=== PATIENT | female | born 1945 | race Caucasian/White ===

== ENCOUNTER 2020-05-12 11:01 | Outpatient (CLI) | payer MEDICARE, SELFPAY ==
--- NOTE | ~2020-05-12 | MM_ITS ---
EXAMINATION: MM screening bill BI w marco antonio HISTORY: Screening mammogram TECHNIQUE: Craniocaudal and mediolateral oblique 3-D tomosynthesis images were obtained and synthetic 2-D images were generated. CAD analysis was submitted and interpreted. COMPARISON: 03/01/2019, 03/31/2017, 04/13/2015 bilateral digital screening mammogram examinations BREAST PARENCHYMAL COMPOSITION: The breasts are almost entirely fatty. FINDINGS: There is no evidence of suspicious mass, calcification, or architectural distortion to sugg est malignancy in either breast. There has been no suspicious interval change. IMPRESSION: 1. No mammographic evidence of malignancy. 2. Recommend routine screening mammography in one year. BI-RADS Category 1: Negative Reviewed, dictated and finalized at location A. IC HEALTH ANALYST
== END 2020-05-12 11:02 | disposition home or self-care (01) ==
LOC: ANHIMG 11:03
PROVIDERS: PCP Family Medicine; Visit Provider Family Medicine
DX: Z12.31 Encounter for screening mammogram for malignant neoplasm of breast (principal)
CPT/HCPCS: 77063; 77067

== ENCOUNTER 2020-09-10 08:24 | Outpatient (CLI) | payer MEDICARE, SELFPAY ==
[2020-09-10 08:50] LABS: Hematocrit 39.5 % (37.0-47.0); Hemoglobin 12.3 g/dL (12.0-15.0); Mean Corpuscular HGB Conc 31.1 g/dl (32-36); Mean Corpuscular Hemoglobin 27.9 pg (26-34); Mean Corpuscular Volume 89.6 fl (80-100); Mean Platelet Volume 9.7 fl (7.4-10.4); Platelet Count Result 244 k/mm3 (150-375); Red Blood Count 4.41 M/mm3 (4.2-5.4); Red Cell Distribution Width 14.5 % (11.5-14.5); White Blood Count 8.6 K/mm3 (4.5-10.0)
[2020-09-10 08:59] LABS: Add Urine Microscopic? YES; Appearance Urine Clear (Clear); Bacteria Urine Trace /hpf; Bilirubin Urine Negative (Negative); Blood Urine Negative (Negative); Color Urine Yellow (Yellow); Glucose Urine UA Negative (Negative); Ketones Urine Negative (Negative); Leukocyte Esterase Ur 1+ LEU/UL (NEGATIVE); Mucus Urine Rare /lpf; Nitrate Urine Negative (Negative); Protein Urine Negative (Negative); RBC Urine 0-2 /hpf (0-2); Specific Grav Ur 1.014 (1.001-1.035); Squamous Epithelial Cell Urine Rare /hpf (Few); Urobilinogen Urine Negative mg/dL (<2.0); WBC Urine 0-3 /hpf (0-3)
[2020-09-10 09:13] LABS: Alanine Aminotransferase 19 U/L (4-35); Albumin Level 4.3 g/dL (3.5-5.1); Alkaline Phosphatase 55 U/L (38-126); Anion Gap 3 mmol/L (8-16); Aspartate Amino Transferase 24 U/L (14-36); Bilirubin,Total 0.3 mg/dL (0.2-1.3); Blood Urea Nitrogen 27 mg/dL (7-17); Calcium 9.7 mg/dL (8.4-10.2); Carbon Dioxide 34 mmol/L (22-30); Chloride 103 mmol/L (98-107); Cholesterol 171 mg/dL (0-200); Estimated Glomerular Filt Rate 49; Glucose 109 mg/dL (65-105); HDL Direct 50 mg/dL; Potassium 4.4 mmol/L (3.4-5.0); Sodium 140 mmol/L (137-145); Triglycerides 213 mg/dL (<150)
[2020-09-10 09:24] LABS: LDL Cholesterol Direct 72 mg/dL
[2020-09-10 09:42] LABS: Hemoglobin A1C 6.1 % (<5.7)
[2020-09-10 10:43] LABS: MALB Creatinine Ratio 12.1 mg/g (0-30); Microalbumin Urine Random 8.8 mg/L (0-16.7)
== END 2020-09-10 08:25 | disposition home or self-care (01) ==
LOC: ANHLAB 08:25
PROVIDERS: PCP Family Medicine; Visit Provider Family Medicine
DX: K76.0 Fatty (change of) liver, not elsewhere classified (principal); E78.2 Mixed hyperlipidemia; E11.59 Type 2 diabetes mellitus with other circulatory complications; Z00.00 Encounter for general adult medical examination without abnormal findings
CPT/HCPCS: 36415; 80053; 80061; 81001; 82043; 83036; 84443; 85027

== ENCOUNTER → 2020-09-13 09:37 | Outpatient (CLI) | payer MEDICARE, SELFPAY ==
--- NOTE | ~2020-09-13 | CT_ITS ---
EXAMINATION: CT lung screening DATE: 09/13/2020 10:25 INDICATION: Hx of tobacco dependence TECHNIQUE: Computed tomography (CT) of the chest was performed without intravenous contrast. Addition al 3D reconstructions utilizing coronal maximum intensity projection (MIP) were performed. Automated exposure control and iterative reconstruction technique were employed. The dose-length product was 34 3.67 mGy-cm. COMPARISON: 12/14/2018 FINDINGS: Consisting is a large calcified nodule in the left lower lobe along with large calcified left hilar l ymph nodes at a few small splenic calcifications, all consistent with old granulomatous disease. Unch anged mild linear atelectasis/scarring at the lingula. No pneumonia, new or enlarging pulmonary nodul es, pulmonary edema or pleural effusion. Heart size is normal. Atherosclerotic coronary artery calcif ications. Aortic valve calcification. Thoracic aorta is normal in caliber. No pathologically enlarged thoracic lymphadenopathy. Moderate thoracic and lower cervical spondylosis. IMPRESSION: 1. . Lung-RADS category 1: Negative. Continue annual screening with noncontrast low-dose chest CT in 12 months. Reviewed, dictated and finalized at location A.
== END ==
PROVIDERS: PCP Family Medicine; Visit Provider Family Medicine
DX: Z12.2 Encounter for screening for malignant neoplasm of respiratory organs (principal); Z87.891 Personal history of nicotine dependence
CPT/HCPCS: 71271

== ENCOUNTER 2021-02-19 11:53 | Outpatient (CLI) | payer MEDICARE, SELFPAY ==
[2021-02-19 12:25] LABS: Hemoglobin A1C 6.3 % (<5.7)
[2021-02-19 12:30] LABS: Potassium 4.3 mmol/L (3.4-5.0)
[2021-02-19 12:45] LABS: Alanine Aminotransferase 22 U/L (4-35); Albumin Level 4.7 g/dL (3.5-5.1); Alkaline Phosphatase 57 U/L (38-126); Anion Gap 8 mmol/L (8-16); Aspartate Amino Transferase 26 U/L (14-36); Bilirubin,Total 0.2 mg/dL (0.2-1.3); Blood Urea Nitrogen 28 mg/dL (7-17); Calcium 10.1 mg/dL (8.4-10.2); Carbon Dioxide 30 mmol/L (22-30); Chloride 105 mmol/L (98-107); Estimated Glomerular Filt Rate 48; Glucose 88 mg/dL (65-110); Sodium 143 mmol/L (137-145)
== END 2021-02-19 11:54 | disposition home or self-care (01) ==
PROVIDERS: PCP Family Medicine; Visit Provider Family Medicine
DX: E11.59 Type 2 diabetes mellitus with other circulatory complications (principal)
CPT/HCPCS: 36415; 80053; 83036

== ENCOUNTER 2021-08-27 11:35 | Outpatient (CLI) | payer MEDICARE, SELFPAY ==
[2021-08-27 11:53] LABS: Hematocrit 35.2 % (37.0-47.0); Mean Corpuscular HGB Conc 31.3 g/dl (32-36); Mean Corpuscular Hemoglobin 27.6 pg (26-34); Mean Corpuscular Volume 88.4 fl (80-100); Mean Platelet Volume 9.8 fl (7.4-10.4); Platelet Count Result 255 k/mm3 (150-375); Red Blood Count 3.98 M/mm3 (4.2-5.4); Red Cell Distribution Width 15.1 % (11.5-14.5); White Blood Count 10.8 K/mm3 (4.5-10.0)
[2021-08-27 12:03] LABS: Alanine Aminotransferase 19 U/L (4-35); Albumin Level 4.4 g/dL (3.5-5.1); Alkaline Phosphatase 70 U/L (38-126); Anion Gap 7 mmol/L (8-16); Aspartate Amino Transferase 32 U/L (14-36); Bilirubin,Total 0.3 mg/dL (0.2-1.3); Blood Urea Nitrogen 32 mg/dL (7-17); Calcium 9.8 mg/dL (8.4-10.2); Carbon Dioxide 30 mmol/L (22-30); Chloride 103 mmol/L (98-107); Estimated Glomerular Filt Rate 40; Glucose 107 mg/dL (65-110); Hemoglobin A1C 6.1 % (<5.7); Potassium 4.2 mmol/L (3.4-5.0); Sodium 140 mmol/L (137-145)
== END 2021-08-27 11:36 | disposition home or self-care (01) ==
PROVIDERS: PCP Family Medicine; Visit Provider Family Medicine
DX: E11.59 Type 2 diabetes mellitus with other circulatory complications (principal); I10 Essential (primary) hypertension; R00.0 Tachycardia, unspecified
CPT/HCPCS: 36415; 80053; 83036; 84443; 85027

== ENCOUNTER 2021-09-04 08:37 | Outpatient (CLI) | payer MEDICARE, SELFPAY ==
--- NOTE | ~2021-09-04 | MM_ITS ---
EXAMINATION: MM screening bill BI w marco antonio HISTORY: Screening mammogram TECHNIQUE: Craniocaudal and mediolateral oblique 3-D tomosynthesis images were obtained and synthetic 2-D images were generated. CAD analysis was submitted and interpreted. COMPARISON: 05/12/2020, 03/01/2019, 03/31/2017 bilateral screening mammogram examinations BREAST PARENCHYMAL COMPOSITION: The breasts are almost entirely fatty. FINDINGS: There is no evidence of suspicious mass, calcification, or architectural distortion to sugg est malignancy in either breast. There has been no suspicious interval change. IMPRESSION: 1. No mammographic evidence of malignancy. 2. Recommend routine screening mammography in one year. BI-RADS Category 1: Negative Reviewed, dictated and finalized at location A.
== END 2021-09-04 08:38 | disposition home or self-care (01) ==
LOC: ANHIMG 08:40
PROVIDERS: PCP Family Medicine; Visit Provider Family Medicine
DX: Z12.31 Encounter for screening mammogram for malignant neoplasm of breast (principal)
CPT/HCPCS: 77063; 77067

== ENCOUNTER → 2021-09-27 02:13 | Outpatient (CLI) | payer MEDICARE, SELFPAY ==
[2021-09-27 10:56] LABS: Influenza A QL RT-PCR Negative (Negative); Influenza B QL RT-PCR Negative (Negative); SARS-CoV-2 RNA PCR Positive
== END ==
PROVIDERS: PCP Family Medicine; Visit Provider Family Medicine
DX: U07.1 COVID-19 (principal); R50.9 Fever, unspecified
CPT/HCPCS: 87502; C9803; U0003; U0005

== ENCOUNTER 2021-09-27 07:25 | Outpatient (CLI) | payer MEDICARE, SELFPAY ==
--- NOTE | 2021-09-27 13:43 | WPDPFTINT ---
PFT Procedure Performed PFT Procedure Performed Spirometry with Pre/Post Bronchodilator Plethysmography (Lung Vol) Diffusing Cap (DLCO) Flow Vol Loop PFT Interpretation This is a pulmonary function test with pre and post-bronchodilator spirometry, plethysmography and diffusing capacity. The test was performed and results interpreted in accordance with the 2019 and 2005 ATS/ERS Task Force guidelines respectively using the Global Lung Function Initiative-2012 reference equations. Patient demonstrated good effort and cooperation. Reproducibility criteria were met. The quality of the pre bronchodilator spirometry maneuver was Grade A and post bronchodilator spirometry maneuver was Grade A. Findings: Spirometry: There is decreased maximal expiratory airflow at all lung volumes with concave expiratory flow tracing. The pre bronchodilator FVC is 1.93 L, 67% predicted. The pre bronchodilator FEV1 is 1.25 L, 57% predicted. The pre bronchodilator FEV1: FVC ratio 65%. The post bronchodilator FVC is 2.08 L, representing an 8% increase. The post bronchodilator FEV1 is 1.42 L, representing a 180 mL increase which corresponds to a 13% increase. The post bronchodilator FEV1: FVC ratio is 68%. Plethysmography: The total lung capacity is 5.63 L, 105% predicted. The functional residual capacity is 3.85 L, 124% predicted. The residual volume is 3.48 L, 145% predicted. Diffusing capacity: The diffusing capacity unadjusted for hemoglobin and carboxyhemoglobin is 17.8, 86% predicted. The diffusing capacity adjusted for alveolar volume is 4.66, 113% predicted. Impression: There is a moderately severe obstructive abnormality without significant improvement after inhaling a single dose of albuterol as the absolute increase in post bronchodilator FEV1 was less than 200 mL. The increase in residual volume is consistent with air trapping from an obstructive abnormality. The diffusing capacity is normal. There are no prior studies for comparison
== END 2021-09-27 07:26 | disposition home or self-care (01) ==
PROVIDERS: PCP Family Medicine; Visit Provider Family Medicine
DX: R06.00 Dyspnea, unspecified (principal); R94.2 Abnormal results of pulmonary function studies
CPT/HCPCS: 87502; 94060; 94726; 94729; C9803; U0003; U0005

== ENCOUNTER 2022-01-21 16:55 | Outpatient (CLI) | payer MEDICARE, SELFPAY ==
[2022-01-21 17:19] LABS: Hematocrit 35.2 % (37.0-47.0); Mean Corpuscular HGB Conc 31.3 g/dl (32-36); Mean Corpuscular Hemoglobin 27.4 pg (26-34); Mean Corpuscular Volume 87.8 fl (80-100); Mean Platelet Volume 9.6 fl (7.4-10.4); Platelet Count Result 276 k/mm3 (150-375); Red Blood Count 4.01 M/mm3 (4.2-5.4); Red Cell Distribution Width 15.2 % (11.5-14.5); White Blood Count 9.3 K/mm3 (4.5-10.0)
[2022-01-21 17:29] LABS: Add Urine Microscopic? YES; Appearance Urine Clear (Clear); Bilirubin Urine Negative (Negative); Blood Urine 2+ (Negative); Color Urine Yellow (Yellow); Glucose Urine UA Negative (Negative); Ketones Urine Negative (Negative); Leukocyte Esterase Ur 3+ LEU/UL (NEGATIVE); Nitrate Urine Negative (Negative); Protein Urine Negative (Negative); Specific Grav Ur 1.015 (1.001-1.035); Urobilinogen Urine 0.2 mg/dL (<2.0); pH Urine 5.5 (5.0-9.0)
[2022-01-21 17:44] LABS: LDL Cholesterol Direct 69 mg/dL
[2022-01-21 17:50] LABS: Alanine Aminotransferase 25 U/L (6-35); Albumin Level 4.2 g/dL (3.5-5.1); Alkaline Phosphatase 67 U/L (38-126); Anion Gap 12 mmol/L (8-16); Aspartate Amino Transferase 25 U/L (14-36); Bilirubin,Total 0.3 mg/dL (0.2-1.3); Blood Urea Nitrogen 41 mg/dL (7-17); Calcium 10.4 mg/dL (8.4-10.2); Carbon Dioxide 28 mmol/L (22-30); Chloride 102 mmol/L (98-107); Cholesterol 170 mg/dL (0-200); Estimated Glomerular Filt Rate 31; Glucose 108 mg/dL (65-110); HDL Direct 44 mg/dL; Potassium 4.2 mmol/L (3.4-5.0); Sodium 142 mmol/L (137-145); Triglycerides 267 mg/dL (<150)
[2022-01-21 18:01] LABS: Bacteria Urine Trace /hpf; Mucus Urine Rare /lpf; RBC Urine >75 /hpf (0-2); Squamous Epithelial Cell Urine Occasional /hpf (Few); WBC Urine >75 /hpf (0-3)
== END 2022-01-21 16:56 | disposition home or self-care (01) ==
PROVIDERS: PCP Family Medicine; Visit Provider Family Medicine
DX: E11.59 Type 2 diabetes mellitus with other circulatory complications (principal); E78.2 Mixed hyperlipidemia; I10 Essential (primary) hypertension
CPT/HCPCS: 36415; 80053; 80061; 81001; 83036; 84443; 85027

== ENCOUNTER 2022-01-30 15:50 | Outpatient (CLI) | payer MEDICARE, SELFPAY ==
--- NOTE | ~2022-01-30 | CT_ITS ---
EXAMINATION:CT lung screening DATE: 01/30/2022 16:09 INDICATION: Personal history of nicotine dependence. Smoker who quit 12 years ago with 40 pack year h istory. TECHNIQUE: Computed tomography (CT) of the chest was performed without intravenous contrast. Automate d exposure control and iterative reconstruction technique were employed. The dose-length product (DLP ) was 249.00 mGy-cm. COMPARISON: Chest CT 09/13/2020 FINDINGS: The lungs demonstrate mild atelectasis. A calcified left lung nodule and calcified left hil ar lymph nodes are consistent with old granulomatous disease. There is a stable 3 mm nodule in left l ower lobe. There is a stable 2 mm nodule in left lower lobe. No pleural effusion. The heart size is n ormal. There are coronary artery calcifications. No pericardial effusion. Calcifications in the splee n are consistent with old granulomatous disease. There is moderate thoracic spondylosis. There is mil d chronic height loss of T6 vertebral body. IMPRESSION: 1. Lung-RADS category 2: Benign appearance or behavior. Continue annual screening with noncontrast lo w-dose chest CT in 12 months. Reviewed, dictated and finalized at location A. IMPRESSION: 1. Lung-RADS category 2: Benign appearance or behavior. Continue annual screeni ng with noncontrast low-dose chest CT in 12 months.
== END 2022-01-30 15:51 | disposition home or self-care (01) ==
LOC: ANHIMG 15:58
PROVIDERS: PCP Family Medicine; Visit Provider Family Medicine
DX: Z12.2 Encounter for screening for malignant neoplasm of respiratory organs (principal); Z87.891 Personal history of nicotine dependence
CPT/HCPCS: 71271

== ENCOUNTER 2022-07-02 17:07 | Outpatient (CLI) | payer MEDICARE, SELFPAY ==
[2022-07-02 17:29] LABS: Basophils Absolute Auto 0.1 K/mm3 (0.0-0.1); Basophils Percent Auto 0.4 % (0.2-1.2); Eosinophils Absolute Auto 0.3 K/mm3 (0-0.3); Eosinophils Percent Auto 1.9 % (0-4.4); Hematocrit 32.5 % (37.0-47.0); Hemoglobin 10.2 g/dL (12.0-15.0); Immature Granulocyte Absolute 0.15 K/mm3 (0.00-0.031); Immature Granulocyte Percent A 0.9 % (0-0.5); Lymphocytes Absolute Auto 2.64 K/mm3 (0.9-3.2); Lymphocytes Percent Auto 16.6 % (18.3-44.2); Mean Corpuscular HGB Conc 31.4 g/dl (32-36); Mean Corpuscular Hemoglobin 27.9 pg (26-34); Mean Corpuscular Volume 88.8 fl (80-100); Mean Platelet Volume 8.9 fl (7.4-10.4); Monocytes Absolute Auto 1.2 K/mm3 (0.1-0.6); Monocytes Percent Auto 7.6 % (2.6-8.5); Neutrophils Absolute Auto 11.5 K/mm3 (1.3-6.7); Neutrophils Percent Auto 72.6 % (45.5-73.1); Platelet Count Result 328 k/mm3 (150-375); Red Blood Count 3.66 M/mm3 (4.2-5.4); Red Cell Distribution Width 15.1 % (11.5-14.5); White Blood Count 15.9 K/mm3 (4.5-10.0)
[2022-07-02 17:47] LABS: Alanine Aminotransferase 49 U/L (6-35); Albumin Level 3.8 g/dL (3.5-5.1); Alkaline Phosphatase 124 U/L (38-126); Anion Gap 6 mmol/L (8-16); Aspartate Amino Transferase 34 U/L (14-36); Bilirubin,Total 0.4 mg/dL (0.2-1.3); Blood Urea Nitrogen 32 mg/dL (7-17); Calcium 9.2 mg/dL (8.4-10.2); Carbon Dioxide 28 mmol/L (22-30); Chloride 104 mmol/L (98-107); Estimated Glomerular Filt Rate 31; Glucose 114 mg/dL (65-110); Sodium 138 mmol/L (137-145)
[2022-07-02 17:58] LABS: Hemoglobin A1C 5.9 % (<5.7)
== END 2022-07-02 17:08 | disposition home or self-care (01) ==
LOC: ANHLAB 17:09
PROVIDERS: PCP Family Medicine; Visit Provider Physician Assistant
DX: E11.59 Type 2 diabetes mellitus with other circulatory complications (principal); E78.2 Mixed hyperlipidemia; K76.0 Fatty (change of) liver, not elsewhere classified; I10 Essential (primary) hypertension; R00.0 Tachycardia, unspecified
CPT/HCPCS: 36415; 80053; 83036; 84443; 85025

== ENCOUNTER 2022-07-08 11:56 | Outpatient (NON) | payer MEDICARE, SELFPAY ==
[2022-07-08 14:51] LABS: Estimated Glomerular Filt Rate 29
[2022-07-08 15:03] LABS: Basophils Absolute Auto 0.1 K/mm3 (0.0-0.1); Basophils Percent Auto 0.4 % (0.2-1.2); Eosinophils Absolute Auto 0.2 K/mm3 (0-0.3); Eosinophils Percent Auto 1.7 % (0-4.4); Hematocrit 33.3 % (37.0-47.0); Hemoglobin 10.2 g/dL (12.0-15.0); Immature Granulocyte Absolute 0.07 K/mm3 (0.00-0.031); Immature Granulocyte Percent A 0.6 % (0-0.5); Lymphocytes Absolute Auto 3.27 K/mm3 (0.9-3.2); Lymphocytes Percent Auto 28.7 % (18.3-44.2); Mean Corpuscular HGB Conc 30.6 g/dl (32-36); Mean Corpuscular Volume 88.1 fl (80-100); Mean Platelet Volume 9.5 fl (7.4-10.4); Monocytes Absolute Auto 1.4 K/mm3 (0.1-0.6); Monocytes Percent Auto 12.2 % (2.6-8.5); Neutrophils Absolute Auto 6.4 K/mm3 (1.3-6.7); Neutrophils Percent Auto 56.4 % (45.5-73.1); Platelet Count Result 437 k/mm3 (150-375); Red Blood Count 3.78 M/mm3 (4.2-5.4); White Blood Count 11.4 K/mm3 (4.5-10.0)
== END 2022-07-08 11:57 | disposition home or self-care (01) ==
LOC: ANHLAB 08-04 11:57
PROVIDERS: Physician Assistant; PCP Family Medicine; Visit Provider Family Medicine
DX: D72.829 Elevated white blood cell count, unspecified (principal)
CPT/HCPCS: 85025

== ENCOUNTER 2022-07-09 16:39 | Outpatient (CLI) | payer MEDICARE, SELFPAY ==
[2022-07-09 17:34] LABS: Appearance Urine Clear (Clear); Bilirubin Urine Negative (Negative); Blood Urine 2+ (Negative); Color Urine Yellow (Yellow); Glucose Urine UA Negative (Negative); Ketones Urine Negative (Negative); Leukocyte Esterase Ur 1+ LEU/UL (NEGATIVE); Nitrate Urine Negative (Negative); Protein Urine Trace mg/dL (Negative); Specific Grav Ur 1.015 (1.001-1.035); Urobilinogen Urine 0.2 mg/dL (<2.0)
[2022-07-09 17:47] LABS: Bacteria Urine 4+ /hpf; Mucus Urine Rare /lpf; RBC Urine 21-50 /hpf (0-2); Squamous Epithelial Cell Urine Rare /hpf (Few)
[2022-07-09 18:07] LABS: Add Urine Microscopic? YES
== END 2022-07-09 16:40 | disposition home or self-care (01) ==
LOC: ANHLAB 16:41
PROVIDERS: PCP Family Medicine; Visit Provider Physician Assistant
DX: D72.829 Elevated white blood cell count, unspecified (principal); R31.9 Hematuria, unspecified; R06.02 Shortness of breath; I12.9 Hypertensive chronic kidney disease with stage 1 through stage 4 chronic kidney disease, or unspecified chronic kidney disease; E11.22 Type 2 diabetes mellitus with diabetic chronic kidney disease; N18.4 Chronic kidney disease, stage 4 (severe); E78.2 Mixed hyperlipidemia
CPT/HCPCS: 81001; 87077; 87086; 87186

== ENCOUNTER 2022-07-17 14:22 | Outpatient (CLI) | payer MEDICARE, SELFPAY ==
[2022-07-17 15:01] LABS: Estimated Glomerular Filt Rate 26
== END 2022-07-17 14:23 | disposition home or self-care (01) ==
PROVIDERS: PCP Family Medicine; Visit Provider Physician Assistant
DX: R06.09 Other forms of dyspnea (principal); D72.829 Elevated white blood cell count, unspecified
CPT/HCPCS: 85025

== ENCOUNTER 2022-12-23 15:02 | Outpatient (CLI) | payer MEDICARE, SELFPAY ==
--- NOTE | ~2022-12-23 | MM_ITS ---
EXAMINATION: MM screening bill BI w marco antonio HISTORY: Screening mammogram TECHNIQUE: Craniocaudal and mediolateral oblique 3-D tomosynthesis images were obtained and synthetic 2-D images were generated. CAD analysis was submitted and interpreted. COMPARISON: 09/04/2021, 05/12/2020 BREAST PARENCHYMAL COMPOSITION:There are scattered areas of fibroglandular density. FINDINGS: No suspicious mass, calcification, or architectural distortion are identified in either christian ast to suggest malignancy. There has been no suspicious interval change. IMPRESSION: No mammographic evidence of malignancy. Recommend routine screening mammography in one year. BI-RADS Category 1: Negative Reviewed, dictated and finalized at location .
== END 2022-12-23 15:03 | disposition home or self-care (01) ==
PROVIDERS: PCP Family Medicine; Visit Provider Family Medicine
DX: Z12.31 Encounter for screening mammogram for malignant neoplasm of breast (principal)
CPT/HCPCS: 77063; 77067

== ENCOUNTER 2023-01-13 12:01 | Outpatient (CLI) | payer MEDICARE, SELFPAY ==
--- NOTE | ~2023-01-13 | XR_ITS ---
EXAMINATION: XR foot RT min 3V DATE: 01/13/2023 12:31 INDICATION: Right foot pain and swelling TECHNIQUE: Dorsoplantar, two oblique and lateral views of the right foot were obtained. COMPARISON: None. FINDINGS: Bone alignment is normal. No fracture. Polyarticular osteoarthritis, moderate severity at the first i nterphalangeal and third proximal interphalangeal joints and mild at the majority the remaining joint s in the mid and forefoot. Juxta articular erosion with sclerotic margins and overhanging edges at th e medial head of the first proximal phalanx with appearance most suggestive of gout. Additional small er erosions at the lateral side of the head of the first proximal phalanx and adjacent lateral base o f the first distal phalanx. Moderate-sized Achilles and plantar calcaneal spurs. Soft tissues are unr emarkable. IMPRESSION: 1. Erosions at the great toe with appearance and location is most suggestive of gout. 2. Mild to moderate polyarticular osteoarthritis in the right mid and forefoot. Reviewed, dictated and finalized at location A.
== END 2023-01-13 12:02 | disposition home or self-care (01) ==
LOC: ANHIMG 12:07
PROVIDERS: PCP Family Medicine; Visit Provider Physician Assistant
DX: M79.89 Other specified soft tissue disorders (principal); M79.674 Pain in right toe(s); M79.671 Pain in right foot; M19.071 Primary osteoarthritis, right ankle and foot
CPT/HCPCS: 73630

== ENCOUNTER 2023-01-31 09:54 | Outpatient (CLI) | payer MEDICARE, SELFPAY ==
--- NOTE | ~2023-01-31 | CT_ITS ---
CT Scan of the Chest without Contrast: Clinical Indication: Lung cancer screening, smoking history Technique: Contiguous sections were acquired throughout the chest without intravenous contrast. Dose reduction technique was used on this scan by utilizing automated exposure control and iterative recon struction technique. The dose-length product (DLP) was 305.49 mGy-cm. COMPARISON: 01/30/2022 and 09/13/2020 Findings: There is no evidence of any significant mediastinal, hilar or axillary lymphadenopathy. Calcified lef t hilar lymph nodes are present. Atherosclerotic calcifications of the aorta are present. There is no evidence of pleural or pericardial effusion. Large calcified left basilar granuloma is present. There is focal scarring at the right lung base. Th ere is additional focal scarring at the lingula. Images through the upper abdomen reveal no abnormalities. Impression: Lung RADS 2: Benign appearance. 12 month follow-up screening CT advised. Reviewed, dictated and finalized at [facility]. Impression: Lung RADS 2: Benign appearance. 12 month follow-up screening CT advised.
== END 2023-01-31 09:55 | disposition home or self-care (01) ==
LOC: ANHIMG 09:58
PROVIDERS: PCP Family Medicine; Visit Provider Physician Assistant
DX: Z12.2 Encounter for screening for malignant neoplasm of respiratory organs (principal); Z87.891 Personal history of nicotine dependence
CPT/HCPCS: 71271

== ENCOUNTER 2024-04-04 11:41 | Outpatient (CLI) | payer MEDICARE, SELFPAY ==
[2024-04-04 12:19] LABS: Hematocrit 29.7 % (37.0-47.0); Hemoglobin 9.1 g/dL (12.0-15.0); Mean Corpuscular HGB Conc 30.6 g/dl (32-36); Mean Corpuscular Hemoglobin 27.4 pg (26-34); Mean Corpuscular Volume 89.5 fl (80-100); Mean Platelet Volume 9.7 fl (7.4-10.4); Platelet Count Result 336 k/mm3 (150-375); Red Blood Count 3.32 M/mm3 (4.2-5.4); Red Cell Distribution Width 15.1 % (11.5-14.5); White Blood Count 9.9 K/mm3 (4.5-10.0)
[2024-04-04 12:32] LABS: Alanine Aminotransferase 15 U/L (6-35); Albumin Level 4.1 g/dL (3.5-5.1); Alkaline Phosphatase 106 U/L (38-126); Anion Gap 8 mmol/L (4-12); Aspartate Amino Transferase 23 U/L (14-36); Bilirubin,Total 0.4 mg/dL (0.2-1.3); Blood Urea Nitrogen 47 mg/dL (7-17); Calcium 9.8 mg/dL (8.4-10.2); Carbon Dioxide 26 mmol/L (22-30); Chloride 105 mmol/L (98-107); Cholesterol 156 mg/dL (0-200); Estimated Glomerular Filt Rate 24; Glucose 96 mg/dL (65-110); HDL Direct 42 mg/dL; Potassium 4.2 mmol/L (3.4-5.0); Sodium 139 mmol/L (137-145); Triglycerides 226 mg/dL (<150)
[2024-04-04 12:42] LABS: LDL Cholesterol Direct 60 mg/dL
[2024-04-04 13:13] LABS: Hemoglobin A1C 5.9 % (<5.7)
[2024-04-04 13:31] LABS: Creatinine Urine 87.9 mg/dL
[2024-04-04 13:38] LABS: MALB Creatinine Ratio 53.1 mg/g (0-30); Microalbumin Urine Random 46.7 mg/L (0-16.7)
== END 2024-04-04 11:42 | disposition home or self-care (01) ==
PROVIDERS: PCP Family Medicine; Visit Provider Family Medicine
DX: E11.59 Type 2 diabetes mellitus with other circulatory complications (principal); E78.2 Mixed hyperlipidemia; I12.9 Hypertensive chronic kidney disease with stage 1 through stage 4 chronic kidney disease, or unspecified chronic kidney disease; E11.22 Type 2 diabetes mellitus with diabetic chronic kidney disease; N18.4 Chronic kidney disease, stage 4 (severe); Z68.28 Body mass index [BMI] 28.0-28.9, adult
CPT/HCPCS: 36415; 80053; 80061; 82043; 83036; 84443; 85027

== ENCOUNTER 2024-08-19 12:03 | Outpatient (NON) | payer MEDICARE, SELFPAY ==
--- OUTSIDE RECORDS SUMMARY | 2024-08-19 12:40 | XMS_ITS | Clinical Summary ---
Author Organization [facility] Facility Address [address] [place] [address] Care Team Providers Care Prison Warden Name Role Phone Misael Montaño MD Primary Care Provider [phone] Allergies Active Allergy Reactions Criticality Noted Date Comments Adhesive Tape 07/29/2022 Antihistamines, Diphenhydramine-Type Rash Low 07/29/2022 Aspirin 07/29/2022 Clindamycin GI intolerance 07/29/2022 Doxycycline 07/29/2022 Indomethacin Vomiting High 07/29/2022 Salicylates Rash Low 07/29/2022 Sulfamethizole 07/29/2022 Trimethoprim 07/29/2022 Medications Cabool 3 1000 MG capsule Take 1 capsule by mouth 1 (one) time each day Active lisinopril 20 MG tablet Take 20 mg by mouth 1 (one) time each day Active atorvastatin (LIPITOR) 40 MG tablet Take 40 mg by mouth 1 (one) time each day Active metFORMIN XR (GLUCOPHAGE-XR) 500 MG 24 hr tablet Take 500 mg by mouth 1 (one) time each day with dinner Do not crush, chew, or split. Active Multiple Vitamin (multivitamin) capsule Take 1 capsule by mouth in the morning. Active Active Problems No known active problems Family History Medical History Relation Comments Heart disease Father No Known Problems Mother Kidney disease Sister 1 No Known Problems Sister 2 Relation Status Comments Father Mother Sister 1 Sister 2 Alive Social History Tobacco Use Types Packs/Day Years Used Date Smoking Tobacco: Former Cigarettes 0.8 50 Smokeless Tobacco: Never Tobacco Cessation:Counseling Given: Not Answered Alcohol Use Standard Drinks/Week Comments Not Currently 0 (1 standard drink = 0.6 oz pur e alcohol) Comments Unknown Sex and Gender Information Value Date Recorded Sex Assigned at Not on file Legal Sex Female 1:57 PM EST Gender Identity Not on file Sexual Orientation Not on file Last Filed Vital Signs Vital Sign Reading Time Taken Comments Blood Pressure 109/76 09/29/2022 4:25 PM CDT Pulse 107 09/29/2022 4:25 PM CDT Temperature 36.8 C (98.2 F) 09/29/2022 4:25 PM CDT Respiratory Rate - - Oxygen Saturation 93% 09/29/2022 4:25 PM CDT Inhaled Oxygen Concentration - - Weight 84.6 kg (186 lb 8 oz) 09/29/2022 4:25 PM CDT Height 167.6 cm (5' 6 ) 09/29/2022 4:25 PM CDT Body Mass Index 30.1 09/29/2022 4:25 PM CDT Plan of Treatment Health Maintenance Due Date Last Done Comments Pneumococcal Vaccine: 65+ Ye ars (1 of 2 - PCV) 12/05/1951 Influenza Vaccine (#1) 2024 Hepatitis B Vaccine Aged Out No longe r eligible based on patient's age to complete this topic Insurance [id number] MEDICARE Care Teams Prison Warden Relationship Specialty Start Date End Date Misael Montaño MD [address] [place] [address] PCP - General Family Medicine 07/29/22
--- OUTSIDE RECORDS SUMMARY | 2024-08-19 12:40 | XMS_ITS | Continuity of Care Document ---
Author Organization [facility] Address [id number] [place] [address] [address] [place] [address] Phone Care Team Providers Care Excellence Consultant Name Role Phone Hardy RICHEY, Alfred Unavailable Unavaila ble Procedures Procedure Date CATARACT SURG W/IOL, 1 STAGE CATARACT SURG W/IOL, 1 STAGE EYE EXAM, NEW PATIENT OPHTHALMIC BIOMETRY OPHTHALMIC BIOMETRY Advance Directives Directive Yes / No Effective Date File Name No Information Encounters Encounter Description Practice Location Reason(s) For Visit Diagnoses Date Provider Providers Copied on Encounter Ophthalmology [facility], [address] [facility], [place], [place], [address], tel:[phone] [place] [address] No Information 9 Hardy Simon. [address], [address], [place], [place], [address], [place]. tel:[phone] Referring Provider: Alfred benítez, [address], [place], [address] . tel:[phone] Ophthalmology [facility], [address] [place], [place] [address], [place], [place], [address], tel:[phone] [address] [place] [address] No Information 9 Hardy Smion. [address], [address], [place], [place], [address], [place]. tel:[phone] Referring Provider: Alfred benítez, [address], [place], [address] . tel:[phone] [facility], [address], [place], [place], [address], [place] tel:[phone] LIZZETTE Chambers No Information 9 Hardy Simon. [address], [address], [place], [place], [address], . tel:[phone] Referring Provider: Alfred benítez, [address], [place], [address] . tel:[phone] Family History Family Member Type Diagnosis Age At Onset No Information Payers Payer name Insurance type Covered republican ID Authoriza tion(s) Medicare Complete Advantage [facility] [id number] Social History Type Description Quantity Date Captured [...]
--- OUTSIDE RECORDS SUMMARY | 2024-08-19 12:40 | XMS_ITS | Clinical Summary ---
Author Organization [facility] Address [address] [place] [address] Care Team Providers Care Color Maker Name Role Phone Misael Montaño MD Primary Care Provider Allergies Active Allergy Reactions Criticality Noted Date Comments Aspirin Stomach upset Reaction: GI UPSET, Medications omega-3 fatty acids-fish oil 300-1,000 mg capsule Take 2 g by mouth daily. Active multivitamin capsule Take 1 capsule by mouth daily. Active lisinopril (PRINIVIL,ZESTR IL) 10 mg tablet Take 10 mg by mouth daily. Active atorvastatin (LIPITOR) 10 mg tablet Take 10 mg by mouth daily. Active oxybutynin (DITROPAN) 5 mg tablet Take 5 mg by mouth 2 (two) times a day. Active metFORMIN (GLUCOPHAGE) 500 mg tablet Take 500 mg by mouth 2 (two) times a day with meals. 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 Gender Identity Not on file Sexual Orientation Not on file Obstetrics History Last Filed Vital Signs Vital Sign Reading Time Taken Comments Blood Pressure 118/61 02/09/2018 11:55 AM CDT Pulse 84 02/09/2018 11:55 AM CDT Temperature 36.7 C (98 F) 02/09/2018 10:05 AM CDT Respiratory Rate 20 02/09/2018 11:55 AM CDT Oxygen Saturation 97% 02/09/2018 11:55 AM CDT Inhaled Oxygen Concentration - - Weight 97.1 kg (214 lb) 02/09/2018 10:05 AM CDT Height 167.6 cm (5' 6 ) 02/09/2018 10:05 AM CDT Body Mass Index 34.54 02/09/2018 10:05 AM CDT Plan of Treatment Health Maintenance Due Date Last Done Comments Depression Screening 1945 Fall Risk Assessment 1945 Hepatitis C Screening 1945 Osteoporosis Screening-Bone Density Scan 1945 DTaP/Tdap/Td Vaccine (1 - Tdap) 1956 Hepatitis B Screening 12/05/1963 Pneumococcal vaccine 65+ (1 of 1 - PCV) 12/05/1995 Zoster Vaccine (1 of 2) 12/05/1995 Well Visit 65+ 2010 Influenza Vaccine (#1) 2024 0, 03/30/2017, 04/12/2015, Additional history exists Colon Cancer Screening-CT Colonography Discontinued 02/09/2018, 09/16/2013 Colon Cancer Screening-Colonoscopy Discontinued 02/09/2018, 09/16/2013 Colon Cancer Screening-DNA Stool Discontinued 02/10/20 18, 09/16/2013 Colon Cancer Screening-FIT Discontinued 02/09/2018, Colon Cancer Screening-FOBT Discontinued 02/09/2018, 0 09/16/2013 Colon Cancer Screening-Sigmoidoscopy Discontinued 02/09/2018, 09/16/2013 Colorectal Cancer Screening Discontinued Procedures Procedure Name Priority Date/Time Associated Diagnosis Comments COLONOSCOPY 02/09/2018 10:41 AM CDT from Last 3 Months or Most Recently Relevant to Health Maintenance Results * COLONOSCOPY (02/09/2018 10:41 AM CDT) Anatomical Region Laterality Modality Other Narrative Procedure Note Warren Perkins MD - 02/09/2018 10:41 AM CDT [facility] Patient Name: Connie Ambrose Procedure Date: 02/09/2018 10:41 AM Date of : 1945 Admit Type: Outpatient Age: 72 Gender: Female Attending MD: Warren Perkins M.D. [facility] Note Status: Finalized Procedure: Colonoscopy Indications: Last colonoscopy: August 2013, Positive Cologuardtest Referring MD: Misael Montaño MD Providers: Warren Perkins M.D. Impression: - Hemorrhoids found on perianal exam. - Diverticulosis in the sigmoid colon. - No specimens collected. Recommendation: - Discharge patient to home. - Resume previous diet. - Continue present medications. - Repeat colonoscopy in 5 years for surveillance. - Return to primary care physician as previously scheduled. Medicines: Propofol per Anesthesia Complications: No immediate complications. Estimated Blood Loss: Estimated blood loss: none. Procedure: The benefits, risks and alternatives of theprocedure and sedation were discussed and informed consent was obtained. All questions were answered. Please referto the signed informed consent document in the medical record. The scope was passed under direct vision.The Colonoscope [id number] was introducedthrough the anus and advanced to the the cecum, identifiedby appendiceal orifice and ileocecal valve. The colonoscopy was performed without difficulty. The patient tolerated the procedure well. The quality of the bowel preparation was excellent. Findings: Hemorrhoids were found on perianal exam. Multiple small-mouthed diverticula were found in the sigmoid colon. The exam was otherwise normal throughout the examined colon. Electronically signed by Warren Perkins M.D. Warren Perkins M.D. 02/09/2018 11:18:34 AM Number of Addenda: 0 Note Initiated On: 02/09/2018 10:41 AM Procedure Code(s): --- Professional --- 54643, Colonoscopy, flexible; diagnostic, including collection of specimen(s) by brushing or washing, when performed (separateprocedure) Diagnosis Code(s): --- Professional --- K57.30, Diverticulosis of large intestine without perforation orabscess without bleeding R19.5, Other fecal abnormalities K64.9, Unspecified hemorrhoids CPT copyright 2017 [employer]. All rights reserved. The codes documented in this report are preliminary and upon remote coders reviewmay be revised to meet current compliance requirements. Recognized by the [employer] Gastro[employer] for promoting quality in endoscopy Warren Perkins MD ENDOSCOPY PROCEDURES Final Re sult from Last 3 Months or Most Recently Relevant to Health Maintenance [facility] UHC MEDICARE ADVANTAGE Advance Directives For more information, please contact: [phone] * Full Code (Latest Code Status on File) Date Activated Date Inactivated Comments 02/09/2018 9:55 AM 02/09/2018 2:01 PM Care Teams Color Maker Relationship Specialty Start Date End Date Misael Montaño MD [address] [facility] [address] [place] [address] PCP - General Family Medicine 01/12/18
--- OUTSIDE RECORDS SUMMARY | 2024-08-19 12:40 | XMS_ITS | Referral Summary ---
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 Gender Identity Not on file Sexual Orientation [...] 02/09/2018 10:05 AM CDT Plan of Treatment Not on file Procedures Procedure Name Priority Date/Time Associated Diagnosis Comments COLONOSCOPY 02/09/2018 10:41 AM CDT from Last 3 Months or Most Recently Relevant to Health Maintenance Results * COLONOSCOPY (02/09/2018 10:41 AM CDT) Anatomical Region Laterality Modality Other Narrative Procedure Note Warren Perkins MD - 02/09/2018 10:41 AM CDT [facility] Patient Name: Connie Ambrose Procedure Date: 02/09/2018 10:41 AM Date of : 1945 Admit Type: Outpatient Age: 72 Gender: Female Attending MD: Warren Perkins M.D. Room: [facility] ENDOSCOPY ROOM 1 Note Status: Finalized Procedure: [...] scope was passed under direct vision.The Colonoscope [id number] was introducedthrough the anus and advanced to [...] 10:41 AM Procedure Code(s): --- Professional --- 14252, Colonoscopy, flexible; diagnostic, including collection of specimen(s) by brushing or washing, when performed (separateprocedure) Diagnosis Code(s): --- Professional --- K57.30, Diverticulosis of large intestine without perforation orabscess without bleeding R19.5, Other fecal abnormalities K64.9, Unspecified hemorrhoids CPT copyright 2017 [employer]. All rights reserved. The codes documented in this report are preliminary and upon utility maintenance worker reviewmay be revised to meet current compliance requirements. Recognized by the [employer] Gastrointestinal [employer]oscopy for promoting quality in endoscopy Warren Perkins MD ENDOSCOPY PROCEDURES Final Re sult from Last 3 Months or Most Recently Relevant to Health Maintenance Insurance [facility] MDCR HMO REF UHC MEDICARE ADVANTAGE Advance Directives For more information, please contact: [phone] * Full Code (Latest Code Status on File) Date Activated Date Inactivated Comments 02/09/2018 9:55 AM 02/09/2018 2:01 PM Care Teams Cook Tortilla Relationship Specialty Start Date End Date Misael Montaño MD [address] [facility] [address] [place] [address] PCP - General Family Medicine 01/12/18
--- OUTSIDE RECORDS SUMMARY | 2024-08-19 12:40 | XMS_ITS | Continuity of Care Document ---
Author Organization [facility] Address [address] [place] [address] Phone Care Team Providers Care Fretted String Instrument Repairer Name Role Phone Saab OD, Arthur Unavailable Unavailable Advance Directives Directive Yes / No Effective Date File Name No Information Encounters Encounter Description Practice Location Reason(s) For Visit Diagnoses Date Provider Providers Copied on Encounter [facility], [address], [place], [place], [address], [place] tel:[phone] [facility] No Information [address] Saab OD Arthur. [address], [place], [address], [place]. tel:[phone] Family History Family Member Type Diagnosis Age [...]
[2024-08-19 13:12] LABS: Add Urine Microscopic? YES; Appearance Urine Clear (Clear); Bacteria Urine None Seen /hpf; Bilirubin Urine Negative (Negative); Blood Urine 2+ (Negative); Color Urine Yellow (Yellow); Glucose Urine UA Negative (Negative); Ketones Urine Negative (Negative); Leukocyte Esterase Ur 1+ LEU/UL (Negative); Need Manual Microscopic Reviewed; Nitrate Urine Negative (Negative); Non Pathogenic Casts 0-2; Protein Urine Negative (Negative); RBC Urine 21-50 /hpf (0-2); Specific Grav Ur 1.012 (1.001-1.035); Squamous Epithelial Cell Urine Occasional /hpf (Few); Urobilinogen Urine 0.2 mg/dL (<2.0); WBC Urine 0-5 /hpf (0-3)
== END 2024-08-19 12:04 | disposition home or self-care (01) ==
PROVIDERS: PCP Family Medicine; Visit Provider Physician Assistant
DX: R30.0 Dysuria (principal); N39.0 Urinary tract infection, site not specified
CPT/HCPCS: 81001; 87086

== ENCOUNTER 2024-10-05 13:42 | Outpatient (CLI) | payer MEDICARE, SELFPAY ==
--- OUTSIDE RECORDS SUMMARY | 2024-10-05 13:51 | XMS_ITS | Continuity of Care Document ---
Author Organization [facility] Address [address] [place] [address] Phone Care Team Providers Care Arc Welder Name Role Phone Saab OD, Arthur Unavailable Unavailable Advance Directives Directive Yes / No Effective Date File Name No Information Encounters Encounter Description Practice Location Reason(s) For Visit Diagnoses Date Provider Providers Copied on Encounter [facility], [address], [place], [place], [address], [place] tel:[phone] [facility] No Information 2-200 5 Saab OD Arthur. [address], [place], [address], [place]. tel:[phone] Family History Family Member Type Diagnosis Age At Onset No Information Payers Payer name Insurance type Covered constitution party ID Authoriza tion(s) No Information Social History [...]
--- OUTSIDE RECORDS SUMMARY | 2024-10-05 13:51 | XMS_ITS | Referral Summary ---
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 Patient Name: Connie Ambrose Procedure Date: 02/09/2018 10:41 AM Date of : 1945 Admit Type: Outpatient Age: 72 Gender: Female Attending MD: Warren Perkins M.D. Room: [facility] ENDOSCOPY ROOM 1 Note Status: Finalized Procedure: [...] scope was passed under direct vision.The Colonoscope [id number] was introducedthrough the anus and advanced to [...] 10:41 AM Procedure Code(s): --- Professional --- 02522, Colonoscopy, flexible; diagnostic, including collection of specimen(s) by brushing or washing, when performed (separateprocedure) Diagnosis Code(s): --- Professional --- K57.30, Diverticulosis of large intestine without perforation orabscess without bleeding R19.5, Other fecal abnormalities K64.9, Unspecified hemorrhoids CPT copyright 2017 [employer]. All rights reserved. The codes documented in this report are preliminary and upon bread room hand reviewmay be revised to meet current compliance requirements. Recognized by the [place] Gastrointestinal Endoscopy for promoting quality in endoscopy Warren Perkins MD ENDOSCOPY PROCEDURES Final Re sult from Last 3 Months or Most Recently Relevant to Health Maintenance Insurance [facility] MDCR HMO REF UHC MEDICARE ADVANTAGE Advance Directives For more information, please contact: [phone] * Full Code (Latest Code Status on File) Date Activated Date Inactivated Comments 02/09/2018 9:55 AM 02/09/2018 2:01 PM Care Teams Pharmacist Technician Relationship Specialty Start Date End Date Misael Montaño MD [address] [facility] [address] [place] [address] PCP - General Family Medicine 01/12/18
--- OUTSIDE RECORDS SUMMARY | 2024-10-05 13:51 | XMS_ITS | Clinical Summary ---
Author Organization [facility] Address [address] [place] [address] Care Team Providers Care Correctional Casework Specialist Name Role Phone Misael Montaño MD Primary Care Provider [phone] Allergies Active Allergy Reactions Criticality Noted Date Comments Adhesive Tape 07/29/2022 Antihistamines, Diphenhydramine-Type Rash Low 07/29/2022 Aspirin 07/29/2022 Clindamycin GI intolerance 07/29/2022 Doxycycline 07/29/2022 Indomethacin Vomiting High 07/29/2022 Salicylates Rash Low 07/29/2022 Sulfamethizole 07/29/2022 Trimethoprim 07/29/2022 Medications [place] 3 1000 MG capsule Take 1 capsule [...] Due Date Last Done Comments Pneumococcal Vaccine: 50+ Ye ars (1 of 2 - PCV) 1964 Influenza Vaccine (Season Ended) 2025 Hepatitis B Vaccine Aged Out No longe r eligible based on patient's age to complete this topic Insurance [id number] Medicare Care Teams Correctional Casework Specialist Relationship Specialty Start Date End Date Misael Montaño MD [address] [place] [address] PCP - General Family Medicine 07/29/22
--- OUTSIDE RECORDS SUMMARY | 2024-10-05 13:51 | XMS_ITS | Clinical Summary ---
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 Room: [facility] ENDOSCOPY ROOM 1 Note Status: Finalized Procedure: [...] scope was passed under direct vision.The Colonoscope [id number] was introducedthrough the anus and advanced to [...] 10:41 AM Procedure Code(s): --- Professional --- 94000, Colonoscopy, flexible; diagnostic, including collection of specimen(s) by brushing or washing, when performed (separateprocedure) Diagnosis Code(s): --- Professional --- K57.30, Diverticulosis of large intestine without perforation orabscess without bleeding R19.5, Other fecal abnormalities K64.9, Unspecified hemorrhoids CPT copyright 2017 [employer]. All rights reserved. The codes documented in this report are preliminary and upon braille coder reviewmay be revised to meet current compliance requirements. Recognized by the [employer] [employer] Gastrointestinal Endoscopy for promoting quality in endoscopy Warren Perkins MD ENDOSCOPY PROCEDURES Final Re sult from Last 3 Months or Most Recently Relevant to Health Maintenance [facility] UHC MEDICARE ADVANTAGE Advance Directives For more information, please contact: [phone] * Full Code (Latest Code Status on File) Date Activated Date Inactivated Comments 02/09/2018 9:55 AM 02/09/2018 2:01 PM Care Teams Door To Door Fundraising Collector Relationship Specialty Start Date End Date Misael Montaño MD [address] [facility] [address] [place] [address] PCP - General Family Medicine 01/12/18
--- OUTSIDE RECORDS SUMMARY | 2024-10-05 13:51 | XMS_ITS | Continuity of Care Document ---
Author Organization [facility] Address [address] [place] [address] [address] [place] [address] Phone Care Team Providers Care Level Vial Setter Name Role Phone Hardy RICHEY, Alfred Unavailable Unavaila ble Procedures Procedure Date CATARACT SURG W/IOL, 1 STAGE CATARACT SURG W/IOL, 1 STAGE EYE EXAM, NEW PATIENT OPHTHALMIC BIOMETRY OPHTHALMIC BIOMETRY Advance Directives Directive Yes / No Effective Date File Name No Information Encounters Encounter Description Practice Location Reason(s) For Visit Diagnoses Date Provider Providers Copied on Encounter Ophthal[facility], [address], [place], [place], [address], tel:[phone] [place] [address] No Information 9 Hardy Simon. [address], [place], [place], [address], [place]. tel:[phone] Referring Provider: Alfred benítez, [address], [place], [address] . tel:[phone] Ophthalmology [facility], [address] [place], [place] [address], [place], [place], [address], tel:[phone] [address] [place] [address] No Information 9 Hardy Simon. [address], [place], [place], [address], [place]. tel:[phone] Referring Provider: Alfred benítez, [address], [place], [address] . tel:[phone] [facility], [address], [place], [place], [address], [place] tel:[phone] LIZZETTE Chambers No Information 9 Hardy Simon. [address], [place], [place], [address], . tel:[phone] Referring Provider: Alfred benítez, [address], [place], [address] . tel:[phone] Family History Family Member Type Diagnosis Age At Onset No Information Payers Payer name Insurance type Covered libertarian ID Authoriza tion(s) Medicare Complete Advantage [facility] [id number] Social History Type Description Quantity Date Captured [...]
[2024-10-05 14:23] LABS: Hematocrit 30.2 % (37.0-47.0); Mean Corpuscular HGB Conc 29.8 g/dl (32-36); Mean Corpuscular Hemoglobin 26.5 pg (26-34); Mean Corpuscular Volume 88.8 fl (80-100); Mean Platelet Volume 9.3 fl (7.4-10.4); Platelet Count Result 344 k/mm3 (150-375); Red Cell Distribution Width 15.5 % (11.5-14.5); White Blood Count 10.8 K/mm3 (4.5-10.0)
[2024-10-05 14:30] LABS: Add Urine Microscopic? YES; Appearance Urine Cloudy (Clear); Bacteria Urine None Seen /hpf; Bilirubin Urine Negative (Negative); Blood Urine 1+ (Negative); Color Urine Yellow (Yellow); Glucose Urine UA Negative (Negative); Ketones Urine Negative (Negative); Leukocyte Esterase Ur 3+ LEU/UL (Negative); Nitrate Urine Negative (Negative); Non Pathogenic Casts 0-2; Protein Urine Negative (Negative); Specific Grav Ur 1.014 (1.001-1.035); Squamous Epithelial Cell Urine Occasional /hpf (Few); Urobilinogen Urine 0.2 mg/dL (<2.0); WBC Urine 21-50 /hpf (0-3)
[2024-10-05 16:38] LABS: Alanine Aminotransferase 21 U/L (6-35); Albumin Level 4.2 g/dL (3.5-5.1); Alkaline Phosphatase 88 U/L (38-126); Anion Gap 11 mmol/L (4-12); Aspartate Amino Transferase 29 U/L (14-36); Bilirubin,Total 0.3 mg/dL (0.2-1.3); Blood Urea Nitrogen 53 mg/dL (7-17); Calcium 9.8 mg/dL (8.4-10.2); Carbon Dioxide 25 mmol/L (22-30); Chloride 106 mmol/L (98-107); Estimated Glomerular Filt Rate 25; Glucose 98 mg/dL (65-110); Potassium 4.7 mmol/L (3.4-5.0); Sodium 142 mmol/L (137-145)
[2024-10-05 16:59] LABS: Creatinine Urine 88.3 mg/dL
[2024-10-05 17:03] LABS: MALB Creatinine Ratio 39.2 mg/g (0-30); Microalbumin Urine Random 34.6 mg/L (0-16.7)
[2024-10-05 18:37] LABS: Hemoglobin A1C 5.6 % (<5.7)
== END 2024-10-05 13:43 | disposition home or self-care (01) ==
LOC: ANHLAB 13:43
PROVIDERS: PCP Family Medicine; Visit Provider Family Medicine
DX: I12.9 Hypertensive chronic kidney disease with stage 1 through stage 4 chronic kidney disease, or unspecified chronic kidney disease (principal); N18.4 Chronic kidney disease, stage 4 (severe); E78.2 Mixed hyperlipidemia; E11.59 Type 2 diabetes mellitus with other circulatory complications
CPT/HCPCS: 36415; 80053; 81001; 82043; 83036; 84443; 85027

== ENCOUNTER 2025-02-10 14:57 | Outpatient (CLI) | payer MEDICARE, SELFPAY ==
--- OUTSIDE RECORDS SUMMARY | 2004-07-06 03:15 | XMS_ITS | Continuity of Care Document ---
Author Organization [facility] Address [address] [place] [address] Phone Care Team Providers Care 21 Dealer Name Role Phone Saab OD, Arthur Unavailable Unavailable Advance Directives Directive Yes / No Effective Date File Name No Information Encounters Encounter Description Practice Location Reason(s) For Visit Diagnoses Date Provider Providers Copied on Encounter [facility], [address], [place], [place], [address], [place] tel:[phone] [facility] No Information 2-200 5 Saab OD Arthur. [address] , [address], [place], [address], [place]. tel:[phone] Family History Family Member Type Diagnosis Age [...]
--- OUTSIDE RECORDS SUMMARY | 2019-04-15 01:10 | XMS_ITS | Continuity of Care Document ---
Author Organization [facility] Address [address] [place] [address] [address] [place] [address] Phone Care Team Providers Care Remote Sensing Advisor Name Role Phone Hardy RICHEY, Alfred Unavailable Unavaila ble Procedures Procedure Date CATARACT SURG W/IOL, 1 STAGE CATARACT SURG W/IOL, 1 STAGE EYE EXAM, NEW PATIENT OPHTHALMIC BIOMETRY OPHTHALMIC BIOMETRY Advance Directives Directive Yes / No Effective Date File Name No Information Encounters Encounter Description Practice Location Reason(s) For Visit Diagnoses Date Provider Providers Copied on Encounter Ophthalmology [facility], [address], [place], [place], [address], tel:[phone] [address] [place] [address] No Information 9 Hardy Simon. [address], [place], [place], [address], [place]. tel:[phone] Referring Provider: Alfred benítez, [address], [place], [address] . tel:[phone] Ophthalmology [facility], [address] [place], [place] [address] [address], [place], [place], [address], tel:[phone] [address] [place] [address] No Information 9 Hardy Simon. [address], [place], [place], [address], [place]. tel:[phone] Referring Provider: Alfred benítez, [address], [place], [address] . tel:[phone] [facility], [address], [place], [place], [address], [place] tel:[phone] [facility] No Information 9 Hardy Simon. [address], [place], [place], [address], . tel:[phone] Referring Provider: Alfred benítez, [address], [place], [address] . tel:[phone] Family History Family Member Type Diagnosis Age At Onset No Information Payers Payer name Insurance type Covered democrat ID Authoriza tion(s) Medicare Complete Advantage [facility] [id number] 200 [id number] Social History Type Description Quantity Date Captured [...]
--- OUTSIDE RECORDS SUMMARY | 2025-02-10 15:01 | XMS_ITS | Clinical Summary ---
Author Organization [facility] Medical Office Building B Address [address] [place] [address] Care Team Providers Care Lieutenant Fire Fighter Name Role Phone Misael Montaño MD Primary Care Provider Johnathan Booker MD Unavailable + [phone] Abby De Leon MD Unavailable [phone] Allergies Active Allergy Reactions Criticality Noted Date Comments Aspirin Stomach upset Reaction: GI UPSET, Medications omega-3 fatty acids-fish oil 300-1,000 mg capsule Take 2 capsules (2 g total) by mouth daily Active multivitamin capsule Take 1 capsule by mouth daily Active lisinopril (PRINIVIL,ZESTRIL) 10 mg tablet Take 1 tablet (10 mg total) by mouth daily Active atorvastatin (LIPITOR) 10 mg tablet Take 1 tablet (10 mg total) by mouth daily Active oxybutynin (DITROPAN) 5 mg tablet Take 1 tablet (5 mg total) by mouth 2 (two) times a day Active ondansetron ODT (ZOFRAN-ODT) 4 mg disintegrating tablet Take 1 tablet (4 mg total) by mouth every 8 (eight) hours as needed for nausea or vomiting 20 tablet 12/14/19 25 Active benzonatate (TESSALON) 100 mg capsuleIndications :Cough Take 1 capsule (100 mg total) by mouth 3 (three) times a day as needed for cough 20 capsule 12/29/19 25 Active dicyclomine (BENTYL) 10 mg capsule Take 1 capsule (10 mg total) by mouth 4 (four) times a day as needed (dyspepsia) 15 capsule 12/29/19 25 026 Active Additional Information Patient taking differently: 20 mgoral 4 times daily PRN, dyspepsia, Reported on 01/19/2025 miconazole 2 % powder Apply topically 2 (two) times a day 70 g 12/29/19 Active vancomycin (FIRVANQ) 50 mg/mL recon solnIndications:Cl ostridioides difficile infection Administer 2.5 mL (125 mg total) per feeding tube daily for 27 days, THEN 2.5 mL (125 mg total) every other day for 14 days, THEN 2.5 mL (125 mg total) every 3 (three) days. 01/11/20 25 025 Active levETIRAcetam (KEPPRA) 500 mg tablet Take 1 tablet (500 mg total) by mouth 2 (two) times a day 01/10/20 25 Active ferrous sulfate 325 mg (65 mg of elemental iron) tabletIndications: Iron Deficiency Anemia Take 1 tablet (325 mg total) by mouth daily with breakfast 01/10/20 25 026 Active HYDROcodone-acetam inophen (NORCO) 5-325 mg per tabletIndications: Pain Take 1 tablet by mouth every 6 (six) hours as needed for pain for up to 20 doses 20 tablet 01/16/20 Active ertapenem 1,000 mg in sterile water 10 mL IV syringeIndications :Abdominal/Pelvic Infection Infuse 10 mL (1,000 mg total) IV daily for 5 minutes for 18 doses at 120 mL/hr First dose 01/03/25. Stop date 01/21/2025 01/10/20 25 025 Active Problems Problem Noted Date Diagnosed Date Acute diverticulitis 01/19/2025 Assessment & Plan (01/19/2025 2:07 PM CDT): - see HPI - continue ertapenem 1 g IV daily x 2 weeks - continue weekly CBC w diff, BMP- Please fax results to [phone] - repeat CT scan abd/pelvis wo contrast (CrCl 21.8)- our office will schedule as soon as possible- final abx stop date TBD pending results - If evidence of persistent diverticulitis, will refer to [facility] Seizure 01/06/2025 Syncope and collapse 01/06/2025 Cervical spinal stenosis 01/06/2025 Weakness 12/30/2024 C. difficile colitis 12/26/2024 Diverticulitis 12/24/2024 Positive colorectal cancer screening using Colog uard test 01/12/2018 Overview (01/12/2018): Added automatically from request for surgery [id number] Encounters Date Type Department Care Team Description 01/31/2025 1:38 PM CDT - 01/31/2025 11:59 PM CDT Hospital Encounter [address] [address] Samuel Marie MD Discharge Disposition: Discharge to home or self care 01/27/2025 1:57 PM CDT - 01/27/2025 11:59 PM CDT Hospital Encounter [facility] Imaging and Radiology [address] [place] [address] Acute diverticulitis Discharge Disposition: Discharge to home or self care 01/19/2025 11:00 AM CDT Office Visit [facility] [address] [facility] [address] [place] [address] Lisa Wolfe NP Acute diverticulitis (Primary Dx) 01/15/2025 11:00 PM CDT - 01/15/2025 11:59 PM CDT Hospital Encounter [facility] Emergency, Room R Discharge Disposition: Discharge to home or self care 01/15/2025 6:59 PM CDT - 01/15/2025 11:07 PM CDT Emergency [facility] Emergency Department [address] [place] [id number] Antwon Ashley MD Fall, initial encounter (Primary Dx) Discharge Disposition: Discharge to penitentiary facility 01/06/2025 2:11 AM CDT - 01/09/2025 3:52 PM CDT Hospital Encounter [facility] [address] [place] [address] Lyle Morrison MD Huynh, Kiet T., MD Bezuneh, Abraham Deneke, MD Seizure (HCC) (Primary Dx); Syncope and collapse [R55]; Cervical spinal stenosis [M48.02] Discharge Disposition: Discharge to SNF 01/05/2025 2:56 AM CDT - 01/05/2025 4:25 AM CDT Emergency [facility] Emergency Department [address] [place] [address] Marino Molina MD Fall, initial encounter (Primary Dx) Discharge Disposition: Discharge to home or self care 01/05/2025 2:48 AM CDT - 01/05/2025 11:59 PM CDT Hospital Encounter [facility] Emergency, Room R Discharge Disposition: Discharge to home or self care 01/04/2025 Telephone [facility] [place] [address] [facility] [address] [place] [address] Salome Epperson LPN 12/30/2024 5:12 AM CDT - 01/02/2025 4:22 PM CDT Hospital Encounter [facility] [address] [place] [address] Lyle Morrison MD Kanumuri, Raghu, MD Singh, Arjun, MD Weakness (Primary Dx); Abdominal pain Discharge Disposition: Discharge to SNF 12/30/2024 5:00 AM CDT - 12/30/2024 11:59 PM CDT Hospital Encounter [facility] Emergency, Room R Discharge Disposition: Discharge to home or self care 12/30/2024 Home Infusion [facility] Home Infusion Therapy [address] [place] [address] [facility], located [facility] 12/28/2024 Plan of Care Documentation [facility] [address] [place] [address] 12/28/2024 Home Infusion [facility] Home [facility]fusion Therapy [address] [place] [address] Angelica Reinoso, [facility], located within [facility] Diverticulitis (Primary Dx) 12/27/2024 [facility] [address] [facility] [address] [place] [address] Mare Stephens LPN IV Antibx ([place] ) 12/24/2024 7:05 AM CDT - 12/28/2024 4:06 PM CDT Hospital Encounter [facility] [address] [place] [address] Lyle Morrison MD Davis, Cedric Emden II, MD Singh, Arjun, MD Diverticulitis (Primary Dx); Acute cystitis with hematuria; Weakness; C. difficile colitis; Illness, unspecified Discharge Disposition: Discharge to home or self care 12/13/2024 8:33 PM CDT - 12/13/2024 11:17 PM CDT Emergency [facility] Emergency Department [address] [place] [address] Lyle Morrison MD Diverticulitis (Primary Dx); Urinary tract infection with hematuria, site unspecified Discharge Disposition: Discharge to home or self care from Last 3 Months Surgical History Surgery Date Site/Laterality Comments COLONOSCOPY 09/16/2013 Social History Tobacco Use Types Packs/Day Years Used Date Smoking Tobacco: Never Passive Smoke Exposure: Never Smokeless Tobacco: Never Tobacco Cessation:Counseling Given: No Comments:N/a Social Connection and Isolation Panel Answer Date Recorded In a typical week, how many times do you talk on the phone with family, friends, or neighbors? More than three times a week 12/26/2024 How often do you get togethe r with friends or relatives? More than three times a week 12/26/2024 How often do you attend chur ch or uatsdin services? Never 12/26/2024 Do you belong to any clubs o r organizations such as mandaen groups, unions, fraternal or athletic groups, or school groups? No 12/26/2024 How often do you attend meet ings of the clubs or organizations you belong to? Never 12/26/2024 Are you , , di vorced, , never , or living with a partner? 12/26/2024 AUDIT-C Answer Date Recorded Q1: How often do you have a drink containing alcohol? Never 12/24/2024 Q2: How many drinks containi ng alcohol do you have on a typical day when you are drinking? Patient does not drink Q3: How often do you have si x or more drinks on one occasion? Never 12/24/2024 Overall Financial Resource Strain (CARDIA) Answe r Date Recorded How hard is it for you to pa y for the very basics like food, housing, medical care, and heating? Not very hard 12/26/2024 PRAPARE - Transportation Answer Date Re corded In the past 12 months, has l ack of transportation kept you from medical appointments or from getting medications? No 08/2024 In the past 12 months, has l ack of transportation kept you from meetings, work, or from getting things needed for daily living? No 12/26/2024 Housing Stability Vital Sign Answer Dom e Recorded In the last 12 months, was t here a time when you were not able to pay the mortgage or rent on time? No 12/26/2024 In the past 12 months, how m any times have you moved where you were living? 0 12/26/2024 At any time in the past 12 m [facility], were you homeless or living in a group home (including now)? No 12/26/2024 Social Connection and Isolation Panel Answer Date Recorded In a typical week, how many times do you talk on the phone with family, friends, or neighbors? More than three times a week 01/06/2025 How often do you get togethe r with friends or relatives? More than three times a week 01/06/2025 How often do you attend chur ch or uatsdin services? Never 01/06/2025 Do you belong to any clubs o r organizations such as mandaen groups, unions, fraternal or athletic groups, or school groups? No 01/06/2025 How often do you attend meet ings of the clubs or organizations you belong to? Never 01/06/2025 Are you , , di vorced, , never , or living with a partner? 01/06/2025 Overall Financial Resource Strain (CARDIA) Answe r Date Recorded How hard is it for you to pa y for the very basics like food, housing, medical care, and heating? Not very hard 01/06/2025 Hunger Vital Sign Answer Date Recorded Within the past 12 months, y ou worried that your food would run out before you got the money to buy more. Never true 01/07/20 25 Within the past 12 months, t he food you bought just didn't last and you didn't have money to get more. Never true 01/06/2025 PRAPARE - Transportation Answer Date Re corded In the past 12 months, has l ack of transportation kept you from medical appointments or from getting medications? No 12/23 In the past 12 months, has l ack of transportation kept you from meetings, work, or from getting things needed for daily living? No 01/06/2025 Housing Stability Vital Sign Answer Dom e Recorded In the last 12 months, was t here a time when you were not able to pay the mortgage or rent on time? No 01/06/2025 In the past 12 months, how m any times have you moved where you were living? 0 01/06/2025 At any time in the past 12 m [facility], were you homeless or living in a group home (including now)? No 01/06/2025 [facility] Utilities Answer Date Recorded In the past 12 months has th e electric, gas, oil, or water company threatened to shut off services in your home? No 01/06/2025 Personal Safety Answer Date Recorded Have you ever been in or are you currently in a harmful physical or emotional relationship or is someone making you feel afraid or unsafe? Denies 01/15/2025 Comments Unknown Sex and Gender Information Value Date Recorded Sex Assigned at Not on file Legal Sex Female 7:34 PM WIRE ANNE[employer]ER Gender Identity Not on file Sexual Orientation Not on file Obstetrics History Last Filed Vital Signs Vital Sign Reading Time Taken Comments Blood Pressure 127/77 01/15/2025 10:15 PM CDT Pulse 108 01/15/2025 10:15 PM CDT Temperature 37 C (98.6 F) 01/19/2025 11:01 AM CDT Respiratory Rate 20 01/15/2025 10:15 PM CDT Oxygen Saturation 93% 01/15/2025 10:15 PM CDT Inhaled Oxygen Concentration - - Weight 78 kg (172 lb) 01/19/2025 11:01 AM CDT pa tient in WC Height 167.6 cm (5' 6) 01/19/2025 11:01 AM CDT Body Mass Index 27.76 01/19/2025 11:01 AM CDT Plan of Treatment Upcoming Encounters Date Type Department Care Team (Late st Contact Info) Description 04/14/2025 12:00 PM WIRE ANNEALER Hospital Encounter [facility] [address] [place] [address] Gloria Amador MD [address] [place] [address] 04/14/2025 12:00 PM WIRE ANNEALER - 04/14/2025 12:30 PM WIRE ANNEALER Surgery [facility] [address] [place] [address] Gloria Amador MD [address] [place] [address] COLONOSCOPY Scheduled Procedures Name Priority Associated Diagnoses Date/Ti me COLONOSCOPY Diverticulitis 04/14/2025 12:00 PM WIRE ANNEALER Health Maintenance Due Date Last Done Comments Depression Screening 1945 Hepatitis C Screening 1945 Osteoporosis Screening-Bone Density Scan 1945 DTaP/Tdap/Td Vaccine (1 - Tdap) 1956 Hepatitis B Screening 12/05/1963 Zoster Vaccine (1 of 2) 12/05/1995 Well Visit 65+ 2010 Pneumococcal vaccine 65+ (2 of 2 - PCV) 05/27/2012 05/27/2011 Influenza Vaccine (#1) 2025 0, 03/30/2017, 04/16/2015, Additional history exists Fall Risk Assessment 01/09/2026 01/09/2025 Colon Cancer Screening-CT Colonography Discontinued 02/09/2018, 09/16/2013 Colon Cancer Screening-Colonoscopy Discontinued 02/09/2018, 09/16/2013 Colon Cancer Screening-DNA Stool Discontinued 02/10/20 18, 09/16/2013 Colon Cancer Screening-FIT Discontinued 02/09/2018, Colon Cancer Screening-FOBT Discontinued 02/09/2018, 0 09/16/2013 Colon Cancer Screening-Sigmoidoscopy Discontinued 02/09/2018, 09/16/2013 Colorectal Cancer Screening Discontinued Procedures Procedure Name Priority Date/Time Associated Diagnosis Comments EGFR STAT 01/31/2025 2:35 PM CDT DIFFERENTIAL AUTO STAT 01/31/2025 2:3 5 PM CDT CBC WITH AUTO DIFFERENTIAL STAT 01/31/2025 2:35 PM CDT BASIC METABOLIC PANEL STAT 01/31/2025 2:[address] ABDOMEN PELVIS WO CONTRAST Schedule Routine, Read Routine (OP Routine) 01/27/2025 2:22 PM CDT Acute diverticulitis XR SHOULDER LEFT 2 OR MORE VIEWS ED 01/15/2025 9:[address] CERVICAL SPINE WO CONTRAST ED 01/15/2025 7:[address] HEAD WO CONTRAST ED 01/15/2025 7 :30 PM CDT ECG 12-LEAD Routine 01/15/2025 7:03 PM CDT EGFR Routine 01/09/2025 5:51 AM CDT DIFFERENTIAL AUTO Routine 01/09/2025 5:5 1 AM CDT COMPREHENSIVE METABOLIC PANEL Routine 01/09/2025 5:51 AM CDT CBC WITH AUTO DIFFERENTIAL Routine 01/09/2025 5:51 AM CDT DIFFERENTIAL AUTO Routine 01/07/2025 9:5 6 AM CDT CBC WITH AUTO DIFFERENTIAL Routine 01/07/2025 9:56 AM CDT MRI CERVICAL SPINE WO CONTRAST IP Routine 01/06/2025 5:03 PM CDT MRI BRAIN WO CONTRAST IP Routine 01/06/2025 5:03 PM CDT EEG Routine 01/06/2025 11:21 AM CDT TROPONIN T HIGH-SENSITIVITY 6-HOUR Timed 01/06/2025 8:46 AM CDT TROPONIN T HIGH-SENSITIVITY 2-HOUR Timed 01/06/2025 4:[address] CERVICAL SPINE WO CONTRAST ED 01/06/2025 3:[address] HEAD WO CONTRAST ED 01/06/2025 3 :21 AM CDT ECG 12-LEAD Routine 01/06/2025 2:36 AM CDT EGFR STAT 01/06/2025 2:29 AM CDT DIFFERENTIAL AUTO STAT 01/06/2025 2:2 9 AM CDT TROPONIN T HIGH-SENSITIVITY SERIES (BASELINE, 2HR, 4HR, 6HR) Routine 01/06/2025 2:29 AM CDT PRO B-TYPE NATRIURETIC PEPTIDE STAT 01/06/2025 2:29 AM CDT MAGNESIUM Routine 01/06/2025 2:29 AM CDT SEPSIS LACTATE WITH REFLEX STAT 01/06/2025 2:29 AM CDT COMPREHENSIVE METABOLIC PANEL STAT 01/06/2025 2:29 AM CDT CBC WITH AUTO DIFFERENTIAL STAT 01/06/2025 2:[address] HEAD WO CONTRAST ED 01/05/2025 3 :[address] CERVICAL SPINE WO CONTRAST ED 01/05/2025 3:44 AM CDT EGFR STAT 01/05/2025 3:05 AM CDT DIFFERENTIAL AUTO STAT 01/05/2025 3:0 5 AM CDT COMPREHENSIVE METABOLIC PANEL STAT 01/05/2025 3:05 AM CDT CBC WITH AUTO DIFFERENTIAL STAT 01/05/2025 3:05 AM CDT ECG 12-LEAD STAT 01/05/2025 3:02 AM CDT LINE OK TO USE Routine 01/02/2025 4:05 PM CDT INSERT PICC LINE Routine 01/02/2025 4:05 PM CDT POCT GLUCOSE DEVICE Routine 01/02/2025 11:38 AM CDT POCT GLUCOSE DEVICE Routine 01/02/2025 7 :46 AM CDT EGFR Routine 01/02/2025 4:31 AM CDT DIFFERENTIAL AUTO Routine 01/02/2025 4:3 1 AM CDT CBC WITH AUTO DIFFERENTIAL Routine 01/02/2025 4:31 AM CDT COMPREHENSIVE METABOLIC PANEL Routine 01/02/2025 4:31 AM CDT POCT GLUCOSE DEVICE Routine 01/02/2025 2 :55 AM CDT POCT GLUCOSE DEVICE Routine 01/01/2025 8 :12 PM CDT POCT GLUCOSE DEVICE Routine 01/01/2025 4 :35 PM CDT POCT GLUCOSE DEVICE Routine 01/01/2025 11:26 AM CDT POCT GLUCOSE DEVICE Routine 01/01/2025 7 :31 AM CDT EGFR Routine 01/01/2025 3:37 AM CDT DIFFERENTIAL AUTO Routine 01/01/2025 3:3 7 AM CDT CBC WITH AUTO DIFFERENTIAL Routine 01/01/2025 3:37 AM CDT COMPREHENSIVE METABOLIC PANEL Routine 01/01/2025 3:37 AM CDT POCT GLUCOSE DEVICE Routine 01/01/2025 2 :42 AM CDT POCT GLUCOSE DEVICE Routine 12/31/2024 8 :23 PM CDT POCT GLUCOSE DEVICE Routine 12/31/2024 4 :23 PM CDT URINALYSIS, MICROSCOPIC ONLY STAT 12/31/2024 1:42 PM CDT URINALYSIS AND REFLEX TO MICROSCOPIC AND CULTURE STAT 12/31/2024 1:42 PM CDT POCT GLUCOSE DEVICE Routine 12/31/2024 11:32 AM CDT POCT GLUCOSE DEVICE Routine 12/31/2024 7 :26 AM CDT EGFR Routine 12/31/2024 4:33 AM CDT DIFFERENTIAL AUTO Routine 12/31/2024 4:3 3 AM CDT COMPREHENSIVE METABOLIC PANEL Routine 12/31/2024 4:33 AM CDT CBC WITH AUTO DIFFERENTIAL Routine 12/31/2024 4:33 AM CDT POCT GLUCOSE DEVICE Routine 12/31/2024 2 :28 AM CDT POCT GLUCOSE DEVICE Routine 12/30/2024 4 :35 PM CDT TROPONIN T HIGH-SENSITIVITY 6-HOUR STAT 12/30/2024 12:11 PM CDT POCT GLUCOSE DEVICE Routine 12/30/2024 11:43 AM CDT TROPONIN T HIGH-SENSITIVITY 6-HOUR Timed 12/30/2024 11:37 AM CDT TROPONIN T HIGH-SENSITIVITY 4-HR Timed 12/30/2024 8:46 AM CDT POCT GLUCOSE DEVICE Routine 12/30/2024 8 :37 AM CDT TROPONIN T HIGH-SENSITIVITY 2-HOUR Timed 12/30/2024 7:18 AM CDT XR CHEST 1 VIEW ED 12/30/2024 6:[address] ABDOMEN PELVIS WO CONTRAST ED 12/30/2024 6:02 AM CDT ECG 12-LEAD STAT 12/30/2024 5:23 AM CDT EGFR STAT 12/30/2024 5:21 AM CDT LIPASE STAT 12/30/2024 5:21 AM CDT DIFFERENTIAL AUTO STAT 12/30/2024 5:2 1 AM CDT TROPONIN T HIGH-SENSITIVITY SERIES (BASELINE, 2HR, 4HR, 6HR) Routine 12/30/2024 5:21 AM CDT PRO B-TYPE NATRIURETIC PEPTIDE STAT 12/30/2024 5:21 AM CDT MAGNESIUM Routine 12/30/2024 5:21 AM CDT COMPREHENSIVE METABOLIC PANEL STAT 12/30/2024 5:21 AM CDT CBC WITH AUTO DIFFERENTIAL STAT 12/30/2024 5:21 AM CDT LINE OK TO USE Routine 12/28/2024 2:15 PM CDT INSERT MIDLINE Routine 12/28/2024 2:15 PM CDT POCT GLUCOSE DEVICE Routine 12/28/2024 12:15 PM CDT POCT GLUCOSE DEVICE Routine 12/28/2024 7 :49 AM CDT POCT GLUCOSE DEVICE Routine 12/28/2024 2 :27 AM CDT POCT GLUCOSE DEVICE Routine 12/27/2024 8 :16 PM CDT POCT GLUCOSE DEVICE Routine 12/27/2024 5 :10 PM CDT POCT GLUCOSE DEVICE Routine 12/27/2024 12:01 PM CDT POCT GLUCOSE DEVICE Routine 12/27/2024 8:18 AM CDT EGFR Routine 12/27/2024 2:34 AM CDT DIFFERENTIAL AUTO Routine 12/27/2024 2:3 4 AM CDT COMPREHENSIVE METABOLIC PANEL Routine 12/27/2024 2:34 AM CDT CBC WITH AUTO DIFFERENTIAL Routine 12/27/2024 2:34 AM CDT POCT GLUCOSE DEVICE Routine 12/27/2024 2 :31 AM CDT POCT GLUCOSE DEVICE Routine 12/26/2024 8 :57 PM CDT POCT GLUCOSE DEVICE Routine 12/26/2024 4 :51 PM CDT POCT GLUCOSE DEVICE Routine 12/26/2024 12:10 PM CDT POCT GLUCOSE DEVICE Routine 12/26/2024 8 :14 AM CDT C. DIFFICILE TESTING STAT 12/26/2024 6:21 AM CDT HEMOGLOBIN AND HEMATOCRIT STAT 12/26/2024 5:36 AM CDT EGFR Routine 12/26/2024 2:13 AM CDT DIFFERENTIAL AUTO Routine 12/26/2024 2:1 3 AM CDT COMPREHENSIVE METABOLIC PANEL Routine 12/26/2024 2:13 AM CDT CBC WITH AUTO DIFFERENTIAL Routine 12/26/2024 2:13 AM CDT POCT GLUCOSE DEVICE Routine 12/26/2024 2 :12 AM CDT POCT GLUCOSE DEVICE Routine 12/25/2024 9 :07 PM CDT EGFR Routine 12/25/2024 2:12 AM CDT DIFFERENTIAL AUTO Routine 12/25/2024 2:1 2 AM CDT FERRITIN Routine 12/25/2024 2:12 AM CDT IRON PROFILE W/ IBC Routine 12/25/2024 2 :12 AM CDT HEMOGLOBIN A1C Routine 12/25/2024 2:12 AM CDT MAGNESIUM Routine 12/25/2024 2:12 AM CDT LIPID PANEL Routine 12/25/2024 2:12 AM CDT BASIC METABOLIC PANEL Routine 12/25/2024 2:12 AM CDT CBC WITH AUTO DIFFERENTIAL Routine 12/25/2024 2:12 AM CDT POCT GLUCOSE DEVICE Routine 12/25/2024 2 :04 AM CDT POCT GLUCOSE DEVICE Routine 12/24/2024 8 :41 PM CDT POCT GLUCOSE DEVICE Routine 12/24/2024 7 :42 PM CDT ECG 12-LEAD Routine 12/24/2024 7:32 PM CDT POCT GLUCOSE DEVICE Routine 12/24/2024 4 :58 PM CDT POCT GLUCOSE DEVICE Routine 12/24/2024 11:36 AM CDT TROPONIN T HIGH-SENSITIVITY 4-HR Timed 12/24/2024 11:36 AM CDT BLOOD CULTURE STAT 12/24/2024 11:36 AM CDT POCT GLUCOSE DEVICE Routine 12/24/2024 11:23 AM CDT TROPONIN T HIGH-SENSITIVITY 2-HOUR Timed 12/24/2024 9:58 AM CDT BLOOD CULTURE STAT 12/24/2024 9:[address] ABDOMEN PELVIS WO CONTRAST ED 12/24/2024 8:[address] HEAD WO CONTRAST ED 12/24/2024 8 :28 AM CDT URINALYSIS, MICROSCOPIC ONLY STAT 12/24/2024 8:21 AM CDT URINE CULTURE STAT 12/24/2024 8:21 AM CDT URINALYSIS AND REFLEX TO MICROSCOPIC AND CULTURE STAT 12/24/2024 8:21 AM CDT XR CHEST 1 VIEW ED 12/24/2024 7:54 AM CDT BLOOD GAS, VENOUS STAT 12/24/2024 7:2 4 AM CDT ECG 12-LEAD Routine 12/24/2024 7:23 AM CDT EGFR STAT 12/24/2024 7:21 AM CDT DIFFERENTIAL AUTO STAT 12/24/2024 7:2 1 AM CDT SEPSIS LACTATE WITH REFLEX STAT 12/24/2024 7:21 AM CDT TROPONIN T HIGH-SENSITIVITY SERIES (BASELINE, 2HR, 4HR, 6HR) Routine 12/24/2024 7:21 AM CDT PRO B-TYPE NATRIURETIC PEPTIDE STAT 12/24/2024 7:21 AM CDT MAGNESIUM Routine 12/24/2024 7:21 AM CDT COMPREHENSIVE METABOLIC PANEL STAT 12/24/2024 7:21 AM CDT CBC WITH AUTO DIFFERENTIAL STAT 12/24/2024 7:21 AM CDT APTT STAT 12/24/2024 7:[address] ABDOMEN PELVIS WO CONTRAST ED 12/13/2024 9:22 PM CDT URINALYSIS, MICROSCOPIC ONLY STAT 12/13/2024 8:44 PM CDT URINE CULTURE STAT 12/13/2024 8:44 PM CDT URINALYSIS AND REFLEX TO MICROSCOPIC AND CULTURE STAT 12/13/2024 8:44 PM CDT EGFR STAT 12/13/2024 4:45 PM CDT DIFFERENTIAL AUTO STAT 12/13/2024 4:4 5 PM CDT COMPREHENSIVE METABOLIC PANEL STAT 12/13/2024 4:45 PM CDT CBC WITH AUTO DIFFERENTIAL STAT 12/13/2024 4:45 PM CDT COLONOSCOPY 02/09/2018 10:41 AM CDT from Last 3 Months or Most Recently Relevant to Health Maintenance Results * (ABNORMAL) eGFR (01/31/2025 2:35 PM CDT) eGFR 21(L) >=60 mL/min/1. 73 m2 Comment: Interpretive Data Reference Interval Normal >/= 90 mL/min/1.73m2 Mildly decreased* 60 - 89 mL/min/1.73m2 Mildly to moderately decreased 45 - 59 mL/min/1.73m2 Moderately to severely decreased 30 - 44 mL/min/1.73m2 Severely decreased 15 - 29 mL/min/1.73m2 Kidney Failure < 15 mL/min/1.73m2 *Relative to young adult level Estimated glomerular filtration rate is determined by the 2020 CKD-EPI equation recommended by the National Kid[employer] (A Unifying Approach to GFR Estimation: Recommendations of the NKF-ASK Task Force on Reassessing the Inclusion of Race in Diagnosing Kidney Disease, JASN 2020). The CKD-EPI equation should not be used for patients with unstable renal function and has not been validated in children and those over 70. Current interpretive data was last reviewed 2021. Blood 01/31/2025 2:35 PM CDT 01/31/2025 2:36 PM CDT us Samuel Marie MD LAB BLOOD ORDERABLES Final Res ult [facility] [address] [facility] Department of Laboratories [place], [place] [id number] * Differential, auto (01/31/2025 2:35 PM CDT) Neutrophil abs 3.98 1.50 - 6.50 K/cumm Imm gran abs 0.01 0.00 - 0.10 K/cumm [facility]) Lymphocyte abs 2.13 0.80 - 3.30 K/cumm [facility] ([place]) Monocyte abs 0.80 0.20 - 0.80 K/cumm [facility] ([place]) Eosinophil abs 0.22 0.00 - 0.50 K/cumm [facility] ([place]) Basophil abs 0.04 0.00 - 0.10 K/cumm [facility] ([place]) Neutrophil pct 55.4 % [facility]) Comment: Interpretive Data Percent cell count reference ranges are not reported, since discordance with absolute values may lead to misinterpretation of CBC data. Current Interpretive Data was last revised on 2017. Imm gran pct 0.1 % [facility] ([place]) Comment: Interpretive Data Percent cell count reference ranges are not reported, since discordance with absolute values may lead to misinterpretation of CBC data. Current Interpretive Data was last revised on 2017. Lymphocyte pct 29.7 % [facility] ([place]) Comment: Interpretive Data Percent cell count reference ranges are not reported, since discordance with absolute values may lead to misinterpretation of CBC data. Current Interpretive Data was last revised on 2017. Monocyte pct 11.1 % [facility] ([place]) Comment: Interpretive Data Percent cell count reference ranges are not reported, since discordance with absolute values may lead to misinterpretation of CBC data. Current Interpretive Data was last revised on 2017. Eosinophil pct 3.1 % [facility] ([place]) Comment: Interpretive Data Percent cell count reference ranges are not reported, since discordance with absolute values may lead to misinterpretation of CBC data. Current Interpretive Data was last revised on 2017. Basophil pct 0.6 % [facility] ([place]) Comment: Interpretive Data Percent cell count reference ranges are not reported, since discordance with absolute values may lead to misinterpretation of CBC data. Current Interpretive Data was last revised on 2017. Blood 01/31/2025 2:35 PM CDT 01/31/2025 2:35 PM CDT us Behashley Marie MD LAB BLOOD ORDERABLES Final Res ult [facility] ([place]) 1 [facility] Department [place] [address] * (ABNORMAL) CBC with auto differential (01/31/2025 2:35 PM CDT) WBC 7.18 3.80 - 9.90 K/cumm Hgb 9.8(L) 11.9 - 15.5 g/dL [facility] ([place]) Hct 31.8(L) 35.6 - 45.5 % [facility] ([place]) Plt 277 150 - 400 K/cumm [facility] ([place]) MPV 10.1 9.1 - 12.3 fL [facility] ([place]) RBC 3.59(L) 3.90 - 5.20 M/cumm [facility] ([place]) MCV 88.6 81.3 - 96.4 fL [facility] ([place]) MCH 27.3 27.1 - 33.3 pg [facility] ([place]) MCHC 30.8(L) 32.3 - 35.7 g/dL [facility] ([place]) RDW CV 16.5(H) 11.1 - 14.9 % [facility] ([place]) RDW SD 53.9(H) 35.7 - 48.1 fL [facility] ([place]) NRBC abs 0.00 0.00 - 0.01 K/cumm [facility] ([place]) Blood 01/31/2025 2:35 PM CDT 01/31/2025 2:35 PM CDT us Samuel Marie MD LAB BLOOD ORDERABLES Final Res ult [facility] ([place]) 1 [facility] Department [place] [address] * (ABNORMAL) Basic metabolic panel (01/31/2025 2:35 PM CDT) Sodium 140 135 - 145 mmol/L [facility] ([place] Potassium, pl 4.8 3.3 - 4.9 mmol/L [facility] ([place]) Chloride 105 97 - 110 mmol/L [facility] ([place]) CO2 23 22 - 32 mmol/L [facility] ([place]) Anion gap 12 2 - 15 mmol/L [facility] ([place]) BUN 57(H) 6 - 25 mg/dL [facility] ([place]) Creatinine 2.28(H) 0.60 - 1.10 mg/dL [facility] ([place]) Glucose 100 70 - 199 mg/dL [facility] ([place]) Comment: Interpretive Data Fasting glucose >/= 126 mg/dl is diagnostic for diabetes. Fasting is defined as no caloric intake for at least 8 hours. Fasting glucose between 100 mg/dl to 125 mg/dl is diagnostic of prediabetes. In a patient with classic symptoms of hyperglycemia or hyperglycemic crisis, a random glucose >/= 200 mg/dl is diagnostic for diabetes. In the absence of unequivocal hyperglycemia, results should be confirmed by repeat testing. The classification and Diagnosis of Diabetes Diabetes Care 2021; 46: S19-S40. Current interpretive data was last revised 2022. Calcium 10.1 8.5 - 10.3 mg/dL [facility] ([place]) Blood 01/31/2025 2:35 PM CDT 01/31/2025 2:36 PM CDT Samuel Marie MD LAB BLOOD ORDERABLES Final Res ult [facility] ([place]) 1 [facility] Department [place] [address] * CT abdomen pelvis without contrast (01/27/2025 2:22 PM CDT) Anatomical Region Laterality Modality Body N/A Computed Tomogra phy 01/27/2025 4:29 PM CDT Impressions 01/27/2025 4:29 PM CDT . Moderate colonic stool burden, colonic interposition, and diverticulosis with interval resolution of left colonic mural thickening and fat stranding. Cholelithiasis. Mild hepatomegaly. Moderate bladder distention. Electronically signed by: Raissa Crawford M.D. Narrative 01/27/2025 4:29 PM CDT EXAM: CT ABDOMEN AND PELVIS WITHOUT CONTRAST: Date:01/27/2025 2:30 PM HISTORY:Diverticulitis, complication suspected TECHNIQUE: CT of the abdomen/pelvis was performed without intravenous contrast medium utilizing standard protocol and reconstructed into 3 mm axial, coronal, and sagittal images utilizing soft tissue and bone filters. The lack of intravenous contrast medium limits the evaluation for focal visceral lesions and intravascular pathology. COMPARISON: CT abdomen pelvis 12/30/2024. FINDINGS: The sensitivity for detection of visceral lesions is decreased in the absence of intravenous contrast. Extensive mitral annular calcification again noted. Calcified left basilar granuloma is seen. The liver is enlarged measuring 21 cm in length. Unenhanced appearance of the pancreas, and lesions is unremarkable. Calcified granulomas are seen.. Contracted gallbladder with calcified gallstone is present. No biliary distention noted. . No hydronephrosis or nephrolithiasis noted. Exophytic small left renal cyst is present. Marked calcified nonaneurysmal aorta is seen. Nondistended stomach noted.. Moderate colonic stool burden with colonic interposition extending to the right subphrenic space is noted. Diverticulosis especially in the sigmoid and descending colon is present with interval resolution of the descending and sigmoid colonic mural thickening and fat stranding.The appendix is unremarkable..No small bowel obstruction noted. There is no pneumoperitoneum or ascites. Moderate distended urinary bladder is noted though pelvic viscera are mostly obscured by metal artifact from hip prostheses.. The uterus is predominately obscured. No suspicious mesenteric or retroperitoneal nodes are seen.. Marked narrowed vacuum disc at L2-3, L3-4, L4-5 and L5-S1 is present. The osseous structures are intact. Procedure Note Raissa Crawford MD - 01/27/2025 EXAM: CT ABDOMEN AND PELVIS WITHOUT CONTRAST: Date:01/27/2025 2:30 PM HISTORY:Diverticulitis, complication suspected TECHNIQUE: CT of the abdomen/pelvis was performed without intravenous contrast medium utilizing standard protocol and reconstructed into 3 mm axial, coronal, and sagittal images utilizing soft tissue and bone filters. The lack of intravenous contrast medium limits the evaluation for focal visceral lesions and intravascular pathology. COMPARISON: CT abdomen pelvis 12/30/2024. FINDINGS: The sensitivity for detection of visceral lesions is decreased in the absence of intravenous contrast. Extensive mitral annular calcification again noted. Calcified left basilar granuloma is seen. The liver is enlarged measuring 21 cm in length. Unenhanced appearance of the pancreas, and lesions is unremarkable. Calcified granulomas are seen.. Contracted gallbladder with calcified gallstone is present. No biliary distention noted. . No hydronephrosis or nephrolithiasis noted. Exophytic small left renal cyst is present. Marked calcified nonaneurysmal aorta is seen. Nondistended stomach noted.. Moderate colonic stool burden with colonic interposition extending to the right subphrenic space is noted. Diverticulosis especially in the sigmoid and descending colon is present with interval resolution of the descending and sigmoid colonic mural thickening and fat stranding.The appendix is unremarkable..No small bowel obstruction noted. There is no pneumoperitoneum or ascites. Moderate distended urinary bladder is noted though pelvic viscera are mostly obscured by metal artifact from hip prostheses.. The uterus is predominately obscured. No suspicious mesenteric or retroperitoneal nodes are seen.. Marked narrowed vacuum disc at L2-3, L3-4, L4-5 and L5-S1 is present. The osseous structures are intact. IMPRESSION: . Moderate colonic stool burden, colonic interposition, and diverticulosis with interval resolution of left colonic mural thickening and fat stranding. Cholelithiasis. Mild hepatomegaly. Moderate bladder distention. Electronically signed by: Raissa Crawford M.D. Lisa Wolfe NP IMG CT PROCEDURES Final R esult * XR Shoulder Left 2 or More Views (01/15/2025 9:08 PM CDT) Anatomical Region Laterality Modality Upper Extremities, Shoulder Left Comp uted Radiography 01/15/2025 9:34 PM CDT Narrative 01/15/2025 9:35 PM CDT EXAM DESCRIPTION: XR SHOULDER LEFT 2 OR MORE VIEWS REASON FOR STUDY: pain Fall, shoulder pain. TECHNIQUE: 4 radiographic view(s) of the left shoulder . COMPARISON: None FINDINGS: Severe degenerative changes are seen of the left glenohumeral joint with flattening of the humeral head and acetabulum. The bones are osteopenic. No fracture or dislocation is identified. Calcified nodule seen adjacent to the left hilum. IMPRESSION: Severe degenerative changes are noted. No traumatic injury is seen. THIS IS AN ELECTRONICALLY VERIFIED FINAL REPORT 01/15/2025 9:35 PM - Electronically signed by Ryan Howell M.D. KH: FLORINDA Report ID: [id number] Reading Location: [id number] Procedure Note Ryan Howell MD - 01/15/2025 EXAM DESCRIPTION: XR SHOULDER LEFT 2 OR MORE VIEWS REASON FOR STUDY: pain Fall, shoulder pain. TECHNIQUE: 4 radiographic view(s) of the left shoulder . COMPARISON: None FINDINGS: Severe degenerative changes are seen of the left glenohumeral joint with flattening of the humeral head and acetabulum. The bones are osteopenic.No fracture or dislocation is identified. Calcified nodule seen adjacent tothe left hilum. IMPRESSION: Severe degenerative changes are noted. No traumatic injury is seen. THIS IS AN ELECTRONICALLY VERIFIED FINAL REPORT 01/15/2025 9:35 PM - Electronically signed by Ryan Howell M.D. KH: FLORINDA Report ID: [id number] Reading Location: [id number] Katalina WAGNER IM XR PROCEDURES Final Result * CT Cervical Spine WO Contrast (01/15/2025 7:30 PM CDT) Anatomical Region Laterality Modality Spine N/A Computed Tomogra phy 01/15/2025 7:53 PM CDT Narrative 01/15/2025 7:56 PM CDT EXAM DESCRIPTION: CT CERVICAL SPINE WO CONTRAST REASON FOR STUDY: Neck trauma (Age >= 65y) TECHNIQUE: Axial images through the cervical spine with sagittal and coronal reformatted images. Automated exposure control was used as a dose optimization technique for this examination. COMPARISON: 01/06/2025 FINDINGS: ALIGNMENT: Normal. VERTEBRAE: No fracture. Vertebral body heights well-maintained. DISCS: Intervertebral disc narrowing is seen particularly C5-C6 and C6-C7. Diffuse facet arthropathy is seen particularly on the right HARDWARE: None in the spine. INDIVIDUAL LEVELS: Canal contents are not well seen by CT. There is some partial canal narrowing at C5-C6 and C6-C7 by posterior disc/osteophyte material. No clear evidence of the tight canal stenosis is seen. UPPER THORACIC: Incompletely imaged. No significant osseous spinal stenosis or osseous neural foraminal stenosis. SKULL BASE: No significant finding. LUNG APICES: No significant abnormality. NECK SOFT TISSUES: No significant abnormality. OTHER: No other significant findings. IMPRESSION: Degenerative changes are noted. No traumatic injury is seen. THIS IS AN ELECTRONICALLY VERIFIED FINAL REPORT 01/15/2025 7:56 PM - Electronically signed by Ryan NEELY: FLORINDA Report ID: [id number] Reading Location: [place] [address] Procedure Note Ryan Howell MD - 01/15/2025 EXAM DESCRIPTION: CT CERVICAL SPINE WO CONTRAST REASON FOR STUDY: Neck trauma (Age >= 65y) TECHNIQUE: Axial images through the cervical spine with sagittal andcoronal reformatted images. Automated exposure control was used as a doseoptimization technique for this examination. COMPARISON: 01/06/2025 FINDINGS: ALIGNMENT: Normal. VERTEBRAE: No fracture. Vertebral body heights well-maintained. DISCS: Intervertebral disc narrowing is seen particularly C5-C6 andC6-C7. Diffuse facet arthropathy is seen particularly on the right HARDWARE: None in the spine. INDIVIDUAL LEVELS: Canal contents are not well seen by CT. There is some partial canalnarrowing at C5-C6 and C6-C7 by posterior disc/osteophyte material. No clearevidence of the tight canal stenosis is seen. UPPER THORACIC: Incompletely imaged. No significant osseous spinalstenosis or osseous neural foraminal stenosis. SKULL BASE: No significant finding. LUNG APICES: No significant abnormality. NECK SOFT TISSUES: No significant abnormality. OTHER: No other significant findings. IMPRESSION: Degenerative changes are noted. No traumatic injury is seen. THIS IS AN ELECTRONICALLY VERIFIED FINAL REPORT 01/15/2025 7:56 PM - Electronically signed by Ryan NEELY: FLORINDA Report ID: [id number] Reading Location: [place] [address] Katalina WAGNER [facility] CT PROCEDURES Final Result * CT Head WO Contrast (01/15/2025 7:30 PM CDT) Anatomical Region Laterality Modality Head and Neck N/A Computed Tomogra phy 01/15/2025 7:52 PM CDT Narrative 01/15/2025 7:53 PM CDT EXAM DESCRIPTION: CT HEAD WO CONTRAST REASON FOR STUDY: Head trauma, minor (Age >= 65y) TECHNIQUE: Axial images acquired through the brain without intravenous contrast. Images stored on PACS. Automated exposure control was used as a dose optimization technique for this examination. COMPARISON: 01/06/2025 FINDINGS: BRAIN: No hemorrhage, edema or mass effect. No recent infarct. Patchy hypodensity of the cerebral white matter suggests chronic small-vessel ischemic changes. Diffuse atrophy of the brain is noted. EXTRA-AXIAL SPACES: No fluid collections. No masses. CALVARIUM: No fracture. Left frontal scalp hematoma is noted. SINUSES/MASTOIDS: No fluid or mucosal thickening. ORBITS: No significant abnormality. OTHER: No other significant abnormality. IMPRESSION: No acute intracranial findings. Left frontal scalp hematoma. THIS IS AN ELECTRONICALLY VERIFIED FINAL REPORT 01/15/2025 7:53 PM - Electronically signed by Ryan Howell M.D. KH: FLORINDA Report ID: [id number] Reading Location: [place] [address] Procedure Note Ryan Howell MD - 01/15/2025 EXAM DESCRIPTION: CT HEAD WO CONTRAST REASON FOR STUDY: Head trauma, minor (Age >= 65y) TECHNIQUE: Axial images acquired through the brain without intravenous contrast. Images stored on PACS. Automated exposure control was used asa dose optimization technique for this examination. COMPARISON: 01/06/2025 FINDINGS: BRAIN: No hemorrhage, edema or mass effect. No recent infarct.Patchy hypodensity of the cerebral white matter suggests chronic small-vessel ischemic changes. Diffuse atrophy of the brain is noted. EXTRA-AXIAL SPACES: No fluid collections. No masses. CALVARIUM: No fracture. Left frontal scalp hematoma is noted. SINUSES/MASTOIDS: No fluid or mucosal thickening. ORBITS: No significant abnormality. OTHER: No other significant abnormality. IMPRESSION: No acute intracranial findings. Left frontal scalp hematoma. THIS IS AN ELECTRONICALLY VERIFIED FINAL REPORT 01/15/2025 7:53 PM - Electronically signed by Ryan Howell M.D. KH: FLORINDA Report ID: [id number] Reading Location: [place] [address] PROCEDURES Final Result * ECG 12 lead (01/15/2025 7:03 PM CDT) 01/15/2025 7:03 PM CDT Narrative [facility] - 01/16/2025 8:31 AM CDT Vent Rate: 112 bpm RR Interval: 532 msec NE Interval: 181 msec QRS Duration: 88 msec QT Interval: 310 msec QTC Interval: 376 msec P-R-T [place]: 53 - 26 - 42 degrees IMPRESSION: SINUS TACHYCARDIA ABNORMAL RHYTHM ECG Compared to prior EKG heart rate increased Electronically Signed By: Marco Antonio Mustafa MD [facility] Katalina WAGNER ECG ORDERABLES Final Result [facility] [employer] [facility] * (ABNORMAL) eGFR (01/09/2025 5:51 AM CDT) eGFR 26(L) >=60 mL/min/1. 73 m2 Comment: Interpretive Data Reference Interval Normal >/= 90 mL/min/1.73m2 Mildly decreased* 60 - 89 mL/min/1.73m2 Mildly to moderately decreased 45 - 59 mL/min/1.73m2 Moderately to severely decreased 30 - 44 mL/min/1.73m2 Severely decreased 15 - 29 mL/min/1.73m2 Kidney Failure < 15 mL/min/1.73m2 *Relative to young adult level Estimated glomerular filtration rate is determined by the 2020 CKD-EPI equation recommended by the National [employer] (A Unifying Approach to GFR Estimation: Recommendations of the NKF-ASK Task Force on Reassessing the Inclusion of Race in Diagnosing Kidney Disease, JASN 2020). The CKD-EPI equation should not be used for patients with unstable renal function and has not been validated in children and those over 70. Current interpretive data was last reviewed 2021. Blood 01/09/2025 5:51 AM CDT 01/09/2025 5:58 AM CDT us Pascual Navarro MD LAB BLOOD ORDERABLES F inal Result [facility] ([place]) 1 [facility] Department [place] [address] * (ABNORMAL) Differential, auto (01/09/2025 5:51 AM CDT) Neutrophil abs 4.56 1.50 - 6.50 K/cumm Imm gran abs 0.09 0.00 - 0.10 K/cumm [facility] ([place]) Lymphocyte abs 2.20 0.80 - 3.30 K/cumm [facility] ([place]) Monocyte abs 1.27(H) 0.20 - 0.80 K/cumm [facility] ([place]) Eosinophil abs 0.32 0.00 - 0.50 K/cumm [facility] ([place]) Basophil abs 0.05 0.00 - 0.10 K/cumm [facility] ([place]) Neutrophil pct 53.6 % [facility] ([place]) Comment: Interpretive Data Percent cell count reference ranges are not reported, since discordance with absolute values may lead to misinterpretation of CBC data. Current Interpretive Data was last revised on 2017. Imm gran pct 1.1 % [facility] ([place]) Comment: Interpretive Data Percent cell count reference ranges are not reported, since discordance with absolute values may lead to misinterpretation of CBC data. Current Interpretive Data was last revised on 2017. Lymphocyte pct 25.9 % [facility] ([place]) Comment: Interpretive Data Percent cell count reference ranges are not reported, since discordance with absolute values may lead to misinterpretation of CBC data. Current Interpretive Data was last revised on 2017. Monocyte pct 15.0 % [facility] ([place]) Comment: Interpretive Data Percent cell count reference ranges are not reported, since discordance with absolute values may lead to misinterpretation of CBC data. Current Interpretive Data was last revised on 2017. Eosinophil pct 3.8 % [facility] ([place]) Comment: Interpretive Data Percent cell count reference ranges are not reported, since discordance with absolute values may lead to misinterpretation of CBC data. Current Interpretive Data was last revised on 2017. Basophil pct 0.6 % [facility] ([place]) Comment: Interpretive Data Percent cell count reference ranges are not reported, since discordance with absolute values may lead to misinterpretation of CBC data. Current Interpretive Data was last revised on 2017. Blood 01/09/2025 5:51 AM CDT 01/09/2025 5:58 AM CDT us Pascual Navarro MD LAB BLOOD ORDERABLES F inal Result [facility] ([place]) 1 [facility] Department [place] [address] * (ABNORMAL) CBC with auto differential (01/09/2025 5:51 AM CDT) WBC 8.49 3.80 - 9.90 K/cumm Hgb 8.2(L) 11.9 - 15.5 g/dL [facility] ([place]) Hct 26.8(L) 35.6 - 45.5 % [facility] ([place]) Plt 406(H) 150 - 400 K/cumm [facility] ([place]) MPV 9.1 9.1 - 12.3 fL [facility] ([place]) RBC 3.08(L) 3.90 - 5.20 M/cumm [facility] ([place]) MCV 87.0 81.3 - 96.4 fL [facility] ([place]) MCH 26.6(L) 27.1 - 33.3 pg [facility] ([place]) MCHC 30.6(L) 32.3 - 35.7 g/dL [facility] ([place]) RDW CV 17.2(H) 11.1 - 14.9 % [facility] ([place]) RDW SD 53.5(H) 35.7 - 48.1 fL [facility] ([place]) NRBC abs 0.00 0.00 - 0.01 K/cumm [facility] ([place]) Blood 01/09/2025 5:51 AM CDT 01/09/2025 5:58 AM CDT us Pascual Navarro MD LAB BLOOD ORDERABLES F inal Result [facility] ([place]) 1 [facility] Department [place] [address] * (ABNORMAL) Comprehensive metabolic panel (01/09/2025 5:51 AM CDT) Sodium 142 135 - 145 mmol/L [facility] ([place]) Potassium, pl 4.3 3.3 - 4.9 mmol/L [facility] ([place]) Chloride 104 97 - 110 mmol/L [facility] ([place]) CO2 29 22 - 32 mmol/L [facility] ([place]) Anion gap 9 2 - 15 mmol/L [facility] ([place]) BUN 32(H) 6 - 25 mg/dL [facility] ([place]) Creatinine 1.96(H) 0.60 - 1.10 mg/dL [facility] ([place]) Glucose 89 70 - 199 mg/dL [facility] ([place]) Comment: Interpretive Data Fasting glucose >/= 126 mg/dl is diagnostic for diabetes. Fasting is defined as no caloric intake for at least 8 hours. Fasting glucose between 100 mg/dl to 125 mg/dl is diagnostic of prediabetes. In a patient with classic symptoms of hyperglycemia or hyperglycemic crisis, a random glucose >/= 200 mg/dl is diagnostic for diabetes. In the absence of unequivocal hyperglycemia, results should be confirmed by repeat testing. The classification and Diagnosis of Diabetes Diabetes Care 202; 46: S19-S40. Current interpretive data was last revised 2022. Calcium 9.6 8.5 - 10.3 mg/dL [facility] ([place]) Bilirubin, total 0.2 0.1 - 1.2 mg/dL [facility] ([place]) Protein, pl 6.7 6.5 - 8.5 g/dL [facility] ([place]) Albumin 3.1(L) 3.5 - 5.0 g/dL [facility] ([place]) Alk phos 74 40 - 130 Units/L [facility] ([place]) ALT 22 7 - 45 Units/L [facility] ([place]) AST 33 10 - 45 Units/L [facility] ([place]) Blood 01/09/2025 5:51 AM CDT 01/09/2025 5:58 AM CDT us Pascual Navarro MD LAB BLOOD ORDERABLES F inal Result [facility] ([place]) 1 [facility] Department [place] [address] * (ABNORMAL) Differential, auto (01/07/2025 9:56 AM CDT) Neutrophil abs 4.58 1.50 - 6.50 K/cumm Imm gran abs 0.08 0.00 - 0.10 K/cumm [facility] ([place]) Lymphocyte abs 1.88 0.80 - 3.30 K/cumm [facility] ([place]) Monocyte abs 0.97(H) 0.20 - 0.80 K/cumm [facility] ([place]) Eosinophil abs 0.27 0.00 - 0.50 K/cumm [facility] ([place]) Basophil abs 0.05 0.00 - 0.10 K/cumm [facility] ([place]) Neutrophil pct 58.6 % [facility] ([place]) Comment: Interpretive Data Percent cell count reference ranges are not reported, since discordance with absolute values may lead to misinterpretation of CBC data. Current Interpretive Data was last revised on 2017. Imm gran pct 1.0 % [facility] ([place]) Comment: Interpretive Data Percent cell count reference ranges are not reported, since discordance with absolute values may lead to misinterpretation of CBC data. Current Interpretive Data was last revised on 2017. Lymphocyte pct 24.0 % [facility] ([place] Comment: Interpretive Data Percent cell count reference ranges are not reported, since discordance with absolute values may lead to misinterpretation of CBC data. Current Interpretive Data was last revised on 2017. Monocyte pct 12.4 % [facility] ([place]) Comment: Interpretive Data Percent cell count reference ranges are not reported, since discordance with absolute values may lead to misinterpretation of CBC data. Current Interpretive Data was last revised on 2017. Eosinophil pct 3.4 % [facility] ([place] Comment: Interpretive Data Percent cell count reference ranges are not reported, since discordance with absolute values may lead to misinterpretation of CBC data. Current Interpretive Data was last revised on 2017. Basophil pct 0.6 % [facility] ([place] Comment: Interpretive Data Percent cell count reference ranges are not reported, since discordance with absolute values may lead to misinterpretation of CBC data. Current Interpretive Data was last revised on 2017. Blood 01/07/2025 9:56 AM CDT 01/07/2025 10:49 AM CDT us Pascual Navarro MD LAB BLOOD ORDERABLES F inal Result [facility] ([place]) 1 [facility] Department [place] [address] * (ABNORMAL) CBC with auto differential (01/07/2025 9:56 AM CDT) WBC 7.83 3.80 - 9.90 K/cumm Hgb 9.3(L) 11.9 - 15.5 g/dL [facility] ([place]) Hct 30.9(L) 35.6 - 45.5 % [facility] ([place]) Plt 393 150 - 400 K/cumm [facility] ([place]) MPV 11.0 9.1 - 12.3 fL [facility] ([place]) RBC 3.50(L) 3.90 - 5.20 M/cumm [facility] ([place]) MCV 88.3 81.3 - 96.4 fL [facility] ([place]) MCH 26.6(L) 27.1 - 33.3 pg [facility] ([place]) MCHC 30.1(L) 32.3 - 35.7 g/dL [facility] ([place]) RDW CV 17.2(H) 11.1 - 14.9 % [facility] ([place]) RDW SD 54.0(H) 35.7 - 48.1 fL [facility] ([place]) NRBC abs 0.00 0.00 - 0.01 K/cumm [facility] ([place]) Blood 01/07/2025 9:56 AM CDT 01/07/2025 10:49 AM CDT us Pascual Navarro MD LAB BLOOD ORDERABLES F inal Result [facility] ([place]) 1 [facility] Department [place] [address] * MRI Cervical Spine WO Contrast (01/06/2025 5:03 PM CDT) Anatomical Region Laterality Modality Spine N/A Magnetic Resonan ce 01/06/2025 11:0 3 PM CDT Narrative 01/06/2025 11:09 PM CDT EXAM DESCRIPTION: MRI CERVICAL SPINE WO CONTRAST REASON FOR STUDY: To rule out cervical stenosis Patient was found face down at the fpc. She was having a seizure for 3 minutes. Afterwards she was confused. She denies headache, chest pain, shortness breath, nausea, vomiting, dizziness. Patient is medicated. Best images possible. TECHNIQUE: Sagittal and Axial imaging includes T1, T2, STIR and gradient echo sequences. COMPARISON: No comparison MRI cervical spine. CT cervical spine from 01/06/2025. FINDINGS: ALIGNMENT: Normal. VERTEBRAE: Vertebral body height well-maintained. No acute or focal marrow abnormality. Marrow. DISCS: Disc degeneration C4-5, C5-6, C6-7. See below. HARDWARE: None in the spine. CORD: The exam is limited by excessive patient motion artifact. Evaluation of the cervical spinal cord therefore is limited. No large lesion is seen however repeat imaging is suggested if there is concern for a cord lesion. INDIVIDUAL LEVELS: C1-C2: No significant spinal stenosis. C2-C3: No significant spinal stenosis or neural foraminal stenosis. C3-C4: No significant spinal stenosis or neural foraminal stenosis. C4-C5: Right facet arthritis with right paracentral disc osteophytic complex. There is moderate flattening along the ventral cervical cord with mild cord impingement. Moderate to severe right and moderate left foraminal narrowing. C5-C6: Disc space narrowing. Chronic posterior disc osteophyte complex with bilateral facet arthritis and thickening of ligaments. There is moderate spinal stenosis with mild cord impingement. Moderate to severe bilateral foraminal narrowing. C6-C7: Mild broad-based posterior disc osteophyte complex with bilateral facet arthritis and uncovertebral hypertrophy. There is severe left and right foraminal narrowing. Mild spinal stenosis without high-grade cord impingement. C7-T1: Focal left paramidline disc osteophyte complex. No high-grade spinal stenosis. Mild bilateral foraminal narrowing. BASE OF BRAIN: No significant finding. UPPER THORACIC: Incompletely imaged. No significant spinal stenosis or foraminal stenosis. OTHER: No other significant finding. IMPRESSION: 1. Exam limited by excessive patient motion artifact. Within limitation, multilevel cervical spondylosis with spinal stenosis and mild cord impingement at C4-5 and C5-6. Multilevel foraminal narrowing, most evident on the right at C4-5, bilaterally at C5-6 and C6-7. Please correlate with radiculopathy symptoms. 2. No definite cord signal abnormality however repeat imaging is suggested if there is concern for cord lesion. THIS IS AN ELECTRONICALLY VERIFIED FINAL REPORT 01/06/2025 11:09 PM - Electronically signed by Tigre Steele M.D. LC: MARIO Report ID: [id number] Reading Location: [id number] Procedure Note Linda Steele MD - 01/06/2025 EXAM DESCRIPTION: MRI CERVICAL SPINE WO CONTRAST REASON FOR STUDY: To rule out cervical stenosis Patient was found face down at the fpc. She was having a seizurefor 3 minutes. Afterwards she was confused. She denies headache, chest pain, shortness breath, nausea, vomiting, dizziness. Patient ismedicated. Best images possible. TECHNIQUE: Sagittal and Axial imaging includes T1, T2, STIR and gradientecho sequences. COMPARISON: No comparison MRI cervical spine. CT cervical spine from 01/06/2025. FINDINGS: ALIGNMENT: Normal. VERTEBRAE: Vertebral body height well-maintained. No acute or focalmarrow abnormality. Marrow. DISCS: Disc degeneration C4-5, C5-6, C6-7. See below. HARDWARE: None in the spine. CORD: The exam is limited by excessive patient motion artifact.Evaluation of the cervical spinal cord therefore is limited. No large lesion is seen however repeat imaging is suggested if there is concern for a cord lesion. INDIVIDUAL LEVELS: C1-C2: No significant spinal stenosis. C2-C3: No significant spinal stenosis or neural foraminal stenosis. C3-C4: No significant spinal stenosis or neural foraminal stenosis. C4-C5: Right facet arthritis with right paracentral disc osteophytic complex. There is moderate flattening along the ventral cervical cordwith mild cord impingement. Moderate to severe right and moderate leftforaminal narrowing. C5-C6: Disc space narrowing. Chronic posterior disc osteophyte complexwith bilateral facet arthritis and thickening of ligaments. There is moderate spinal stenosis with mild cord impingement. Moderate to severe bilateral foraminal narrowing. C6-C7: Mild broad-based posterior disc osteophyte complex with bilateral facet arthritis and uncovertebral hypertrophy. There is severe left andright foraminal narrowing. Mild spinal stenosis without high-grade cord impingement. C7-T1: Focal left paramidline disc osteophyte complex. No high-gradespinal stenosis. Mild bilateral foraminal narrowing. BASE OF BRAIN: No significant finding. UPPER THORACIC: Incompletely imaged. No significant spinal stenosis or foraminal stenosis. OTHER: No other significant finding. IMPRESSION: 1. Exam limited by excessive patient motion artifact. Within limitation, multilevel cervical spondylosis with spinal stenosis and mild cordimpingement at C4-5 and C5-6. Multilevel foraminal narrowing, most evident on theright at C4-5, bilaterally at C5-6 and C6-7. Please correlate with radiculopathy symptoms. 2. No definite cord signal abnormality however repeat imaging issuggested if there is concern for cord lesion. THIS IS AN ELECTRONICALLY VERIFIED FINAL REPORT 01/06/2025 11:09 PM - Electronically signed by Tigre Steele M.D. LC: MARIO Report ID: [id number] Reading Location: [id number] us Gilberto RaymonGarima Mead NP IMG MRI PROCEDURES Final Re sult * MRI Brain WO Contrast (01/06/2025 5:03 PM CDT) Anatomical Region Laterality Modality Head and Neck N/A Magnetic Resonan ce 01/06/2025 5:50 PM CDT Narrative 01/06/2025 6:18 PM CDT EXAM DESCRIPTION: MRI BRAIN WO CONTRAST REASON FOR STUDY: Neuro deficit, acute, stroke suspected, Seizure, new-onset, no history of trauma Patient was found face down at the fpc. She was having a seizure for 3 minutes. Afterwards she was confused. She denies headache, chest pain, shortness breath, nausea, vomiting, dizziness. Patient is medicated. Best images possible. TECHNIQUE: Multiplanar imaging includes non-contrasted T1, T2, FLAIR, and diffusion with ADC map sequences. Additional sequence(s) sensitive to blood products. Images stored on PACS. COMPARISON: Head CT comparison from 01/06/2025. FINDINGS: CEREBRUM: Images are compromised by patient motion artifact. Within limitation, there is no acute infarction evident on diffusion-weighted images. Susceptibility weighted images are severely limited by motion artifact. There are potentially multifocal tiny punctate areas of microhemorrhage throughout the brain however this could also be artifact and are not confirmed on gradient images. Would suggest repeat imaging when possible. Otherwise, the brain is unremarkable. The ventricular system is normal in size and position. No midline shift. There is no focal cerebral parenchymal lesion or mass. Thin-section images obtained perpendicular to the medial temporal lobes are compromised by excessive patient motion artifact. Hippocampal formations are not well delineated however there is what appears to represent high signal intensity in a somewhat atrophic appearing right hippocampus on coronal FLAIR series 10 potentially representing either recent seizure activity or chronic changes of mesial temporal sclerosis. Again, repeat imaging is recommended when patient is able to assist. WHITE MATTER: FLAIR images demonstrate patchy and focal areas of T2 hyperintensity evident in the periventricular and subcortical regions. Changes are nonspecific but are probably microvascular related in a patient of this age group. POSTERIOR FOSSA: No posterior fossa abnormality is identified. DIFFUSION IMAGING: No recent infarction. EXTRAAXIAL SPACES: No hemorrhage. No mass. BRAIN VOLUME: Within normal limits for age. PITUITARY: Unremarkable. VASCULATURE: No flow disturbance identified. ORBITS: No masses. Globes normal. PARANASAL SINUSES AND MASTOIDS: Well-aerated with no fluid levels. No mucosa thickening. OTHER: No other significant finding. IMPRESSION: 1. Motion compromised study. Within limitation, no acute infarction. 2. Limited evaluation of the hippocampal formations. There is possibly high signal intensity in a somewhat atrophic appearing right hippocampus on coronal FLAIR images, as above. This could represent either recent seizure activity or chronic changes of mesial temporal sclerosis. Repeat imaging is recommended when patient is able to assist. 3. Scattered foci of T2 hyperintensity in periventricular and subcortical white matter. Changes are nonspecific but are probably microvascular related in a patient of this age group. Again, repeat imaging when possible is suggested. THIS IS AN ELECTRONICALLY VERIFIED FINAL REPORT 01/06/2025 6:18 PM - Electronically signed by Tigre Steele M.D. LC: MARIO Report ID: [id number] Reading Location: [id number] Procedure Note Linda Steele MD - 01/06/2025 EXAM DESCRIPTION: MRI BRAIN WO CONTRAST REASON FOR STUDY: Neuro deficit, acute, stroke suspected, Seizure, new-onset, no history of trauma Patient was found face down at the fpc. She was having a seizurefor 3 minutes. Afterwards she was confused. She denies headache, chest pain, shortness breath, nausea, vomiting, dizziness. Patient is medicated. Best images possible. TECHNIQUE: Multiplanar imaging includes non-contrasted T1, T2, FLAIR, and diffusion with ADC map sequences. Additional sequence(s) sensitive [employer]. Images stored on PACS. COMPARISON: Head CT comparison from 01/06/2025. FINDINGS: CEREBRUM: Images are compromised by patient motion artifact. Within limitation, there is no acute infarction evident on diffusion-weightedimages. Susceptibility weighted images are severely limited by motion artifact. There are potentially multifocal tiny punctate areas of microhemorrhage throughout the brain however this could also be artifact and are notconfirmed on gradient images. Would suggest repeat imaging when possible.Otherwise, the brain is unremarkable. The ventricular system is normal in size and position. No midline shift. There is no focal cerebral parenchymallesion or mass. Thin-section images obtained perpendicular to the medial temporallobes are compromised by excessive patient motion artifact. Hippocampalformations are not well delineated however there is what appears to represent highsignal intensity in a somewhat atrophic appearing right hippocampus on coronalFLAIR series 10 potentially representing either recent seizure activity orchronic changes of mesial temporal sclerosis. Again, repeat imaging isrecommended when patient is able to assist. WHITE MATTER: FLAIR images demonstrate patchy and focal areas of T2 hyperintensity evident in the periventricular and subcortical regions. Changes are nonspecific but are probably microvascular related in apatient of this age group. POSTERIOR FOSSA: No posterior fossa abnormality is identified. DIFFUSION IMAGING: No recent infarction. EXTRAAXIAL SPACES: No hemorrhage. No mass. BRAIN VOLUME: Within normal limits for age. PITUITARY: Unremarkable. VASCULATURE: No flow disturbance identified. ORBITS: No masses. Globes normal. PARANASAL SINUSES AND MASTOIDS: Well-aerated with no fluid levels. Nomucosa thickening. OTHER: No other significant finding. IMPRESSION: 1. Motion compromised study. Within limitation, no acute infarction. 2. Limited evaluation of the hippocampal formations. There is possiblyhigh signal intensity in a somewhat atrophic appearing right hippocampus oncoronal FLAIR images, as above. This could represent either recent seizureactivity or chronic changes of mesial temporal sclerosis. Repeat imaging isrecommended when patient is able to assist. 3. Scattered foci of T2 hyperintensity in periventricular andsubcortical white matter. Changes are nonspecific but are probably microvascularrelated in a patient of this age group. Again, repeat imaging when possible is suggested. THIS IS AN ELECTRONICALLY VERIFIED FINAL REPORT 01/06/2025 6:18 PM - Electronically signed by Tigre Steele M.D. LC: MARIO Report ID: [id number] Reading Location: [id number] us Gilberto J. Witges UNIFORM CAP OPERATOR IMG MRI PROCEDURES Final Re sult * EEG (01/06/2025 11:21 AM CDT) Anatomical Region Laterality Modality Other Impressions 01/06/2025 11:21 AM CDT History: This is a 79 years old patient being evaluated for seizure. The condition of the patient during tracing was reported to be awake and drowsy. The quality of study is good. The background activity consisted of posterior dominant alpha activity of moderate amplitude. When patient became drowsy, there was dropout of posterior dominant alpha activity and general slowing background activity. There was no epileptiform discharge seen in this tracing. EKG showed regular rate and rhythm. Impression: This is a normal EEG during awake and drowsy state. There was no epileptiform discharges seen in this tracing. Lyle Morrison MD NEUROLOGY ORDERABLES Final R esult * (ABNORMAL) Troponin T high-sensitivity 6-hour (01/06/2025 8:46 AM CDT) Trop T hs 26(H) <=14 ng/L [facility] ([place]) Comment: Interpretive Data For further hscTnT resources including the diagnostic algorithm and an aid in interpretation, copy and paste this link: https://nrl.testcatalog.org/show/hsTrop Current Interpretive Data last revised 2020. Trop T hs delta 3 ng/L [facility] ([place]) Trop T hs interp Insignificant [facility] ([place]) Blood 01/06/2025 8:46 AM CDT 01/06/2025 8:52 AM CDT Lyle Mrorison MD LAB BLOOD ORDERABLES Final R esult [facility] ([place]) 1 [facility] Department of Laboratories [place], [place] [id number] * (ABNORMAL) Troponin T high-sensitivity 2-hour (01/06/2025 4:41 AM CDT) Trop T hs 27(H) <=14 ng/L [facility] ([place]) Comment: Interpretive Data For further hscTnT resources including the diagnostic algorithm and an aid in interpretation, copy and paste this link: https://nrl.testcatalog.org/show/hsTrop Current Interpretive Data last revised 2020. Trop T hs delta 4 ng/L [facility] ([place]) Trop T hs interp Insignificant [facility] ([place]) Blood 01/06/2025 4:41 AM CDT 01/06/2025 4:44 AM CDT us Lyle Morrison MD LAB BLOOD ORDERABLES Final R esult [facility] ([place]) 1 [facility] Department [place] [address] * CT Cervical Spine WO Contrast (01/06/2025 3:21 AM CDT) Anatomical Region Laterality Modality Spine N/A Computed Tomogra phy 01/06/2025 3:35 AM CDT Narrative 01/06/2025 3:37 AM CDT EXAM DESCRIPTION: CT CERVICAL SPINE WO CONTRAST REASON FOR STUDY: Neck trauma (Age >= 65y) Patient was found face down at the fpc. She was having a seizure for 3 minutes. Afterwards she was confused. She denies headache, chest pain, shortness breath, nausea, vomiting, dizziness. TECHNIQUE: Axial images through the cervical spine with sagittal and coronal reformatted images. Automated exposure control was used as a dose optimization technique for this examination. COMPARISON: 01/05/2025 FINDINGS: VERTEBRAE: Vertebral bodies are normal in height and alignment. Moderate multilevel disc disease and facet arthropathy. Advanced atlantodental osteoarthritis. Facet joints and craniocervical junction are congruent. No spinal fracture identified. OTHER OSSEOUS STRUCTURES: Visualized ribs, clavicles, and scapula are intact. Visualized skull base and mandible appear normal. SOFT TISSUES: Unremarkable. INTRACRANIAL: Unremarkable. IMPRESSION: No fracture or malalignment identified. THIS IS AN ELECTRONICALLY VERIFIED FINAL REPORT 01/06/2025 3:37 AM - Electronically signed by Aleksandr Garner M.D. AR: ARMANDO Report ID: [id number] Reading Location: [id number] Procedure Note Aleksandr Garner MD - 01/06/2025 EXAM DESCRIPTION: CT CERVICAL SPINE WO CONTRAST REASON FOR STUDY: Neck trauma (Age >= 65y) Patient was found face down at the fpc. She was having a seizurefor 3 minutes. Afterwards she was confused. She denies headache, chest pain, shortness breath, nausea, vomiting, dizziness. TECHNIQUE: Axial images through the cervical spine with sagittal andcoronal reformatted images. Automated exposure control was used as a doseoptimization technique for this examination. COMPARISON: 01/05/2025 FINDINGS: VERTEBRAE: Vertebral bodies are normal in height and alignment.Moderate multilevel disc disease and facet arthropathy. Advanced atlantodental osteoarthritis. Facet joints and craniocervical junction are congruent. No spinal fracture identified. OTHER OSSEOUS STRUCTURES: Visualized ribs, clavicles, and scapula areintact. Visualized skull base and mandible appear normal. SOFT TISSUES: Unremarkable. INTRACRANIAL: Unremarkable. IMPRESSION: No fracture or malalignment identified. THIS IS AN ELECTRONICALLY VERIFIED FINAL REPORT 01/06/2025 3:37 AM - Electronically signed by Aleksandr Garner M.D. AR: ARMANDO Report ID: [id number] Reading Location: [id number] Lyle Morrison MD IMG CT PROCEDURES Final Resu lt * CT Head WO Contrast (01/06/2025 3:21 AM CDT) Anatomical Region Laterality Modality Head and Neck N/A Computed Tomogra phy 01/06/2025 3:37 AM CDT Narrative 01/06/2025 3:38 AM CDT EXAM DESCRIPTION: CT HEAD WO CONTRAST REASON FOR STUDY: Head trauma, minor (Age >= 65y) Patient was found face down at the fpc. She was having a seizure for 3 minutes. Afterwards she was confused. She denies headache, chest pain, shortness breath, nausea, vomiting, dizziness. TECHNIQUE: Axial images acquired through the brain without intravenous contrast. Images stored on PACS. Automated exposure control was used as a dose optimization technique for this examination. COMPARISON: 01/05/2025 FINDINGS: BRAIN: No mass, hemorrhage, or recent infarct. Normal white matter. Volume within normal limits for age. VASCULAR: No dense vessel or obvious aneurysm. EXTRA-AXIAL SPACES: No mass or fluid collection. ORBITS/GLOBES: Unremarkable. SOFT TISSUES: Unremarkable. BONES/SINUSES: No fracture or lesion. Paranasal sinuses and other skullbase airspaces are clear. IMPRESSION: No acute abnormality identified. THIS IS AN ELECTRONICALLY VERIFIED FINAL REPORT 01/06/2025 3:38 AM - Electronically signed by Aleksandr Garner M.D. AR: ARMANDO Report ID: [id number] Reading Location: [place] [id number] Procedure Note Aleksandr Garner MD - 01/06/2025 EXAM DESCRIPTION: CT HEAD WO CONTRAST REASON FOR STUDY: Head trauma, minor (Age >= 65y) Patient was found face down at the fpc. She was having a seizurefor 3 minutes. Afterwards she was confused. She denies headache, chest pain, shortness breath, nausea, vomiting, dizziness. TECHNIQUE: Axial images acquired through the brain without intravenous contrast. Images stored on PACS. Automated exposure control was used asa dose optimization technique for this examination. COMPARISON: 01/05/2025 FINDINGS: BRAIN: No mass, hemorrhage, or recent infarct. Normal white matter. Volume within normal limits for age. VASCULAR: No dense vessel or obvious aneurysm. EXTRA-AXIAL SPACES: No mass or fluid collection. ORBITS/GLOBES: Unremarkable. SOFT TISSUES: Unremarkable. BONES/SINUSES: No fracture or lesion. Paranasal sinuses and otherskullbase airspaces are clear. IMPRESSION: No acute abnormality identified. THIS IS AN ELECTRONICALLY VERIFIED FINAL REPORT 01/06/2025 3:38 AM - Electronically signed by Aleksandr Garner M.D. AR: ARMANDO Report ID: [id number] Reading Location: [id number] Lyle Morrison MD IMG CT PROCEDURES Final Resu lt * ECG 12 lead (01/06/2025 2:36 AM CDT) 01/06/2025 2:3 6 AM CDT Narrative [facility] - 01/06/2025 8:26 AM CDT Vent Rate: 96 bpm RR Interval: 620 msec NE Interval: 196 msec QRS Duration: 85 msec QT Interval: 328 msec QTC Interval: 382 msec P-R-T [place]: 56 - 26 - 41 degrees IMPRESSION: SINUS RHYTHM POSSIBLE LEFT ATRIAL ENLARGEMENT [-0.1mV P-WAVE IN V1/V2] BORDERLINE ECG NO CHANGE FROM PREVIOUS TRACING NOTED Electronically Signed By: Harry Jaimes MD Lyle Morrison MD ECG ORDERABLES Final Result Performing Organization Address City/[facility] Co de Phone Number [facility] * (ABNORMAL) Troponin T high-sensitivity series (baseline, 2hr, 4hr, 6hr) (01/06/2025 2:29 AM CDT) Trop T hs 23(H) <=14 ng/L [facility] ([place]) Comment: Interpretive Data For further hscTnT resources including the diagnostic algorithm and an aid in interpretation, copy and paste this link: https://nrl.testcatalog.org/show/hsTrop Current Interpretive Data last revised 2020. Blood 01/06/2025 2:29 AM CDT 01/06/2025 2:33 AM CDT Lyle Morrison MD LAB BLOOD ORDERABLES Final R esult [facility] ([place]) 1 [facility] Department [place] [address] * Sepsis Lactate w/ Reflex (01/06/2025 2:29 AM CDT) Sepsis Lactate 2.0 0.7 - 2.0 mmol/L Blood 01/06/2025 2:29 AM CDT 01/06/2025 2:33 AM CDT Lyle Morrison MD LAB BLOOD ORDERABLES Final R esult [facility] ([place]) 1 [facility] [place] [address] * (ABNORMAL) eGFR (01/06/2025 2:29 AM CDT) eGFR 22(L) >=60 mL/min/1. 73 m2 Comment: Interpretive Data Reference Interval Normal >/= 90 mL/min/1.73m2 Mildly decreased* 60 - 89 mL/min/1.73m2 Mildly to moderately decreased 45 - 59 mL/min/1.73m2 Moderately to severely decreased 30 - 44 mL/min/1.73m2 Severely decreased 15 - 29 mL/min/1.73m2 Kidney Failure < 15 mL/min/1.73m2 *Relative to young adult level Estimated glomerular filtration rate is determined by the 2020 CKD-EPI equation recommended by the National [employer] (A Unifying Approach to GFR Estimation: Recommendations of the NKF-ASK Task Force on Reassessing the Inclusion of Race in Diagnosing Kidney Disease, JASN 2020). The CKD-EPI equation should not be used for patients with unstable renal function and has not been validated in children and those over 70. Current interpretive data was last reviewed 2021. Blood 01/06/2025 2:29 AM CDT 01/06/2025 2:33 AM CDT Lyle Morrison MD LAB BLOOD ORDERABLES Final R esult [facility] ([place]) 1 [facility] [place] [address] * (ABNORMAL) Differential, auto (01/06/2025 2:29 AM CDT) Neutrophil abs 6.21 1.50 - 6.50 K/cumm Imm gran abs 0.11(H) 0.00 - 0.10 K/cumm [facility] ([place]) Lymphocyte abs 2.35 0.80 - 3.30 K/cumm [facility] ([place]) Monocyte abs 1.21(H) 0.20 - 0.80 K/cumm [facility] ([place]) Eosinophil abs 0.31 0.00 - 0.50 K/cumm [facility] ([place]) Basophil abs 0.03 0.00 - 0.10 K/cumm [facility] ([place]) Neutrophil pct 60.8 % [facility] ([place]) Comment: Interpretive Data Percent cell count reference ranges are not reported, since discordance with absolute values may lead to misinterpretation of CBC data. Current Interpretive Data was last revised on 2017. Imm gran pct 1.1 % [facility] ([place]) Comment: Interpretive Data Percent cell count reference ranges are not reported, since discordance with absolute values may lead to misinterpretation of CBC data. Current Interpretive Data was last revised on 2017. Lymphocyte pct 23.0 % [facility] ([place]) Comment: Interpretive Data Percent cell count reference ranges are not reported, since discordance with absolute values may lead to misinterpretation of CBC data. Current Interpretive Data was last revised on 2017. Monocyte pct 11.8 % [facility] ([place]) Comment: Interpretive Data Percent cell count reference ranges are not reported, since discordance with absolute values may lead to misinterpretation of CBC data. Current Interpretive Data was last revised on 2017. Eosinophil pct 3.0 % [facility] ([place]) Comment: Interpretive Data Percent cell count reference ranges are not reported, since discordance with absolute values may lead to misinterpretation of CBC data. Current Interpretive Data was last revised on 2017. Basophil pct 0.3 % [facility] ([place]) Comment: Interpretive Data Percent cell count reference ranges are not reported, since discordance with absolute values may lead to misinterpretation of CBC data. Current Interpretive Data was last revised on 2017. Blood 01/06/2025 2:29 AM CDT 01/06/2025 2:34 AM CDT Lyle Morrison MD LAB BLOOD ORDERABLES Final R yumi Performing Organization Address City/[facility]/ZIP Co de Phone Number REBECCA SPAIN ([place]) 1 [facility] Department of Laboratories [place] [id number] * Pro B-type natriuretic peptide (01/06/2025 2:29 AM CDT) NT-proBNP 323 <=450 pg/mL REBECCA SPAIN ([place]) Comment: Interpretive Comments: A. Dyspnea in Acute Care Setting All Ages: < 300 pg/ml, acute heart failure unlikely. < 50 yrs: 300 - 450 pg/ml, further investigation warranted. > 450 pg/ml, acute heart failure likely. 50 - 74 yrs: 300 - 900 pg/ml, further investigation warranted. > 900 pg/ml, acute heart failure likely . > or = 75 yrs: 450 - 1800 pg/ml, further investigation warranted. > 1800 pg/ml, acute heart failure likely. B. Non-acute Setting < 75 yrs < 125 pg/ml, rules out heart failure. > or = 125 pg/ml, further investigation warranted. > or = 75 yrs < 450 pg/ml, rules out heart failure. > or = 450 pg/ml, further investigation warranted. - Knowledge of each individual patient's NT-proBNP range may be more useful than using similar cut-points for every patient. Please note that marked elevations in NT-proBNP levels may be observed in state other than Left Ventricular Congestive Failure, including: acute coronary syndromes, right heart strain/failure (including pulmonary embolism and cor pulmonale), critical illness, renal failure, as well as advanced age. - References: 1. Cortney MIRANDA et.al. Eur Heart J. 2006:27:330-337. 2. Lore FERGUSON, Geovanna BIRD. J. AM Lance Cardiol: Cardiovasc Imag. 2009;2: 216- 225. Interpretive Data Last Revised Date: 2018. Blood 01/06/2025 2:29 AM CDT 01/06/2025 2:33 AM CDT Lyle Morrison MD LAB BLOOD ORDERABLES Final R yumi Performing Organization Address [facility]/ZIP Co de Phone Number [facility] ([place]) 1 [facility] Department [place] [address] * (ABNORMAL) CBC with auto differential (01/06/2025 2:29 AM CDT) WBC 10.22(H) 3.80 - 9.90 K/cumm Hgb 7.7(L) 11.9 - 15.5 g/dL [facility] ([place]) Hct 24.9(L) 35.6 - 45.5 % [facility] ([place]) Plt 393 150 - 400 K/cumm [facility] ([place]) MPV 8.7(L) 9.1 - 12.3 fL [facility] ([place]) RBC 2.87(L) 3.90 - 5.20 M/cumm [facility] ([place]) MCV 86.8 81.3 - 96.4 fL [facility] ([place]) MCH 26.8(L) 27.1 - 33.3 pg [facility] ([place]) MCHC 30.9(L) 32.3 - 35.7 g/dL [facility] ([place]) RDW CV 16.6(H) 11.1 - 14.9 % [facility] ([place]) RDW SD 52.4(H) 35.7 - 48.1 fL [facility] ([place]) NRBC abs 0.00 0.00 - 0.01 K/cumm [facility] ([place]) Blood 01/06/2025 2:29 AM CDT 01/06/2025 2:34 AM CDT Lyle Morrison MD LAB BLOOD ORDERABLES Final R esult REBECCA SPAIN ([place]) 1 [facility] Department [place] [address] * Magnesium (01/06/2025 2:29 AM CDT) Magnesium 1.8 1.4 - 2.5 mg/dL [facility] ([place]) Blood 01/06/2025 2:29 AM CDT 01/06/2025 2:33 AM CDT us Lyle Morrison MD LAB BLOOD ORDERABLES Final R esult [facility] ([place]) 1 [facility] Department [place] [address] * (ABNORMAL) Comprehensive metabolic panel (01/06/2025 2:29 AM CDT) Sodium 139 135 - 145 mmol/L [facility] ([place]) Potassium, pl 3.7 3.3 - 4.9 mmol/L [facility] ([place]) Chloride 101 97 - 110 mmol/L [facility] ([place]) CO2 27 22 - 32 mmol/L [facility] ([place]) Anion gap 11 2 - 15 mmol/L [facility] ([place]) BUN 28(H) 6 - 25 mg/dL [facility] ([place]) Creatinine 2.20(H) 0.60 - 1.10 mg/dL [facility] ([place]) Glucose 115 70 - 199 mg/dL [facility] ([place]) Comment: Interpretive Data Fasting glucose >/= 126 mg/dl is diagnostic for diabetes. Fasting is defined as no caloric intake for at least 8 hours. Fasting glucose between 100 mg/dl to 125 mg/dl is diagnostic of prediabetes. In a patient with classic symptoms of hyperglycemia or hyperglycemic crisis, a random glucose >/= 200 mg/dl is diagnostic for diabetes. In the absence of unequivocal hyperglycemia, results should be confirmed by repeat testing. The classification and Diagnosis of Diabetes Diabetes Care 202; 46: S19-S40. Current interpretive data was last revised 2022. Calcium 9.4 8.5 - 10.3 mg/dL [facility] ([place]) Bilirubin, total 0.2 0.1 - 1.2 mg/dL [facility] ([place]) Protein, pl 6.7 6.5 - 8.5 g/dL [facility] ([place]) Albumin 3.1(L) 3.5 - 5.0 g/dL [facility] ([place]) Alk phos 75 40 - 130 Units/L [facility] ([place]) ALT 23 7 - 45 Units/L [facility] ([place]) AST 40 10 - 45 Units/L [facility] ([place]) Blood 01/06/2025 2:29 AM CDT 01/06/2025 2:33 AM CDT Lyle Morrison MD LAB BLOOD ORDERABLES Final R esult REBECCA SPAIN ([place]) 1 [facility] Department [place] [address] * CT Cervical Spine WO Contrast (01/05/2025 3:44 AM CDT) Anatomical Region Laterality Modality Spine N/A Computed Tomogra phy 01/05/2025 4:06 AM CDT Narrative 01/05/2025 4:08 AM CDT EXAM DESCRIPTION: CT CERVICAL SPINE WO CONTRAST REASON FOR STUDY: minor head injury Pt had a syncopal episode this morning. No known head/neck injury. Best images obtained due to pt cooperation TECHNIQUE: Axial images through the cervical spine with sagittal and coronal reformatted images. Automated exposure control was used as a dose optimization technique for this examination. COMPARISON: 08/28/2004 FINDINGS: VERTEBRAE: Vertebral bodies are normal in height and alignment. Moderate disc disease and facet arthropathy. Atlantodental osteoarthritis. Facet joints and craniocervical junction are congruent. No spinal fracture identified. OTHER OSSEOUS STRUCTURES: Visualized ribs, clavicles, and scapula are intact. Visualized skull base and mandible appear normal. SOFT TISSUES: Unremarkable. INTRACRANIAL: Unremarkable. IMPRESSION: No fracture or malalignment identified. THIS IS AN ELECTRONICALLY VERIFIED FINAL REPORT 01/05/2025 4:08 AM - Electronically signed by Aleksandr Garner M.D. AR: [place] Report ID: [id number] Reading Location: [id number] Procedure Note Aleksandr Garner MD - 01/05/2025 EXAM DESCRIPTION: CT CERVICAL SPINE WO CONTRAST REASON FOR STUDY: minor head injury Pt had a syncopal episode this morning. No known head/neck injury. Best images obtained due to pt cooperation TECHNIQUE: Axial images through the cervical spine with sagittal andcoronal reformatted images. Automated exposure control was used as a doseoptimization technique for this examination. COMPARISON: 08/28/2004 FINDINGS: VERTEBRAE: Vertebral bodies are normal in height and alignment.Moderate disc disease and facet arthropathy. Atlantodental osteoarthritis.Facet joints and craniocervical junction are congruent. No spinal fracture identified. OTHER OSSEOUS STRUCTURES: Visualized ribs, clavicles, and scapula areintact. Visualized skull base and mandible appear normal. SOFT TISSUES: Unremarkable. INTRACRANIAL: Unremarkable. IMPRESSION: No fracture or malalignment identified. THIS IS AN ELECTRONICALLY VERIFIED FINAL REPORT 01/05/2025 4:08 AM - Electronically signed by Aleksandr Garner M.D. AR: ARMANDO Report ID: [id number] Reading Location: [place] [address] Marino Molina MD IMG CT PROCEDURES Final Result * CT Head WO Contrast (01/05/2025 3:44 AM CDT) Anatomical Region Laterality Modality Head and Neck N/A Computed Tomogra phy 01/05/2025 4:05 AM CDT Narrative 01/05/2025 4:06 AM CDT EXAM DESCRIPTION: CT HEAD WO CONTRAST REASON FOR STUDY: minor head injury Pt had a syncopal episode this morning. No known head/neck injury. Best images obtained due to pt cooperation TECHNIQUE: Axial images acquired through the brain without intravenous contrast. Images stored on PACS. Automated exposure control was used as a dose optimization technique for this examination. COMPARISON: 12/24/2024 FINDINGS: BRAIN: No mass, hemorrhage, or recent infarct. Mild chronic white matter ischemia volume within normal limits for age. VASCULAR: No dense vessel or obvious aneurysm. EXTRA-AXIAL SPACES: No mass or fluid collection. ORBITS/GLOBES: Unremarkable. SOFT TISSUES: Unremarkable. BONES/SINUSES: No fracture or lesion. Paranasal sinuses and other skullbase airspaces are clear. IMPRESSION: No acute abnormality identified. THIS IS AN ELECTRONICALLY VERIFIED FINAL REPORT 01/05/2025 4:06 AM - Electronically signed by Aleksandr Garner M.D. AR: [place]ANDO Report ID: [id number] Reading Location: [id number] Procedure Note Aleksandr Garner MD - 01/05/2025 EXAM DESCRIPTION: CT HEAD WO CONTRAST REASON FOR STUDY: minor head injury Pt had a syncopal episode this morning. No known head/neck injury. Best images obtained due to pt cooperation TECHNIQUE: Axial images acquired through the brain without intravenous contrast. Images stored on PACS. Automated exposure control was used asa dose optimization technique for this examination. COMPARISON: 12/24/2024 FINDINGS: BRAIN: No mass, hemorrhage, or recent infarct. Mild chronic whitematter ischemia volume within normal limits for age. VASCULAR: No dense vessel or obvious aneurysm. EXTRA-AXIAL SPACES: No mass or fluid collection. ORBITS/GLOBES: Unremarkable. SOFT TISSUES: Unremarkable. BONES/SINUSES: No fracture or lesion. Paranasal sinuses and otherskullbase airspaces are clear. IMPRESSION: No acute abnormality identified. THIS IS AN ELECTRONICALLY VERIFIED FINAL REPORT 01/05/2025 4:06 AM - Electronically signed by Aleksandr Garner M.D. AR: [place]O Report ID: [id number] Reading Location: [place] [address] Marino Molina MD IM CT PROCEDURES Final Result * (ABNORMAL) eGFR (01/05/2025 3:05 AM CDT) eGFR 23(L) >=60 mL/min/1. 73 m2 Comment: Interpretive Data Reference Interval Normal >/= 90 mL/min/1.73m2 Mildly decreased* 60 - 89 mL/min/1.73m2 Mildly to moderately decreased 45 - 59 mL/min/1.73m2 Moderately to severely decreased 30 - 44 mL/min/1.73m2 Severely decreased 15 - 29 mL/min/1.73m2 Kidney Failure < 15 mL/min/1.73m2 *Relative to young adult level Estimated glomerular filtration rate is determined by the 2020 CKD-EPI equation recommended by the National Kid[employer] (A Unifying Approach to GFR Estimation: Recommendations of the NKF-ASK Task Force on Reassessing the Inclusion of Race in Diagnosing Kidney Disease, JASN 2020). The CKD-EPI equation should not be used for patients with unstable renal function and has not been validated in children and those over 70. Current interpretive data was last reviewed 2021. Blood 01/05/2025 3:05 AM CDT 01/05/2025 3:10 AM CDT us Marino Molina MD LAB BLOOD ORDERABLES Final Res ult REBECCA SPAIN ([place]) 1 [facility] Department [place] [address] * (ABNORMAL) Differential, auto (01/05/2025 3:05 AM CDT) Neutrophil abs 5.57 1.50 - 6.50 K/cumm Imm gran abs 0.14(H) 0.00 - 0.10 K/cumm [facility] ([place]) Lymphocyte abs 3.02 0.80 - 3.30 K/cumm [facility] ([place]) Monocyte abs 1.12(H) 0.20 - 0.80 K/cumm [facility] ([place]) Eosinophil abs 0.18 0.00 - 0.50 K/cumm [facility] ([place]) Basophil abs 0.03 0.00 - 0.10 K/cumm [facility] ([place]) Neutrophil pct 55.4 % [facility] ([place]) Comment: Interpretive Data Percent cell count reference ranges are not reported, since discordance with absolute values may lead to misinterpretation of CBC data. Current Interpretive Data was last revised on 2017. Imm gran pct 1.4 % [facility] ([place]) Comment: Interpretive Data Percent cell count reference ranges are not reported, since discordance with absolute values may lead to misinterpretation of CBC data. Current Interpretive Data was last revised on 2017. Lymphocyte pct 30.0 % [facility] ([place]) Comment: Interpretive Data Percent cell count reference ranges are not reported, since discordance with absolute values may lead to misinterpretation of CBC data. Current Interpretive Data was last revised on 2017. Monocyte pct 11.1 % [facility] ([place]) Comment: Interpretive Data Percent cell count reference ranges are not reported, since discordance with absolute values may lead to misinterpretation of CBC data. Current Interpretive Data was last revised on 2017. Eosinophil pct 1.8 % [facility] ([place]) Comment: Interpretive Data Percent cell count reference ranges are not reported, since discordance with absolute values may lead to misinterpretation of CBC data. Current Interpretive Data was last revised on 2017. Basophil pct 0.3 % [facility] ([place]) Comment: Interpretive Data Percent cell count reference ranges are not reported, since discordance with absolute values may lead to misinterpretation of CBC data. Current Interpretive Data was last revised on 2017. Blood 01/05/2025 3:05 AM CDT 01/05/2025 3:10 AM CDT us Marino Molina MD LAB BLOOD ORDERABLES Final Res ult REBECCA SPAIN ([place]) 1 [facility] Department [place] [address] * (ABNORMAL) CBC with auto differential (01/05/2025 3:05 AM CDT) WBC 10.06(H) 3.80 - 9.90 K/cumm Hgb 7.7(L) 11.9 - 15.5 g/dL [facility] ([place]) Hct 25.7(L) 35.6 - 45.5 % [facility] ([place]) Plt 405(H) 150 - 400 K/cumm [facility] ([place]) MPV 9.0(L) 9.1 - 12.3 fL [facility] ([place]) RBC 2.93(L) 3.90 - 5.20 M/cumm [facility] ([place]) MCV 87.7 81.3 - 96.4 fL [facility] ([place]) MCH 26.3(L) 27.1 - 33.3 pg [facility] ([place]) MCHC 30.0(L) 32.3 - 35.7 g/dL [facility] ([place]) RDW CV 16.8(H) 11.1 - 14.9 % [facility] ([place]) RDW SD 53.5(H) 35.7 - 48.1 fL [facility] NRBC abs 0.00 0.00 - 0.01 K/cumm [facility] Blood 01/05/2025 3:05 AM CDT 01/05/2025 3:10 AM CDT us Marino Molina MD LAB BLOOD ORDERABLES Final Res ult [facility] ([place]) 1 [facility] Department [place] [address] * (ABNORMAL) Comprehensive metabolic panel (01/05/2025 3:05 AM CDT) Sodium 140 135 - 145 mmol/L [facility] ([place] Potassium, pl 3.8 3.3 - 4.9 mmol/L [facility] ([place]) Chloride 101 97 - 110 mmol/L [facility] ([place]) CO2 25 22 - 32 mmol/L [facility] ([place]) Anion gap 14 2 - 15 mmol/L [facility] BUN 27(H) 6 - 25 mg/dL [facility] ([place]) Creatinine 2.15(H) 0.60 - 1.10 mg/dL [facility] ([place]) Glucose 112 70 - 199 mg/dL [facility] ([place] Comment: Interpretive Data Fasting glucose >/= 126 mg/dl is diagnostic for diabetes. Fasting is defined as no caloric intake for at least 8 hours. Fasting glucose between 100 mg/dl to 125 mg/dl is diagnostic of prediabetes. In a patient with classic symptoms of hyperglycemia or hyperglycemic crisis, a random glucose >/= 200 mg/dl is diagnostic for diabetes. In the absence of unequivocal hyperglycemia, results should be confirmed by repeat testing. The classification and Diagnosis of Diabetes Diabetes Care 2021; 46: S19-S40. Current interpretive data was last revised 2022. Calcium 9.5 8.5 - 10.3 mg/dL [facility] ([place]) Bilirubin, total 0.2 0.1 - 1.2 mg/dL [facility] ([place]) Protein, pl 6.8 6.5 - 8.5 g/dL [facility] ([place]) Albumin 3.1(L) 3.5 - 5.0 g/dL [facility] ([place]) Alk phos 77 40 - 130 Units/L [facility] ([place]) ALT 21 7 - 45 Units/L [facility] ([place]) AST 29 10 - 45 Units/L [facility] ([place]) Blood 01/05/2025 3:05 AM CDT 01/05/2025 3:10 AM CDT Marino Molina MD LAB BLOOD ORDERABLES Final Res ult Performing Organization Address City/[facility] Co de Phone Number [facility] ([place] 1 [facility] Department [place] [address] * ECG 12 lead (01/05/2025 3:02 AM CDT) 01/05/2025 3:02 AM CDT Narrative [facility] [employer] - 01/05/2025 4:08 PM CDT Vent Rate: 99 bpm RR Interval: 604 msec NE Interval: 160 msec QRS Duration: 93 msec QT Interval: 348 msec QTC Interval: 404 msec P-R-T [place]: 39 - 22 - 44 degrees IMPRESSION: SINUS RHYTHM NORMAL ECG NO CHANGE FROM PREVIOUS TRACING NOTED Electronically Signed By: Harry Jaimes MD Marino Molina MD ECG ORDERABLES Final Result Performing Organization Address [facility] Co de Phone Number [facility] [employer] [facility] * Line ok to use (01/02/2025 4:05 PM CDT) Narrative Cheryl Villafana RN - 01/02/2025 4:05 PM CDT Cheryl Villafana, RN 01/02/2025 4:07 PM Vascular Access Nurse: Procedure Note Summary of treatment provided to patient today is as follows : . Bedside Procedure Time out/Checklist (Last 4 Hours) Pre-Op Checklist Row Name 01/02/25 1510 01/02/25 1449 Patient/Chart Verification Patient ID Verified Verbal -JN -- Allergies Verified Yes -JN -- Procedure Area/OR Notified of Latex Allergy Not applicable -JN -- Arm Bands On ID -JN -- Consents Confirmed Procedural -JN -- Pre-op Lab/Test Results Available Not applicable -JN -- COVID TESTING PERFORMED AND RESULTS REVIEWED N/A -JN -- Blood Products Needed N/A -JN -- Antibiotic Status Not applicable -JN -- Procedure Verification Correct Patient Yes -JN -- Correct Procedure Yes -JN -- Correct Laterality Not applicable -JN -- Correct Site Yes -JN -- Site Marked Yes -JN -- Patient Preparation Temp -- 36.8 C (98.2 F) - User Arroyo (r) = Recorded By, (t) = Taken By, (c) = Cosigned By Initials Name Cheryl Young, RN Sharri Swift Vascular Access Documentation (Last 4 Hours) [facility] Additional Procedures Row Name 01/02/25 1601 01/02/25 1544 01/02/25 1505 PICC Screening Questionnaire Order written on the chart for PICC insertion or placement? -- -- Y -JN Information form/Consent Obtained from POA/ Family -- -- Y -JN Is there an order from Renal giving ok to place PICC line? -- -- N/A -JN Are there any location restrictions? -- -- N -JN Does the patient have history of DVT or SVC syndrome? -- -- N -JN Does the patient currently have blood clots in chest / arms? -- -- N -JN Review of all IV meds/drips completed -- -- Yes -JN Patient allergies reviewed? -- -- Y -JN Labs Reviewed if applicable -- -- Platelet count;Other (Comment) WBC -JN Procedures Line Type PICC single -JN -- -- Time in 1522 -JN -- -- Time out 1550 -JN -- -- Time Calculation (min) 28 min -JN -- -- Vascular Access Procedures PICC line placement;Education PICC/Midline -JN -- -- Comfort Measures Distraction;Position of comfort -JN -- -- Patient Response Tolerated (no change in status) -JN -- -- [REMOVED] Peripheral IV 12/30/24 20 G Posterior;Right Forearm IV Properties Placement Date: 12/30/24 -SG Placement Time: 948 -SG Type: Angiocath -SG Size (Gauge): 20 G -SG Location Orientation: Posterior;Right -SG Location: Forearm -SG Removal Date: 01/02/25 -SG Removal Time: 1506 -SG Removal Reason : Discharge -SG PICC Single Lumen 01/02/25 Non-tunneled Power Right Brachial;Upper arm Line Properties Placement Date: 01/02/25 -JN Placement Time: 154 -JN Catheter Time Out Checklist Completed: Yes -JN Hand Hygiene Performed: Yes -JN Site Prep: Alcohol;Chlorhexidine -JN Site Prep Agent has Completely Dried Before Insertion: Yes -JN All 5 Sterile Barriers or Appropriate Barriers Used (Gloves, Gown, Cap, Mask, Large Sterile Drape): Yes -JN Local Anesthetic: Injectable -JN Comfort Measures: Position of comfort;Distraction -JN CVC Type: Non-tunneled -JN Power injectable: Power -JN Lumen # 1: #1 Purple, -JN Size (Fr): 4 -JN Orientation: Right -JN Location: Brachial;Upper arm -JN Vein depth (cm): 1.5 -JN Vein diameter (mm): 3.6 -JN Technique: Modified seldinger;Internal stiffener stylet removed easily;Ultrasound used to locate and cannulate vein;Standard insertion technique with peel away sheath - Lot #: [id number] - Expiration Date: 10/22/25 -JN Trimmed Length (cm) : 41 cm -JN Line Tip Location : Central -JN Initial Extremity Circumference (cm): 29 cm -JN Circumference Reference Point: PICC insertion site -JN Initial External Length Catheter (cm): 0 cm -JN Placement Verification: Blood return;Ultrasound;3CG -JN Line Secured by : Securement device -JN Inserted by: Cheryl MOTA Assisted By: Ansley MOTA Insertion attempts: 1 -JN Patient Tolerance: Tolerated well -JN Site Assessment -- Clean and dry -JN -- External Length genesis (cm) -- 0 cm -JN -- Extremity Circumference (cm) -- 29 cm -JN -- Dressing Type -- CHG Dressing;Transparent;Tissue Adhesive - -- Dressing Status -- New;Clean, dry, intact;Dated;Occlusive - -- Dressing Intervention -- Dressing dated;Securement device placed -JN -- Lumen #1 Status -- Blood return brisk;Disinfectant cap in place;Flushes easily;Saline locked;Needleless access device in place - -- Lumen #1 Interventions -- Flushed -JN -- Line Necessity Reason Reviewed With Care Team -- Needed upon discharge for chcf use (e.g. long-term antibiotics) -JN -- [REMOVED] Midline Catheter 12/28/24 1346 Left Basilic Upper arm Properties Placement Date: 12/28/24 -JN Placement Time: 1346 -JN IV in Place on Admission: Yes -SG Catheter Time Out Checklist Completed: Yes -JN Hand Hygiene Performed: Yes -JN Site Prep: Alcohol;Chlorhexidine -JN Site Prep Agent has Completely Dried Before Insertion: Yes -JN All 5 Sterile Barriers or Appropriate Barriers Used (Gloves, Gown, Cap, Mask, Large Sterile Drape): Yes -JN Local Anesthetic: Injectable -JN CVC Type: Non-tunneled -JN Size (Fr): 4 -JN Size (G): 18 -JN Trimmed Length (cm) : 17 cm -JN Orientation: Left -JN Vein Site: Basilic -JN Location: Upper arm -JN Technique: Modified seldinger;Standard insertion technique with peel away sheath;Internal stiffener stylet removed easily;Ultrasound used to locate and cannulate vein - Lot #: [id number] -JN Expiration Date: 01/22/26 -JN Verification: Able to advance catheter;Irrigates easily with normal saline;Able to cannulate vein -JN Verification by X-ray: No -JN Initial External Length Catheter (cm): 0 cm -JN Inserted by: Cheryl MOTA Assisted By: Mayra MOTA Patient Tolerance: Anxious -JN Kits utilized: Midline catheter kit;Microintroducer kit -RANDAL Initial Extremity Circumference (cm): 29 cm -JN Removal Date: 01/02/25 -SG Removal Time: 1506 -SG Removal Reason : Other (Comment) -SG, leaking Catheter intact: Yes -SG Catheter Tip Cultured: No -SG User Arroyo (r) = Recorded By, (t) = Taken By, (c) = Cosigned By Initials Name Cheryl Young RN SG Goheen, Stephanie M., RN Single lumen PICC inserted in left upper arm without difficulty using sterile technique. PICC tip confirmed in CAJ by EKG. Flushes easily with good blood return. No bleeding or hematoma noted at this time. Pt tolerated procedure well. Line ready for use. Cheryl Villafana RN us Johnathan Booker MD IV THERAPY ORDERABLE S Final Result * Insert PICC line (01/02/2025 4:05 PM CDT) Narrative Cheryl Villafana RN - 01/02/2025 4:05 PM CDT Cheryl Villafana RN 01/02/2025 4:07 PM Vascular Access Nurse: Procedure Note Summary of treatment provided to patient today is as follows : . Bedside Procedure Time out/Checklist (Last 4 Hours) Pre-Op Checklist Row Name 01/02/25 1510 01/02/25 1449 Patient/Chart Verification Patient ID Verified Verbal -JN -- Allergies Verified Yes -JN -- Procedure Area/OR Notified of Latex Allergy Not applicable -JN -- Arm Bands On ID -JN -- Consents Confirmed Procedural -JN -- Pre-op Lab/Test Results Available Not applicable -JN -- COVID TESTING PERFORMED AND RESULTS REVIEWED N/A -JN -- Blood Products Needed N/A -JN -- Antibiotic Status Not applicable -JN -- Procedure Verification Correct Patient Yes -JN -- Correct Procedure Yes -JN -- Correct Laterality Not applicable -JN -- Correct Site Yes -JN -- Site Marked Yes -JN -- Patient Preparation Temp -- 36.8 C (98.2 F) - User Arroyo (r) = Recorded By, (t) = Taken By, (c) = Cosigned By Initials Name Cheryl Young, Sharri Rain Vascular Access Documentation (Last 4 Hours) [facility] Additional Procedures Row Name 01/02/25 1601 01/02/25 1544 01/02/25 1505 PICC Screening Questionnaire Order written on the chart for PICC insertion or placement? -- -- Y -JN Information form/Consent Obtained from POA/ Family -- -- Y -JN Is there an order from Renal giving ok to place PICC line? -- -- N/A -JN Are there any location restrictions? -- -- N -JN Does the patient have history of DVT or SVC syndrome? -- -- N -JN Does the patient currently have blood clots in chest / arms? -- -- N -JN Review of all IV meds/drips completed -- -- Yes -JN Patient allergies reviewed? -- -- Y -JN Labs Reviewed if applicable -- -- Platelet count;Other (Comment) WBC -JN Procedures Line Type PICC single -JN -- -- Time in 1521 -JN -- -- Time out 1549 - -- -- Time Calculation (min) 28 min -JN -- -- Vascular Access Procedures PICC line placement;Education PICC/Midline -JN -- -- Comfort Measures Distraction;Position of comfort -JN -- -- Patient Response Tolerated (no change in status) -JN -- -- [REMOVED] Peripheral IV 12/30/24 20 G Posterior;Right Forearm IV Properties Placement Date: 12/30/24 -SG Placement Time: 09 -SG Type: Angiocath -SG Size (Gauge): 20 G -SG Location Orientation: Posterior;Right -SG Location: Forearm -SG Removal Date: 01/02/25 -SG Removal Time: 1507 -SG Removal Reason : Discharge -SG PICC Single Lumen 01/02/25 Non-tunneled Power Right Brachial;Upper arm Line Properties Placement Date: 01/02/25 -JN Placement Time: 1543 -JN Catheter Time Out Checklist Completed: Yes -JN Hand Hygiene Performed: Yes -JN Site Prep: Alcohol;Chlorhexidine -JN Site Prep Agent has Completely Dried Before Insertion: Yes -JN All 5 Sterile Barriers or Appropriate Barriers Used (Gloves, Gown, Cap, Mask, Large Sterile Drape): Yes -JN Local Anesthetic: Injectable -JN Comfort Measures: Position of comfort;Distraction -JN CVC Type: Non-tunneled -JN Power injectable: Power -JN Lumen # 1: #1 Purple, -JN Size (Fr): 4 -JN Orientation: Right -JN Location: Brachial;Upper arm -JN Vein depth (cm): 1.5 -JN Vein diameter (mm): 3.6 -JN Technique: Modified seldinger;Internal stiffener stylet removed easily;Ultrasound used to locate and cannulate vein;Standard insertion technique with peel away sheath - Lot #: [id number] - Expiration Date: 10/22/25 -JN Trimmed Length (cm) : 41 cm -JN Line Tip Location : Central -JN Initial Extremity Circumference (cm): 29 cm -JN Circumference Reference Point: PICC insertion site - Initial External Length Catheter (cm): 0 cm -JN Placement Verification: Blood return;Ultrasound;3CG -JN Line Secured by : Securement device - Inserted by: Cheryl Villafana RN -JN Assisted By: Ansley JIMENEZ -RANDAL Insertion attempts: 1 -JN Patient Tolerance: Tolerated well - Site Assessment -- Clean and dry - -- External Length genesis (cm) -- 0 cm -JN -- Extremity Circumference (cm) -- 29 cm -JN -- Dressing Type -- CHG Dressing;Transparent;Tissue Adhesive - -- Dressing Status -- New;Clean, dry, intact;Dated;Occlusive - -- Dressing Intervention -- Dressing dated;Securement device placed - -- Lumen #1 Status -- Blood return brisk;Disinfectant cap in place;Flushes easily;Saline locked;Needleless access device in place - -- Lumen #1 Interventions -- Flushed - -- Line Necessity Reason Reviewed With Care Team -- 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 long-term antibiotics) - -- [REMOVED] Midline Catheter 12/28/24 1346 Left Basilic Upper arm Properties Placement Date: 12/28/24 -JN Placement Time: 1346 -JN IV in Place on Admission: Yes -SG Catheter Time Out Checklist Completed: Yes -JN Hand Hygiene Performed: Yes -JN Site Prep: Alcohol;Chlorhexidine -JN Site Prep Agent has Completely Dried Before Insertion: Yes -JN All 5 Sterile Barriers or Appropriate Barriers Used (Gloves, Gown, Cap, Mask, Large Sterile Drape): Yes -JN Local Anesthetic: Injectable -JN CVC Type: Non-tunneled -JN Size (Fr): 4 -JN Size (G): 18 -JN Trimmed Length (cm) : 17 cm -JN Orientation: Left -JN Vein Site: Basilic -JN Location: Upper arm -JN Technique: Modified seldinger;Standard insertion technique with peel away sheath;Internal stiffener stylet removed easily;Ultrasound used to locate and cannulate vein -JN Lot #: [id number] -JN Expiration Date: 01/22/26 -JN Verification: Able to advance catheter;Irrigates easily with normal saline;Able to cannulate vein -JN Verification by X-ray: No -JN Initial External Length Catheter (cm): 0 cm -JN Inserted by: Cheryl Villafana RN -JN Assisted By: Mayra JIMENEZ -RANDAL Patient Tolerance: Anxious -JN Kits utilized: Midline catheter kit;Microintroducer kit - Initial Extremity Circumference (cm): 29 cm -JN Removal Date: 01/02/25 -SG Removal Time: 1506 -SG Removal Reason : Other (Comment) -SG, leaking Catheter intact: Yes -SG Catheter Tip Cultured: No -SG User Arroyo (r) = Recorded By, (t) = Taken By, (c) = Cosigned By Initials Name Cheryl Young RN SG Goheen, Stephanie M., RN Single lumen PICC inserted in left upper arm without difficulty using sterile technique. PICC tip confirmed in CAJ by EKG. Flushes easily with good blood return. No bleeding or hematoma noted at this time. Pt tolerated procedure well. Line ready for use. Cheryl Villafana RN us Johnathan Booker MD IV THERAPY ORDERABLE S Final Result * POCT glucose (01/02/2025 11:38 AM CDT) [facility] Glucose, POC 102 70 - 199 mg/dL Blood 01/02/2025 11:3 8 AM CDT 01/02/2025 11:38 AM CDT us Foster Aguilar MD LAB POCT ORDERABLES - DEVICE Fin al Result [facility] ([place]) 1 [facility] Department of Laboratories [place], [place] [id number] * POCT glucose (01/02/2025 7:46 AM CDT) [facility] Glucose, POC 95 70 - 199 mg/dL Blood 01/02/2025 7:46 AM CDT 01/02/2025 7:46 AM CDT us Foster Aguilar MD LAB POCT ORDERABLES - DEVICE Fin al Result Performing Organization Address City/[facility]/ZIP Co de Phone Number [facility] ([place]) [address] [place] [address] [place] [address] * (ABNORMAL) eGFR (01/02/2025 4:31 AM CDT) [facility] eGFR 31(L) >=60 mL/min/1. 73 m2 Comment: Interpretive Data Reference Interval Normal >/= 90 mL/min/1.73m2 Mildly decreased* 60 - 89 mL/min/1.73m2 Mildly to moderately decreased 45 - 59 mL/min/1.73m2 Moderately to severely decreased 30 - 44 mL/min/1.73m2 Severely decreased 15 - 29 mL/min/1.73m2 Kidney Failure < 15 mL/min/1.73m2 *Relative to young adult level Estimated glomerular filtration rate is determined by the 2020 CKD-EPI equation recommended by the National Kidney Foundation (A Unifying Approach to GFR Estimation: Recommendations of the NKF-ASK Task Force on Reassessing the Inclusion of Race in Diagnosing Kidney Disease, JASN 2020). The CKD-EPI equation should not be used for patients with unstable renal function and has not been validated in children and those over 70. Current interpretive data was last reviewed 2021. Blood 01/02/2025 4:31 AM CDT 01/02/2025 4:53 AM CDT us Foster Aguilar MD LAB BLOOD ORDERABLES Final Resul t [facility] ([place]) 1 [facility] Department [place] [address] * (ABNORMAL) Differential, auto (01/02/2025 4:31 AM CDT) Neutrophil abs 5.16 1.50 - 6.50 K/cumm Imm gran abs 0.16(H) 0.00 - 0.10 K/cumm [facility] ([place]) Lymphocyte abs 1.73 0.80 - 3.30 K/cumm [facility] ([place]) Monocyte abs 1.41(H) 0.20 - 0.80 K/cumm [facility] ([place]) Eosinophil abs 0.31 0.00 - 0.50 K/cumm [facility] ([place]) Basophil abs 0.04 0.00 - 0.10 K/cumm [facility] ([place]) Neutrophil pct 58.6 % [facility] ([place]) Comment: Interpretive Data Percent cell count reference ranges are not reported, since discordance with absolute values may lead to misinterpretation of CBC data. Current Interpretive Data was last revised on 2017. Imm gran pct 1.8 % [facility] ([place]) Comment: Interpretive Data Percent cell count reference ranges are not reported, since discordance with absolute values may lead to misinterpretation of CBC data. Current Interpretive Data was last revised on 2017. Lymphocyte pct 19.6 % [facility] ([place]) Comment: Interpretive Data Percent cell count reference ranges are not reported, since discordance with absolute values may lead to misinterpretation of CBC data. Current Interpretive Data was last revised on 2017. Monocyte pct 16.0 % [facility] ([place]) Comment: Interpretive Data Percent cell count reference ranges are not reported, since discordance with absolute values may lead to misinterpretation of CBC data. Current Interpretive Data was last revised on 2017. Eosinophil pct 3.5 % [facility] ([place]) Comment: Interpretive Data Percent cell count reference ranges are not reported, since discordance with absolute values may lead to misinterpretation of CBC data. Current Interpretive Data was last revised on 2017. Basophil pct 0.5 % [facility] ([place]) Comment: Interpretive Data Percent cell count reference ranges are not reported, since discordance with absolute values may lead to misinterpretation of CBC data. Current Interpretive Data was last revised on 2017. Blood 01/02/2025 4:31 AM CDT 01/02/2025 4:53 AM CDT us Foster Aguilar MD LAB BLOOD ORDERABLES Final Resul t [facility] ([place]) 1 [facility] [place] [address] * (ABNORMAL) CBC with auto differential (01/02/2025 4:31 AM CDT) [facility] WBC 8.81 3.80 - 9.90 K/cumm Hgb 8.0(L) 11.9 - 15.5 g/dL [facility] ([place]) Hct 25.6(L) 35.6 - 45.5 % [facility] ([place]) Plt 352 150 - 400 K/cumm [facility] ([place]) MPV 9.3 9.1 - 12.3 fL [facility] ([place]) RBC 2.99(L) 3.90 - 5.20 M/cumm [facility] ([place]) MCV 85.6 81.3 - 96.4 fL [facility] ([place]) MCH 26.8(L) 27.1 - 33.3 pg [facility] ([place]) MCHC 31.3(L) 32.3 - 35.7 g/dL [facility] ([place]) RDW CV 16.5(H) 11.1 - 14.9 % [facility] ([place]) RDW SD 51.0(H) 35.7 - 48.1 fL [facility] ([place]) NRBC abs 0.00 0.00 - 0.01 K/cumm [facility] ([place]) Blood 01/02/2025 4:31 AM CDT 01/02/2025 4:53 AM CDT us Foster Aguilar MD LAB BLOOD ORDERABLES Final Resul t [facility] ([place]) 1 [facility] Department [place] [address] * (ABNORMAL) Comprehensive metabolic panel (01/02/2025 4:31 AM CDT) Sodium 141 135 - 145 mmol/L [facility] ([place]) Potassium, pl 4.2 3.3 - 4.9 mmol/L [facility] ([place]) Chloride 106 97 - 110 mmol/L [facility] ([place]) CO2 24 22 - 32 mmol/L [facility] ([place]) Anion gap 11 2 - 15 mmol/L [facility] ([place]) BUN 22 6 - 25 mg/dL [facility] ([place]) Creatinine 1.69(H) 0.60 - 1.10 mg/dL [facility] ([place]) Glucose 102 70 - 199 mg/dL [facility] ([place]) Comment: Interpretive Data Fasting glucose >/= 126 mg/dl is diagnostic for diabetes. Fasting is defined as no caloric intake for at least 8 hours. Fasting glucose between 100 mg/dl to 125 mg/dl is diagnostic of prediabetes. In a patient with classic symptoms of hyperglycemia or hyperglycemic crisis, a random glucose >/= 200 mg/dl is diagnostic for diabetes. In the absence of unequivocal hyperglycemia, results should be confirmed by repeat testing. The classification and Diagnosis of Diabetes Diabetes Care 202; 46: S19-S40. Current interpretive data was last revised 2022. Calcium 9.3 8.5 - 10.3 mg/dL [facility] ([place]) Bilirubin, total 0.2 0.1 - 1.2 mg/dL [facility] ([place]) Protein, pl 6.2(L) 6.5 - 8.5 g/dL [facility] ([place]) Albumin 2.7(L) 3.5 - 5.0 g/dL [facility] ([place]) Alk phos 80 40 - 130 Units/L [facility] ([place]) ALT 24 7 - 45 Units/L [facility] ([place]) AST 21 10 - 45 Units/L [facility] ([place]) Blood 01/02/2025 4:31 AM CDT 01/02/2025 4:53 AM CDT us Foster Aguilar MD LAB BLOOD ORDERABLES Final Resul t [facility] ([place] 1 [facility] Department [place] [address] * POCT glucose (01/02/2025 2:55 AM CDT) Glucose, POC 114 70 - 199 mg/dL Blood 01/02/2025 2:55 AM CDT 01/02/2025 2:55 AM CDT Foster Aguilar MD LAB POCT ORDERABLES - DEVICE Fin al Result [facility] ([place]) 1 [place] [address] * POCT glucose (01/01/2025 8:12 PM CDT) Glucose, POC 137 70 - 199 mg/dL Blood 01/01/2025 8:12 PM CDT 01/01/2025 8:12 PM CDT Foster Aguilar MD LAB POCT ORDERABLES - DEVICE Fin al Result Performing Organization Address City/[facility] Co de Phone Number [facility] ([place]) [address] [place] [address] * POCT glucose (01/01/2025 4:35 PM CDT) Glucose, POC 124 70 - 199 mg/dL Blood 01/01/2025 4:35 PM CDT 01/01/2025 4:35 PM CDT Foster Aguilar MD LAB POCT ORDERABLES - DEVICE Fin al Result Performing Organization Address City/[facility] Co de Phone Number [facility] ([place]) 1 [facility] [place] [address] * POCT glucose (01/01/2025 11:26 AM CDT) Glucose, POC 105 70 - 199 mg/dL Blood 01/01/2025 11:2 6 AM CDT 01/01/2025 11:26 AM CDT us Foster Aguilar MD LAB POCT ORDERABLES - DEVICE Fin al Result [facility] ([place]) 1 [facility] [place] [address] * POCT glucose (01/01/2025 7:31 AM CDT) Glucose, POC 108 70 - 199 mg/dL Blood 01/01/2025 7:31 AM CDT 01/01/2025 7:31 AM CDT Foster Aguilar MD LAB POCT ORDERABLES - DEVICE Fin al Result Performing Organization Address [facility] Co de Phone Number [facility] ([place]) 1 [facility] [place] [address] * (ABNORMAL) eGFR (01/01/2025 3:37 AM CDT) eGFR 33(L) >=60 mL/min/1. 73 m2 Comment: Interpretive Data Reference Interval Normal >/= 90 mL/min/1.73m2 Mildly decreased* 60 - 89 mL/min/1.73m2 Mildly to moderately decreased 45 - 59 mL/min/1.73m2 Moderately to severely decreased 30 - 44 mL/min/1.73m2 Severely decreased 15 - 29 mL/min/1.73m2 Kidney Failure < 15 mL/min/1.73m2 *Relative to young adult level Estimated glomerular filtration rate is determined by the 2020 CKD-EPI equation recommended by the National Kidney Foundation (A Unifying Approach to GFR Estimation: Recommendations of the NKF-ASK Task Force on Reassessing the Inclusion of Race in Diagnosing Kidney Disease, JASN 2020). The CKD-EPI equation should not be used for patients with unstable renal function and has not been validated in children and those over 70. Current interpretive data was last reviewed 2021. Blood 01/01/2025 3:37 AM CDT 01/01/2025 3:58 AM CDT us Foster Aguilar MD LAB BLOOD ORDERABLES Final Resul t [facility] ([place]) 1 [facility] Department [place] [address] * (ABNORMAL) Differential, auto (01/01/2025 3:37 AM CDT) Neutrophil abs 5.02 1.50 - 6.50 K/cumm Imm gran abs 0.18(H) 0.00 - 0.10 K/cumm [facility] ([place]) Lymphocyte abs 2.22 0.80 - 3.30 K/cumm [facility] ([place]) Monocyte abs 1.59(H) 0.20 - 0.80 K/cumm [facility] ([place]) Eosinophil abs 0.32 0.00 - 0.50 K/cumm [facility] ([place]) Basophil abs 0.03 0.00 - 0.10 K/cumm [facility] ([place]) Neutrophil pct 53.7 % [facility] ([place]) Comment: Interpretive Data Percent cell count reference ranges are not reported, since discordance with absolute values may lead to misinterpretation of CBC data. Current Interpretive Data was last revised on 2017. Imm gran pct 1.9 % [facility] ([place]) Comment: Interpretive Data Percent cell count reference ranges are not reported, since discordance with absolute values may lead to misinterpretation of CBC data. Current Interpretive Data was last revised on 2017. Lymphocyte pct 23.7 % [facility] ([place]) Comment: Interpretive Data Percent cell count reference ranges are not reported, since discordance with absolute values may lead to misinterpretation of CBC data. Current Interpretive Data was last revised on 2017. Monocyte pct 17.0 % [facility] ([place]) Comment: Interpretive Data Percent cell count reference ranges are not reported, since discordance with absolute values may lead to misinterpretation of CBC data. Current Interpretive Data was last revised on 2017. Eosinophil pct 3.4 % [facility] ([place]) Comment: Interpretive Data Percent cell count reference ranges are not reported, since discordance with absolute values may lead to misinterpretation of CBC data. Current Interpretive Data was last revised on 2017. Basophil pct 0.3 % [facility] ([place]) Comment: Interpretive Data Percent cell count reference ranges are not reported, since discordance with absolute values may lead to misinterpretation of CBC data. Current Interpretive Data was last revised on 2017. Blood 01/01/2025 3:37 AM CDT 01/01/2025 3:58 AM CDT us Foster Aguilar MD LAB BLOOD ORDERABLES Final Resul t [facility] ([place]) 1 [facility] Department [place] [address] * (ABNORMAL) CBC with auto differential (01/01/2025 3:37 AM CDT) WBC 9.36 3.80 - 9.90 K/cumm Hgb 7.4(L) 11.9 - 15.5 g/dL [facility] ([place]) Hct 23.6(L) 35.6 - 45.5 % [facility] ([place]) Plt 309 150 - 400 K/cumm [facility] ([place]) MPV 9.2 9.1 - 12.3 fL [facility] ([place]) RBC 2.78(L) 3.90 - 5.20 M/cumm [facility] ([place]) MCV 84.9 81.3 - 96.4 fL [facility] ([place]) MCH 26.6(L) 27.1 - 33.3 pg [facility] ([place]) MCHC 31.4(L) 32.3 - 35.7 g/dL [facility] ([place]) RDW CV 16.5(H) 11.1 - 14.9 % [facility] ([place]) RDW SD 51.4(H) 35.7 - 48.1 fL [facility] ([place]) NRBC abs 0.00 0.00 - 0.01 K/cumm [facility] ([place]) Blood 01/01/2025 3:37 AM CDT 01/01/2025 3:58 AM CDT us Foster Aguilar MD LAB BLOOD ORDERABLES Final Resul t [facility] ([place]) 1 [facility] Department [place] [address] * (ABNORMAL) Comprehensive metabolic panel (01/01/2025 3:37 AM CDT) Sodium 139 135 - 145 mmol/L [facility] ([place]) Potassium, pl 4.2 3.3 - 4.9 mmol/L [facility] ([place]) Chloride 107 97 - 110 mmol/L [facility] ([place]) CO2 23 22 - 32 mmol/L [facility] ([place]) Anion gap 9 2 - 15 mmol/L [facility] ([place]) BUN 23 6 - 25 mg/dL [facility] ([place]) Creatinine 1.60(H) 0.60 - 1.10 mg/dL [facility] ([place]) Glucose 97 70 - 199 mg/dL [facility] ([place]) Comment: Interpretive Data Fasting glucose >/= 126 mg/dl is diagnostic for diabetes. Fasting is defined as no caloric intake for at least 8 hours. Fasting glucose between 100 mg/dl to 125 mg/dl is diagnostic of prediabetes. In a patient with classic symptoms of hyperglycemia or hyperglycemic crisis, a random glucose >/= 200 mg/dl is diagnostic for diabetes. In the absence of unequivocal hyperglycemia, results should be confirmed by repeat testing. The classification and Diagnosis of Diabetes Diabetes Care 2021; 46: S19-S40. Current interpretive data was last revised 2022. Calcium 9.0 8.5 - 10.3 mg/dL [facility] ([place]) Bilirubin, total 0.2 0.1 - 1.2 mg/dL [facility] ([place]) Protein, pl 6.0(L) 6.5 - 8.5 g/dL [facility] ([place]) Albumin 2.7(L) 3.5 - 5.0 g/dL [facility] ([place]) Alk phos 83 40 - 130 Units/L [facility] ([place]) ALT 32 7 - 45 Units/L [facility] ([place]) AST 32 10 - 45 Units/L [facility] ([place]) Blood 01/01/2025 3:37 AM CDT 01/01/2025 3:58 AM CDT us Foster Aguilar MD LAB BLOOD ORDERABLES Final Resul t Performing Organization Address [facility] de Phone Number [facility] ([place]) 1 [facility] [place] [address] * POCT glucose (01/01/2025 2:42 AM CDT) Glucose, POC 104 70 - 199 mg/dL Blood 01/01/2025 2:42 AM CDT 01/01/2025 2:42 AM CDT us Foster Aguilar MD LAB POCT ORDERABLES - DEVICE Fin al Result Performing Organization Address [facility] de Phone Number [facility] ([place]) 1 [facility] [place] [address] * POCT glucose (12/31/2024 8:23 PM CDT) Glucose, POC 134 70 - 199 mg/dL Blood 12/31/2024 8:23 PM CDT 12/31/2024 8:23 PM CDT us Foster Aguilar MD LAB POCT ORDERABLES - DEVICE Fin al Result Performing Organization Address [facility] de Phone Number [facility] ([place]) 1 [facility] [place] [address] * POCT glucose (12/31/2024 4:23 PM CDT) Glucose, POC 115 70 - 199 mg/dL Blood 12/31/2024 4:23 PM CDT 12/31/2024 4:23 PM CDT us Foster Aguilar MD LAB POCT ORDERABLES - DEVICE Fin al Result Performing Organization Address City/[facility]/ZIP Co de Phone Number [facility] ([place]) 1 [facility] Department [place] [address] * (ABNORMAL) Urinalysis reflex to microscopic and culture Urine (12/31/2024 1:42 PM CDT) Color, ur Yellow Yellow Clarity, ur Clear Clear [facility] ([place]) Specific gravity, ur 1.006 1.003 - 1.030 [facility] ([place]) pH, urine 5.0 [facility] ([place]) Comment: Interpretive Data U rine pH is affected by diet, medications, systemic acid-base disturbances, and renal tubular function. pH may affect urinary stone formation. For example, urine pH below 6.0 may help reduce the tendency for calcium phosphate stones and pH greater than 6.0 may reduce the tendency for uric acid stone formation. Source: [facility] [employer] Current Interpretive Data was last revised on 2017 Protein, ur ql Negative Negative [facility] ([place]) Glucose, ur ql Negative Negative [facility] ([place]) Ketones, ur Negative Negative [facility] ([place]) Bilirubin, ur Negative Negative [facility] ([place]) Blood, ur 3+(A) Negative [facility] ([place]) Urobilinogen, ur <2.0 <2.0 mg/dL [facility] ([place]) Nitrite, ur Negative Negative [facility] ([place]) Leukocyte esterase, ur 3+(A) Negative [facility] ([place]) UA reflex comment Reflex to microscopic UA will be performed. [facility] ([place]) Urine 12/31/2024 1:42 PM CDT 12/31/2024 1:55 PM CDT us Lyle Morrison MD LAB MICROBIOLOGY - GENERAL O RDERABLES Final Result [facility] ([place]) 1 [facility] Department [place] [address] * (ABNORMAL) Urinalysis, microscopic only (12/31/2024 1:42 PM CDT) WBC, ur 0-5 0 - 5 /HPF RBC, ur 11-20(A) 0 - 2 /HPF [facility] ([place]) Epithelial cells, squamous, ur 1-5 0 - 5 /HPF [facility] ([place]) Bacteria, ur 1+(A) [facility] ([place]) Mucous, ur Present(A) [facility] ([place]) Culture Reflex Comment Reflex conditions for urine culture (WBC >10) not met. [facility] ([place]) Urine 12/31/2024 1:42 PM CDT 12/31/2024 1:55 PM CDT Lyle Morrison MD LAB URINE ORDERABLES Final R esult Performing Organization Address [facility] Co de Phone Number [facility] ([place]) 1 [facility] [place] [address] * POCT glucose (12/31/2024 11:32 AM CDT) Glucose, POC 159 70 - 199 mg/dL Blood 12/31/2024 11:3 2 AM CDT 12/31/2024 11:32 AM CDT Foster Aguilar MD LAB POCT ORDERABLES - DEVICE Fin al Result Performing Organization Address [facility] Co de Phone Number [facility] ([place]) 1 [facility] [place] [address] * POCT glucose (12/31/2024 7:26 AM CDT) Glucose, POC 103 70 - 199 mg/dL Blood 12/31/2024 7:26 AM CDT 12/31/2024 7:26 AM CDT Foster Aguilar MD LAB POCT ORDERABLES - DEVICE Fin al Result Performing Organization Address City/[facility] Co de Phone Number [facility] ([place]) 1 [facility] [place] [address] * (ABNORMAL) eGFR (12/31/2024 4:33 AM CDT) eGFR 31(L) >=60 mL/min/1. 73 m2 Comment: Interpretive Data Reference Interval Normal >/= 90 mL/min/1.73m2 Mildly decreased* 60 - 89 mL/min/1.73m2 Mildly to moderately decreased 45 - 59 mL/min/1.73m2 Moderately to severely decreased 30 - 44 mL/min/1.73m2 Severely decreased 15 - 29 mL/min/1.73m2 Kidney Failure < 15 mL/min/1.73m2 *Relative to young adult level Estimated glomerular filtration rate is determined by the 2020 CKD-EPI equation recommended by the National Kidney Foundation (A Unifying Approach to GFR Estimation: Recommendations of the NKF-ASK Task Force on Reassessing the Inclusion of Race in Diagnosing Kidney Disease, JASN 2020). The CKD-EPI equation should not be used for patients with unstable renal function and has not been validated in children and those over 70. Current interpretive data was last reviewed 2021. Blood 12/31/2024 4:33 AM CDT 12/31/2024 5:59 AM CDT us Foster Aguilar MD LAB BLOOD ORDERABLES Final Resul t [facility] ([place]) 1 [facility] Department [place] [address] * (ABNORMAL) Differential, auto (12/31/2024 4:33 AM CDT) Pathologist [facility] Neutrophil abs 5.32 1.50 - 6.50 K/cumm Imm gran abs 0.15(H) 0.00 - 0.10 K/cumm [facility] ([place]) Lymphocyte abs 1.88 0.80 - 3.30 K/cumm [facility] ([place]) Monocyte abs 1.45(H) 0.20 - 0.80 K/cumm [facility] ([place]) Eosinophil abs 0.37 0.00 - 0.50 K/cumm [facility] ([place]) Basophil abs 0.04 0.00 - 0.10 K/cumm [facility] ([place]) Neutrophil pct 57.9 % [facility] ([place]) Comment: Interpretive Data Percent cell count reference ranges are not reported, since discordance with absolute values may lead to misinterpretation of CBC data. Current Interpretive Data was last revised on 2017. Imm gran pct 1.6 % [facility] ([place]) Comment: Interpretive Data Percent cell count reference ranges are not reported, since discordance with absolute values may lead to misinterpretation of CBC data. Current Interpretive Data was last revised on 2017. Lymphocyte pct 20.4 % [facility] ([place]) Comment: Interpretive Data Percent cell count reference ranges are not reported, since discordance with absolute values may lead to misinterpretation of CBC data. Current Interpretive Data was last revised on 2017. Monocyte pct 15.7 % [facility] ([place]) Comment: Interpretive Data Percent cell count reference ranges are not reported, since discordance with absolute values may lead to misinterpretation of CBC data. Current Interpretive Data was last revised on 2017. Eosinophil pct 4.0 % [facility] ([place]) Comment: Interpretive Data Percent cell count reference ranges are not reported, since discordance with absolute values may lead to misinterpretation of CBC data. Current Interpretive Data was last revised on 2017. Basophil pct 0.4 % [facility] ([place]) Comment: Interpretive Data Percent cell count reference ranges are not reported, since discordance with absolute values may lead to misinterpretation of CBC data. Current Interpretive Data was last revised on 2017. Blood 12/31/2024 4:33 AM CDT 12/31/2024 5:58 AM CDT us Marino Molina MD LAB BLOOD ORDERABLES Final Res ult RE[facility] GR[facility] ([place]) 1 [facility] Department [place] [address] * (ABNORMAL) CBC with auto differential (12/31/2024 4:33 AM CDT) WBC 9.21 3.80 - 9.90 K/cumm Hgb 8.0(L) 11.9 - 15.5 g/dL [facility] ([place]) Hct 26.2(L) 35.6 - 45.5 % [facility] ([place]) Plt 302 150 - 400 K/cumm [facility] ([place]) MPV 9.5 9.1 - 12.3 fL [facility] ([place]) RBC 3.09(L) 3.90 - 5.20 M/cumm [facility] ([place]) MCV 84.8 81.3 - 96.4 fL [facility] ([place]) MCH 25.9(L) 27.1 - 33.3 pg [facility] ([place]) MCHC 30.5(L) 32.3 - 35.7 g/dL [facility] ([place]) RDW CV 16.4(H) 11.1 - 14.9 % [facility] ([place]) RDW SD 51.0(H) 35.7 - 48.1 fL [facility] ([place]) NRBC abs 0.00 0.00 - 0.01 K/cumm [facility] ([place]) Blood 12/31/2024 4:33 AM CDT 12/31/2024 5:58 AM CDT us Marino Molina MD LAB BLOOD ORDERABLES Final Res ult [facility] ([place]) 1 [facility] Department [place] [address] * (ABNORMAL) Comprehensive metabolic panel (12/31/2024 4:33 AM CDT) Sodium 139 135 - 145 mmol/L [facility] ([place]) Potassium, pl 3.9 3.3 - 4.9 mmol/L [facility] ([place]) Chloride 107 97 - 110 mmol/L [facility] ([place]) CO2 21(L) 22 - 32 mmol/L [facility] ([place]) Anion gap 11 2 - 15 mmol/L [facility] ([place]) BUN 29(H) 6 - 25 mg/dL [facility] ([place]) Creatinine 1.68(H) 0.60 - 1.10 mg/dL [facility] ([place]) Glucose 118 70 - 199 mg/dL [facility] ([place]) Comment: Interpretive Data Fasting glucose >/= 126 mg/dl is diagnostic for diabetes. Fasting is defined as no caloric intake for at least 8 hours. Fasting glucose between 100 mg/dl to 125 mg/dl is diagnostic of prediabetes. In a patient with classic symptoms of hyperglycemia or hyperglycemic crisis, a random glucose >/= 200 mg/dl is diagnostic for diabetes. In the absence of unequivocal hyperglycemia, results should be confirmed by repeat testing. The classification and Diagnosis of Diabetes Diabetes Care 202; 46: S19-S40. Current interpretive data was last revised 2022. Calcium 9.2 8.5 - 10.3 mg/dL [facility] ([place]) Bilirubin, total 0.2 0.1 - 1.2 mg/dL [facility] ([place]) Protein, pl 6.4(L) 6.5 - 8.5 g/dL [facility] ([place]) Albumin 2.8(L) 3.5 - 5.0 g/dL [facility] ([place]) Alk phos 92 40 - 130 Units/L [facility] ([place]) ALT 41 7 - 45 Units/L [facility] ([place]) AST 62(H) 10 - 45 Units/L [facility] ([place]) Blood 12/31/2024 4:33 AM CDT 12/31/2024 5:59 AM CDT us Foster Aguilar MD LAB BLOOD ORDERABLES Final Resul t [facility] ([place]) 1 [facility] Department [place] [address] * POCT glucose (12/31/2024 2:28 AM CDT) Glucose, POC 95 70 - 199 mg/dL Blood 12/31/2024 2:28 AM CDT 12/31/2024 2:28 AM CDT us Foster Aguilar MD LAB POCT ORDERABLES - DEVICE Fin al Result Performing Organization Address City/[facility]/ZIP Co de Phone Number [facility] ([place]) [address] [place] [address] * POCT glucose (12/30/2024 4:35 PM CDT) Glucose, POC 103 70 - 199 mg/dL Blood 12/30/2024 4:35 PM CDT 12/30/2024 4:35 PM CDT Foster Aguilar MD LAB POCT ORDERABLES - DEVICE Fin al Result Performing Organization Address [facility] Co de Phone Number [facility] ([place]) [address] [place] [address] * (ABNORMAL) Troponin T high-sensitivity 6-hour (12/30/2024 12:11 PM CDT) [facility] Trop T hs 23(H) <=14 ng/L [facility] ([place]) Comment: Interpretive Data For further hscTnT resources including the diagnostic algorithm and an aid in interpretation, copy and paste this link: https://nrl.testcatalog.org/show/hsTrop Current Interpretive Data last revised 2020. Trop T hs delta 0 ng/L [facility] ([place]) Trop T hs interp Insignificant [facility] ([place]) Blood 12/30/2024 12:1 1 PM CDT 12/30/2024 12:16 PM CDT us Foster Aguilar MD LAB BLOOD ORDERABLES Final Resul t Performing Organization Address [facility]/ZIP Co de Phone Number [facility] ([place]) 1 [facility] [address] * POCT glucose (12/30/2024 11:43 AM CDT) Glucose, POC 94 70 - 199 mg/dL Blood 12/30/2024 11:4 3 AM CDT 12/30/2024 11:43 AM CDT us Foster Aguilar MD LAB POCT ORDERABLES - DEVICE Fin al Result [facility] ([place]) [address] [place] [address] * Troponin T high-sensitivity 6-hour (12/30/2024 11:37 AM CDT) Trop T hs See Comment <=14 Comment: sample QNS. Please see redraw for results Interpretive Data For further hscTnT resources including the diagnostic algorithm and an aid in interpretation, copy and paste this link: [email or web address].[email or web address]/show/hsTrop Current Interpretive Data last revised 2020. Trop T hs delta See Comment CE BARBARAER GRABIEL ([place]) Comment:sample QNS. Please s ee redraw for results Trop T hs interp See Comment C [facility] GR[facility] ([place]) Comment:sample QNS. Please s ee redraw for results Blood 12/30/2024 11:3 7 AM CDT 12/30/2024 11:38 AM CDT us Lyle Morrison MD LAB BLOOD ORDERABLES Final R esult Performing Organization Address City/[facility] Co de Phone Number [facility] ([place]) [address] [place] [address] * (ABNORMAL) Troponin T high-sensitivity 4-hour (12/30/2024 8:46 AM CDT) Trop T hs 25(H) <=14 ng/L [facility] ([place]) Comment: Interpretive Data For further hscTnT resources including the diagnostic algorithm and an aid in interpretation, copy and paste this link: [email or web address]/show/hsTrop Current Interpretive Data last revised 2020. Trop T hs delta 2 ng/L [facility] ([place]) Trop T hs interp Insignificant [facility] ([place]) Blood 12/30/2024 8:46 AM CDT 12/30/2024 8:49 AM CDT Lyle Morrison MD LAB BLOOD ORDERABLES Final R esult Performing Organization Address [facility] Co de Phone Number [facility] SPA[facility] ([place]) 1 [facility] [place] [address] * POCT glucose (12/30/2024 8:37 AM CDT) Glucose, POC 88 70 - 199 mg/dL Blood 12/30/2024 8:37 AM CDT 12/30/2024 8:37 AM CDT Foster Aguilar MD LAB POCT ORDERABLES - DEVICE Fin al Result Performing Organization Address [facility] de Phone Number [facility] SPAIN ([place]) [address] [place] [address] * (ABNORMAL) Troponin T high-sensitivity 2-hour (12/30/2024 7:18 AM CDT) Trop T hs 25(H) <=14 ng/L [facility] ([place]) Comment: Interpretive Data For further hscTnT resources including the diagnostic algorithm and an aid in interpretation, copy and paste this link: https://nrl.testcatalog.org/show/hsTrop Current Interpretive Data last revised 2020. Trop T hs delta 2 ng/L [facility] ([place]) Trop T hs interp Insignificant [facility] ([place]) Blood 12/30/2024 7:18 AM CDT 12/30/2024 7:20 AM CDT Lyle Morrison MD LAB BLOOD ORDERABLES Final R esult Performing Organization Address [facility] Co de Phone Number [facility] SPA[facility] ([place]) 1 [facility] [place] [address] * XR Chest 1 View (12/30/2024 6:11 AM CDT) Anatomical Region Laterality Modality Body, Chest N/A Computed Radiogr aphy 12/30/2024 6:17 AM CDT Narrative 12/30/2024 6:18 AM CDT EXAM DESCRIPTION: XR CHEST 1 VIEW REASON FOR STUDY: chest pain Weakness and fatigue for 1 day Prior hx of cdiff No heart or lung hx No smoker TECHNIQUE: Single radiographic view of the chest. COMPARISON: Chest x-ray of December 24, 2024. FINDINGS: LUNGS/PLEURA: No focal consolidation or pneumothorax. No pleural effusion. HEART/MEDIASTINUM: Cardiac silhouette is within normal limits. There is atherosclerosis of the aorta. Densely calcified lymph node is seen of the left hilum, unchanged. Remaining mediastinal silhouettes are unremarkable. HARDWARE/LINES/TUBES: EKG leads overlie the film. BONES: No acute findings. IMPRESSION: No acute cardiopulmonary abnormality. THIS IS AN ELECTRONICALLY VERIFIED FINAL REPORT 12/30/2024 6:18 AM - Electronically signed by Amanda Moe M.D. SN: Report ID: [id number] Reading Location: [id number] Procedure Note Amanda Moe MD - 12/30/2024 EXAM DESCRIPTION: XR CHEST 1 VIEW REASON FOR STUDY: chest pain Weakness and fatigue for 1 day Prior hx of cdiff No heart or lung hx No smoker TECHNIQUE: Single radiographic view of the chest. COMPARISON: Chest x-ray of December 24, 2024. FINDINGS: LUNGS/PLEURA: No focal consolidation or pneumothorax. No pleuraleffusion. HEART/MEDIASTINUM: Cardiac silhouette is within normal limits. There is atherosclerosis of the aorta. Densely calcified lymph node is seen of the left hilum, unchanged. Remaining mediastinal silhouettes areunremarkable. HARDWARE/LINES/TUBES: EKG leads overlie the film. BONES: No acute findings. IMPRESSION: No acute cardiopulmonary abnormality. THIS IS AN ELECTRONICALLY VERIFIED FINAL REPORT 12/30/2024 6:18 AM - Electronically signed by Amanda Moe M.D. SN: Report ID: [id number] Reading Location: [id number] us Lyle Morrison MD IMG XR PROCEDURES Final Resu lt * CT Abdomen Pelvis WO Contrast (12/30/2024 6:02 AM CDT) Anatomical Region Laterality Modality Body N/A Computed Tomogra phy 12/30/2024 6:04 AM CDT Narrative 12/30/2024 6:13 AM CDT EXAM DESCRIPTION: CT ABDOMEN PELVIS WO CONTRAST REASON FOR STUDY: Abdominal pain, acute, nonlocalized complaint of weakness, was discharged from [facility] 2 days ago after being admitted for diverticulitis. Pt states she has been having trouble walking and getting around due to her weakness. Was supposed to be getting home infusions. TECHNIQUE: CT scan of the abdomen and pelvis performed without intravenous and without oral contrast using helical scanning technique. Reconstructed coronal and sagittal MPR images reviewed. All images stored on PACS. Automated exposure control was used as a dose optimization technique for this examination. COMPARISON: 12/24/2024 FINDINGS: The sensitivity for detection of visceral lesions is diminished without the use of intravenous contrast. LOWER CHEST: Linear densities both bases suggesting scarring or atelectasis similar to previous. No focal consolidations. Calcified granuloma left lower lobe unchanged. Mitral valvular calcification redemonstrated. LIVER: Normal size. No identified cystic or solid masses. GALLBLADDER: Normally distended with layering densities suggesting sludge or subtle debris. No surrounding induration. BILE DUCTS: No intrahepatic or extrahepatic ductal dilatation. SPLEEN: Normal size. No focal lesions. PANCREAS: No identified cystic or solid masses. No significant calcifications. No adjacent inflammation or peripancreatic fluid collections. Pancreatic duct not dilated. ADRENALS: Slight lobular nodularity unchanged. KIDNEYS/URINARY TRACT: No identified significant cystic or solid masses. No stones. No hydronephrosis or hydroureter. Urinary bladder is somewhat obscured by metallic beam hardening artifact related to bilateral hip prosthesis. Suggestion of possible bladder wall thickening along the left lateral margin adjacent to induration along the colon may be related to secondary extent of colonic diverticulosis. Please correlate clinically. This appears more pronounced than previous. No air within the urinary bladder. GI: No dilated bowel loops. No obvious wall thickening. Normal appendix. The inferior aspect of the descending colon again demonstrates wall thickening and induration that extends through the sigmoid region in a more pronounced fashion than previous suggesting progression of diverticulitis occluding regions of wall thickening diffusely. No adjacent fluid or air collection to suggest abscess or clement perforation. Adjacent mildly prominent lymph nodes along the sigmoid colonic mesentery. Similar to slightly increased from previous. PERITONEUM: Induration along the left pericolic gutter slightly increased without large fluid collection or free air. RETROPERITONEUM: No mass or adenopathy. REPRODUCTIVE: No significant abnormality. VASCULATURE: No abdominal aortic aneurysm. MUSCULOSKELETAL: No significant abnormality. OTHER: No other abnormality. IMPRESSION: 1. Progression of changes of diverticulitis involving the descending and sigmoid colon without evidence of abscess or perforation. 2. Suggestion of bladder wall thickening along the left lateral margin adjacent to induration along the colon may be related to secondary extent of colonic diverticulosis. 3. Mildly prominent lymph nodes along the sigmoid colonic mesentery are similar to slightly increased from previous. 4. Layering densities in the gallbladder may represent sludge or subtle debris. No surrounding induration. THIS IS AN ELECTRONICALLY VERIFIED FINAL REPORT 12/30/2024 6:13 AM - Electronically signed by Donald Key M.D. RB: BRUNA Report ID: [id number] Reading Location: [place] [id number] Procedure Note Donald Key MD - 12/30/2024 EXAM DESCRIPTION: CT ABDOMEN PELVIS WO CONTRAST REASON FOR STUDY: Abdominal pain, acute, nonlocalized complaint of weakness, was discharged from [facility] 2 days ago after being admitted for diverticulitis. Pt states she has been having trouble walkingand getting around due to her weakness. Was supposed to be getting homeinfusions. TECHNIQUE: CT scan of the abdomen and pelvis performed without intravenousand without oral contrast using helical scanning technique. Reconstructed coronal and sagittal MPR images reviewed. All images stored on PACS.Automated exposure control was used as a dose optimization technique for this examination. COMPARISON: 12/24/2024 FINDINGS: The sensitivity for detection of visceral lesions is diminished withoutthe use of intravenous contrast. LOWER CHEST: Linear densities both bases suggesting scarring oratelectasis similar to previous. No focal consolidations. Calcified granuloma leftlower lobe unchanged. Mitral valvular calcification redemonstrated. LIVER: Normal size. No identified cystic or solid masses. GALLBLADDER: Normally distended with layering densities suggestingsludge or subtle debris. No surrounding induration. BILE DUCTS: No intrahepatic or extrahepatic ductal dilatation. SPLEEN: Normal size. No focal lesions. PANCREAS: No identified cystic or solid masses. No significant calcifications. No adjacent inflammation or peripancreatic fluidcollections. Pancreatic duct not dilated. ADRENALS: Slight lobular nodularity unchanged. KIDNEYS/URINARY TRACT: No identified significant cystic or solid masses.No stones. No hydronephrosis or hydroureter. Urinary bladder is somewhat obscured by metallic beam hardening artifact related to bilateral hip prosthesis. Suggestion of possible bladder wall thickening along the left lateral margin adjacent to induration along the colon may be related to secondary extent of colonic diverticulosis.Please correlate clinically. This appears more pronounced than previous. No air within the urinary bladder. GI: No dilated bowel loops. No obvious wall thickening. Normalappendix. The inferior aspect of the descending colon again demonstrates wallthickening and induration that extends through the sigmoid region in a morepronounced fashion than previous suggesting progression of diverticulitis occluding regions of wall thickening diffusely. No adjacent fluid or air collectionto suggest abscess or clement perforation. Adjacent mildly prominent lymphnodes along the sigmoid colonic mesentery. Similar to slightly increased from previous. PERITONEUM: Induration along the left pericolic gutter slightlyincreased without large fluid collection or free air. RETROPERITONEUM: No mass or adenopathy. REPRODUCTIVE: No significant abnormality. VASCULATURE: No abdominal aortic aneurysm. MUSCULOSKELETAL: No significant abnormality. OTHER: No other abnormality. IMPRESSION: 1. Progression of changes of diverticulitis involving the descending and sigmoid colon without evidence of abscess or perforation. 2. Suggestion of bladder wall thickening along the left lateral margin adjacent to induration along the colon may be related to secondary extentof colonic diverticulosis. 3. Mildly prominent lymph nodes along the sigmoid colonic mesentery are similar to slightly increased from previous. 4. Layering densities in the gallbladder may represent sludge or subtle debris. No surrounding induration. THIS IS AN ELECTRONICALLY VERIFIED FINAL REPORT 12/30/2024 6:13 AM - Electronically signed by Donald Carver.D. RB: RB Report ID: [id number] Reading Location: [id number] Lyle Morrison MD IMG CT PROCEDURES Final Resu lt * ECG 12 lead (12/30/2024 5:23 AM CDT) 12/30/2024 5:23 AM CDT Narrative [facility] - 12/30/2024 8:34 AM CDT Vent Rate: 98 bpm RR Interval: 610 msec NE Interval: 180 msec QRS Duration: 78 msec QT Interval: 317 msec QTC Interval: 372 msec P-R-T [place]: 64 - 34 - 30 degrees IMPRESSION: SINUS RHYTHM Baseline artifact Compared to prior EKG, heart rate is now slightly slower Electronically Signed By: Dr Donald Hopkins Lyle Morrison MD ECG ORDERABLES Final Result Performing Organization Address City/[facility] Co de Phone Number [facility] [employer] [facility] * (ABNORMAL) Troponin T high-sensitivity series (baseline, 2hr, 4hr, 6hr) (12/30/2024 5:21 AM CDT) Trop T hs 23(H) <=14 ng/L [facility]PA[facility] ([place]) Comment: Interpretive Data For further hscTnT resources including the diagnostic algorithm and an aid in interpretation, copy and paste this link: https://nrl.testcatalog.org/show/hsTrop Current Interpretive Data last revised 2020. Blood 12/30/2024 5:21 AM CDT 12/30/2024 5:35 AM CDT Lyle Morrison MD LAB BLOOD ORDERABLES Final R esult [facility] ([place]) 1 [facility] Department [place] [address] * (ABNORMAL) eGFR (12/30/2024 5:21 AM CDT) eGFR 24(L) >=60 mL/min/1. 73 m2 Comment: Interpretive Data Reference Interval Normal >/= 90 mL/min/1.73m2 Mildly decreased* 60 - 89 mL/min/1.73m2 Mildly to moderately decreased 45 - 59 mL/min/1.73m2 Moderately to severely decreased 30 - 44 mL/min/1.73m2 Severely decreased 15 - 29 mL/min/1.73m2 Kidney Failure < 15 mL/min/1.73m2 *Relative to young adult level Estimated glomerular filtration rate is determined by the 2020 CKD-EPI equation recommended by the National Kid[employer] (A Unifying Approach to GFR Estimation: Recommendations of the NKF-ASK Task Force on Reassessing the Inclusion of Race in Diagnosing Kidney Disease, JASN 2020). The CKD-EPI equation should not be used for patients with unstable renal function and has not been validated in children and those over 70. Current interpretive data was last reviewed 2021. Blood 12/30/2024 5:21 AM CDT 12/30/2024 5:28 AM CDT us Lyle Morrison MD LAB BLOOD ORDERABLES Final R esult [facility] ([place]) 1 [facility] Department [place] [address] * (ABNORMAL) Differential, auto (12/30/2024 5:21 AM CDT) Neutrophil abs 6.85(H) 1.50 - 6.50 K/cumm Imm gran abs 0.17(H) 0.00 - 0.10 K/cumm [facility] ([place]) Lymphocyte abs 2.42 0.80 - 3.30 K/cumm [facility] ([place]) Monocyte abs 1.89(H) 0.20 - 0.80 K/cumm [facility] ([place]) Eosinophil abs 0.50 0.00 - 0.50 K/cumm [facility] ([place]) Basophil abs 0.06 0.00 - 0.10 K/cumm [facility] ([place]) Neutrophil pct 57.6 % [facility] ([place]) Comment: Interpretive Data Percent cell count reference ranges are not reported, since discordance with absolute values may lead to misinterpretation of CBC data. Current Interpretive Data was last revised on 2017. Imm gran pct 1.4 % [facility] ([place]) Comment: Interpretive Data Percent cell count reference ranges are not reported, since discordance with absolute values may lead to misinterpretation of CBC data. Current Interpretive Data was last revised on 2017. Lymphocyte pct 20.4 % [facility] ([place]) Comment: Interpretive Data Percent cell count reference ranges are not reported, since discordance with absolute values may lead to misinterpretation of CBC data. Current Interpretive Data was last revised on 2017. Monocyte pct 15.9 % [facility] ([place]) Comment: Interpretive Data Percent cell count reference ranges are not reported, since discordance with absolute values may lead to misinterpretation of CBC data. Current Interpretive Data was last revised on 2017. Eosinophil pct 4.2 % [facility] ([place]) Comment: Interpretive Data Percent cell count reference ranges are not reported, since discordance with absolute values may lead to misinterpretation of CBC data. Current Interpretive Data was last revised on 2017. Basophil pct 0.5 % [facility] ([place]) Comment: Interpretive Data Percent cell count reference ranges are not reported, since discordance with absolute values may lead to misinterpretation of CBC data. Current Interpretive Data was last revised on 2017. Blood 12/30/2024 5:21 AM CDT 12/30/2024 5:28 AM CDT us Lyle Morrison MD LAB BLOOD ORDERABLES Final R esult [facility] ([place]) 1 [facility] Department [place] [address] * Pro B-type natriuretic peptide (12/30/2024 5:21 AM CDT) NT-proBNP 387 <=450 pg/mL [facility] ([place]) Comment: Interpretive Comments: A. Dyspnea in Acute Care Setting All Ages: < 300 pg/ml, acute heart failure unlikely. < 50 yrs: 300 - 450 pg/ml, further investigation warranted. > 450 pg/ml, acute heart failure likely. 50 - 74 yrs: 300 - 900 pg/ml, further investigation warranted. > 900 pg/ml, acute heart failure likely . > or = 75 yrs: 450 - 1800 pg/ml, further investigation warranted. > 1800 pg/ml, acute heart failure likely. B. Non-acute Setting < 75 yrs < 125 pg/ml, rules out heart failure. > or = 125 pg/ml, further investigation warranted. > or = 75 yrs < 450 pg/ml, rules out heart failure. > or = 450 pg/ml, further investigation warranted. - Knowledge of each individual patient's NT-proBNP range may be more useful than using similar cut-points for every patient. Please note that marked elevations in NT-proBNP levels may be observed in state other than Left Ventricular Congestive Failure, including: acute coronary syndromes, right heart strain/failure (including pulmonary embolism and cor pulmonale), critical illness, renal failure, as well as advanced age. - References: 1. Cortney MIRANDA et.al. Eur Heart J. 2006:27:330-337. 2. Lore RW, [place] AM. J. AM Lance Cardiol: Cardiovasc Imag. 2009;2: 216- 225. Interpretive Data Last Revised Date: 2018. Blood 12/30/2024 5:21 AM CDT 12/30/2024 5:35 AM CDT Lyle Morrison MD LAB BLOOD ORDERABLES Final R esult [facility]CCA SPA[facility] ([place]) 1 [facility] Department [place] [address] * (ABNORMAL) CBC with auto differential (12/30/2024 5:21 AM CDT) WBC 11.89(H) 3.80 - 9.90 K/cumm Hgb 8.1(L) 11.9 - 15.5 g/dL [facility] ([place]) Hct 26.5(L) 35.6 - 45.5 % [facility] ([place]) Plt 293 150 - 400 K/cumm [facility] ([place]) MPV 9.8 9.1 - 12.3 fL [facility] ([place]) RBC 3.06(L) 3.90 - 5.20 M/cumm [facility] ([place]) MCV 86.6 81.3 - 96.4 fL [facility] ([place]) MCH 26.5(L) 27.1 - 33.3 pg [facility] ([place]) MCHC 30.6(L) 32.3 - 35.7 g/dL [facility] ([place]) RDW CV 16.5(H) 11.1 - 14.9 % [facility] ([place]) RDW SD 52.0(H) 35.7 - 48.1 fL [facility] ([place]) NRBC abs 0.00 0.00 - 0.01 K/cumm [facility] ([place]) Blood 12/30/2024 5:21 AM CDT 12/30/2024 5:28 AM CDT Lyle Morrison MD LAB BLOOD ORDERABLES Final R esult [facility] ([place]) 1 [facility] [place] [address] * Magnesium (12/30/2024 5:21 AM CDT) Magnesium 1.7 1.4 - 2.5 mg/dL [facility] ([place] Blood 12/30/2024 5:21 AM CDT 12/30/2024 5:35 AM CDT Lyle Morrison MD LAB BLOOD ORDERABLES Final R esult [facility]PA[facility] ([place]) 1 [facility] [place] [address] * (ABNORMAL) Lipase (12/30/2024 5:21 AM CDT) Lipase 155(H) 10 - 99 Units/L [facility] ([place]) Blood 12/30/2024 5:21 AM CDT 12/30/2024 5:35 AM CDT us Lyle Morrison MD LAB BLOOD ORDERABLES Final R esult [facility]CCA SPA[facility] ([place]) 1 [facility] Department [place] [address] * (ABNORMAL) Comprehensive metabolic panel (12/30/2024 5:21 AM CDT) Sodium 139 135 - 145 mmol/L [facility] ([place]) Potassium, pl 4.1 3.3 - 4.9 mmol/L [facility] ([place]) Chloride 107 97 - 110 mmol/L [facility] ([place]) CO2 20(L) 22 - 32 mmol/L [facility] ([place]) Anion gap 12 2 - 15 mmol/L [facility] ([place]) BUN 34(H) 6 - 25 mg/dL [facility] ([place]) Creatinine 2.03(H) 0.60 - 1.10 mg/dL [facility] ([place]) Glucose 97 70 - 199 mg/dL [facility] ([place]) Comment: Interpretive Data Fasting glucose >/= 126 mg/dl is diagnostic for diabetes. Fasting is defined as no caloric intake for at least 8 hours. Fasting glucose between 100 mg/dl to 125 mg/dl is diagnostic of prediabetes. In a patient with classic symptoms of hyperglycemia or hyperglycemic crisis, a random glucose >/= 200 mg/dl is diagnostic for diabetes. In the absence of unequivocal hyperglycemia, results should be confirmed by repeat testing. The classification and Diagnosis of Diabetes Diabetes Care 2021; 46: S19-S40. Current interpretive data was last revised 2022. Calcium 9.6 8.5 - 10.3 mg/dL [facility] ([place]) Bilirubin, total 0.2 0.1 - 1.2 mg/dL [facility] ([place]) Protein, pl 6.9 6.5 - 8.5 g/dL [facility] ([place]) Albumin 3.1(L) 3.5 - 5.0 g/dL [facility] ([place]) Alk phos 95 40 - 130 Units/L [facility] ([place]) ALT 28 7 - 45 Units/L [facility] ([place]) AST 52(H) 10 - 45 Units/L [facility] ([place]) Blood 12/30/2024 5:21 AM CDT 12/30/2024 5:28 AM CDT us Lyle Morrison MD LAB BLOOD ORDERABLES Final R esult [facility]BECCA SPAIN ([place]) 1 [facility] Department [place] [address] * Line ok to use (12/28/2024 2:15 PM CDT) Narrative Cheryl Villafana RN - 12/28/2024 2:15 PM CDT Cheryl Villafana RN 12/28/2024 2:17 PM Vascular Access Nurse: Procedure Note Summary of treatment provided to patient today is as follows : . Bedside Procedure Time out/Checklist (Last 4 Hours) Pre-Op Checklist Row Name 12/28/24 1059 Patient Preparation Temp 36 C (96.8 F) -SD User Arroyo (r) = Recorded By, (t) = Taken By, (c) = Cosigned By Initials Name Claudia Serrano Vascular Access Documentation (Last 4 Hours) [facility] Additional Procedures Row Name 12/28/24 1400 12/28/24 1346 12/28/24 1325 PICC Screening Questionnaire Order written on the chart for PICC insertion or placement? -- -- Y -JN Information form/Consent Obtained from POA/ Family -- -- Y -JN Is there an order from Renal giving ok to place PICC line? -- -- N/A -JN Are there any location restrictions? -- -- N -JN Does the patient have history of DVT or SVC syndrome? -- -- N -JN Does the patient currently have blood clots in chest / arms? -- -- N -JN Review of all IV meds/drips completed -- -- Yes -JN Patient allergies reviewed? -- -- Y -JN Labs Reviewed if applicable -- -- Blood Cultures;Platelet count;Other (Comment) WBC -JN Procedures Line Type Midline -JN -- -- Time in 1325 -JN -- -- Time out 1351 -JN -- -- Time Calculation (min) 26 min -JN -- -- Vascular Access Procedures Midline placement;Discontinue IV;Education PICC/Midline -JN -- -- Comfort Measures Distraction;Position of comfort -JN -- -- Patient Response Tolerated (no change in status) -JN -- -- Peripheral IV 12/26/24 20 G Left;Posterior Forearm IV Properties Placement Date: 12/26/24 -MG Placement Time: 0 -MG Size (Gauge): 20 G -MG Location Orientation: Left;Posterior -MG Location: Forearm -MG Site Prep: Chlorhexidine -MG Comfort Measures: Distraction -MG Local Anesthetic: None -MG Technique: Anatomical landmarks -MG Verification: Able to advance catheter;Irrigates easily with normal saline;Able to cannulate vein;Blood Return -MG Inserted by: Erica JIMENEZ -MG Insertion attempts: 1 -MG Patient Tolerance: Tolerated well -MG Midline Catheter 12/28/24 1346 Left Basilic Upper arm Properties Placement Date: 12/28/24 -JN Placement Time: 1346 -JN Catheter Time Out Checklist Completed: Yes -JN Hand Hygiene Performed: Yes -JN Site Prep: Alcohol;Chlorhexidine -JN Site Prep Agent has Completely Dried Before Insertion: Yes -JN All 5 Sterile Barriers or Appropriate Barriers Used (Gloves, Gown, Cap, Mask, Large Sterile Drape): Yes -JN Local Anesthetic: Injectable -JN CVC Type: Non-tunneled -JN Size (Fr): 4 -JN Size (G): 18 -JN Trimmed Length (cm) : 17 cm -JN Orientation: Left -JN Vein Site: Basilic -JN Location: Upper arm -JN Technique: Modified seldinger;Standard insertion technique with peel away sheath;Internal stiffener stylet removed easily;Ultrasound used to locate and cannulate vein -JN Lot #: [id number] -JN Expiration Date: 01/22/26 -JN Verification: Able to advance catheter;Irrigates easily with normal saline;Able to cannulate vein -JN Verification by X-ray: No -JN Initial External Length Catheter (cm): 0 cm -JN Inserted by: Cheryl MOTA Assisted By: Mayra MOTA Patient Tolerance: Tolerated well - Kits utilized: Midline catheter kit;Microintroducer kit - Initial Extremity Circumference (cm): 29 cm - Site Assessment -- Clean and dry - -- External Length genesis (cm) -- 0 cm -JN -- Extremity Circumference (cm) -- 29 cm - -- Dressing Type -- CHG Dressing;Transparent;Tissue Adhesive - -- Dressing Status -- New;Clean, dry, intact;Dated;Occlusive - -- Dressing Intervention -- Dressing dated;Securement device placed - -- Lumen #1 Status -- Blood return brisk;Disinfectant cap in place;Flushes easily;Saline locked;Needleless access device in place - -- Lumen #1 Interventions -- Flushed - -- Line Necessity Reason Reviewed With Care Team -- Needed upon discharge for chcf use (e.g. long-term antibiotics) - -- User Arroyo (r) = Recorded By, (t) = Taken By, (c) = Cosigned By Initials Name Cheryl Young RN MG Gibson, Melanie Christine, RN Single lumen midline inserted in left upper arm without difficulty using sterile technique. Flushes easily with good blood return. No bleeding or hematoma noted at this time. Pt somewhat anxious during procedure. Did have some difficulty positioning arm d/t pain in shoulder. Line ok to use. Cheryl Villafana RN us Johnathan Booker MD IV THERAPY ORDERABLE S Final Result * Insert midline (12/28/2024 2:15 PM CDT) Narrative Cheryl Villafana RN - 12/28/2024 2:15 PM CDT Cheryl Villafana RN 12/28/2024 2:17 PM Vascular Access Nurse: Procedure Note Summary of treatment provided to patient today is as follows : . Bedside Procedure Time out/Checklist (Last 4 Hours) Pre-Op Checklist Row Name 12/28/24 1059 Patient Preparation Temp 36 C (96.8 F) -MANFRED User Arroyo (r) = Recorded By, (t) = Taken By, (c) = Cosigned By Initials Name Claudia Serrano Vascular Access Documentation (Last 4 Hours) [facility] Additional Procedures Row Name 12/28/24 1400 12/28/24 1346 12/28/24 1325 PICC Screening Questionnaire Order written on the chart for PICC insertion or placement? -- -- Y -JN Information form/Consent Obtained from POA/ Family -- -- Y -JN Is there an order from Renal giving ok to place PICC line? -- -- N/A -JN Are there any location restrictions? -- -- N -JN Does the patient have history of DVT or SVC syndrome? -- -- N -JN Does the patient currently have blood clots in chest / arms? -- -- N -JN Review of all IV meds/drips completed -- -- Yes -JN Patient allergies reviewed? -- -- Y -JN Labs Reviewed if applicable -- -- Blood Cultures;Platelet count;Other (Comment) WBC -JN Procedures Line Type Midline -JN -- -- Time in 1325 -JN -- -- Time out 1351 -JN -- -- Time Calculation (min) 26 min -JN -- -- Vascular Access Procedures Midline placement;Discontinue IV;Education PICC/Midline -JN -- -- Comfort Measures Distraction;Position of comfort -JN -- -- Patient Response Tolerated (no change in status) -JN -- -- Peripheral IV 12/26/24 20 G Left;Posterior Forearm IV Properties Placement Date: 12/26/24 -MG Placement Time: 2199 -MG Size (Gauge): 20 G -MG Location Orientation: Left;Posterior -MG Location: Forearm -MG Site Prep: Chlorhexidine -MG Comfort Measures: Distraction -MG Local Anesthetic: None -MG Technique: Anatomical landmarks -MG Verification: Able to advance catheter;Irrigates easily with normal saline;Able to cannulate vein;Blood Return -MG Inserted by: Erica RN -MG Insertion attempts: 1 -MG Patient Tolerance: Tolerated well -MG Midline Catheter 12/28/24 134 Left Basilic Upper arm Properties Placement Date: 12/28/24 -JN Placement Time: 1345 -JN Catheter Time Out Checklist Completed: Yes -JN Hand Hygiene Performed: Yes -JN Site Prep: Alcohol;Chlorhexidine -JN Site Prep Agent has Completely Dried Before Insertion: Yes -JN All 5 Sterile Barriers or Appropriate Barriers Used (Gloves, Gown, Cap, Mask, Large Sterile Drape): Yes -JN Local Anesthetic: Injectable -JN CVC Type: Non-tunneled -JN Size (Fr): 4 -JN Size (G): 18 -JN Trimmed Length (cm) : 17 cm -JN Orientation: Left -JN Vein Site: Basilic -JN Location: Upper arm -JN Technique: Modified seldinger;Standard insertion technique with peel away sheath;Internal stiffener stylet removed easily;Ultrasound used to locate and cannulate vein - Lot #: [id number] - Expiration Date: 01/22/26 -JN Verification: Able to advance catheter;Irrigates easily with normal saline;Able to cannulate vein -JN Verification by X-ray: No -JN Initial External Length Catheter (cm): 0 cm -JN Inserted by: Cheryl Villafana RN -RANDAL Assisted By: Mayra MOTA Patient Tolerance: Tolerated well - Kits utilized: Midline catheter kit;Microintroducer kit - Initial Extremity Circumference (cm): 29 cm - Site Assessment -- Clean and dry - -- External Length genesis (cm) -- 0 cm - -- Extremity Circumference (cm) -- 29 cm - -- Dressing Type -- CHG Dressing;Transparent;Tissue Adhesive - -- Dressing Status -- New;Clean, dry, intact;Dated;Occlusive - -- Dressing Intervention -- Dressing dated;Securement device placed - -- Lumen #1 Status -- Blood return brisk;Disinfectant cap in place;Flushes easily;Saline locked;Needleless access device in place - -- Lumen #1 Interventions -- Flushed - -- Line Necessity Reason Reviewed With Care Team -- 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 long-term antibiotics) - -- User Arroyo (r) = Recorded By, (t) = Taken By, (c) = Cosigned By Initials Name Cheryl Young RN MG Gibson, Melanie Christine, RN Single lumen midline inserted in left upper arm without difficulty using sterile technique. Flushes easily with good blood return. No bleeding or hematoma noted at this time. Pt somewhat anxious during procedure. Did have some difficulty positioning arm d/t pain in shoulder. Line ok to use. Cheryl Villafana RN us Johnathan Booker MD IV THERAPY ORDERABLE S Final Result * POCT glucose (12/28/2024 12:15 PM CDT) Glucose, POC 101 70 - 199 mg/dL Blood 12/28/2024 12:1 5 PM CDT 12/28/2024 12:15 PM CDT us Foster Aguilar MD LAB POCT ORDERABLES - DEVICE Fin al Result [facility] ([place]) 1 [facility] [place] [address] * POCT glucose (12/28/2024 7:49 AM CDT) Glucose, POC 87 70 - 199 mg/dL Blood 12/28/2024 7:49 AM CDT 12/28/2024 7:49 AM CDT us Foster Aguilar MD LAB POCT ORDERABLES - DEVICE Fin al Result Performing Organization Address City/[facility]/ZIP Co de Phone Number [facility] ([place]) 1 [facility] [place] [address] * POCT glucose (12/28/2024 2:27 AM CDT) Glucose, POC 98 70 - 199 mg/dL Blood 12/28/2024 2:27 AM CDT 12/28/2024 2:27 AM CDT us Foster Aguilar MD LAB POCT ORDERABLES - DEVICE Fin al Result Performing Organization Address City/[facility]/ZIP Co de Phone Number [facility] ([place]) 1 [facility] [place] [address] * POCT glucose (12/27/2024 8:16 PM CDT) Glucose, POC 110 70 - 199 mg/dL Blood 12/27/2024 8:16 PM CDT 12/27/2024 8:16 PM CDT us Foster Aguilar MD LAB POCT ORDERABLES - DEVICE Fin al Result RE[facility]CCA [facility]PA[facility] ([place]) 1 [facility] [place] [address] * POCT glucose (12/27/2024 5:10 PM CDT) Glucose, POC 166 70 - 199 mg/dL Blood 12/27/2024 5:10 PM CDT 12/27/2024 5:10 PM CDT Foster Aguilar MD LAB POCT ORDERABLES - DEVICE Fin al Result Performing Organization Address [facility] Co de Phone Number REBECCA SPAIN ([place]) 1 [facility] [place] [address] * POCT glucose (12/27/2024 12:01 PM CDT) Glucose, POC 93 70 - 199 mg/dL Blood 12/27/2024 12:0 1 PM CDT 12/27/2024 12:01 PM CDT us Foster Aguilar MD LAB POCT ORDERABLES - DEVICE Fin al Result Performing Organization Address City/[facility]/ZIP Co de Phone Number REBECCA SPAIN ([place]) 1 [facility] [place] [address] * POCT glucose (12/27/2024 8:18 AM CDT) Glucose, POC 91 70 - 199 mg/dL Blood 12/27/2024 8:18 AM CDT 12/27/2024 8:18 AM CDT us Foster Aguilar MD LAB POCT ORDERABLES - DEVICE Fin al Result Performing Organization Address City/[facility]/ZIP Co de Phone Number [facility] ([place]) 1 [facility] [place] [address] * (ABNORMAL) eGFR (12/27/2024 2:34 AM CDT) [facility] eGFR 27(L) >=60 mL/min/1. 73 m2 Comment: Interpretive Data Reference Interval Normal >/= 90 mL/min/1.73m2 Mildly decreased* 60 - 89 mL/min/1.73m2 Mildly to moderately decreased 45 - 59 mL/min/1.73m2 Moderately to severely decreased 30 - 44 mL/min/1.73m2 Severely decreased 15 - 29 mL/min/1.73m2 Kidney Failure < 15 mL/min/1.73m2 *Relative to young adult level Estimated glomerular filtration rate is determined by the 2020 CKD-EPI equation recommended by the National Kidney Foundation (A Unifying Approach to GFR Estimation: Recommendations of the NKF-ASK Task Force on Reassessing the Inclusion of Race in Diagnosing Kidney Disease, JASN 2020). The CKD-EPI equation should not be used for patients with unstable renal function and has not been validated in children and those over 70. Current interpretive data was last reviewed 2021. Blood 12/27/2024 2:34 AM CDT 12/27/2024 2:53 AM CDT us Wayne Fraser II, MD LAB BLOOD ORDERABLES F inal Result [facility] ([place]) 1 [facility] Department [place] [address] * (ABNORMAL) Differential, auto (12/27/2024 2:34 AM CDT) Pathologist [facility] Neutrophil abs 10.17(H) 1.50 - 6.50 K/cumm Imm gran abs 0.10 0.00 - 0.10 K/cumm [facility] ([place]) Lymphocyte abs 1.64 0.80 - 3.30 K/cumm [facility] ([place]) Monocyte abs 1.53(H) 0.20 - 0.80 K/cumm [facility] ([place]) Eosinophil abs 0.32 0.00 - 0.50 K/cumm [facility] ([place]) Basophil abs 0.04 0.00 - 0.10 K/cumm [facility] ([place]) Neutrophil pct 73.7 % [facility] ([place]) Comment: Interpretive Data Percent cell count reference ranges are not reported, since discordance with absolute values may lead to misinterpretation of CBC data. Current Interpretive Data was last revised on 2017. Imm gran pct 0.7 % [facility] ([place]) Comment: Interpretive Data Percent cell count reference ranges are not reported, since discordance with absolute values may lead to misinterpretation of CBC data. Current Interpretive Data was last revised on 2017. Lymphocyte pct 11.9 % [facility] ([place]) Comment: Interpretive Data Percent cell count reference ranges are not reported, since discordance with absolute values may lead to misinterpretation of CBC data. Current Interpretive Data was last revised on 2017. Monocyte pct 11.1 % [facility] ([place]) Comment: Interpretive Data Percent cell count reference ranges are not reported, since discordance with absolute values may lead to misinterpretation of CBC data. Current Interpretive Data was last revised on 2017. Eosinophil pct 2.3 % [facility] ([place]) Comment: Interpretive Data Percent cell count reference ranges are not reported, since discordance with absolute values may lead to misinterpretation of CBC data. Current Interpretive Data was last revised on 2017. Basophil pct 0.3 % [facility] ([place]) Comment: Interpretive Data Percent cell count reference ranges are not reported, since discordance with absolute values may lead to misinterpretation of CBC data. Current Interpretive Data was last revised on 2017. Blood 12/27/2024 2:34 AM CDT 12/27/2024 2:53 AM CDT us Wayne Fraser II, MD LAB BLOOD ORDERABLES F inal Result [facility] ([place]) 1 [facility] Department [place] [address] * (ABNORMAL) CBC with auto differential (12/27/2024 2:34 AM CDT) WBC 13.80(H) 3.80 - 9.90 K/cumm Hgb 7.9(L) 11.9 - 15.5 g/dL [facility] ([place]) Hct 25.8(L) 35.6 - 45.5 % [facility] ([place]) Plt 257 150 - 400 K/cumm [facility] ([place]) MPV 9.5 9.1 - 12.3 fL [facility] ([place]) RBC 3.00(L) 3.90 - 5.20 M/cumm [facility] ([place]) MCV 86.0 81.3 - 96.4 fL [facility] ([place]) MCH 26.3(L) 27.1 - 33.3 pg [facility] ([place]) MCHC 30.6(L) 32.3 - 35.7 g/dL [facility] ([place]) RDW CV 15.7(H) 11.1 - 14.9 % [facility] ([place]) RDW SD 49.3(H) 35.7 - 48.1 fL [facility] ([place]) NRBC abs 0.00 0.00 - 0.01 K/cumm [facility] ([place]) Blood 12/27/2024 2:34 AM CDT 12/27/2024 2:53 AM CDT us Wayne Fraser II, MD LAB BLOOD ORDERABLES F inal Result [facility] 1 [facility] Department [place] [address] * (ABNORMAL) Comprehensive metabolic panel (12/27/2024 2:34 AM CDT) Sodium 137 135 - 145 mmol/L [facility] ([place]) Potassium, pl 4.0 3.3 - 4.9 mmol/L [facility] ([place]) Chloride 106 97 - 110 mmol/L [facility] ([place]) CO2 21(L) 22 - 32 mmol/L [facility] ([place]) Anion gap 10 2 - 15 mmol/L [facility] ([place]) BUN 28(H) 6 - 25 mg/dL [facility] ([place]) Creatinine 1.85(H) 0.60 - 1.10 mg/dL [facility] ([place]) Glucose 95 70 - 199 mg/dL [facility] ([place]) Comment: Interpretive Data Fasting glucose >/= 126 mg/dl is diagnostic for diabetes. Fasting is defined as no caloric intake for at least 8 hours. Fasting glucose between 100 mg/dl to 125 mg/dl is diagnostic of prediabetes. In a patient with classic symptoms of hyperglycemia or hyperglycemic crisis, a random glucose >/= 200 mg/dl is diagnostic for diabetes. In the absence of unequivocal hyperglycemia, results should be confirmed by repeat testing. The classification and Diagnosis of Diabetes Diabetes Care 2021; 46: S19-S40. Current interpretive data was last revised 2022. Calcium 9.1 8.5 - 10.3 mg/dL [facility] ([place]) Bilirubin, total 0.2 0.1 - 1.2 mg/dL [facility] ([place]) Protein, pl 6.1(L) 6.5 - 8.5 g/dL [facility] ([place]) Albumin 2.6(L) 3.5 - 5.0 g/dL [facility] ([place]) Alk phos 70 40 - 130 Units/L [facility] ([place]) ALT 11 7 - 45 Units/L [facility] ([place]) AST 16 10 - 45 Units/L [facility] ([place]) Blood 12/27/2024 2:34 AM CDT 12/27/2024 2:53 AM CDT us Wayne Fraser II, MD LAB BLOOD ORDERABLES F inal Result [facility] ([place]) 1 [facility] Department [place] [address] * POCT glucose (12/27/2024 2:31 AM CDT) Glucose, POC 94 70 - 199 mg/dL Blood 12/27/2024 2:31 AM CDT 12/27/2024 2:31 AM CDT us Wayne Fraser II, MD LAB POCT ORDERABLES - DEVICE Final Result Performing Organization Address City/[facility]/ZIP Co de Phone Number RE[facility]CCA [facility] ([place]) 1 [facility] [place] [address] * POCT glucose (12/26/2024 8:57 PM CDT) Glucose, POC 113 70 - 199 mg/dL Blood 12/26/2024 8:57 PM CDT 12/26/2024 8:57 PM CDT us Wayne Fraser II, MD LAB POCT ORDERABLES - DEVICE Final Result Performing Organization Address [facility] Co de Phone Number REBECCA SPAIN ([place]) 1 [facility] [place] [address] * POCT glucose (12/26/2024 4:51 PM CDT) Glucose, POC 112 70 - 199 mg/dL Blood 12/26/2024 4:51 PM CDT 12/26/2024 4:51 PM CDT us Wayne Fraser II, MD LAB POCT ORDERABLES - DEVICE Final Result Performing Organization Address City/[facility]/ZIP Co de Phone Number RE[facility]CCA SPAIN ([place]) 1 [facility] [place] [address] * POCT glucose (12/26/2024 12:10 PM CDT) Glucose, POC 120 70 - 199 mg/dL Blood 12/26/2024 12:1 0 PM CDT 12/26/2024 12:10 PM CDT us Wayne Fraser II, MD LAB POCT ORDERABLES - DEVICE Final Result Performing Organization Address City/[facility]/ZIP Co de Phone Number [facility]CCA [facility] ([place]) [address] [place] [address] * POCT glucose (12/26/2024 8:14 AM CDT) Pathologist [facility] Glucose, POC 95 70 - 199 mg/dL Blood 12/26/2024 8:14 AM CDT 12/26/2024 8:14 AM CDT Wayne Fraser II, MD LAB POCT ORDERABLES - DEVICE Final Result Performing Organization Address [facility] Co de Phone Number [facility] ([place]) [address] [place] [address] * (ABNORMAL) C. difficile testing Stool (12/26/2024 6:21 AM CDT) Pathologist [facility] GDH Result Positive Negative Toxin Result Positive Negative [facility] ([place]) C. diff result Positive, free toxin(A) Negative, free toxin [facility] ([place]) C. diff interp Toxigenic Clostridioides (Clostridium) difficile detected. Analysis was performed using a two-step methodology using glutamate dehydrogenase antigen detection followed by detection of C. difficile toxin(s). [facility] ([place]) Stool 12/26/2024 6:21 AM CDT 12/26/2024 6:39 AM CDT Sukumar Rivera MD LAB MICROBIOLOGY - GENE RAL ORDERABLES Final Result Performing Organization Address City/[facility]/ZIP Co de Phone Number [facility] ([place]) [address] [place] [address] * (ABNORMAL) Hemoglobin and hematocrit (12/26/2024 5:36 AM CDT) [facility] Hgb 7.9(L) 11.9 - 15.5 g/dL Hct 25.8(L) 35.6 - 45.5 % [facility] ([place]) Blood 12/26/2024 5:36 AM CDT 12/26/2024 6:05 AM CDT us Sukumar Rivera MD LAB BLOOD ORDERABLES Fi nal Result Performing Organization Address City/[facility]/ZIP Co de Phone Number [facility] ([place]) 1 [facility] [place] [address] * (ABNORMAL) eGFR (12/26/2024 2:13 AM CDT) eGFR 26(L) >=60 mL/min/1. 73 m2 Comment: Interpretive Data Reference Interval Normal >/= 90 mL/min/1.73m2 Mildly decreased* 60 - 89 mL/min/1.73m2 Mildly to moderately decreased 45 - 59 mL/min/1.73m2 Moderately to severely decreased 30 - 44 mL/min/1.73m2 Severely decreased 15 - 29 mL/min/1.73m2 Kidney Failure < 15 mL/min/1.73m2 *Relative to young adult level Estimated glomerular filtration rate is determined by the 2020 CKD-EPI equation recommended by the National Kidney Foundation (A Unifying Approach to GFR Estimation: Recommendations of the NKF-ASK Task Force on Reassessing the Inclusion of Race in Diagnosing Kidney Disease, JASN 2020). The CKD-EPI equation should not be used for patients with unstable renal function and has not been validated in children and those over 70. Current interpretive data was last reviewed 2021. Blood 12/26/2024 2:13 AM CDT 12/26/2024 4:01 AM CDT us Wayne Fraser II, MD LAB BLOOD ORDERABLES F inal Result [facility] ([place]) 1 [facility] [place] [address] * (ABNORMAL) Differential, auto (12/26/2024 2:13 AM CDT) Neutrophil abs 14.00(H) 1.50 - 6.50 K/cumm Imm gran abs 0.09 0.00 - 0.10 K/cumm [facility]MER GR[facility] ([place]) Lymphocyte abs 1.67 0.80 - 3.30 K/cumm [facility] ([place]) Monocyte abs 1.49(H) 0.20 - 0.80 K/cumm [facility] ([place]) Eosinophil abs 0.16 0.00 - 0.50 K/cumm [facility] ([place]) Basophil abs 0.05 0.00 - 0.10 K/cumm [facility] ([place]) Neutrophil pct 80.2 % [facility] ([place]) Comment: Interpretive Data Percent cell count reference ranges are not reported, since discordance with absolute values may lead to misinterpretation of CBC data. Current Interpretive Data was last revised on 2017. Imm gran pct 0.5 % [facility] ([place]) Comment: Interpretive Data Percent cell count reference ranges are not reported, since discordance with absolute values may lead to misinterpretation of CBC data. Current Interpretive Data was last revised on 2017. Lymphocyte pct 9.6 % [facility] ([place]) Comment: Interpretive Data Percent cell count reference ranges are not reported, since discordance with absolute values may lead to misinterpretation of CBC data. Current Interpretive Data was last revised on 2017. Monocyte pct 8.5 % [facility] ([place]) Comment: Interpretive Data Percent cell count reference ranges are not reported, since discordance with absolute values may lead to misinterpretation of CBC data. Current Interpretive Data was last revised on 2017. Eosinophil pct 0.9 % [facility] ([place]) Comment: Interpretive Data Percent cell count reference ranges are not reported, since discordance with absolute values may lead to misinterpretation of CBC data. Current Interpretive Data was last revised on 2017. Basophil pct 0.3 % [facility] ([place]) Comment: Interpretive Data Percent cell count reference ranges are not reported, since discordance with absolute values may lead to misinterpretation of CBC data. Current Interpretive Data was last revised on 2017. Blood 12/26/2024 2:13 AM CDT 12/26/2024 3:48 AM CDT us Wayne Fraser II, MD LAB BLOOD ORDERABLES F inal Result [facility] ([place]) 1 [facility] Department [place] [address] * (ABNORMAL) CBC with auto differential (12/26/2024 2:13 AM CDT) [facility] WBC 17.46(H) 3.80 - 9.90 K/cumm Hgb 8.1(L) 11.9 - 15.5 g/dL [facility] ([place]) Hct 26.7(L) 35.6 - 45.5 % [facility] ([place]) Plt 291 150 - 400 K/cumm [facility] ([place]) MPV 10.1 9.1 - 12.3 fL [facility] ([place]) RBC 3.08(L) 3.90 - 5.20 M/cumm [facility] ([place]) MCV 86.7 81.3 - 96.4 fL [facility] ([place]) MCH 26.3(L) 27.1 - 33.3 pg [facility] ([place]) MCHC 30.3(L) 32.3 - 35.7 g/dL [facility] ([place]) RDW CV 15.8(H) 11.1 - 14.9 % [facility] ([place]) RDW SD 49.6(H) 35.7 - 48.1 fL [facility] ([place]) NRBC abs 0.00 0.00 - 0.01 K/cumm [facility] ([place]) Blood 12/26/2024 2:13 AM CDT 12/26/2024 3:48 AM CDT us Wayne Fraser II, MD LAB BLOOD ORDERABLES F inal Result REBECCA SPAIN ([place]) 1 [facility] Department [place] [address] * (ABNORMAL) Comprehensive metabolic panel (12/26/2024 2:13 AM CDT) [facility] Sodium 135 135 - 145 mmol/L [facility] ([place]) Potassium, pl 4.4 3.3 - 4.9 mmol/L [facility] ([place]) Chloride 104 97 - 110 mmol/L [facility] ([place]) CO2 18(L) 22 - 32 mmol/L [facility] ([place]) Anion gap 13 2 - 15 mmol/L [facility] ([place]) BUN 32(H) 6 - 25 mg/dL [facility] ([place]) Creatinine 1.92(H) 0.60 - 1.10 mg/dL [facility] ([place]) Glucose 103 70 - 199 mg/dL [facility] ([place]) Comment: Interpretive Data Fasting glucose >/= 126 mg/dl is diagnostic for diabetes. Fasting is defined as no caloric intake for at least 8 hours. Fasting glucose between 100 mg/dl to 125 mg/dl is diagnostic of prediabetes. In a patient with classic symptoms of hyperglycemia or hyperglycemic crisis, a random glucose >/= 200 mg/dl is diagnostic for diabetes. In the absence of unequivocal hyperglycemia, results should be confirmed by repeat testing. The classification and Diagnosis of Diabetes Diabetes Care 2021; 46: S19-S40. Current interpretive data was last revised 2022. Calcium 9.2 8.5 - 10.3 mg/dL [facility] ([place]) Bilirubin, total 0.3 0.1 - 1.2 mg/dL [facility] ([place]) Protein, pl 6.3(L) 6.5 - 8.5 g/dL [facility] ([place]) Albumin 2.8(L) 3.5 - 5.0 g/dL [facility] ([place]) Alk phos 85 40 - 130 Units/L [facility] ([place]) ALT 12 7 - 45 Units/L [facility] ([place]) AST 21 10 - 45 Units/L [facility] ([place]) Blood 12/26/2024 2:13 AM CDT 12/26/2024 4:01 AM CDT us Wayne Fraser II, MD LAB BLOOD ORDERABLES F inal Result [facility] ([place]) 1 [facility] Department [place] [address] * POCT glucose (12/26/2024 2:12 AM CDT) Glucose, POC 133 70 - 199 mg/dL Blood 12/26/2024 2:12 AM CDT 12/26/2024 2:12 AM CDT Wayne Fraser II, MD LAB POCT ORDERABLES - DEVICE Final Result Performing Organization Address City/[facility]/ZIP Co de Phone Number REBECCA SPAIN ([place]) 1 [facility] [place] [address] * POCT glucose (12/25/2024 9:07 PM CDT) Glucose, POC 151 70 - 199 mg/dL Blood 12/25/2024 9:07 PM CDT 12/25/2024 9:07 PM CDT Wayne Fraser II, MD LAB POCT ORDERABLES - DEVICE Final Result Performing Organization Address [facility] Co de Phone Number REBECCA SPAIN ([place]) 1 [facility] [place] [address] * (ABNORMAL) eGFR (12/25/2024 2:12 AM CDT) Pathologist [facility] eGFR 26(L) >=60 mL/min/1. 73 m2 Comment: Interpretive Data Reference Interval Normal >/= 90 mL/min/1.73m2 Mildly decreased* 60 - 89 mL/min/1.73m2 Mildly to moderately decreased 45 - 59 mL/min/1.73m2 Moderately to severely decreased 30 - 44 mL/min/1.73m2 Severely decreased 15 - 29 mL/min/1.73m2 Kidney Failure < 15 mL/min/1.73m2 *Relative to young adult level Estimated glomerular filtration rate is determined by the 2020 CKD-EPI equation recommended by the National Kidney Foundation (A Unifying Approach to GFR Estimation: Recommendations of the NKF-ASK Task Force on Reassessing the Inclusion of Race in Diagnosing Kidney Disease, JASN 2020). The CKD-EPI equation should not be used for patients with unstable renal function and has not been validated in children and those over 70. Current interpretive data was last reviewed 2021. Blood 12/25/2024 2:12 AM CDT 12/25/2024 2:26 AM CDT Wayne Fraser II, MD LAB BLOOD ORDERABLES F inal Result [facility] ([place]) 1 [facility] Department [place] [address] * (ABNORMAL) Differential, auto (12/25/2024 2:12 AM CDT) Neutrophil abs 15.90(H) 1.50 - 6.50 K/cumm Imm gran abs 0.15(H) 0.00 - 0.10 K/cumm [facility] ([place]) Lymphocyte abs 1.16 0.80 - 3.30 K/cumm [facility] ([place]) Monocyte abs 1.58(H) 0.20 - 0.80 K/cumm [facility] ([place]) Eosinophil abs 0.05 0.00 - 0.50 K/cumm [facility] ([place]) Basophil abs 0.05 0.00 - 0.10 K/cumm [facility] ([place]) Neutrophil pct 84.1 % [facility] ([place]) Comment: Interpretive Data Percent cell count reference ranges are not reported, since discordance with absolute values may lead to misinterpretation of CBC data. Current Interpretive Data was last revised on 2017. Imm gran pct 0.8 % [facility] ([place]) Comment: Interpretive Data Percent cell count reference ranges are not reported, since discordance with absolute values may lead to misinterpretation of CBC data. Current Interpretive Data was last revised on 2017. Lymphocyte pct 6.1 % [facility] ([place]) Comment: Interpretive Data Percent cell count reference ranges are not reported, since discordance with absolute values may lead to misinterpretation of CBC data. Current Interpretive Data was last revised on 2017. Monocyte pct 8.4 % [facility] ([place]) Comment: Interpretive Data Percent cell count reference ranges are not reported, since discordance with absolute values may lead to misinterpretation of CBC data. Current Interpretive Data was last revised on 2017. Eosinophil pct 0.3 % [facility] ([place]) Comment: Interpretive Data Percent cell count reference ranges are not reported, since discordance with absolute values may lead to misinterpretation of CBC data. Current Interpretive Data was last revised on 2017. Basophil pct 0.3 % [facility] ([place]) Comment: Interpretive Data Percent cell count reference ranges are not reported, since discordance with absolute values may lead to misinterpretation of CBC data. Current Interpretive Data was last revised on 2017. Blood 12/25/2024 2:12 AM CDT 12/25/2024 2:26 AM CDT Wayne Fraser II, MD LAB BLOOD ORDERABLES F inal Result Performing Organization Address City/[facility]/ZIP Co de Phone Number REBECCA SPAIN ([place]) 1 [facility] [place] [address] * (ABNORMAL) Iron profile w/ IBC (12/25/2024 2:12 AM CDT) Iron 11(L) 35 - 145 mcg/dL [facility] ([place]) TIBC 137(L) 250 - 400 mcg/dL [facility] ([place]) Transferrin saturation 8(L) 20 - 50 % [facility] ([place]) Blood 12/25/2024 2:12 AM CDT 12/25/2024 2:26 AM CDT us Wayne Fraser II, MD LAB BLOOD ORDERABLES F inal Result REBECCA SPAIN ([place]) 1 [facility] [place] [address] * (ABNORMAL) CBC with auto differential (12/25/2024 2:12 AM CDT) WBC 18.89(H) 3.80 - 9.90 K/cumm Hgb 8.3(L) 11.9 - 15.5 g/dL [facility] ([place]) Hct 27.4(L) 35.6 - 45.5 % [facility] ([place]) Plt 294 150 - 400 K/cumm [facility] ([place]) MPV 9.5 9.1 - 12.3 fL [facility] ([place]) RBC 3.09(L) 3.90 - 5.20 M/cumm [facility] ([place]) MCV 88.7 81.3 - 96.4 fL [facility] ([place]) MCH 26.9(L) 27.1 - 33.3 pg [facility] ([place]) MCHC 30.3(L) 32.3 - 35.7 g/dL [facility] ([place]) RDW CV 15.9(H) 11.1 - 14.9 % [facility] ([place]) RDW SD 51.1(H) 35.7 - 48.1 fL [facility] ([place]) NRBC abs 0.00 0.00 - 0.01 K/cumm [facility] ([place]) Blood 12/25/2024 2:12 AM CDT 12/25/2024 2:26 AM CDT Wayne Fraser II, MD LAB BLOOD ORDERABLES F inal Result Performing Organization Address [facility] Co de Phone Number REBECCA SPAIN ([place]) 1 [facility] [place] [address] * Magnesium (12/25/2024 2:12 AM CDT) Magnesium 1.6 1.4 - 2.5 mg/dL [facility] ([place]) Blood 12/25/2024 2:12 AM CDT 12/25/2024 2:26 AM CDT Wayne Fraser II, MD LAB BLOOD ORDERABLES F inal Result Performing Organization Address [facility]/ZIP Co de Phone Number [facility] ([place]) 1 [facility] [place] [address] * (ABNORMAL) Hemoglobin A1c (12/25/2024 2:12 AM CDT) Hgb A1C 6.1(H) 4.0 - 5.6 % [facility] ([place]) Estimated Average Glucose 128 mg/dL [facility] ([place]) Comment: The ADA recommends reporting an estimated Average Glucose (eAG) with all Hemoglobin A1c results using the equation derived from a study of 507 normal and diabetic adults. Minority populations were underrepresented and children were not included. (Diabetes Care 31:7423-1621, 2008). The eAG is not equivalent to a fasting glucose. Testing performed by: [facility], [facility], [place], [address] Blood 12/25/2024 2:12 AM CDT 12/25/2024 2:26 AM CDT Wayne Fraser II, MD LAB BLOOD ORDERABLES F inal Result Performing Organization Address [facility] Co de Phone Number REBECCA SPAIN ([place]) 1 [facility] [place] [address] * (ABNORMAL) Ferritin (12/25/2024 2:12 AM CDT) Pathologist [facility] Ferritin 159(H) 13 - 150 ng/mL [facility] ([place]) Blood 12/25/2024 2:12 AM CDT 12/25/2024 2:26 AM CDT Wayne Fraser II, MD LAB BLOOD ORDERABLES F inal Result [facility] 1 [facility] [place] [address] * (ABNORMAL) Lipid panel (12/25/2024 2:12 AM CDT) Cholesterol 92 30 - 199 mg/dL [facility] ([place]) Comment: Interpretive Data Ages < or = 19 years Acceptable: <170 mg/dL Borderline high: 170-199 mg/dL High: >or= 200 mg/dL Ages > or = 20 years Desirable: <200 mg/dL Borderline high: 200-239 mg/dL High: >or= 240 mg/dL Literature References: 1. Expert Panel on Integrated Guidelines for Cardiovascular Health and Risk Reduction in Children and Adolescents. Pediatrics 2011;128:S213 2. NCEP Expert Panel. Circulation 2004;110:227 Current Interpretive Data was last revised on 2018. Triglycerides 86 <=149 mg/dL [facility] ([place]) Comment: Interpretive Data Ages < or = 9 years Acceptable: <75 mg/dL Borderline high: 75-99 mg/dL High: >or= 100 mg/dL Ages 10 to 20 years Acceptable: <90 mg/dL Borderline high: 90-129 mg/dL High: >or= 130 mg/dL Ages > or = 20 years Desirable: <150 mg/dL Borderline high: 150-199 mg/dL High: 200-499 mg/dL Very high: >or= 499 mg/dL Literature References: 1. Expert Panel on Integrated Guidelines for Cardiovascular Health and Risk Reduction in Children and Adolescents. Pediatrics 2011;128:S213 2. NCEP Expert Panel. Circulation 2004;110:227 Current Interpretive Data was last revised on 2018. HDL 36(L) >=40 mg/dL REBECCA [facility] ([place]) Comment: Interpretive Data Ages < or = 19 years Acceptable: >45 mg/dL Borderline low: 40-45 mg/dL Low: <40 mg/dL Ages > or = 20 years Desirable: >or= 60 mg/dL Low: <40 mg/dL Literature References: 1. Expert Panel on Integrated Guidelines for Cardiovascular Health and Risk Reduction in Children and Adolescents. Pediatrics 2011;128:S213 2. NCEP Expert Panel. Circulation 2004;110:227 Current Interpretive Data was last revised on 2018. LDL, calculated 39 <=129 mg/dL [facility] ([place]) Comment: Interpretive Data Ages < or = 19 years Acceptable: <110 mg/dL Borderline high: 110-129 mg/dL High: >or= 130 mg/dL Ages > or = 20 years Optimal: <100 mg/dL Near optimal: 100-129 mg/dL Borderline high: 130-159 mg/dL High: >160 mg/dL Calculated using the Pickering LDL-C estimating equation. This equation was implemented on 2024. Prior to this date LDL-C was estimated using the Friedewald equation. Literature References: 1. Expert Panel on Integrated Guidelines for Cardiovascular Health and Risk Reduction in Children and Adolescents. Pediatrics 2011;128:S213 2. NCEP Expert Panel. Circulation 2004;110:227 3. Raheel Carver et al. KAITLYN Cardiol. 2020 September 22;5(5):540-548. doi: [email or web address] Current Interpretive Data was last revised on 2024. Testing performed by: [place], [address] Non-HDL Cholesterol 56 mg/dL RE[facility]CCA SPA[facility] ([place]) Comment: Interpretive Data Ages < or = 19 years Acceptable: <120 mg/dL Borderline high: 120-144 mg/dL High: >145 mg/dL Ages > or = 20 years When triglycerides are >200 mg/dL, Non-HDL cholesterol is a secondary target of therapy with treatment goals that are 30 mg/dL greater than the LDL cholesterol target. Literature References: 1. Expert Panel on Integrated Guidelines for Cardiovascular Health and Risk Reduction in Children and Adolescents. Pediatrics 2011;128:S213 2. NCEP Expert Panel. Circulation 2004;110:227 Current Interpretive Data was last revised on 2018. Testing performed by: [place], [address] Chol/HDL ratio 3 TIA SPAIN ([place]) Comment:Testing performed by : [place], [address] Blood 12/25/2024 2:12 AM CDT 12/25/2024 2:26 AM CDT us Wayne Fraser II, MD LAB BLOOD ORDERABLES F inal Result REBECCA SPAIN ([place]) 1 [facility] Department [place] [address] * (ABNORMAL) Basic metabolic panel (12/25/2024 2:12 AM CDT) Sodium 134(L) 135 - 145 mmol/L REBECCA SPA[facility] ([place]) Potassium, pl 5.0(H) 3.3 - 4.9 mmol/L [facility] ([place]) Chloride 105 97 - 110 mmol/L [facility] ([place]) CO2 20(L) 22 - 32 mmol/L [facility] ([place]) Anion gap 9 2 - 15 mmol/L [facility] ([place]) BUN 36(H) 6 - 25 mg/dL [facility] ([place]) Creatinine 1.93(H) 0.60 - 1.10 mg/dL [facility] ([place]) Glucose 126 70 - 199 mg/dL [facility] ([place]) Comment: Interpretive Data Fasting glucose >/= 126 mg/dl is diagnostic for diabetes. Fasting is defined as no caloric intake for at least 8 hours. Fasting glucose between 100 mg/dl to 125 mg/dl is diagnostic of prediabetes. In a patient with classic symptoms of hyperglycemia or hyperglycemic crisis, a random glucose >/= 200 mg/dl is diagnostic for diabetes. In the absence of unequivocal hyperglycemia, results should be confirmed by repeat testing. The classification and Diagnosis of Diabetes Diabetes Care 202; 46: S19-S40. Current interpretive data was last revised 2022. Calcium 9.1 8.5 - 10.3 mg/dL [facility] ([place]) Blood 12/25/2024 2:12 AM CDT 12/25/2024 2:26 AM CDT us Wayne Fraser II, MD LAB BLOOD ORDERABLES F inal Result Performing Organization Address City/[facility]/ZIP Co de Phone Number REBECCA SPAIN ([place]) 1 [facility] Department [place] [address] * POCT glucose (12/25/2024 2:04 AM CDT) [facility] Signature Glucose, POC 127 70 - 199 mg/dL Blood 12/25/2024 2:04 AM CDT 12/25/2024 2:04 AM CDT Wayne Fraser II, MD LAB POCT ORDERABLES - DEVICE Final Result REBECCA SPAIN ([place]) 1 [place] [address] * POCT glucose (12/24/2024 8:41 PM CDT) Glucose, POC 124 70 - 199 mg/dL Blood 12/24/2024 8:41 PM CDT 12/24/2024 8:41 PM CDT Wayne Fraser II, MD LAB POCT ORDERABLES - DEVICE Final Result Performing Organization Address [facility] Co de Phone Number REBECCA SPAIN ([place]) 1 [place] [address] * POCT glucose (12/24/2024 7:42 PM CDT) Glucose, POC 119 70 - 199 mg/dL Blood 12/24/2024 7:42 PM CDT 12/24/2024 7:42 PM CDT Wayne Fraser II, MD LAB POCT ORDERABLES - DEVICE Final Result Performing Organization Address [facility] de Phone Number REBECCA SPAIN ([place]) 1 [place] [address] * ECG 12 lead (12/24/2024 7:32 PM CDT) 12/24/2024 7:32 PM CDT Narrative [facility] - 12/26/2024 6:42 AM CDT Vent Rate: 131 bpm RR Interval: 457 msec NE Interval: 181 msec QRS Duration: 86 msec QT Interval: 268 msec QTC Interval: 345 msec P-R-T [place]: 76 - 48 - 55 degrees IMPRESSION: SINUS TACHYCARDIA ABNORMAL RHYTHM ECG Compared to prior EKG, heart rate has increased Electronically Signed By: Harry Jaimes MD us Sukumar Rivera MD ECG ORDERABLES Final R esult Performing Organization Address [facility] Co de Phone Number [facility] [employer] * POCT glucose (12/24/2024 4:58 PM CDT) Glucose, POC 122 70 - 199 mg/dL Blood 12/24/2024 4:58 PM CDT 12/24/2024 4:58 PM CDT Wayne Fraser II, MD LAB POCT ORDERABLES - DEVICE Final Result Performing Organization Address City/[facility]/ZIP Co de Phone Number REBECCA SPAIN ([place]) 1 [facility] [place] [address] * (ABNORMAL) Troponin T high-sensitivity 4-hour (12/24/2024 11:36 AM CDT) Trop T hs 26(H) <=14 ng/L [facility] ([place]) Comment: Interpretive Data For further hscTnT resources including the diagnostic algorithm and an aid in interpretation, copy and paste this link: https://nrl.testcatalog.org/show/hsTrop Current Interpretive Data last revised 2020. Trop T hs delta 0 ng/L [facility] ([place]) Trop T hs interp Insignificant [facility] ([place]) Blood 12/24/2024 11:3 6 AM CDT 12/24/2024 11:59 AM CDT Lyle Morrison MD LAB BLOOD ORDERABLES Final R esult Performing Organization Address City/[facility] Co de Phone Number REBECCA SPAIN ([place]) 1 [facility] [place] [address] * POCT glucose (12/24/2024 11:36 AM CDT) Glucose, POC 101 70 - 199 mg/dL Blood 12/24/2024 11:3 6 AM CDT 12/24/2024 11:36 AM CDT Wayne Fraser II, MD LAB POCT ORDERABLES - DEVICE Final Result Performing Organization Address City/[facility] Co de Phone Number REBECCA SPAIN ([place]) 1 [facility] Department [place] [address] * Blood culture Blood (12/24/2024 11:36 AM CDT) Report Final Report: No growth Comment:Testing performed by : [facility], 1 [place] [address] Blood 12/24/2024 11:3 6 AM CDT 12/24/2024 3:07 PM CDT Narrative REBECCA SPAIN ([place]) - 12/28/2024 4:00 PM CDT 1. Blood cultures are incubated for 4 days on a continuously monitored blood culture system. The first report of a negative culture is issued within 24 hours of receipt of the specimen in the laboratory. 2. Positive culture results are reported as soon as they are detected. 3. The most important factor for detection of microbes in the setting of bloodstream infection is the volume of blood submitted for culture. Failure to collect an optimal blood volume can result in false negative blood cultures. 4. For pediatric patients, the recommended blood volume to collect follows a weight based strategy. See the electronic test catalog for collection instructions. 5. For positive blood cultures, a rapid molecular test may be performed for organism identification using the marcella ePlex blood culture identification panel for gram positive (BCID-GP) and gram negative (BCID-GN) organisms. This nucleic acid amplification test detects microbial DNA in positive blood culture broth. This assay has been cleared by the [place] Food and Drug Administration and its performance characteristics have been verified by the [facility] Microbiology Laboratory. For questions about this culture, contact the Microbiology Laboratory at [phone]. Interpretive data was last revised on 24. us Lyle Morrison MD LAB MICROBIOLOGY - GENERAL O RDERABLES Final Result REBECCA SPAIN [place]) 1 [facility] Department [place] [address] * POCT glucose (12/24/2024 11:23 AM CDT) Glucose, POC 89 70 - 199 mg/dL Blood 12/24/2024 11:2 3 AM CDT 12/24/2024 11:23 AM CDT Wayne Fraser II, MD LAB POCT ORDERABLES - DEVICE Final Result Performing Organization Address City/[facility]/ZIP Co de Phone Number [facility] ([place]) 1 [facility] [place] [address] * (ABNORMAL) Troponin T high-sensitivity 2-hour (12/24/2024 9:58 AM CDT) Pathologist [facility] Trop T hs 27(H) <=14 ng/L [facility] ([place]) Comment: Interpretive Data For further hscTnT resources including the diagnostic algorithm and an aid in interpretation, copy and paste this link: https://nrl.testcatalog.org/show/hsTrop Current Interpretive Data last revised 2020. Trop T hs delta 1 ng/L [facility] ([place]) Trop T hs interp Insignificant [facility] ([place]) Blood 12/24/2024 9:58 AM CDT 12/24/2024 10:03 AM CDT us Lyle Morrison MD LAB BLOOD ORDERABLES Final R esult Performing Organization Address City/[facility]/ZIP Co de Phone Number [facility] ([place]) 1 [facility] [place] [address] * Blood culture Blood (12/24/2024 9:58 AM CDT) Report Final Report: No growth Comment:Testing performed by : [facility], 1 [facility] [place]., [address] Blood 12/24/2024 9:58 AM CDT 12/24/2024 12:12 PM CDT Narrative [facility] ([place]) - 12/28/2024 4:00 PM CDT 1. Blood cultures are incubated for 4 days on a continuously monitored blood culture system. The first report of a negative culture is issued within 24 hours of receipt of the specimen in the laboratory. 2. Positive culture results are reported as soon as they are detected. 3. The most important factor for detection of microbes in the setting of bloodstream infection is the volume of blood submitted for culture. Failure to collect an optimal blood volume can result in false negative blood cultures. 4. For pediatric patients, the recommended blood volume to collect follows a weight based strategy. See the electronic test catalog for collection instructions. 5. For positive blood cultures, a rapid molecular test may be performed for organism identification using the marcella ePlex blood culture identification panel for gram positive (BCID-GP) and gram negative (BCID-GN) organisms. This nucleic acid amplification test detects microbial DNA in positive blood culture broth. This assay has been cleared by the [place] Food and Drug Administration and its performance characteristics have been verified by the [facility] Microbiology Laboratory. For questions about this culture, contact the Microbiology Laboratory at [phone]. Interpretive data was last revised on 24. Lyle Morrison MD LAB MICROBIOLOGY - GENERAL O RDERABLES Final Result [facility]CCA S[facility]IN [place] 1 [facility] Department [place] [address] * CT Head WO Contrast (12/24/2024 8:28 AM CDT) Anatomical Region Laterality Modality Head and Neck N/A Computed Tomogra phy 12/24/2024 8:39 AM CDT Narrative 12/24/2024 8:42 AM CDT EXAM DESCRIPTION: CT HEAD WO CONTRAST REASON FOR STUDY: Mental status change, unknown cause Increasing weakness over the last 2-3 days and feels shaky. TECHNIQUE: Axial images acquired through the brain without intravenous contrast. Images stored on PACS. Automated exposure control was used as a dose optimization technique for this examination. COMPARISON: None FINDINGS: BRAIN: No hemorrhage, edema or mass effect. No recent infarct. Normal white matter. EXTRA-AXIAL SPACES: No fluid collections. No masses. CALVARIUM: No fracture. SINUSES/MASTOIDS: No fluid or mucosal thickening. ORBITS: No significant abnormality. OTHER: No other significant abnormality. IMPRESSION: No acute intracranial findings. THIS IS AN ELECTRONICALLY VERIFIED FINAL REPORT 12/24/2024 8:42 AM - Electronically signed by Cristy Balbuena M.D. LL: RODRIGO Report ID: [id number] Reading Location: [id number] Procedure Note Cristy Balbuena MD - 12/24/2024 EXAM DESCRIPTION: CT HEAD WO CONTRAST REASON FOR STUDY: Mental status change, unknown cause Increasing weakness over the last 2-3 days and feels shaky. TECHNIQUE: Axial images acquired through the brain without intravenous contrast. Images stored on PACS. Automated exposure control was used asa dose optimization technique for this examination. COMPARISON: None FINDINGS: BRAIN: No hemorrhage, edema or mass effect. No recent infarct. Normal white matter. EXTRA-AXIAL SPACES: No fluid collections. No masses. CALVARIUM: No fracture. SINUSES/MASTOIDS: No fluid or mucosal thickening. ORBITS: No significant abnormality. OTHER: No other significant abnormality. IMPRESSION: No acute intracranial findings. THIS IS AN ELECTRONICALLY VERIFIED FINAL REPORT 12/24/2024 8:42 AM - Electronically signed by Cristy Balbuena M.D. LL: RODRIGO Report ID: [id number] Reading Location: [id number] Lyle Morrison MD IMG CT PROCEDURES Final Resu lt * CT Abdomen Pelvis WO Contrast (12/24/2024 8:28 AM CDT) Anatomical Region Laterality Modality Body N/A Computed Tomogra phy 12/24/2024 8:42 AM CDT Narrative 12/24/2024 9:02 AM CDT EXAM DESCRIPTION: CT ABDOMEN PELVIS WO CONTRAST REASON FOR STUDY: Abdominal pain, acute, nonlocalized Pt is complaining of some lower abdominal pain started today. TECHNIQUE: CT scan of the abdomen and pelvis performed without intravenous and without oral contrast using helical scanning technique. Reconstructed coronal and sagittal MPR images reviewed. All images stored on PACS. Automated exposure control was used as a dose optimization technique for this examination. COMPARISON: 12/13/2024 FINDINGS: The sensitivity for detection of visceral lesions is diminished without the use of intravenous contrast. LOWER CHEST: There is atelectasis/scarring both lung bases. A calcified granuloma is present in the posterior left lung base. No effusions LIVER: Normal size. No identified cystic or solid masses. GALLBLADDER: Poorly distended. BILE DUCTS: No intrahepatic or extrahepatic ductal dilatation. SPLEEN: Normal size. No focal lesions. Calcified granulomas are present. PANCREAS: No identified cystic or solid masses. No significant calcifications. No adjacent inflammation or peripancreatic fluid collections. Pancreatic duct not dilated. ADRENALS: Bilateral adrenal nodules are stable, most likely adenomas. These measure 1.6 cm on the right and 1.4 cm on the left. KIDNEYS/URINARY TRACT: Left renal hypodensities are most likely cysts. No stones. No hydronephrosis or hydroureter. Urinary bladder is unremarkable. GI: No dilated bowel loops. There are diverticula within the colon. There is thickening of the reno of the distal descending/sigmoid colon and there are surrounding inflammatory changes. This is most consistent with diverticulitis. There is no evidence of perforation or abscess formation. PERITONEUM: No ascites or free air. RETROPERITONEUM: No mass or adenopathy. REPRODUCTIVE: No significant abnormality. 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 There are degenerative changes in the spine. OTHER: No other abnormality. IMPRESSION: 1. Diverticulitis involving the distal descending/sigmoid colon. No evidence of perforation or abscess formation. 2. Stable bilateral adrenal nodules, most likely adenomas. 3. Additional findings as above. THIS IS AN ELECTRONICALLY VERIFIED FINAL REPORT 12/24/2024 9:02 AM - Electronically signed by Cristy Balbuena M.D. LL: RODRIGO Report ID: [id number] Reading Location: [id number] Procedure Note Cristy Balbuena MD - 12/24/2024 EXAM DESCRIPTION: CT ABDOMEN PELVIS WO CONTRAST REASON FOR STUDY: Abdominal pain, acute, nonlocalized Pt is complaining of some lower abdominal pain started today. TECHNIQUE: CT scan of the abdomen and pelvis performed without intravenousand without oral contrast using helical scanning technique. Reconstructed coronal and sagittal MPR images reviewed. All images stored on PACS.Automated exposure control was used as a dose optimization technique for this examination. COMPARISON: 12/13/2024 FINDINGS: The sensitivity for detection of visceral lesions is diminished withoutthe use of intravenous contrast. LOWER CHEST: There is atelectasis/scarring both lung bases. A calcified granuloma is present in the posterior left lung base. No effusions LIVER: Normal size. No identified cystic or solid masses. GALLBLADDER: Poorly distended. BILE DUCTS: No intrahepatic or extrahepatic ductal dilatation. SPLEEN: Normal size. No focal lesions. Calcified granulomas arepresent. PANCREAS: No identified cystic or solid masses. No significant calcifications. No adjacent inflammation or peripancreatic fluidcollections. Pancreatic duct not dilated. ADRENALS: Bilateral adrenal nodules are stable, most likely adenomas.These measure 1.6 cm on the right and 1.4 cm on the left. KIDNEYS/URINARY TRACT: Left renal hypodensities are most likely cysts.No stones. No hydronephrosis or hydroureter. Urinary bladder isunremarkable. GI: No dilated bowel loops. There are diverticula within the colon.There is thickening of the reno of the distal descending/sigmoid colon andthere are surrounding inflammatory changes. This is most consistent with diverticulitis. There is no evidence of perforation or abscess formation. PERITONEUM: No ascites or free air. RETROPERITONEUM: No mass or adenopathy. REPRODUCTIVE: No significant abnormality. 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 There are degenerative changes in the spine. OTHER: No other abnormality. IMPRESSION: 1. Diverticulitis involving the distal descending/sigmoid colon. Noevidence of perforation or abscess formation. 2. Stable bilateral adrenal nodules, most likely adenomas. 3. Additional findings as above. THIS IS AN ELECTRONICALLY VERIFIED FINAL REPORT 12/24/2024 9:02 AM - Electronically signed by Cristy Balbuena M.D. LL: RODRIGO Report ID: [id number] Reading Location: [id number] Lyle Morrison MD IMG CT PROCEDURES Final Resu lt * (ABNORMAL) Urinalysis reflex to microscopic and culture Urine (12/24/2024 8:21 AM CDT) Color, ur Yellow Yellow Clarity, ur Clear Clear [facility] ([place]) Specific gravity, ur 1.013 1.003 - 1.030 [facility] ([place]) pH, urine 5.5 [facility] ([place]) Comment: Interpretive Data U rine pH is affected by diet, medications, systemic acid-base disturbances, and renal tubular function. pH may affect urinary stone formation. For example, urine pH below 6.0 may help reduce the tendency for calcium phosphate stones and pH greater than 6.0 may reduce the tendency for uric acid stone formation. Source: [facility] [employer] Current Interpretive Data was last revised on 2017 Protein, ur ql Negative Negative [facility] ([place]) Glucose, ur ql Negative Negative [facility] ([place]) Ketones, ur Negative Negative [facility] ([place]) Bilirubin, ur Negative Negative [facility] ([place]) Blood, ur 3+(A) Negative [facility] ([place]) Urobilinogen, ur <2.0 <2.0 mg/dL [facility] ([place]) Nitrite, ur Negative Negative [facility] ([place]) Leukocyte esterase, ur 4+(A) Negative [facility] ([place]) UA reflex comment Reflex to microscopic UA will be performed. [facility] ([place]) Urine 12/24/2024 8:21 AM CDT 12/24/2024 8:26 AM CDT Lyel Morrison MD LAB MICROBIOLOGY - GENERAL O RDERABLES Final Result [facility] ([place]) 1 [facility] Department [place] [address] * (ABNORMAL) Urinalysis, microscopic only (12/24/2024 8:21 AM CDT) WBC, ur 11-20(A) 0 - 5 /HPF RBC, ur 21-50(A) 0 - 2 /HPF [facility] Epithelial cells, squamous, ur 1-5 0 - 5 /HPF [facility] ([place]) Mucous, ur Present(A) [facility] ([place]) Culture Reflex Comment Reflex to urine culture will be performed. [facility] ([place]) Urine 12/24/2024 8:21 AM CDT 12/24/2024 8:26 AM CDT Lyle Morrison MD LAB URINE ORDERABLES Final R esult Performing Organization Address City/[facility]/ZIP Co de Phone Number [facility] ([place]) [address] [place] [address] [place] [address] * Urine culture Urine (12/24/2024 8:21 AM CDT) Report Final Report: Less than 100,000 colonies/mL (clinically insignificant growth based on current clinical standards) Comment:Testing performed by : [facility], [address] [facility], [place]., [address] Organism (CLINICALLY INSIGNIFICANT GROWTH [facility] ([place]) Urine 12/24/2024 8:21 AM CDT 12/24/2024 10:26 AM CDT Narrative [facility] ([place]) - 12/25/2024 11:39 AM CDT Urine culture reflexed based upon urinalysis results. Testing performed by [facility] ([phone]) Lyle Morrison MD LAB MICROBIOLOGY - GENERAL O RDERABLES Final Result Performing Organization Address City/[facility]/ZIP Co de Phone Number [facility] ([place]) [address] [facility] [place] [address] * XR Chest 1 View (12/24/2024 7:54 AM CDT) Anatomical Region Laterality Modality Body, Chest N/A Computed Radiogr aphy 12/24/2024 8:17 AM CDT Narrative 12/24/2024 8:18 AM CDT EXAM DESCRIPTION: XR CHEST 1 VIEW REASON FOR STUDY: chest pain Pt states her legs are weak and wanting to give out. Pt states she has been shaky. TECHNIQUE: Single radiographic view(s) of the chest. COMPARISON: None FINDINGS: LUNGS: A left basilar opacities most likely atelectasis or scarring. A calcified granuloma overlies the left hemidiaphragm. HEART/MEDIASTINUM: Cardiac silhouette normal in size. There are calcified left hilar lymph nodes. LINES/TUBES: None. BONES: No acute osseous abnormality. IMPRESSION: No acute cardiopulmonary abnormality. THIS IS AN ELECTRONICALLY VERIFIED FINAL REPORT 12/24/2024 8:18 AM - Electronically signed by Cristy Balbuena M.D. LL: LL Report ID: [id number] Reading Location: [id number] Procedure Note Cristy Balbuena MD - 12/24/2024 EXAM DESCRIPTION: XR CHEST 1 VIEW REASON FOR STUDY: chest pain Pt states her legs are weak and wanting to give out. Pt states she hasbeen shaky. TECHNIQUE: Single radiographic view(s) of the chest. COMPARISON: None FINDINGS: LUNGS: A left basilar opacities most likely atelectasis or scarring. A calcified granuloma overlies the left hemidiaphragm. HEART/MEDIASTINUM: Cardiac silhouette normal in size. There arecalcified left hilar lymph nodes. LINES/TUBES: None. BONES: No acute osseous abnormality. IMPRESSION: No acute cardiopulmonary abnormality. THIS IS AN ELECTRONICALLY VERIFIED FINAL REPORT 12/24/2024 8:18 AM - Electronically signed by Cristy Balbuena M.D. LL: LL Report ID: [id number] Reading Location: [id number] Lyle Morrison MD IMG XR PROCEDURES Final Resu lt * (ABNORMAL) Blood gas, venous (12/24/2024 7:24 AM CDT) pH, Venous 7.33 7.32 - 7.43 PCO2, Venous 51(H) 40 - 50 mmHg [facility] ([place]) PO2, Venous 53 mmHg [facility] ([place]) Comment: Interpretive Data No reference range established. Current interpretive data was last revised 2017. HCO3 Venous, Calculated 26 20 - 30 mmol/L [facility] ([place]) BE, venous 0 mmol/L [facility] ([place]) Comment: Interpretive Data No Reference Range Established Current Interpretive Data was last revised on 2017. Blood 12/24/2024 7:24 AM CDT 12/24/2024 7:29 AM CDT Lyle Morrison MD LAB BLOOD ORDERABLES Final R esult Performing Organization Address City/[facility]/ZIP Co de Phone Number [facility] ([place]) [address] [facility] Department [place] [address] * ECG 12 lead (12/24/2024 7:23 AM CDT) 12/24/2024 7:23 AM CDT Narrative [facility] - 12/24/2024 1:07 PM CDT Vent Rate: 96 bpm RR Interval: 622 msec NE Interval: 178 msec QRS Duration: 81 msec QT Interval: 312 msec QTC Interval: 366 msec P-R-T [place]: 52 - 39 - 51 degrees IMPRESSION: SINUS RHYTHM LOW QRS VOLTAGE IN PRECORDIAL LEADS [QRS DEFLECTION < 1.0 mV IN CHEST LEADS] BORDERLINE ECG Electronically Signed By: Akira Garza MD, [facility] Lyle Morrison MD ECG ORDERABLES Final Result Performing Organization Address [facility]/ZIP Co de Phone Number [facility] [employer] [facility] * (ABNORMAL) Troponin T high-sensitivity series (baseline, 2hr, 4hr, 6hr) (12/24/2024 7:21 AM CDT) Trop T hs 26(H) <=14 ng/L [facility] ([place]) Comment: Interpretive Data For further hscTnT resources including the diagnostic algorithm and an aid in interpretation, copy and paste this link: https://nrl.testcatalog.org/show/hsTrop Current Interpretive Data last revised 2020. Blood 12/24/2024 7:21 AM CDT 12/24/2024 7:29 AM CDT Lyle Morrison MD LAB BLOOD ORDERABLES Final R esult [facility] ([place]) 1 [facility] [place] [address] * Sepsis Lactate w/ Reflex (12/24/2024 7:21 AM CDT) Pathologist [facility] Sepsis Lactate 1.3 0.7 - 2.0 mmol/L Blood 12/24/2024 7:21 AM CDT 12/24/2024 7:29 AM CDT Lyle Morrison MD LAB BLOOD ORDERABLES Final R esult [facility] ([place]) 1 [facility] [place] [address] * (ABNORMAL) eGFR (12/24/2024 7:21 AM CDT) Pathologist [facility] eGFR 22(L) >=60 mL/min/1. 73 m2 Comment: Interpretive Data Reference Interval Normal >/= 90 mL/min/1.73m2 Mildly decreased* 60 - 89 mL/min/1.73m2 Mildly to moderately decreased 45 - 59 mL/min/1.73m2 Moderately to severely decreased 30 - 44 mL/min/1.73m2 Severely decreased 15 - 29 mL/min/1.73m2 Kidney Failure < 15 mL/min/1.73m2 *Relative to young adult level Estimated glomerular filtration rate is determined by the 2020 CKD-EPI equation recommended by the National Kidney Foundation (A Unifying Approach to GFR Estimation: Recommendations of the NKF-ASK Task Force on Reassessing the Inclusion of Race in Diagnosing Kidney Disease, JASN 2020). The CKD-EPI equation should not be used for patients with unstable renal function and has not been validated in children and those over 70. Current interpretive data was last reviewed 2021. Blood 12/24/2024 7:21 AM CDT 12/24/2024 7:29 AM CDT us Lyle Morrison MD LAB BLOOD ORDERABLES Final R esult [facility] ([place]) 1 [facility] Department [place] [address] * (ABNORMAL) Differential, auto (12/24/2024 7:21 AM CDT) Neutrophil abs 9.13(H) 1.50 - 6.50 K/cumm Imm gran abs 0.04 0.00 - 0.10 K/cumm [facility] ([place]) Lymphocyte abs 2.55 0.80 - 3.30 K/cumm [facility] ([place]) Monocyte abs 1.51(H) 0.20 - 0.80 K/cumm [facility] ([place]) Eosinophil abs 0.36 0.00 - 0.50 K/cumm [facility] ([place]) Basophil abs 0.04 0.00 - 0.10 K/cumm [facility] ([place]) Neutrophil pct 67.0 % [facility] ([place]) Comment: Interpretive Data Percent cell count reference ranges are not reported, since discordance with absolute values may lead to misinterpretation of CBC data. Current Interpretive Data was last revised on 2017. Imm gran pct 0.3 % [facility] ([place]) Comment: Interpretive Data Percent cell count reference ranges are not reported, since discordance with absolute values may lead to misinterpretation of CBC data. Current Interpretive Data was last revised on 2017. Lymphocyte pct 18.7 % [facility] ([place]) Comment: Interpretive Data Percent cell count reference ranges are not reported, since discordance with absolute values may lead to misinterpretation of CBC data. Current Interpretive Data was last revised on 2017. Monocyte pct 11.1 % [facility] ([place]) Comment: Interpretive Data Percent cell count reference ranges are not reported, since discordance with absolute values may lead to misinterpretation of CBC data. Current Interpretive Data was last revised on 2017. Eosinophil pct 2.6 % [facility] ([place]) Comment: Interpretive Data Percent cell count reference ranges are not reported, since discordance with absolute values may lead to misinterpretation of CBC data. Current Interpretive Data was last revised on 2017. Basophil pct 0.3 % [facility] ([place]) Comment: Interpretive Data Percent cell count reference ranges are not reported, since discordance with absolute values may lead to misinterpretation of CBC data. Current Interpretive Data was last revised on 2017. Blood 12/24/2024 7:21 AM CDT 12/24/2024 7:29 AM CDT Lyle Morrison MD LAB BLOOD ORDERABLES Final R esult [facility] ([place]) 1 [facility] Department of Laboratories [place], [place] [id number] * Pro B-type natriuretic peptide (12/24/2024 7:21 AM CDT) NT-proBNP 118 <=450 pg/mL [facility] ([place]) Comment: Interpretive Comments: A. Dyspnea in Acute Care Setting All Ages: < 300 pg/ml, acute heart failure unlikely. < 50 yrs: 300 - 450 pg/ml, further investigation warranted. > 450 pg/ml, acute heart failure likely. 50 - 74 yrs: 300 - 900 pg/ml, further investigation warranted. > 900 pg/ml, acute heart failure likely . > or = 75 yrs: 450 - 1800 pg/ml, further investigation warranted. > 1800 pg/ml, acute heart failure likely. B. Non-acute Setting < 75 yrs < 125 pg/ml, rules out heart failure. > or = 125 pg/ml, further investigation warranted. > or = 75 yrs < 450 pg/ml, rules out heart failure. > or = 450 pg/ml, further investigation warranted. - Knowledge of each individual patient's NT-proBNP range may be more useful than using similar cut-points for every patient. Please note that marked elevations in NT-proBNP levels may be observed in state other than Left Ventricular Congestive Failure, including: acute coronary syndromes, right heart strain/failure (including pulmonary embolism and cor pulmonale), critical illness, renal failure, as well as advanced age. - References: 1. Cortney MIRANDA et.al. Eur Heart J. 2006:27:330-337. 2. Lore FERGUSON, Geovanna BIRD. J. AM Lance Cardiol: Cardiovasc Imag. 2009;2: 216- 225. Interpretive Data Last Revised Date: 2018. Blood 12/24/2024 7:21 AM CDT 12/24/2024 7:29 AM CDT Lyle Morrison MD LAB BLOOD ORDERABLES Final R esult [facility] ([place]) 1 [facility] Department [place] [address] * (ABNORMAL) CBC with auto differential (12/24/2024 7:21 AM CDT) WBC 13.63(H) 3.80 - 9.90 K/cumm Hgb 9.1(L) 11.9 - 15.5 g/dL [facility] ([place]) Hct 30.6(L) 35.6 - 45.5 % [facility] ([place]) Plt 330 150 - 400 K/cumm [facility] ([place]) MPV 9.6 9.1 - 12.3 fL [facility] ([place]) RBC 3.43(L) 3.90 - 5.20 M/cumm [facility] ([place]) MCV 89.2 81.3 - 96.4 fL [facility] ([place]) MCH 26.5(L) 27.1 - 33.3 pg [facility] ([place]) MCHC 29.7(L) 32.3 - 35.7 g/dL [facility] ([place]) RDW CV 15.9(H) 11.1 - 14.9 % [facility] ([place]) RDW SD 51.6(H) 35.7 - 48.1 fL [facility] ([place]) NRBC abs 0.00 0.00 - 0.01 K/cumm [facility] ([place]) Blood 12/24/2024 7:21 AM CDT 12/24/2024 7:29 AM CDT Lyle Morrison MD LAB BLOOD ORDERABLES Final R esult [facility] ([place]) 1 [facility] [place] [address] * (ABNORMAL) aPTT (12/24/2024 7:21 AM CDT) aPTT 27(L) 28 - 38 sec [facility] ([place]) Comment: Interpretive Data Heparin therapeutic range: 66.0 - 100.0 seconds. Range based on correlation with therapeutic heparin activity range of 0.3 - 0.7 Units/mL. Current interpretive data was last revised on 2023. Blood 12/24/2024 7:21 AM CDT 12/24/2024 7:29 AM CDT Lyle Morrison MD LAB BLOOD ORDERABLES Final R esult Performing Organization Address [facility] Co de Phone Number [facility] ([place]) 1 [facility] [place] [address] * Magnesium (12/24/2024 7:21 AM CDT) Magnesium 1.9 1.4 - 2.5 mg/dL [facility] ([place]) Blood 12/24/2024 7:21 AM CDT 12/24/2024 7:29 AM CDT Lyle Morrison MD LAB BLOOD ORDERABLES Final R esult Performing Organization Address City/[facility]/ZIP Co de Phone Number [facility] ([place]) [address] Department [place] [address] * (ABNORMAL) Comprehensive metabolic panel (12/24/2024 7:21 AM CDT) Sodium 140 135 - 145 mmol/L [facility] ([place]) Potassium, pl 5.0(H) 3.3 - 4.9 mmol/L [facility] ([place]) Chloride 106 97 - 110 mmol/L [facility] ([place]) CO2 23 22 - 32 mmol/L [facility] ([place]) Anion gap 11 2 - 15 mmol/L [facility] ([place]) BUN 51(H) 6 - 25 mg/dL [facility] ([place]) Creatinine 2.22(H) 0.60 - 1.10 mg/dL [facility] ([place]) Glucose 99 70 - 199 mg/dL [facility] ([place]) Comment: Interpretive Data Fasting glucose >/= 126 mg/dl is diagnostic for diabetes. Fasting is defined as no caloric intake for at least 8 hours. Fasting glucose between 100 mg/dl to 125 mg/dl is diagnostic of prediabetes. In a patient with classic symptoms of hyperglycemia or hyperglycemic crisis, a random glucose >/= 200 mg/dl is diagnostic for diabetes. In the absence of unequivocal hyperglycemia, results should be confirmed by repeat testing. The classification and Diagnosis of Diabetes Diabetes Care 2021; 46: S19-S40. Current interpretive data was last revised 2022. Calcium 10.4(H) 8.5 - 10.3 mg/dL [facility] ([place]) Bilirubin, total 0.3 0.1 - 1.2 mg/dL [facility] ([place]) Protein, pl 7.8 6.5 - 8.5 g/dL [facility] ([place]) Albumin 3.6 3.5 - 5.0 g/dL [facility] ([place]) Alk phos 69 40 - 130 Units/L [facility] ([place]) ALT 18 7 - 45 Units/L [facility] ([place]) AST 21 10 - 45 Units/L [facility] ([place]) Blood 12/24/2024 7:21 AM CDT 12/24/2024 7:29 AM CDT us Lyle Morrison MD LAB BLOOD ORDERABLES Final R esult [facility] [place]) 7 [facility] Department of Laboratories [place], [place] [id number] * CT Abdomen Pelvis WO Contrast (12/13/2024 9:22 PM CDT) Anatomical Region Laterality Modality Body N/A Computed Tomogra phy 12/13/2024 9:59 PM CDT Narrative 12/13/2024 10:09 PM CDT EXAM DESCRIPTION: CT ABDOMEN PELVIS WO CONTRAST REASON FOR STUDY: nausea and vomiting Patient complains of nausea and vomiting with out abdominal pain, patient states it is more mucus like then bile or typical emesis. TECHNIQUE: CT scan of the abdomen and pelvis performed without intravenous and without oral contrast using helical scanning technique. Reconstructed coronal and sagittal MPR images reviewed. All images stored on PACS. Automated exposure control was used as a dose optimization technique for this examination. COMPARISON: Renal ultrasound of December 05, [address] of the abdomen of December 05, 2022. FINDINGS: The sensitivity for detection of visceral lesions is diminished without the use of intravenous contrast. LOWER CHEST: There is bibasilar atelectasis. There is a small hiatal hernia. LIVER: The liver is normal in attenuation without focal lesion. GALLBLADDER: No stones identified. Normal wall. No evidence of pericholecystic fluid. BILE DUCTS: No intrahepatic or extrahepatic ductal dilatation. PANCREAS: Normal. SPLEEN: There are multiple calcifications within the spleen. Spleen is normal in size. ADRENALS: Nodular thickening bilaterally. KIDNEYS/URINARY TRACT: There are benign-appearing low density cysts in the left kidney. Renal parenchyma is otherwise unremarkable. No visualized renal or ureteral stones. There is no hydronephrosis or hydroureter. The bladder is obscured by streak artifact from the patient's bilateral hip hardware VASCULATURE: There is moderate atherosclerosis of the aorta and its pelvic branches. GI: There is a small hiatal hernia. The stomach appears otherwise normal. There is no significant small bowel dilation or visible thickening. There is increased stool through out the colon. There is circumferential thickening of the distal descending and sigmoid colon with surrounding inflammatory change in an area with scattered diverticula, consistent with a acute diverticulitis. There is no evidence of perforation or abscess. The appendix is normal. PERITONEUM/MESENTERY: No ascites or free air. LYMPH NODES: There are no enlarged lymph nodes seen by CT size criteria. RETROPERITONEUM: No retroperitoneal abnormalities. REPRODUCTIVE: Obscured by streak artifact from the patient's bilateral hip hardware. MUSCULOSKELETAL: Multilevel degenerative changes are present in the spine. No acute bony abnormalities are seen. OTHER: There are sequelae of bilateral total hip arthroplasty. IMPRESSION: 1. Acute diverticulitis of the distal descending and sigmoid colon without evidence of perforation or abscess. 2. Increased stool throughout the colon may indicate constipation. 3. Small hiatal hernia. 4. Moderate atherosclerosis. 5. Degenerative changes in the spine. 6. Sequelae of bilateral total hip arthroplasty. THIS IS AN ELECTRONICALLY VERIFIED FINAL REPORT 12/13/2024 10:09 PM - Electronically signed by Amanda Moe M.D. SN: Report ID: [id number] Reading Location: [id number] Procedure Note Amanda Moe MD - 12/13/2024 EXAM DESCRIPTION: CT ABDOMEN PELVIS WO CONTRAST REASON FOR STUDY: nausea and vomiting Patient complains of nausea and vomiting with out abdominal pain, patient states it is more mucus like then bile or typical emesis. TECHNIQUE: CT scan of the abdomen and pelvis performed without intravenousand without oral contrast using helical scanning technique. Reconstructed coronal and sagittal MPR images reviewed. All images stored on PACS.Automated exposure control was used as a dose optimization technique for this examination. COMPARISON: Renal ultrasound of December 05, [address] of the abdomen ofDecember 05, 2022. FINDINGS: The sensitivity for detection of visceral lesions is diminished withoutthe use of intravenous contrast. LOWER CHEST: There is bibasilar atelectasis. There is a small hiatal hernia. LIVER: The liver is normal in attenuation without focal lesion. GALLBLADDER: No stones identified. Normal wall. No evidence of pericholecystic fluid. BILE DUCTS: No intrahepatic or extrahepatic ductal dilatation. PANCREAS: Normal. SPLEEN: There are multiple calcifications within the spleen. Spleen is normal in size. ADRENALS: Nodular thickening bilaterally. KIDNEYS/URINARY TRACT: There are benign-appearing low density cysts inthe left kidney. Renal parenchyma is otherwise unremarkable. No visualized renal or ureteral stones. There is no hydronephrosis or hydroureter.The bladder is obscured by streak artifact from the patient's bilateral hip hardware VASCULATURE: There is moderate atherosclerosis of the aorta and itspelvic branches. GI: There is a small hiatal hernia. The stomach appears otherwisenormal. There is no significant small bowel dilation or visible thickening.There is increased stool through out the colon. There is circumferentialthickening of the distal descending and sigmoid colon with surrounding inflammatorychange in an area with scattered diverticula, consistent with a acutediverticulitis. There is no evidence of perforation or abscess. The appendix isnormal. PERITONEUM/MESENTERY: No ascites or free air. LYMPH NODES: There are no enlarged lymph nodes seen by CT size criteria. RETROPERITONEUM: No retroperitoneal abnormalities. REPRODUCTIVE: Obscured by streak artifact from the patient's bilateralhip hardware. MUSCULOSKELETAL: Multilevel degenerative changes are present in thespine. No acute bony abnormalities are seen. OTHER: There are sequelae of bilateral total hip arthroplasty. IMPRESSION: 1. Acute diverticulitis of the distal descending and sigmoid colonwithout evidence of perforation or abscess. 2. Increased stool throughout the colon may indicate constipation. 3. Small hiatal hernia. 4. Moderate atherosclerosis. 5. Degenerative changes in the spine. 6. Sequelae of bilateral total hip arthroplasty. THIS IS AN ELECTRONICALLY VERIFIED FINAL REPORT 12/13/2024 10:09 PM - Electronically signed by Amanda Moe M.D. SN: Report ID: [id number] Reading Location: [place] [address] PROCEDURES Final R esult * (ABNORMAL) Urinalysis reflex to microscopic and culture Urine (12/13/2024 8:44 PM CDT) Color, ur Yellow Yellow Clarity, ur Turbid(A) Clear [facility] ([place]) Specific gravity, ur 1.015 1.003 - 1.030 [facility] ([place]) pH, urine 5.5 [facility] ([place]) Comment: Interpretive Data U rine pH is affected by diet, medications, systemic acid-base disturbances, and renal tubular function. pH may affect urinary stone formation. For example, urine pH below 6.0 may help reduce the tendency for calcium phosphate stones and pH greater than 6.0 may reduce the tendency for uric acid stone formation. Source: [facility] Current Interpretive Data was last revised on 2017 Protein, ur ql Negative Negative [facility] ([place]) Glucose, ur ql Negative Negative [facility] ([place]) Ketones, ur Negative Negative [facility] ([place]) Bilirubin, ur Negative Negative [facility] ([place]) Blood, ur 3+(A) Negative [facility] ([place]) Urobilinogen, ur <2.0 <2.0 mg/dL [facility] ([place]) Nitrite, ur Negative Negative [facility] ([place]) Leukocyte esterase, ur 4+(A) Negative [facility] ([place]) UA reflex comment Reflex to microscopic UA will be performed. [facility] ([place]) Urine 12/13/2024 8:44 PM CDT 12/13/2024 9:49 PM CDT us Lyle Morrison MD LAB MICROBIOLOGY - GENERAL O RDERABLES Final Result [facility] ([place]) [facility] Department [place] [address] * (ABNORMAL) Urinalysis, microscopic only (12/13/2024 8:44 PM CDT) WBC, ur >50(A) 0 - 5 /HPF RBC, ur >50(A) 0 - 2 /HPF [facility] ([place]) Epithelial cells, squamous, ur 1-5 0 - 5 /HPF [facility] ([place]) Bacteria, ur Trace(A) [facility] ([place]) Mucous, ur Present(A) [facility] ([place]) Hyaline casts, ur 1-5 0 - 10 /LPF [facility] ([place]) Culture Reflex Comment Reflex to urine culture will be performed. [facility] ([place]) Urine 12/13/2024 8:44 PM CDT 12/13/2024 9:49 PM CDT Lyle Morrison MD LAB URINE ORDERABLES Final R esult Performing Organization Address City/[facility]/ZIP Co de Phone Number [facility] ([place]) [address] [place] [address] [place] [address] * Urine culture Urine (12/13/2024 8:44 PM CDT) Report Final Report: Less than 100,000 colonies/mL (clinically insignificant growth based on current clinical standards) Comment:Testing performed by : [facility], [address] [place]., [address] Organism (CLINICALLY INSIGNIFICANT GROWTH [facility] ([place]) Urine 12/13/2024 8:44 PM CDT 12/14/2024 12:12 AM CDT Narrative [facility] ([place]) - 12/15/2024 6:48 AM CDT Urine culture reflexed based upon urinalysis results. Testing performed by [facility] ([phone]) Lyle Morrison MD LAB MICROBIOLOGY - GENERAL O RDERABLES Final Result Performing Organization Address [facility] Co de Phone Number [facility] ([place]) [address] [place] [address] [place] [address] * (ABNORMAL) eGFR (12/13/2024 4:45 PM CDT) eGFR 30(L) >=60 mL/min/1. 73 m2 Comment: Interpretive Data Reference Interval Normal >/= 90 mL/min/1.73m2 Mildly decreased* 60 - 89 mL/min/1.73m2 Mildly to moderately decreased 45 - 59 mL/min/1.73m2 Moderately to severely decreased 30 - 44 mL/min/1.73m2 Severely decreased 15 - 29 mL/min/1.73m2 Kidney Failure < 15 mL/min/1.73m2 *Relative to young adult level Estimated glomerular filtration rate is determined by the 2020 CKD-EPI equation recommended by the National Kidney Foundation (A Unifying Approach to GFR Estimation: Recommendations of the NKF-ASK Task Force on Reassessing the Inclusion of Race in Diagnosing Kidney Disease, JASN 2020). The CKD-EPI equation should not be used for patients with unstable renal function and has not been validated in children and those over 70. Current interpretive data was last reviewed 2021. Blood 12/13/2024 4:45 PM CDT 12/13/2024 5:33 PM CDT us Lyle Morrison MD LAB BLOOD ORDERABLES Final R esult [facility] ([place]) [address] [facility] Department [place] [address] * (ABNORMAL) Differential, auto (12/13/2024 4:45 PM CDT) Neutrophil abs 7.43(H) 1.50 - 6.50 K/cumm Imm gran abs 0.06 0.00 - 0.10 K/cumm [facility] ([place]) Lymphocyte abs 2.03 0.80 - 3.30 K/cumm [facility] ([place]) Monocyte abs 1.09(H) 0.20 - 0.80 K/cumm [facility] ([place]) Eosinophil abs 0.32 0.00 - 0.50 K/cumm [facility] ([place]) Basophil abs 0.05 0.00 - 0.10 K/cumm [facility] ([place]) Neutrophil pct 67.7 % [facility] ([place]) Comment: Interpretive Data Percent cell count reference ranges are not reported, since discordance with absolute values may lead to misinterpretation of CBC data. Current Interpretive Data was last revised on 2017. Imm gran pct 0.5 % [facility] ([place]) Comment: Interpretive Data Percent cell count reference ranges are not reported, since discordance with absolute values may lead to misinterpretation of CBC data. Current Interpretive Data was last revised on 2017. Lymphocyte pct 18.5 % [facility] ([place]) Comment: Interpretive Data Percent cell count reference ranges are not reported, since discordance with absolute values may lead to misinterpretation of CBC data. Current Interpretive Data was last revised on 2017. Monocyte pct 9.9 % [facility] ([place]) Comment: Interpretive Data Percent cell count reference ranges are not reported, since discordance with absolute values may lead to misinterpretation of CBC data. Current Interpretive Data was last revised on 2017. Eosinophil pct 2.9 % [facility] ([place]) Comment: Interpretive Data Percent cell count reference ranges are not reported, since discordance with absolute values may lead to misinterpretation of CBC data. Current Interpretive Data was last revised on 2017. Basophil pct 0.5 % [facility] ([place]) Comment: Interpretive Data Percent cell count reference ranges are not reported, since discordance with absolute values may lead to misinterpretation of CBC data. Current Interpretive Data was last revised on 2017. Blood 12/13/2024 4:45 PM CDT 12/13/2024 5:33 PM CDT us Lyle Morrison MD LAB BLOOD ORDERABLES Final R esult [facility] ([place]) 1 [facility] Department [place] [address] * (ABNORMAL) CBC with auto differential (12/13/2024 4:45 PM CDT) WBC 10.98(H) 3.80 - 9.90 K/cumm Hgb 8.9(L) 11.9 - 15.5 g/dL [facility] ([place]) Hct 29.0(L) 35.6 - 45.5 % [facility] ([place]) Plt 319 150 - 400 K/cumm [facility] ([place]) MPV 10.9 9.1 - 12.3 fL [facility] ([place]) RBC 3.30(L) 3.90 - 5.20 M/cumm [facility] ([place]) MCV 87.9 81.3 - 96.4 fL [facility] ([place]) MCH 27.0(L) 27.1 - 33.3 pg [facility] ([place]) MCHC 30.7(L) 32.3 - 35.7 g/dL [facility] ([place]) RDW CV 15.2(H) 11.1 - 14.9 % [facility] ([place]) RDW SD 49.2(H) 35.7 - 48.1 fL [facility] NRBC abs 0.00 0.00 - 0.01 K/cumm [facility] ([place]) Blood Venous blood specimen / Unknown 12/13/2024 4:45 PM CDT 12/13/2024 5:33 PM CDT Lyle Morrison MD LAB BLOOD ORDERABLES Final R esult [facility] ([place]) [facility] Department [place] [address] * (ABNORMAL) Comprehensive metabolic panel (12/13/2024 4:45 PM CDT) Sodium 140 135 - 145 mmol/L [facility] Potassium, pl 5.1(H) 3.3 - 4.9 mmol/L [facility] Chloride 104 97 - 110 mmol/L [facility] ([place] CO2 23 22 - 32 mmol/L [facility] ([place] Anion gap 13 2 - 15 mmol/L [facility] BUN 44(H) 6 - 25 mg/dL [facility] Creatinine 1.73(H) 0.60 - 1.10 mg/dL [facility] ([place]) Glucose 139 70 - 199 mg/dL [facility] Comment: Interpretive Data Fasting glucose >/= 126 mg/dl is diagnostic for diabetes. Fasting is defined as no caloric intake for at least 8 hours. Fasting glucose between 100 mg/dl to 125 mg/dl is diagnostic of prediabetes. In a patient with classic symptoms of hyperglycemia or hyperglycemic crisis, a random glucose >/= 200 mg/dl is diagnostic for diabetes. In the absence of unequivocal hyperglycemia, results should be confirmed by repeat testing. The classification and Diagnosis of Diabetes Diabetes Care 2022; 46: S19-S40. Current interpretive data was last revised 2022. Calcium 9.9 8.5 - 10.3 mg/dL [facility] ([place]) Bilirubin, total 0.2 0.1 - 1.2 mg/dL [facility] ([place]) Protein, pl 8.0 6.5 - 8.5 g/dL [facility] ([place]) Albumin 3.7 3.5 - 5.0 g/dL [facility] ([place]) Alk phos 99 40 - 130 Units/L [facility] ([place]) ALT 23 7 - 45 Units/L [facility] ([place]) AST 26 10 - 45 Units/L [facility] ([place]) Comment:HEMOLYZED; Blood Venous blood specimen / Unknown 12/13/2024 4:45 PM CDT 12/13/2024 5:33 PM CDT us Lyle Morrison MD LAB BLOOD ORDERABLES Final R esult [facility] ([place]) [facility] Department [place] [address] * COLONOSCOPY (02/09/2018 10:41 AM CDT) Anatomical Region Laterality Modality Other Narrative Procedure Note Warren Perkins MD - 02/09/2018 10:41 AM CDT [facility] Patient Name: Connie Ambrose Procedure Date: 02/09/2018 10:41 AM Date of : 1945 Admit Type: Outpatient Age: 72 Gender: Female Attending MD: Warren Perkins M.D. Room: [facility] RO[facility] 1 Note Status: Finalized Procedure: [...] scope was passed under direct vision.The Colonoscope [id number] was introducedthrough the anus and advanced to [...] 10:41 AM Procedure Code(s): --- Professional --- 55670, Colonoscopy, flexible; diagnostic, including collection of specimen(s) by brushing or washing, when performed (separateprocedure) Diagnosis Code(s): --- Professional --- K57.30, Diverticulosis of large intestine without perforation orabscess without bleeding R19.5, Other fecal abnormalities K64.9, Unspecified hemorrhoids CPT copyright 2017 [employer] [place] [employer]. All rights reserved. The codes documented in this report are preliminary and upon stringed instrument assembler reviewmay be revised to meet current compliance requirements. Recognized by the [place] [employer] for promoting quality in endoscopy Warren Perkins MD ENDOSCOPY PROCEDURES Final Re sult from Last 3 Months or Most Recently Relevant to Health Maintenance Additional Health Concerns Infection Onset Date Last Indicated C. difficile 12/26/2024 12/26/2024 Insurance [facility] MDCR HMO REF UHC MEDICARE ADVANTAGE Advance Directives For more information, please contact: [phone] * Full Code (Latest Code Status on File) Date Activated Date Inactivated Comments 01/06/2025 7:55 AM 01/09/2025 7:58 PM * Full Code Date Activated Date Inactivated Comments 01/06/2025 7:02 AM 01/06/2025 7:55 AM * Full Code Date Activated Date Inactivated Comments 01/06/2025 6:24 AM 01/06/2025 7:02 AM * Full Code Date Activated Date Inactivated Comments 12/30/2024 7:15 AM 01/02/2025 8:27 PM * Full Code Date Activated Date Inactivated Comments 12/24/2024 9:33 AM 12/28/2024 8:11 PM Care Teams Lieutenant Fire Fighter Relationship Specialty Start Date End Date Misael Montaño MD [address] [facility] [address] [place] [address] PCP - General Family Medicine 01/12/18 Johnathan Booker MD [address] [place] [address] PCP - Home Infusion Attending Infectious Diseases 12/28/24 Abby De Leon MD [address] [place] [address] [place] [address] Consulting Physician Gastroenterology 01/02/25
--- OUTSIDE RECORDS SUMMARY | 2025-02-10 15:01 | XMS_ITS | Clinical Summary ---
Author Organization [facility] Facility Address [address] [place] [id number] Care Team Providers Care Patient Service Associate Name Role Phone Misael Montaño MD Primary Care Provider [phone] Allergies Active Allergy Reactions Criticality Noted Date Comments Adhesive Tape 07/29/2022 Antihistamines, Diphenhydramine-Type Rash Low 07/29/2022 Aspirin 07/29/2022 Clindamycin GI intolerance 07/29/2022 Doxycycline 07/29/2022 Indomethacin Vomiting High 07/29/2022 Salicylates Rash Low 07/29/2022 Sulfamethizole 07/29/2022 Trimethoprim 07/29/2022 Medications [place] 3 1000 MG capsule Take 1 capsule [...] 4:25 PM CDT Height 167.6 cm (5' 6) 09/29/2022 4:25 PM CDT Body Mass Index 30.1 09/29/2022 4:25 PM CDT Plan of Treatment Health Maintenance Due Date Last Done Comments Pneumococcal Vaccine: 50+ Ye ars (1 of 2 - PCV) 1964 Influenza Vaccine (#1) 2025 Hepatitis B Vaccine Aged Out No longe r eligible based on patient's age to complete this topic Insurance [id number] Medicare Care Teams Patient Service Associate Relationship Specialty Start Date End Date Misael Montaño MD [address] [place] [address] PCP - General Family Medicine 07/29/22
[2025-02-10 16:20] LABS: Hematocrit 31.6 % (37.0-47.0); Hemoglobin 9.6 g/dL (12.0-15.0); Immature Granulocyte Percent A 0.5 % (0-0.5); Lymphocytes Absolute Auto 1.87 K/mm3 (0.9-3.2); Mean Corpuscular HGB Conc 30.4 g/dl (32-36); Mean Corpuscular Hemoglobin 27.0 pg (26-34); Mean Corpuscular Volume 88.8 fl (80-100); Nucleated Red Blood Cells Absolute Auto 0.000 K/mm3 (0.0-0.012); Nucleated Red Blood Cells Perc 0.0 % (0.0-0.2); Platelet Count Result 274 k/mm3 (150-375); Red Blood Count 3.56 M/mm3 (4.2-5.4); White Blood Count 8.2 K/mm3 (4.5-10.0)
== END 2025-02-10 14:58 | disposition home or self-care (01) ==
PROVIDERS: PCP Family Medicine
DX: I10 Essential (primary) hypertension (principal)
CPT/HCPCS: 36415; 85025

== ENCOUNTER 2025-02-15 08:00 | Outpatient (CLI) | payer MEDICARE, SELFPAY ==
--- OUTSIDE RECORDS SUMMARY | 2004-07-06 03:15 | XMS_ITS | Continuity of Care Document ---
Author Organization [facility] Address [address] [place] [address] Phone Care Team Providers Care Digital Associate Name Role Phone Saab OD, Arthur Unavailable Unavailable Advance Directives Directive Yes / No Effective Date File Name No Information Encounters Encounter Description Practice Location Reason(s) For Visit Diagnoses Date Provider Providers Copied on Encounter Formerly [facility], [address], [place], [place], [address], [place] tel:[phone] [facility] No Information 2-200 5 Saab OD Arthur. [address] , [address], [place], [address], [place]. tel:[phone] Family History Family Member Type Diagnosis Age At Onset No Information Payers Payer name Insurance type Covered republican ID Authoriza tion(s) No Information Social History Type Description Quantity Date Captured Comments Sex Female Smoking Status No Information Chief Complaint And Reason For Visit No Information Reason For Referral Reason For Referral No Information History Of Present Illness Encounter Date Complaint History Of Prese nt Illness No Information Functional Status Date Functional Assessmen t No Information Instructions Date Instruction Additional Infor mation No Information Assessments Type Assessment Date No Information Patient Care Teams Name Effective Dates (start - stop) Status Members No Information
--- OUTSIDE RECORDS SUMMARY | 2004-07-06 03:15 | XMS_ITS | Continuity of Care Document ---
Author Organization [facility] Address [address] [place] [address] Phone Care Team Providers Care Civil Engineering Director Name Role Phone Saab OD, Arthur Unavailable Unavailable Advance Directives Directive Yes / No Effective Date File Name No Information Encounters Encounter Description Practice Location Reason(s) For Visit Diagnoses Date Provider Providers Copied on Encounter [facility], [address], [place], [place], [address], [place] tel:[phone] [facility] No Information 2-200 5 Saab OD Arthur. [address] , [address], [place], [address], [place]. tel:[phone] Family History Family Member Type Diagnosis Age At Onset No Information Payers Payer name Insurance type Covered democrat ID Authoriza tion(s) No Information Social History [...]
--- OUTSIDE RECORDS SUMMARY | 2019-04-15 01:10 | XMS_ITS | Continuity of Care Document ---
Author Organization [facility] Address [address] [place] [address] [address] [place] [address] Phone Care Team Providers Care Gauge And Instrument Inspector Name Role Phone Hardy RICHEY, Alfred Unavailable Unavaila ble Procedures Procedure Date CATARACT SURG W/IOL, 1 STAGE CATARACT SURG W/IOL, 1 STAGE EYE EXAM, NEW PATIENT OPHTHALMIC BIOMETRY OPHTHALMIC BIOMETRY Advance Directives Directive Yes / No Effective Date File Name No Information Encounters Encounter Description Practice Location Reason(s) For Visit Diagnoses Date Provider Providers Copied on Encounter Ophthalmology [facility], [address], [place], [place], [address], tel:[phone] [address] [place] [address] No Information 9 Hardy Simon. [address], [address], [place], [place], [address], [place]. tel:[phone] Referring Provider: Alfred benítez, [address], [place], [address] . tel:[phone] Ophthalmology [facility], [address] [place], [place] [address] [address], [place], [place], [address], tel:[phone] [address] [place] [address] No Information 9 Hardy Simon. [address], [address], [place], [place], [address], [place]. tel:[phone] Referring Provider: Alfred benítez, [address], [place], [address] . tel:[phone] [facility], [address], [place], [place], [address], [place] tel:[phone] [facility] [address] No Information 9 Hardy Simon. [address], [place], [place], [address], . tel:[phone] Referring Provider: Alfred benítez, [address], [place], [address] . tel:[phone] Family History Family Member Type Diagnosis Age At Onset No Information Payers Payer name Insurance type Covered alliance party ID Authoriza tion(s) Medicare Complete Advantage [facility] [id number] 200 [id number] Social History Type Description Quantity Date Captured [...]
--- OUTSIDE RECORDS SUMMARY | 2019-04-15 01:10 | XMS_ITS | Continuity of Care Document ---
Author Organization [facility] Address [address] [place] [address] [address] [place] [address] Phone Care Team Providers Care Police Liaison Name Role Phone Hardy RICHEY, Alfred Unavailable Unavaila ble Procedures Procedure Date CATARACT SURG W/IOL, 1 STAGE CATARACT SURG W/IOL, 1 STAGE EYE EXAM, NEW PATIENT OPHTHALMIC BIOMETRY OPHTHALMIC BIOMETRY Advance Directives Directive Yes / No Effective Date File Name No Information Encounters Encounter Description Practice Location Reason(s) For Visit Diagnoses Date Provider Providers Copied on Encounter Ophthalmology [facility], [address], [place], [place], [address], tel:[phone] [place] [address] No Information 9 Hardy Simon. [address], [place], [place], [address], [place]. tel:[phone] Referring Provider: Alfred benítez, [address], [place], [address] . tel:[phone] Op[facility], [address] [place], [place] [address] [address], [place], [place], [address], tel:[phone] [place] [address] No Information 9 Hardy Simon. [address], [place], [place], [address], [place]. tel:[phone] Referring Provider: Alfred benítez, [address], [place], [address] . tel:[phone] [facility], [address], [place], [place], [address], [place] tel:[phone] [facility] No Information 9 Hardy Simon. [address], [address], [place], [place], [address], . tel:[phone] Referring Provider: Alfred benítez, [address], [place], [address] . tel:[phone] Family History Family Member Type Diagnosis Age At Onset No Information Payers Payer name Insurance type Covered libertarian ID Authoriza tion(s) Medicare Complete Advantage [facility] [id number] 200 [id number] Social History Type Description Quantity Date Captured [...]
--- OUTSIDE RECORDS SUMMARY | 2025-02-15 07:48 | XMS_ITS | Clinical Summary ---
[facility] B Address [address] [place] [address] Care Team Providers Care Fingerprint Technician Name Role Phone Misael Montaño MD Primary Care Provider Johnathan Booker MD Unavailable + [phone] Abby De Leon MD Unavailable [phone] Allergies Active Allergy Reactions Criticality Noted Date [...] w diff, BMP- Please fax results to [phone] - repeat CT scan abd/pelvis wo contrast [...] (01/12/2018): Added automatically from request for surgery [id number] Encounters Date Type Department Care Team Description 01/31/2025 1:38 PM CDT - 01/31/2025 11:59 PM CDT Hospital Encounter [address] [address] Samuel Marie MD Discharge Disposition: Discharge to home or self care 01/27/2025 1:57 PM CDT - 01/27/2025 11:59 PM CDT Hospital Encounter [facility] Imaging and Radiology [address] [place] [address] Acute diverticulitis Discharge Disposition: Discharge to home or self care 01/19/2025 11:00 AM CDT Office Visit [facility] [address] [facility] [address] [place] [address] Lisa Wolfe NP Acute diverticulitis (Primary Dx) 01/15/2025 11:00 PM CDT - 01/15/2025 11:59 PM CDT Hospital Encounter [facility] Emergency, Room R Discharge Disposition: Discharge to home or self care 01/15/2025 6:59 PM CDT - 01/15/2025 11:07 PM CDT Emergency [facility] Emergency Department [address] [place] [address] Antwon Ashley MD Fall, initial encounter (Primary Dx) Discharge Disposition: Discharge to care home facility 01/06/2025 2:11 AM CDT - 01/09/2025 3:52 PM CDT Hospital Encounter [facility] Medical Care [address] [place] [address] Lyle Morrison MD Huynh, Kiet T., MD Bezuneh, Abraham Deneke, MD Seizure (HCC) (Primary Dx); Syncope and collapse [R55]; Cervical spinal stenosis [M48.02] Discharge Disposition: Discharge to SNF 01/05/2025 2:56 AM CDT - 01/05/2025 4:25 AM CDT Emergency [facility] Emergency Department 1 [place] [address] Marino Molina MD Fall, initial encounter (Primary Dx) Discharge Disposition: Discharge to home or self care 01/05/2025 2:48 AM CDT - 01/05/2025 11:59 PM CDT Hospital Encounter [facility] Emergency, Room R Discharge Disposition: Discharge to home or self care 01/04/2025 Telephone [facility] [place] [address] [facility] [facility] [address] [place] [address] Salome Epperson LPN 12/30/2024 5:12 AM CDT - 01/02/2025 4:22 PM CDT Hospital Encounter [facility] [address] [place] [address] Lyle Morrison MD Kanumuri, Raghu, MD Singh, Arjun, MD Weakness (Primary Dx); Abdominal pain Discharge Disposition: Discharge to SNF 12/30/2024 5:00 AM CDT - 12/30/2024 11:59 PM CDT Hospital Encounter [facility] Emergency, Room R Discharge Disposition: Discharge to home or self care 12/30/2024 Home Infusion [facility] Home Infusion Therapy [address] [place] [address] Fe Buchanan [facility] 12/28/2024 Plan of Care Documentation [facility] Therapy [address] [place] [address] 12/28/2024 Home Infusion [facility] Home Infusion Therapy [address] [place] [address] Angelica Reinoso, [facility] Diverticulitis (Primary Dx) 12/27/2024 [facility] [address] [facility] [address] [place] [address] Mare Stephens LPN IV Antibx ([place] ) 12/24/2024 7:05 AM CDT - 12/28/2024 4:06 PM CDT Hospital Encounter [facility] IMU 1 [place] [address] Lyle Morrison MD Davis, Cedric Emden II, MD Singh, Arjun, MD Diverticulitis (Primary Dx); Acute cystitis with hematuria; Weakness; C. difficile colitis; Illness, unspecified Discharge Disposition: Discharge to home or self care 12/13/2024 8:33 PM CDT - 12/13/2024 11:17 PM CDT Emergency [facility] Emergency Department 1 [place] [address] Lyle Morrison MD Diverticulitis (Primary Dx); Urinary [...] often do you attend chur ch or alevism services? Never 12/26/2024 Do you belong to any clubs o r organizations such as islam groups, unions, fraternal or athletic groups, or [...] any time in the past 12 m [facility], were you homeless or living in a [place] health care facility (including now)? No 12/26/2024 Social Connection and Isolation Panel Answer Date Recorded In a typical week, how many times do you talk on the phone with family, friends, or neighbors? More than three times a week 01/06/2025 How often do you get togethe r with friends or relatives? More than three times a week 01/06/2025 How often do you attend chur ch or alevism services? Never 01/06/2025 Do you belong to any clubs o r organizations such as islam groups, unions, fraternal or athletic groups, or [...] any time in the past 12 m [facility], were you homeless or living in a [place] health care facility (including now)? No 01/06/2025 [facility] Utilities Answer Date Recorded In the past [...] on file Legal Sex Female 7:34 PM TIRE DEBEADER Gender Identity Not on file Sexual Orientation [...] st Contact Info) Description 04/14/2025 12:00 PM TIRE DEBEADER Hospital Encounter [facility] 1 [place] [address] Gloria Amador MD [address] [facility] [address] [place] [address] 04/14/2025 12:00 PM TIRE DEBEADER - 04/14/2025 12:30 PM TIRE DEBEADER Surgery [facility] 1 [place] [address] Gloria Amador MD [address] [facility] [address] [place] [address] COLONOSCOPY Scheduled Procedures Name Priority Associated Diagnoses Date/Ti me COLONOSCOPY Diverticulitis 04/14/2025 12:00 PM TIRE DEBEADER Health Maintenance Due Date Last Done Comments [...] LAB BLOOD ORDERABLES Final Res ult [facility]) [address] [facility] [facility] Department of Laboratories [place], [place] [id number] * Differential, auto (01/31/2025 2:35 PM CDT) Neutrophil abs 3.98 1.50 - 6.50 K/cumm Imm gran abs 0.01 0.00 - 0.10 K/cumm [facility] ([place]) Lymphocyte abs 2.13 0.80 - 3.30 K/cumm [facility] ([place]) Monocyte abs 0.80 0.20 - 0.80 K/cumm [facility] ([place]) Eosinophil abs 0.22 0.00 - 0.50 K/cumm [...] Final Res ult [facility] ([place]) [address] [facility] [place] [address] * (ABNORMAL) CBC with auto differential (01/31/2025 2:35 PM CDT) WBC 7.18 3.80 - 9.90 K/cumm Hgb 9.8(L) 11.9 - 15.5 g/dL [facility] ([place]) Hct 31.8(L) 35.6 - 45.5 % [facility] ([place]) Plt 277 150 - 400 K/cumm [facility] ([place]) MPV 10.1 9.1 - 12.3 fL [facility] ([place]) RBC 3.59(L) 3.90 - 5.20 M/cumm C[facility]ER [...] MD LAB BLOOD ORDERABLES Final Res ult [facility] ([place]) [address] [facility] [place] [address] * (ABNORMAL) Basic metabolic panel (01/31/2025 2:35 PM CDT) Sodium 140 135 - 145 mmol/L [facility] Potassium, pl 4.8 3.3 - 4.9 mmol/L [facility] ([place]) Chloride 105 97 - 110 mmol/L [facility] ([place]) CO2 23 22 - 32 mmol/L [facility] ([place]) Anion gap 12 2 - 15 mmol/L [facility] ([place]) BUN 57(H) 6 - 25 mg/dL [facility] ([place]) Creatinine 2.28(H) 0.60 - 1.10 mg/dL [facility] ([place]) Glucose 100 70 - 199 mg/dL [facility] ([place]) Comment: Interpretive Data Fasting glucose [...] 2022. Calcium 10.1 8.5 - 10.3 mg/dL [facility] ([place]) Blood 01/31/2025 2:35 PM CDT 01/31/2025 2:36 PM CDT Samuel Marie MD LAB BLOOD ORDERABLES Final Res ult [facility] ([place]) [address] [facility] [place] [address] * CT abdomen pelvis without contrast (01/27/2025 [...] Ryan Howell M.D. KH: FLORINDA Report ID: [id number] Reading Location: [id number] Procedure Note Ryan Howell MD - 01/15/2025 [...] Ryan Howell M.D. KH: FLORINDA Report ID: [id number] Reading Location: [id number] Katalina WAGNER IM XR PROCEDURES Final Result [...] signed by Ryan NEELY: FLORINDA Report ID: [id number] Reading Location: [place] [address] Procedure Note Ryan Howell MD - 01/15/2025 [...] signed by Ryan NEELY: FLORINDA Report ID: [id number] Reading Location: [place] [address] Katalina WAGNER [facility] CT PROCEDURES Final Result * [...] Ryan Howell M.D. KH: FLORINDA Report ID: [id number] Reading Location: [place] [address] Procedure Note Ryan Howell MD - 01/15/2025 [...] Ryan Howell M.D. KH: FLORINDA Report ID: [id number] Reading Location: [place] [address] PROCEDURES Final Result * ECG 12 lead (01/15/2025 7:03 PM CDT) 01/15/2025 7:03 PM CDT Narrative [facility] - 01/16/2025 8:31 AM CDT Vent Rate: 112 bpm RR Interval: 532 msec MI Interval: 181 msec QRS Duration: 88 msec QT Interval: 310 msec QTC Interval: 376 msec P-R-T [place]: 53 - 26 - 42 degrees IMPRESSION: SINUS TACHYCARDIA ABNORMAL RHYTHM ECG Compared to prior EKG heart rate increased Electronically Signed By: Marco Antonio Mustafa MD [facility] Katalina WAGNER ECG ORDERABLES Final Result [facility] burrp! [facility] * (ABNORMAL) eGFR (01/09/2025 5:51 AM CDT) [...] BLOOD ORDERABLES F inal Result [facility] ([place]) [address] [facility] [facility] [place] [address] * (ABNORMAL) Differential, auto (01/09/2025 5:51 AM [...] F inal Result [facility] ([place]) [address] [facility] [facility] [place] [address] * (ABNORMAL) CBC with auto differential (01/09/2025 [...] F inal Result [facility] ([place]) [address] [facility] [facility] [place] [address] * (ABNORMAL) Comprehensive metabolic panel (01/09/2025 5:51 [...] F inal Result [facility] ([place]) [address] [facility] [facility] [place] [address] * (ABNORMAL) Differential, auto (01/07/2025 9:56 AM [...] F inal Result [facility] ([place]) [address] [facility] [facility] [place] [address] * (ABNORMAL) CBC with auto differential (01/07/2025 [...] F inal Result [facility] ([place]) [address] [facility] [facility] [place] [address] * MRI Cervical Spine WO Contrast (01/06/2025 5:03 PM CDT) Anatomical Region Laterality Modality Spine N/A Magnetic Resonan ce 01/06/2025 11:0 3 PM CDT Narrative 01/06/2025 11:09 PM CDT EXAM DESCRIPTION: MRI CERVICAL SPINE WO CONTRAST REASON FOR STUDY: To rule out cervical stenosis Patient was found face down at the alf. She was having a seizure for 3 [...] Tigre Steele M.D. LC: MARIO Report ID: [id number] Reading Location: [id number] Procedure Note Linda Steele MD - 01/06/2025 EXAM DESCRIPTION: MRI CERVICAL SPINE WO CONTRAST REASON FOR STUDY: To rule out cervical stenosis Patient was found face down at the alf. She was having a seizurefor 3 minutes. [...] Tigre Steele M.D. LC: MARIO Report ID: [id number] Reading Location: [id number] us Gilberto RaymonGarima Mead NP IMG MRI [...] Patient was found face down at the alf. She was having a seizure for 3 [...] Tigre Steele M.D. LC: MARIO Report ID: [id number] Reading Location: [id number] Procedure Note Linda Steele MD - 01/06/2025 EXAM DESCRIPTION: MRI BRAIN WO CONTRAST REASON FOR STUDY: Neuro deficit, acute, stroke suspected, Seizure, new-onset, no history of trauma Patient was found face down at the alf. She was having a seizurefor 3 minutes. Afterwards she was confused. She denies headache, chest pain, shortness breath, nausea, vomiting, dizziness. Patient is medicated. Best images possible. TECHNIQUE: Multiplanar imaging includes non-contrasted T1, T2, FLAIR, and diffusion with ADC map sequences. Additional sequence(s) sensitive [employer]. Images stored on PACS. COMPARISON: Head CT [...] Tigre Steele M.D. LC: MARIO Report ID: [id number] Reading Location: [id number] us Gilberto J. Witges [employer] TEAM LEADER IMG MRI PROCEDURES Final Re sult * [...] hs delta 3 ng/L [facility] ([place]) Trop T hs interp Insignificant [facility] ([place]) Blood 01/06/2025 8:46 AM CDT 01/06/2025 8:52 AM CDT Lyle Morrison MD LAB BLOOD ORDERABLES Final R esult [facility] ([place]) [address] [facility] Department of Laboratories [place], [place] [id number] * (ABNORMAL) Troponin T high-sensitivity 2-hour (01/06/2025 [...] Trop T hs interp Insignificant [facility] ([place]) Blood 01/06/2025 4:41 AM CDT 01/06/2025 4:44 AM CDT us Lyle Morrison MD LAB BLOOD ORDERABLES Final R esult [facility] ([place]) [address] [facility] [place] [address] * CT Cervical Spine WO Contrast (01/06/2025 3:21 AM CDT) Anatomical Region Laterality Modality Spine N/A Computed Tomogra phy 01/06/2025 3:35 AM CDT Narrative 01/06/2025 3:37 AM CDT EXAM DESCRIPTION: CT CERVICAL SPINE WO CONTRAST REASON FOR STUDY: Neck trauma (Age >= 65y) Patient was found face down at the alf. She was having a seizure for 3 [...] Aleksandr Garner M.D. AR: ARMANDO Report ID: [id number] Reading Location: [id number] Procedure Note Aleksandr Garner MD - 01/06/2025 EXAM DESCRIPTION: CT CERVICAL SPINE WO CONTRAST REASON FOR STUDY: Neck trauma (Age >= 65y) Patient was found face down at the alf. She was having a seizurefor 3 minutes. [...] Aleksandr Garner M.D. AR: ARMANDO Report ID: [id number] Reading Location: [id number] Lyle Morrison MD IMG CT PROCEDURES Final Resu lt * CT Head WO Contrast (01/06/2025 3:21 AM CDT) Anatomical Region Laterality Modality Head and Neck N/A Computed Tomogra phy 01/06/2025 3:37 AM CDT Narrative 01/06/2025 3:38 AM CDT EXAM DESCRIPTION: CT HEAD WO CONTRAST REASON FOR STUDY: Head trauma, minor (Age >= 65y) Patient was found face down at the alf. She was having a seizure for 3 [...] Aleksandr Garner M.D. AR: ARMANDO Report ID: [id number] Reading Location: [place] [address] Procedure Note Aleksandr Garner MD - 01/06/2025 EXAM DESCRIPTION: CT HEAD WO CONTRAST REASON FOR STUDY: Head trauma, minor (Age >= 65y) Patient was found face down at the alf. She was having a seizurefor 3 minutes. [...] Aleksandr Garner M.D. AR: ARMANDO Report ID: [id number] Reading Location: [id number] Lyle Morrison MD IMG CT PROCEDURES Final Resu lt * ECG 12 lead (01/06/2025 2:36 AM CDT) 01/06/2025 2:3 6 AM CDT Narrative [facility] - 01/06/2025 8:26 AM CDT Vent Rate: 96 bpm RR Interval: 620 msec MI Interval: 196 msec QRS Duration: 85 msec QT Interval: 328 msec QTC Interval: 382 msec P-R-T [place]: 56 - 26 - 41 degrees IMPRESSION: SINUS RHYTHM POSSIBLE LEFT ATRIAL ENLARGEMENT [-0.1mV P-WAVE IN V1/V2] BORDERLINE ECG NO CHANGE FROM PREVIOUS TRACING NOTED Electronically Signed By: Harry Jaimes MD Lyle Morrison MD ECG ORDERABLES Final Result Performing Organization Address City/[facility] Co de Phone Number [facility] * (ABNORMAL) Troponin T high-sensitivity series (baseline, 2hr, 4hr, 6hr) (01/06/2025 2:29 AM CDT) Trop T hs 23(H) <=14 ng/L [facility] ([place]) Comment: Interpretive Data For further hscTnT resources including the diagnostic algorithm and an aid in interpretation, copy and paste this link: https://nrl.testcatalog.org/show/hsTrop Current Interpretive Data last revised 2020. Blood 01/06/2025 2:29 AM CDT 01/06/2025 2:33 AM CDT Lyle Morrison MD LAB BLOOD ORDERABLES Final R esult [facility] ([place]) [address] [facility] [place] [address] * Sepsis Lactate w/ Reflex (01/06/2025 2:29 AM CDT) Sepsis Lactate 2.0 0.7 - 2.0 mmol/L Blood 01/06/2025 2:29 AM CDT 01/06/2025 2:33 AM CDT Lyle Morrison MD LAB BLOOD ORDERABLES Final R esult [facility] ([place]) [address] [facility] [place] [address] * (ABNORMAL) eGFR (01/06/2025 2:29 AM CDT) [...] BLOOD ORDERABLES Final R esult [facility] ([place]) 1 [facility] [place] [address] * (ABNORMAL) Differential, auto (01/06/2025 2:29 AM [...] ORDERABLES Final R yumi Performing Organization Address City/[facility]/ZIP Co de Phone Number [facility] ([place]) [address] [facility] Department of Laboratories [place] [id number] * Pro B-type natriuretic peptide (01/06/2025 2:29 AM CDT) NT-proBNP 323 <=450 pg/mL [facility] ([place]) Comment: Interpretive Comments: A. Dyspnea in Acute [...] ORDERABLES Final R yumi Performing Organization Address [facility]/ZIP Co de Phone Number [facility] ([place]) [address] [facility] [facility] [place] [address] * (ABNORMAL) CBC with auto differential (01/06/2025 [...] Final R esult [facility] ([place]) [address] [facility] [place] [address] * Magnesium (01/06/2025 2:29 AM CDT) Magnesium 1.8 1.4 - 2.5 mg/dL [facility] ([place]) Blood 01/06/2025 2:29 AM CDT 01/06/2025 2:33 AM CDT us Lyle Morrison MD LAB BLOOD ORDERABLES Final R esult [facility] ([place]) [address] [facility] [place] [address] * (ABNORMAL) Comprehensive metabolic panel (01/06/2025 2:29 [...] BLOOD ORDERABLES Final R esult [facility] ([place]) [address] [facility] [place] [address] * CT Cervical Spine WO Contrast (01/05/2025 [...] Aleksandr Garner M.D. AR: ARMANDO Report ID: [id number] Reading Location: [id number] Procedure Note Aleksandr Garner MD - 01/05/2025 [...] Aleksandr Garner M.D. AR: ARMANDO Report ID: [id number] Reading Location: [place] [address] Marino Molina MD IMG CT PROCEDURES Final [...] Aleksandr Garner M.D. AR: ARMANDO Report ID: [id number] Reading Location: [id number] Procedure Note Aleksandr Garner MD - 01/05/2025 [...] Aleksandr Garner M.D. AR: ARMANDO Report ID: [id number] Reading Location: [place] [address] Marino Molina MD IM CT PROCEDURES Final [...] Final Res ult [facility] ([place]) [address] [facility] [place] [address] * (ABNORMAL) Differential, auto (01/05/2025 3:05 AM [...] Final Res ult [facility] ([place]) [address] [facility] [place] [address] * (ABNORMAL) CBC with auto differential (01/05/2025 [...] RDW SD 53.5(H) 35.7 - 48.1 fL [facility] NRBC abs 0.00 0.00 - 0.01 K/cumm [facility] Blood 01/05/2025 3:05 AM CDT 01/05/2025 3:10 AM CDT us Marino Molina MD LAB BLOOD ORDERABLES Final Res ult [facility] ([place]) [address] [facility] [place] [address] * (ABNORMAL) Comprehensive metabolic panel (01/05/2025 3:05 AM CDT) Sodium 140 135 - 145 mmol/L [facility] Potassium, pl 3.8 3.3 - 4.9 mmol/L [facility] ([place]) Chloride 101 97 - 110 mmol/L [facility] ([place]) CO2 25 22 - 32 mmol/L [facility] ([place]) Anion gap 14 2 - 15 mmol/L [facility] BUN 27(H) 6 - 25 mg/dL [facility] ([place]) Creatinine 2.15(H) 0.60 - 1.10 mg/dL [facility] ([place]) Glucose 112 70 - 199 mg/dL [facility] Comment: Interpretive Data Fasting glucose [...] ORDERABLES Final Res ult Performing Organization Address City/[facility] Co de Phone Number [facility] ([place]) [address] [facility] [place] [address] * ECG 12 lead (01/05/2025 3:02 AM CDT) 01/05/2025 3:02 AM CDT Narrative [facility] burrp! - 01/05/2025 4:08 PM CDT Vent Rate: 99 bpm RR Interval: 604 msec MI Interval: 160 msec QRS Duration: 93 msec QT Interval: 348 msec QTC Interval: 404 msec P-R-T [place]: 39 - 22 - 44 degrees IMPRESSION: SINUS RHYTHM NORMAL ECG NO CHANGE FROM PREVIOUS TRACING NOTED Electronically Signed By: Harry Jaimes MD Marino Molina MD ECG ORDERABLES Final Result Performing Organization Address [facility] Co de Phone Number [facility] burrp! [facility] * Line ok to use (01/02/2025 4:05 [...] with peel away sheath - Lot #: [id number] - Expiration Date: 10/22/25 -JN Trimmed Length [...] Care Team -- Needed upon discharge for fci use (e.g. long-term antibiotics) -JN -- [REMOVED] [...] locate and cannulate vein - Lot #: [id number] -JN Expiration Date: 01/22/26 -JN Verification: Able [...] for use. Cheryl Villafana RN us Johnathan oBoker MD IV THERAPY ORDERABLE S Final Result [...] with peel away sheath - Lot #: [id number] - Expiration Date: 10/22/25 -JN Trimmed Length [...] Care Team -- Needed upon discharge for ocean transportation intermediary use (e.g. long-term antibiotics) - -- [REMOVED] [...] locate and cannulate vein -JN Lot #: [id number] -JN Expiration Date: 01/22/26 -JN Verification: Able [...] -SG Catheter Tip Cultured: No -SG User Aroryo (r) = Recorded By, (t) = Taken [...] * POCT glucose (01/02/2025 11:38 AM CDT) [facility] Glucose, POC 102 70 - 199 mg/dL Blood 01/02/2025 11:3 8 AM CDT 01/02/2025 11:38 AM CDT us Foster Aguilar MD LAB POCT ORDERABLES - DEVICE Fin al Result [facility] ([place]) [address] [facility] Department of Laboratories [place], [place] [id number] * POCT glucose (01/02/2025 7:46 AM CDT) [facility] Glucose, POC 95 70 - 199 mg/dL Blood 01/02/2025 7:46 AM CDT 01/02/2025 7:46 AM CDT us Foster Aguilar MD LAB POCT ORDERABLES - DEVICE Fin al Result Performing Organization Address City/[facility]/ZIP Co de Phone Number [facility] ([place]) [address] [place] [address] [place] [address] * (ABNORMAL) eGFR (01/02/2025 4:31 AM CDT) [facility] eGFR 31(L) >=60 mL/min/1. 73 m2 Comment: [...] AM CDT 01/02/2025 4:53 AM CDT us Fosetr Aguilar MD LAB BLOOD ORDERABLES Final Resul t [facility] ([place]) 1 [facility] Department [place] [address] * (ABNORMAL) Differential, auto (01/02/2025 4:31 AM [...] Final Resul t [facility] ([place]) [address] [facility] [place] [address] * (ABNORMAL) CBC with auto differential (01/02/2025 4:31 AM CDT) [facility] WBC 8.81 3.80 - 9.90 K/cumm Hgb [...] Final Resul t [facility] ([place]) 1 [facility] [place] [address] * (ABNORMAL) Comprehensive metabolic panel (01/02/2025 4:31 [...] MD LAB BLOOD ORDERABLES Final Resul t [facility] 1 [facility] [place] [address] * POCT glucose (01/02/2025 2:55 AM CDT) Glucose, POC 114 70 - 199 mg/dL Blood 01/02/2025 2:55 AM CDT 01/02/2025 2:55 AM CDT Foster Aguilar MD LAB POCT ORDERABLES - DEVICE Fin al Result [facility] ([place]) [address] [place] [address] * POCT glucose (01/01/2025 8:12 PM CDT) Glucose, POC 137 70 - 199 mg/dL Blood 01/01/2025 8:12 PM CDT 01/01/2025 8:12 PM CDT Foster Aguilar MD LAB POCT ORDERABLES - DEVICE Fin al Result Performing Organization Address City/[facility] Co de Phone Number [facility] ([place]) [address] [place] [address] * POCT glucose (01/01/2025 4:35 PM CDT) Glucose, POC 124 70 - 199 mg/dL Blood 01/01/2025 4:35 PM CDT 01/01/2025 4:35 PM CDT Foster Aguilar MD LAB POCT ORDERABLES - DEVICE Fin al Result Performing Organization Address City/[facility] Co de Phone Number [facility] ([place]) 1 [facility] [place] [address] * POCT glucose (01/01/2025 11:26 AM CDT) Glucose, POC 105 70 - 199 mg/dL Blood 01/01/2025 11:2 6 AM CDT 01/01/2025 11:26 AM CDT us Foster Aguilar MD LAB POCT ORDERABLES - DEVICE Fin al Result REBECCA SPAIN ([place]) [address] [facility] [place] [address] * POCT glucose (01/01/2025 7:31 AM CDT) Glucose, POC 108 70 - 199 mg/dL Blood 01/01/2025 7:31 AM CDT 01/01/2025 7:31 AM CDT Foster Aguilar MD LAB POCT ORDERABLES - DEVICE Fin al Result Performing Organization Address [facility] Co de Phone Number REBECCA SPAIN ([place]) 1 [facility] [place] [address] * (ABNORMAL) eGFR (01/01/2025 3:37 AM CDT) [...] BLOOD ORDERABLES Final Resul t REBECCA SPAIN ([place]) 1 [facility] [place] [address] * (ABNORMAL) Differential, auto (01/01/2025 3:37 AM CDT) Neutrophil abs 5.02 1.50 - 6.50 K/cumm Imm gran abs 0.18(H) 0.00 - 0.10 K/cumm [facility] ([place]) Lymphocyte abs 2.22 0.80 - 3.30 K/cumm [facility] ([place]) Monocyte abs 1.59(H) 0.20 - 0.80 K/cumm [facility] ([place]) Eosinophil abs 0.32 0.00 - 0.50 K/cumm [facility] ([place]) Basophil abs 0.03 0.00 - 0.10 K/cumm [facility] ([place]) Neutrophil pct 53.7 % [facility] ([place]) Comment: Interpretive Data Percent cell count reference ranges are not reported, since discordance with absolute values may lead to misinterpretation of CBC data. Current Interpretive Data was last revised on 2017. Imm gran pct 1.9 % [facility] ([place]) Comment: Interpretive Data Percent cell count reference ranges are not reported, since discordance with absolute values may lead to misinterpretation of CBC data. Current Interpretive Data was last revised on 2017. Lymphocyte pct 23.7 % [facility] ([place]) Comment: Interpretive Data Percent cell count reference ranges are not reported, since discordance with absolute values may lead to misinterpretation of CBC data. Current Interpretive Data was last revised on 2017. Monocyte pct 17.0 % [facility] ([place]) Comment: Interpretive Data Percent cell count reference ranges are not reported, since discordance with absolute values may lead to misinterpretation of CBC data. Current Interpretive Data was last revised on 2017. Eosinophil pct 3.4 % [facility] ([place]) Comment: Interpretive Data Percent cell count reference [...] Final Resul t [facility] ([place]) 1 [facility] [place] [address] * (ABNORMAL) CBC with auto differential (01/01/2025 [...] Final Resul t REBECCA SPAIN ([place]) 1 [facility] [place] [address] * (ABNORMAL) Comprehensive metabolic panel (01/01/2025 3:37 [...] 32 10 - 45 Units/L REBECCA SPAIN ([place]) Blood 01/01/2025 3:37 AM CDT 01/01/2025 3:58 AM CDT us Fosetr Aguilar MD LAB BLOOD ORDERABLES Final Resul t Performing Organization Address [facility] de Phone Number REBECCA SPAIN ([place]) 1 [facility] [place] [address] * POCT glucose (01/01/2025 2:42 AM CDT) Glucose, POC 104 70 - 199 mg/dL Blood 01/01/2025 2:42 AM CDT 01/01/2025 2:42 AM CDT us Foster Aguilar MD LAB POCT ORDERABLES - DEVICE Fin al Result Performing Organization Address [facility] de Phone Number REBECCA SPAIN ([place]) 1 [facility] [place] [address] * POCT glucose (12/31/2024 8:23 PM CDT) Glucose, POC 134 70 - 199 mg/dL Blood 12/31/2024 8:23 PM CDT 12/31/2024 8:23 PM CDT us Foster gAuilar MD LAB POCT ORDERABLES - DEVICE Fin al Result Performing Organization Address [facility] de Phone Number REBECCA SPAIN ([place]) 1 [facility] [place] [address] * POCT glucose (12/31/2024 4:23 PM CDT) Glucose, POC 115 70 - 199 mg/dL Blood 12/31/2024 4:23 PM CDT 12/31/2024 4:23 PM CDT us Foster Aguilar MD LAB POCT ORDERABLES - DEVICE Fin al Result Performing Organization Address City/[facility]/ZIP Co de Phone Number REBECCA SPAIN ([place]) 1 [facility] [place] [address] * (ABNORMAL) Urinalysis reflex to microscopic and [...] tendency for uric acid stone formation. Source: [facility] Current Interpretive Data was last revised on [...] RDERABLES Final Result REBECCA SPAIN ([place]) 1 [facility] [place] [address] * (ABNORMAL) Urinalysis, microscopic only (12/31/2024 1:42 PM CDT) WBC, ur 0-5 0 - 5 /HPF RBC, ur 11-20(A) 0 - 2 /HPF [facility] ([place]) Epithelial cells, squamous, ur 1-5 0 - 5 /HPF [facility] ([place]) Bacteria, ur 1+(A) [facility] ([place]) Mucous, ur Present(A) [facility] A ([place]) Culture Reflex Comment Reflex conditions for urine culture (WBC >10) not met. [facility] ([place]) Urine 12/31/2024 1:42 PM CDT 12/31/2024 1:55 PM CDT Lyle Morrison MD LAB URINE ORDERABLES Final R esult Performing Organization Address [facility] Co de Phone Number [facility] ([place]) 1 [facility] [place] [address] * POCT glucose (12/31/2024 11:32 AM CDT) Glucose, POC 159 70 - 199 mg/dL Blood 12/31/2024 11:3 2 AM CDT 12/31/2024 11:32 AM CDT Foster Aguilar MD LAB POCT ORDERABLES - DEVICE Fin al Result Performing Organization Address [facility] Co de Phone Number [facility] ([place]) 1 [facility] [place] [address] * POCT glucose (12/31/2024 7:26 AM CDT) Glucose, POC 103 70 - 199 mg/dL Blood 12/31/2024 7:26 AM CDT 12/31/2024 7:26 AM CDT Foster Aguilar MD LAB POCT ORDERABLES - DEVICE Fin al Result Performing Organization Address City/[facility] Co de Phone Number [facility] ([place]) 1 [facility] [place] [address] * (ABNORMAL) eGFR (12/31/2024 4:33 AM CDT) [...] AM CDT 12/31/2024 5:59 AM CDT us Fosetr Aguilar MD LAB BLOOD ORDERABLES Final Resul t REBECCA [facility] ([place]) 1 [facility] [place] [address] * (ABNORMAL) Differential, auto (12/31/2024 4:33 AM CDT) Pathologist [facility] Neutrophil abs 5.32 1.50 - 6.50 K/cumm [...] Final Res ult REBECCA GRABIEL ([place]) 1 [facility] [place] [address] * (ABNORMAL) CBC with auto differential (12/31/2024 [...] - 0.01 K/cumm [facility] ([place]) Blood 12/31/2024 4:33 AM CDT 12/31/2024 5:58 AM CDT us Marino Molina MD LAB BLOOD ORDERABLES Final Res ult [facility] ([place]) 1 [facility] [place] [address] * (ABNORMAL) Comprehensive metabolic panel (12/31/2024 4:33 [...] CDT 12/31/2024 5:59 AM CDT us Foster Aguliar MD LAB BLOOD ORDERABLES Final Resul t [facility] ([place]) 1 [facility] [place] [address] * POCT glucose (12/31/2024 2:28 AM CDT) Glucose, POC 95 70 - 199 mg/dL Blood 12/31/2024 2:28 AM CDT 12/31/2024 2:28 AM CDT us Foster Aguilar MD LAB POCT ORDERABLES - DEVICE Fin al Result Performing Organization Address City/[facility]/ZIP Co de Phone Number REBECCA SPAIN ([place]) 1 [place] [address] * POCT glucose (12/30/2024 4:35 PM CDT) Glucose, POC 103 70 - 199 mg/dL Blood 12/30/2024 4:35 PM CDT 12/30/2024 4:35 PM CDT Foster Aguilar MD LAB POCT ORDERABLES - DEVICE Fin al Result Performing Organization Address [facility] Co de Phone Number REBECCA SPAIN ([place]) 1 [place] [address] * (ABNORMAL) Troponin T high-sensitivity 6-hour (12/30/2024 12:11 PM CDT) [facility] Trop T hs 23(H) <=14 ng/L REBECCA SPAIN ([place]) Comment: Interpretive Data For further hscTnT resources including the diagnostic algorithm and an aid in interpretation, copy and paste this link: https://nrl.testcatalog.org/show/hsTrop Current Interpretive Data last revised 2020. Trop T hs delta 0 ng/L [facility] ([place]) Trop T hs interp Insignificant [facility] ([place]) Blood 12/30/2024 12:1 1 PM CDT 12/30/2024 12:16 PM CDT us Foster Aguilar MD LAB BLOOD ORDERABLES Final Resul t Performing Organization Address [facility]/ZIP Co de Phone Number REBECCA SPAIN ([place]) 1 [facility] [place] [address] * POCT glucose (12/30/2024 11:43 AM CDT) Glucose, POC 94 70 - 199 mg/dL Blood 12/30/2024 11:4 3 AM CDT 12/30/2024 11:43 AM CDT us Foster Aguilar MD LAB POCT ORDERABLES - DEVICE Fin al Result REBECCA SPAIN ([place]) 1 [place] [address] * Troponin T high-sensitivity 6-hour (12/30/2024 11:37 AM CDT) Trop T hs See Comment <=14 Comment: sample QNS. Please see redraw for results Interpretive Data For further hscTnT resources including the diagnostic algorithm and an aid in interpretation, copy and paste this link: https://nrl.ImpactFlo.org/show/hsTrop Current Interpretive Data last revised 2020. Trop T hs delta See Comment CE BARBARAER GRABIEL ([place]) Comment:sample QNS. Please s ee redraw for results Trop T hs interp See Comment C ERNER GRABIEL ([place]) Comment:sample QNS. Please s ee redraw for results Blood 12/30/2024 11:3 7 AM CDT 12/30/2024 11:38 AM CDT us Lyle Morrison MD LAB BLOOD ORDERABLES Final R esult Performing Organization Address City/[facility] Co de Phone Number REBECCA SPAIN ([place]) 1 [place] [address] * (ABNORMAL) Troponin T high-sensitivity 4-hour (12/30/2024 8:46 AM CDT) Trop T hs 25(H) <=14 ng/L [facility] ([place]) Comment: Interpretive Data For further hscTnT resources including the diagnostic algorithm and an aid in interpretation, copy and paste this link: https://nrl.ImpactFlo.org/show/hsTrop Current Interpretive Data last revised 2020. Trop T hs delta 2 ng/L [facility] ([place]) Trop T hs interp Insignificant [facility] ([place]) Blood 12/30/2024 8:46 AM CDT 12/30/2024 8:49 AM CDT Lyle Morrison MD LAB BLOOD ORDERABLES Final R esult Performing Organization Address [facility] Co de Phone Number REBECCA SPAIN ([place]) [address] [facility] [place] [address] * POCT glucose (12/30/2024 8:37 AM CDT) Glucose, POC 88 70 - 199 mg/dL Blood 12/30/2024 8:37 AM CDT 12/30/2024 8:37 AM CDT Foster Aguilar MD LAB POCT ORDERABLES - DEVICE Fin al Result Performing Organization Address [facility] de Phone Number REBECCA SPAIN ([place]) 1 [place] [address] * (ABNORMAL) Troponin T high-sensitivity 2-hour (12/30/2024 [...] ORDERABLES Final R esult Performing Organization Address [facility] Co de Phone Number REBECCA SPAIN ([place]) 1 [facility] [place] [address] * XR Chest 1 View (12/30/2024 6:11 [...] by Amanda Moe M.D. SN: Report ID: [id number] Reading Location: [id number] Procedure Note Amanda Moe MD - 12/30/2024 [...] by Amanda Moe M.D. SN: Report ID: [id number] Reading Location: [id number] Lyle Morrison MD IMG XR PROCEDURES Final Resu lt * CT Abdomen Pelvis WO Contrast (12/30/2024 6:02 AM CDT) Anatomical Region Laterality Modality Body N/A Computed Tomogra phy 12/30/2024 6:04 AM CDT Narrative 12/30/2024 6:13 AM CDT EXAM DESCRIPTION: CT ABDOMEN PELVIS WO CONTRAST REASON FOR STUDY: Abdominal pain, acute, nonlocalized complaint of weakness, was discharged from [facility] 2 days ago after being admitted for [...] Donald Key M.D. RB: BRUNA Report ID: [id number] Reading Location: [place] [id number] Procedure Note Donald Key MD - 12/30/2024 EXAM DESCRIPTION: CT ABDOMEN PELVIS WO CONTRAST REASON FOR STUDY: Abdominal pain, acute, nonlocalized complaint of weakness, was discharged from [facility] 2 days ago after being admitted for [...] by Donald Carver.D. RB: RB Report ID: [id number] Reading Location: [id number] Lyle Morrison MD IMG CT PROCEDURES Final Resu lt * ECG 12 lead (12/30/2024 5:23 AM CDT) 12/30/2024 5:23 AM CDT Narrative [facility] - 12/30/2024 8:34 AM CDT Vent Rate: 98 bpm RR Interval: 610 msec MI Interval: 180 msec QRS Duration: 78 msec QT Interval: 317 msec QTC Interval: 372 msec P-R-T [place]: 64 - 34 - 30 degrees IMPRESSION: SINUS RHYTHM Baseline artifact Compared to prior EKG, heart rate is now slightly slower Electronically Signed By: Dr Donald Hopkins Lyle Morrison MD ECG ORDERABLES Final Result Performing Organization Address City/[facility] Co de Phone Number [facility] burrp! [facility] * (ABNORMAL) Troponin T high-sensitivity series (baseline, 2hr, 4hr, 6hr) (12/30/2024 5:21 AM CDT) Trop T hs 23(H) <=14 ng/L REBECCA SPAIN ([place]) Comment: Interpretive Data For further hscTnT resources including the diagnostic algorithm and an aid in interpretation, copy and paste this link: https://nrl.testcatalog.org/show/hsTrop Current Interpretive Data last revised 2020. Blood 12/30/2024 5:21 AM CDT 12/30/2024 5:35 AM CDT Lyle Morrison MD LAB BLOOD ORDERABLES Final R esult REBECCA SPAIN ([place]) 1 [facility] [place] [address] * (ABNORMAL) eGFR (12/30/2024 5:21 AM CDT) [...] LAB BLOOD ORDERABLES Final R esult REBECCA [facility] ([place]) 1 [facility] [place] [address] * (ABNORMAL) Differential, auto (12/30/2024 5:21 AM [...] Final R esult REBECCA SPAIN ([place]) 1 [facility] [place] [address] * Pro B-type natriuretic peptide [...] BLOOD ORDERABLES Final R esult REBECCA SPAIN ([place]) 1 [facility] [place] [address] * (ABNORMAL) CBC with auto differential (12/30/2024 [...] BLOOD ORDERABLES Final R esult REBECCA SPAIN ([place]) 1 [facility] [place] [place] [address] * Magnesium (12/30/2024 5:21 AM CDT) Magnesium 1.7 1.4 - 2.5 mg/dL [facility] ([place] Blood 12/30/2024 5:21 AM CDT 12/30/2024 5:35 AM CDT Lyle Morrison MD LAB BLOOD ORDERABLES Final R esult REBECCA SPAIN ([place]) 1 [facility] [place] [place] [address] * (ABNORMAL) Lipase (12/30/2024 5:21 AM CDT) Lipase 155(H) 10 - 99 Units/L [facility] ([place]) Blood 12/30/2024 5:21 AM CDT 12/30/2024 5:35 AM CDT us Lyle Morrison MD LAB BLOOD ORDERABLES Final R esult REBECCA SPAIN ([place]) 1 [facility] [place] [address] * (ABNORMAL) Comprehensive metabolic panel (12/30/2024 5:21 [...] Final R esult REBECCA SPAIN ([place]) 1 [facility] [place] [address] * Line ok to use (12/28/2024 2:15 [...] locate and cannulate vein -JN Lot #: [id number] -JN Expiration Date: 01/22/26 -JN Verification: Able [...] Care Team -- Needed upon discharge for fci use (e.g. long-term antibiotics) - -- User [...] locate and cannulate vein - Lot #: [id number] - Expiration Date: 01/22/26 -JN Verification: Able [...] Care Team -- Needed upon discharge for ocean transportation intermediary use (e.g. long-term antibiotics) - -- User [...] - DEVICE Fin al Result [facility] ([place]) 1 [facility] [place] [address] * POCT glucose (12/28/2024 7:49 AM CDT) Glucose, POC 87 70 - 199 mg/dL Blood 12/28/2024 7:49 AM CDT 12/28/2024 7:49 AM CDT us Foster Aguilar MD LAB POCT ORDERABLES - DEVICE Fin al Result Performing Organization Address City/[facility]/ZIP Co de Phone Number [facility] ([place]) 1 [facility] [place] [address] * POCT glucose (12/28/2024 2:27 AM CDT) Glucose, POC 98 70 - 199 mg/dL Blood 12/28/2024 2:27 AM CDT 12/28/2024 2:27 AM CDT us Foster Aguilar MD LAB POCT ORDERABLES - DEVICE Fin al Result Performing Organization Address City/[facility]/ZIP Co de Phone Number [facility] ([place]) 1 [facility] [place] [address] * POCT glucose (12/27/2024 8:16 PM CDT) Glucose, POC 110 70 - 199 mg/dL Blood 12/27/2024 8:16 PM CDT 12/27/2024 8:16 PM CDT us Foster Aguilar MD LAB POCT ORDERABLES - DEVICE Fin al Result REBECCA SPAIN ([place]) 1 [facility] [place] [address] * POCT glucose (12/27/2024 5:10 PM CDT) Glucose, POC 166 70 - 199 mg/dL Blood 12/27/2024 5:10 PM CDT 12/27/2024 5:10 PM CDT Foster Aguilar MD LAB POCT ORDERABLES - DEVICE Fin al Result Performing Organization Address [facility] Co de Phone Number REBECCA SPAIN ([place]) 1 [facility] [place] [address] * POCT glucose (12/27/2024 12:01 PM CDT) Glucose, POC 93 70 - 199 mg/dL Blood 12/27/2024 12:0 1 PM CDT 12/27/2024 12:01 PM CDT us Foster Aguilar MD LAB POCT ORDERABLES - DEVICE Fin al Result Performing Organization Address City/[facility]/ZIP Co de Phone Number REBECCA SPAIN ([place]) 1 [facility] [place] [address] * POCT glucose (12/27/2024 8:18 AM CDT) Glucose, POC 91 70 - 199 mg/dL Blood 12/27/2024 8:18 AM CDT 12/27/2024 8:18 AM CDT us Foster Aguilar MD LAB POCT ORDERABLES - DEVICE Fin al Result Performing Organization Address City/[facility]/ZIP Co de Phone Number ERBECCA [facility] ([place]) 1 [facility] [place] [address] * (ABNORMAL) eGFR (12/27/2024 2:34 AM CDT) [facility] eGFR 27(L) >=60 mL/min/1. 73 m2 Comment: [...] LAB BLOOD ORDERABLES F inal Result REBECCA [facility] ([place]) 1 [facility] [place] [address] * (ABNORMAL) Differential, auto (12/27/2024 2:34 AM CDT) Pathologist [facility] Neutrophil abs 10.17(H) 1.50 - 6.50 K/cumm [...] BLOOD ORDERABLES F inal Result REBECCA GRABIEL ([place]) 1 [facility] [place] [address] * (ABNORMAL) CBC with auto differential (12/27/2024 [...] MD LAB BLOOD ORDERABLES F inal Result [facility] 1 [facility] [place] [address] * (ABNORMAL) Comprehensive metabolic panel (12/27/2024 2:34 [...] MD LAB BLOOD ORDERABLES F inal Result [facility] ([place]) 1 [facility] [place] [address] * POCT glucose (12/27/2024 2:31 AM CDT) Glucose, POC 94 70 - 199 mg/dL Blood 12/27/2024 2:31 AM CDT 12/27/2024 2:31 AM CDT us Wayne Fraser II, MD LAB POCT ORDERABLES - DEVICE Final Result Performing Organization Address City/[facility]/ZIP Co de Phone Number REBECCA SAPIN ([place]) 1 [facility] [place] [address] * POCT glucose (12/26/2024 8:57 PM CDT) Glucose, POC 113 70 - 199 mg/dL Blood 12/26/2024 8:57 PM CDT 12/26/2024 8:57 PM CDT us Wayne Fraser II, MD LAB POCT ORDERABLES - DEVICE Final Result Performing Organization Address [facility] Co de Phone Number REBECCA SPAIN ([place]) 1 [facility] [place] [address] * POCT glucose (12/26/2024 4:51 PM CDT) Glucose, POC 112 70 - 199 mg/dL Blood 12/26/2024 4:51 PM CDT 12/26/2024 4:51 PM CDT us Wayne Fraser II, MD LAB POCT ORDERABLES - DEVICE Final Result Performing Organization Address City/[facility]/ZIP Co de Phone Number REBECCA SPAIN ([place]) 1 [facility] [place] [address] * POCT glucose (12/26/2024 12:10 PM CDT) Glucose, POC 120 70 - 199 mg/dL Blood 12/26/2024 12:1 0 PM CDT 12/26/2024 12:10 PM CDT us Wayne Fraser II, MD LAB POCT ORDERABLES - DEVICE Final Result Performing Organization Address City/[facility]/ZIP Co de Phone Number REBECCA SPAIN ([place]) 1 [place] [address] * POCT glucose (12/26/2024 8:14 AM CDT) Pathologist [facility] Glucose, POC 95 70 - 199 mg/dL Blood 12/26/2024 8:14 AM CDT 12/26/2024 8:14 AM CDT Wayne Fraser II, MD LAB POCT ORDERABLES - DEVICE Final Result Performing Organization Address [facility] Co de Phone Number REBECCA SPAIN ([place]) [address] [place] [address] * (ABNORMAL) C. difficile testing Stool (12/26/2024 6:21 AM CDT) Pathologist [facility] GDH Result Positive Negative Toxin Result Positive Negative CERNER [facility] ([place]) C. diff result Positive, free toxin(A) Negative, free toxin [facility]ERELMER [facility] ([place]) C. diff interp Toxigenic Clostridioides (Clostridium) difficile detected. Analysis was performed using a two-step methodology using glutamate dehydrogenase antigen detection followed by detection of C. difficile toxin(s). REBECCA SPAIN ([place]) Stool 12/26/2024 6:21 AM CDT 12/26/2024 6:39 AM CDT Sukumar Rivera MD LAB MICROBIOLOGY - GENE RAL ORDERABLES Final Result Performing Organization Address City/[facility]/ZIP Co de Phone Number REBECCA SPAIN ([place]) 1 [place] [address] * (ABNORMAL) Hemoglobin and hematocrit (12/26/2024 5:36 AM CDT) [facility] Hgb 7.9(L) 11.9 - 15.5 g/dL Hct 25.8(L) 35.6 - 45.5 % REBECCA SPAIN ([place]) Blood 12/26/2024 5:36 AM CDT 12/26/2024 6:05 AM CDT us Sukumar Rivera MD LAB BLOOD ORDERABLES Fi nal Result Performing Organization Address City/[facility]/ZIP Co de Phone Number REBECCA SPAIN ([place]) 1 [facility] [place] [address] * (ABNORMAL) eGFR (12/26/2024 2:13 AM CDT) [...] BLOOD ORDERABLES F inal Result REBECCA SPAIN ([place]) [address] [facility] [place] [address] * (ABNORMAL) Differential, auto (12/26/2024 2:13 AM CDT) Neutrophil abs 14.00(H) 1.50 - 6.50 K/cumm Imm gran abs 0.09 0.00 - 0.10 K/cumm MELIS[facility] GRABIEL ([place]) Lymphocyte abs 1.67 0.80 - 3.30 K/cumm [...] F inal Result RE[facility]CCA [facility] ([place]) 1 [facility] [place] [address] * (ABNORMAL) CBC with auto differential (12/26/2024 2:13 AM CDT) [facility] WBC 17.46(H) 3.80 - 9.90 K/cumm Hgb [...] F inal Result REBECCA SPAIN ([place]) 1 [facility] [place] [address] * (ABNORMAL) Comprehensive metabolic panel (12/26/2024 2:13 AM CDT) [facility] Sodium 135 135 - 145 mmol/L [facility] ([place]) Potassium, pl 4.4 3.3 - 4.9 mmol/L [facility] ([place]) Chloride 104 97 - 110 mmol/L [facility] ([place]) CO2 18(L) 22 - 32 mmol/L [facility] ([place]) Anion gap 13 2 - 15 mmol/L [facility] ([place]) [...] F inal Result RE[facility]CCA [facility] ([place]) 1 [facility] [place] [address] * POCT glucose (12/26/2024 2:12 AM CDT) Glucose, POC 133 70 - 199 mg/dL Blood 12/26/2024 2:12 AM CDT 12/26/2024 2:12 AM CDT Wayne Fraser II, MD LAB POCT ORDERABLES - DEVICE Final Result Performing Organization Address City/[facility]/ZIP Co de Phone Number REBECCA SPAIN ([place]) 1 [facility] [place] [address] * POCT glucose (12/25/2024 9:07 PM CDT) Glucose, POC 151 70 - 199 mg/dL Blood 12/25/2024 9:07 PM CDT 12/25/2024 9:07 PM CDT Wayne Fraser II, MD LAB POCT ORDERABLES - DEVICE Final Result Performing Organization Address [facility] Co de Phone Number REBECCA SPAIN ([place]) 1 [facility] [place] [address] * (ABNORMAL) eGFR (12/25/2024 2:12 AM CDT) Pathologist [facility] eGFR 26(L) >=60 mL/min/1. 73 m2 Comment: [...] MD LAB BLOOD ORDERABLES F inal Result [facility] ([place]) 1 [facility]ly [facility] [place] [address] * (ABNORMAL) Differential, auto (12/25/2024 2:12 AM CDT) Neutrophil abs 15.90(H) 1.50 - 6.50 K/cumm Imm gran abs 0.15(H) 0.00 - 0.10 K/cumm [facility] ([place]) Lymphocyte abs 1.16 0.80 - 3.30 K/cumm [facility] ([place]) Monocyte abs 1.58(H) 0.20 - 0.80 K/cumm [facility] ([place]) Eosinophil abs 0.05 0.00 - 0.50 K/cumm [facility] ([place]) Basophil abs 0.05 0.00 - 0.10 K/cumm [facility] ([place]) Neutrophil pct 84.1 % [facility] ([place]) Comment: Interpretive Data Percent cell count reference [...] ORDERABLES F inal Result Performing Organization Address City/[facility]/ZIP Co de Phone Number REBECCA SPAIN ([place]) 1 [facility] [employer] [place] [address] * (ABNORMAL) Iron profile w/ IBC (12/25/2024 2:12 AM CDT) Iron 11(L) 35 - 145 mcg/dL [facility] ([place]) TIBC 137(L) 250 - 400 mcg/dL [facility] ([place]) Transferrin saturation 8(L) 20 - 50 % [facility] ([place]) Blood 12/25/2024 2:12 AM CDT 12/25/2024 2:26 AM CDT us Wayne Fraser II, MD LAB BLOOD ORDERABLES F inal Result REBECCA SPAIN ([place]) 1 [facility] [employer] [place] [address] * (ABNORMAL) CBC with auto differential (12/25/2024 [...] ORDERABLES F inal Result Performing Organization Address [facility] Co de Phone Number REBECCA SPAIN ([place]) 1 [facility] [place] [address] * Magnesium (12/25/2024 2:12 AM CDT) Magnesium 1.6 1.4 - 2.5 mg/dL [facility] ([place]) Blood 12/25/2024 2:12 AM CDT 12/25/2024 2:26 AM CDT Wayne Fraser II, MD LAB BLOOD ORDERABLES F inal Result Performing Organization Address [facility]/ZIP Co de Phone Number [facility] ([place]) 1 [facility] [place] [address] * (ABNORMAL) Hemoglobin A1c (12/25/2024 2:12 AM CDT) Hgb A1C 6.1(H) 4.0 - 5.6 % REBECCA SPAIN ([place]) Estimated Average Glucose 128 mg/dL REBECCA SPAIN ([place]) Comment: The ADA recommends reporting an estimated Average Glucose (eAG) with all Hemoglobin A1c results using the equation derived from a study of 507 normal and diabetic adults. Minority populations were underrepresented and children were not included. (Diabetes Care 31:4618-2740, 2008). The eAG is not equivalent to a fasting glucose. Testing performed by: [facility], [facility], [place], [address] Blood 12/25/2024 2:12 AM CDT 12/25/2024 2:26 AM CDT Wayne Fraser II, MD LAB BLOOD ORDERABLES F inal Result Performing Organization Address [facility] Co de Phone Number REBECCA SPAIN ([place]) 1 [facility] Department [place] [address] * (ABNORMAL) Ferritin (12/25/2024 2:12 AM CDT) Pathologist [facility] Ferritin 159(H) 13 - 150 ng/mL REBECCA SPAIN ([place]) Blood 12/25/2024 2:12 AM CDT 12/25/2024 2:26 AM CDT Wanye Fraser II, MD LAB BLOOD ORDERABLES F inal Result [facility] 1 [facility] [place] [address] * (ABNORMAL) Lipid panel (12/25/2024 2:12 AM CDT) Cholesterol 92 30 - 199 mg/dL REBECCA SPAIN ([place]) Comment: Interpretive Data Ages < or = [...] last revised on 2024. Testing performed by: [place], [address] Non-HDL Cholesterol 56 mg/dL REBECCA SPAIN ([place]) Comment: Interpretive Data Ages < or = [...] last revised on 2018. Testing performed by: [place], [address] Chol/HDL ratio 3 TIA SPAIN ([place]) Comment:Testing performed by : [place], [address] Blood 12/25/2024 2:12 AM CDT 12/25/2024 2:26 AM CDT us Wayne Fraser II, MD LAB BLOOD ORDERABLES F inal Result REBECCA SPAIN ([place]) 1 [facility] [place] [address] * (ABNORMAL) Basic metabolic panel (12/25/2024 2:12 AM CDT) Sodium 134(L) 135 - 145 mmol/L REBECCA SPAIN ([place]) Potassium, pl 5.0(H) 3.3 - 4.9 mmol/L [...] 2022. Calcium 9.1 8.5 - 10.3 mg/dL [facility] ([place]) Blood 12/25/2024 2:12 AM CDT 12/25/2024 2:26 AM CDT us Wayne Fraser II, MD LAB BLOOD ORDERABLES F inal Result Performing Organization Address City/[facility]/ZIP Co de Phone Number REBECCA SPAIN ([place]) 1 [facility] [place] [address] * POCT glucose (12/25/2024 2:04 AM CDT) [facility] Signature Glucose, POC 127 70 - 199 mg/dL Blood 12/25/2024 2:04 AM CDT 12/25/2024 2:04 AM CDT Wayne Fraser II, MD LAB POCT ORDERABLES - DEVICE Final Result REBECCA SPAIN ([place]) 1 [place] [address] * POCT glucose (12/24/2024 8:41 PM CDT) Glucose, POC 124 70 - 199 mg/dL Blood 12/24/2024 8:41 PM CDT 12/24/2024 8:41 PM CDT Wayne Fraser II, MD LAB POCT ORDERABLES - DEVICE Final Result Performing Organization Address [facility] Co de Phone Number REBECCA SPAIN ([place]) 1 [place] [address] * POCT glucose (12/24/2024 7:42 PM CDT) Glucose, POC 119 70 - 199 mg/dL Blood 12/24/2024 7:42 PM CDT 12/24/2024 7:42 PM CDT Wayne Fraser II, MD LAB POCT ORDERABLES - DEVICE Final Result Performing Organization Address [facility] de Phone Number REBECCA SPAIN ([place]) 1 [place] [address] * ECG 12 lead (12/24/2024 7:32 PM CDT) 12/24/2024 7:32 PM CDT Narrative [facility] - 12/26/2024 6:42 AM CDT Vent Rate: 131 bpm RR Interval: 457 msec MI Interval: 181 msec QRS Duration: 86 msec QT Interval: 268 msec QTC Interval: 345 msec P-R-T [place]: 76 - 48 - 55 degrees IMPRESSION: SINUS TACHYCARDIA ABNORMAL RHYTHM ECG Compared to prior EKG, heart rate has increased Electronically Signed By: Harry Jaimes MD us Sukumar Rivera MD ECG ORDERABLES Final R esult Performing Organization Address [facility] Co de Phone Number [facility] burrp! [place] * POCT glucose (12/24/2024 4:58 PM CDT) Glucose, POC 122 70 - 199 mg/dL Blood 12/24/2024 4:58 PM CDT 12/24/2024 4:58 PM CDT Wayne Fraser II, MD LAB POCT ORDERABLES - DEVICE Final Result Performing Organization Address City/[facility]/ZIP Co de Phone Number REBECCA SPAIN ([place]) [address] [facility] [place] [address] * (ABNORMAL) Troponin T high-sensitivity 4-hour (12/24/2024 [...] ORDERABLES Final R esult Performing Organization Address City/[facility] Co de Phone Number REBECCA SPAIN ([place]) [address] [facility] [place] [address] * POCT glucose (12/24/2024 11:36 AM CDT) Glucose, POC 101 70 - 199 mg/dL Blood 12/24/2024 11:3 6 AM CDT 12/24/2024 11:36 AM CDT Wayne Fraser II, MD LAB POCT ORDERABLES - DEVICE Final Result Performing Organization Address City/[facility] Co de Phone Number REBECCA SPAIN ([place]) 1 [facility] [place] [address] * Blood culture Blood (12/24/2024 11:36 AM CDT) Report Final Report: No growth Comment:Testing performed by : [facility], 1 [place]., [address] Blood 12/24/2024 11:3 6 AM CDT 12/24/2024 [...] performance characteristics have been verified by the [facility] Microbiology Laboratory. For questions about this culture, contact the Microbiology Laboratory at [phone]. Interpretive data was last revised on 24. us Lyle Morrison MD LAB MICROBIOLOGY - GENERAL O RDERABLES Final Result REBECCA SPAIN [place]) 1 [facility] [place] [address] * POCT glucose (12/24/2024 11:23 AM CDT) Glucose, POC 89 70 - 199 mg/dL Blood 12/24/2024 11:2 3 AM CDT 12/24/2024 11:23 AM CDT Wayne Fraser II, MD LAB POCT ORDERABLES - DEVICE Final Result Performing Organization Address City/[facility]/ZIP Co de Phone Number [facility]CCA [facility] ([place]) [address] [facility] [place] [address] * (ABNORMAL) Troponin T high-sensitivity 2-hour (12/24/2024 9:58 AM CDT) Pathologist [facility] Trop T hs 27(H) <=14 ng/L CERNER [...] ORDERABLES Final R esult Performing Organization Address City/[facility]/ZIP Co de Phone Number [facility] ([place]) [address] [facility] [place] [address] * Blood culture Blood (12/24/2024 9:58 AM CDT) Report Final Report: No growth Comment:Testing performed by : [facility], 1 [facility] [place]., [address] Blood 12/24/2024 9:58 AM CDT 12/24/2024 12:12 [...] performance characteristics have been verified by the [facility] Microbiology Laboratory. For questions about this culture, contact the Microbiology Laboratory at [phone]. Interpretive data was last revised on 24. Lyle Morrison MD LAB MICROBIOLOGY - GENERAL O RDERABLES Final Result REBECCA SPAIN [place] 1 [facility] [place] [address] * CT Head WO Contrast [...] Cristy Balbuena M.D. LL: RODRIGO Report ID: [id number] Reading Location: [id number] Procedure Note Cristy Balbuena MD - 12/24/2024 [...] Cristy Balbuena M.D. LL: RODRIGO Report ID: [id number] Reading Location: [id number] Lyle Morrison MD IMG CT PROCEDURES Final [...] Cristy Balbuena M.D. LL: RODRIGO Report ID: [id number] Reading Location: [id number] Procedure Note Cristy Balbuena MD - 12/24/2024 [...] Cristy Balbuena M.D. LL: RODRIGO Report ID: [id number] Reading Location: [id number] Lyle Morrison MD IMG CT PROCEDURES Final [...] tendency for uric acid stone formation. Source: [facility] Current Interpretive Data was last revised on [...] 8:26 AM CDT Lyle Morrison MD LAB MICROBIOLOGY - GENERAL O RDERABLES Final Result [facility] ([place]) 1 [facility] [place] [address] * (ABNORMAL) Urinalysis, microscopic only (12/24/2024 8:21 AM CDT) WBC, ur 11-20(A) 0 - 5 /HPF RBC, ur 21-50(A) 0 - 2 /HPF [facility]) Epithelial cells, squamous, ur 1-5 0 - 5 /HPF [facility] ([place]) Mucous, ur Present(A) CERNER Julissa ([place]) Culture Reflex Comment Reflex to urine culture will be performed. REBECCA [facility] ([place]) Urine 12/24/2024 8:21 AM CDT 12/24/2024 8:26 AM CDT Lyle Morrison MD LAB URINE ORDERABLES Final R esult Performing Organization Address City/[facility]/ZIP Co de Phone Number REBECCA [facility] ([place]) [address] [place] [address] [place] [place] [address] * Urine culture Urine (12/24/2024 8:21 AM CDT) Report Final Report: Less than 100,000 colonies/mL (clinically insignificant growth based on current clinical standards) Comment:Testing performed by : [facility], 1 [facility], [place]., [address] Organism (CLINICALLY INSIGNIFICANT GROWTH [facility] ([place]) Urine 12/24/2024 8:21 AM CDT 12/24/2024 10:26 AM CDT Narrative REBECCA [facility] ([place]) - 12/25/2024 11:39 AM CDT Urine culture reflexed based upon urinalysis results. Testing performed by [facility] Microbiology Laboratory ([phone]) Lyle Morrison MD LAB MICROBIOLOGY - GENERAL O RDERABLES Final Result Performing Organization Address City/[facility]/ZIP Co de Phone Number REBECCA [facility] ([place]) 1 [facility] [employer] [place] [address] * XR Chest 1 View (12/24/2024 7:54 [...] Cristy Balbuena M.D. LL: LL Report ID: [id number] Reading Location: [id number] Procedure Note Cristy Balbuena MD - 12/24/2024 [...] Cristy Balbuena M.D. LL: LL Report ID: [id number] Reading Location: [id number] Lyle Morrison MD IMG XR PROCEDURES Final [...] ORDERABLES Final R esult Performing Organization Address City/[facility]/ZIP Co de Phone Number REBECCA [facility] ([place]) 1 [facility] [place] [address] * ECG 12 lead (12/24/2024 7:23 AM CDT) 12/24/2024 7:23 AM CDT Narrative [facility] - 12/24/2024 1:07 PM CDT Vent Rate: 96 bpm RR Interval: 622 msec MI Interval: 178 msec QRS Duration: 81 msec QT Interval: 312 msec QTC Interval: 366 msec P-R-T [place]: 52 - 39 - 51 degrees IMPRESSION: SINUS RHYTHM LOW QRS VOLTAGE IN PRECORDIAL LEADS [QRS DEFLECTION < 1.0 mV IN CHEST LEADS] BORDERLINE ECG Electronically Signed By: Akira Garza MD, [facility] Lyle Morrison MD ECG ORDERABLES Final Result Performing Organization Address [facility]/ZIP Co de Phone Number [facility] burrp! [facility] * (ABNORMAL) Troponin T high-sensitivity series (baseline, 2hr, 4hr, 6hr) (12/24/2024 7:21 AM CDT) Trop T hs 26(H) <=14 ng/L REBECCA SPAIN ([place]) Comment: Interpretive Data For further hscTnT resources including the diagnostic algorithm and an aid in interpretation, copy and paste this link: https://nrl.testcatalog.org/show/hsTrop Current Interpretive Data last revised 2020. Blood 12/24/2024 7:21 AM CDT 12/24/2024 7:29 AM CDT Lyle Morrison MD LAB BLOOD ORDERABLES Final R esult REBECCA SPAIN ([place]) [address] [facility] [place] [address] * Sepsis Lactate w/ Reflex (12/24/2024 7:21 AM CDT) Pathologist [facility] Sepsis Lactate 1.3 0.7 - 2.0 mmol/L Blood 12/24/2024 7:21 AM CDT 12/24/2024 7:29 AM CDT Lyle Morrison MD LAB BLOOD ORDERABLES Final R esult REBECCA SPAIN ([place]) [address] [facility] [place] [employer] [address] * (ABNORMAL) eGFR (12/24/2024 7:21 AM CDT) Pathologist [facility] eGFR 22(L) >=60 mL/min/1. 73 m2 Comment: [...] MD LAB BLOOD ORDERABLES Final R esult [facility] ([place]) 1 [facility] [place] [address] * (ABNORMAL) Differential, auto (12/24/2024 7:21 AM [...] BLOOD ORDERABLES Final R esult REBECCA SPAIN ([place]) 1 [facility] Department of Laboratories [place], [place] [address] * Pro B-type natriuretic peptide (12/24/2024 7:21 AM CDT) NT-proBNP 118 <=450 pg/mL REBECCA SPAIN ([place]) Comment: Interpretive Comments: A. Dyspnea in Acute [...] Final R esult [facility] ([place]) 1 [facility] [place] [address] * (ABNORMAL) CBC with auto differential (12/24/2024 [...] 15.9(H) 11.1 - 14.9 % [facility] ([place]) RDW SD 51.6(H) 35.7 - 48.1 fL REBECCA SPAIN ([place]) NRBC abs 0.00 0.00 - 0.01 K/cumm REBECCA SPAIN ([place]) Blood 12/24/2024 7:21 AM CDT 12/24/2024 7:29 AM CDT Lyle Morrison MD LAB BLOOD ORDERABLES Final R esult REBECCA SPAIN ([place]) [address] [facility] [place] [address] * (ABNORMAL) aPTT (12/24/2024 7:21 AM CDT) aPTT 27(L) 28 - 38 sec REBECCA SPAIN ([place]) Comment: Interpretive Data Heparin therapeutic range: 66.0 - 100.0 seconds. Range based on correlation with therapeutic heparin activity range of 0.3 - 0.7 Units/mL. Current interpretive data was last revised on 2023. Blood 12/24/2024 7:21 AM CDT 12/24/2024 7:29 AM CDT Lyle Morrison MD LAB BLOOD ORDERABLES Final R esult Performing Organization Address [facility] Co de Phone Number REBECCA SPAIN ([place]) [address] [facility] [place] [employer] [place] [address] * Magnesium (12/24/2024 7:21 AM CDT) Magnesium 1.9 1.4 - 2.5 mg/dL REBECCA SPAIN ([place]) Blood 12/24/2024 7:21 AM CDT 12/24/2024 7:29 AM CDT Lyle Morrison MD LAB BLOOD ORDERABLES Final R esult Performing Organization Address City/[facility]/ZIP Co de Phone Number REBECCA SPAIN ([place]) [address] [place] [address] * (ABNORMAL) Comprehensive metabolic panel (12/24/2024 7:21 [...] ORDERABLES Final R esult REBECCA SPAIN [place]) 8 [facility] Department of Laboratories [place], [place] [address] * CT Abdomen Pelvis WO Contrast (12/13/2024 [...] by Amanda Moe M.D. SN: Report ID: [id number] Reading Location: [id number] Procedure Note Amanda Moe MD - 12/13/2024 [...] by Amanda Moe M.D. SN: Report ID: [id number] Reading Location: [place] [address] PROCEDURES Final R [...] tendency for uric acid stone formation. Source: [facility] Current Interpretive Data was last revised [...] RDERABLES Final Result [facility]CCA [facility] ([place]) 1 [facility] [place] [address] * (ABNORMAL) Urinalysis, microscopic only (12/13/2024 8:44 [...] ORDERABLES Final R esult Performing Organization Address City/[facility]/ZIP Co de Phone Number REBECCA SPAIN ([place]) [address] [place] [address] [place] [address] * Urine culture Urine (12/13/2024 8:44 PM CDT) Report Final Report: Less than 100,000 colonies/mL (clinically insignificant growth based on current clinical standards) Comment:Testing performed by : [facility], 1 [place]., [address] Organism (CLINICALLY INSIGNIFICANT GROWTH REBECCA GRABIEL ([place]) Urine 12/13/2024 8:44 PM CDT 12/14/2024 12:12 AM CDT Narrative REBECCA [facility] ([place]) - 12/15/2024 6:48 AM CDT Urine culture reflexed based upon urinalysis results. Testing performed by [facility] Microbiology Laboratory ([phone]) Lyle Morrison MD LAB MICROBIOLOGY - GENERAL O RDERABLES Final Result Performing Organization Address [facility] Co de Phone Number REBECCA SPAIN ([place]) [address] [place] [address] [place] [address] * (ABNORMAL) eGFR (12/13/2024 4:45 PM CDT) [...] BLOOD ORDERABLES Final R esult REBECCA GRABIEL ([place]) 1 [facility] [place] [address] * (ABNORMAL) Differential, auto (12/13/2024 4:45 PM [...] BLOOD ORDERABLES Final R esult [facility] ([place]) 1 [facility] [place] [address] * (ABNORMAL) CBC with auto differential (12/13/2024 [...] RDW SD 49.2(H) 35.7 - 48.1 fL [facility] ([place] NRBC abs 0.00 0.00 - 0.01 K/cumm [facility] ([place]) Blood Venous blood specimen / Unknown 12/13/2024 4:45 PM CDT 12/13/2024 5:33 PM CDT Lyle Morrison MD LAB BLOOD ORDERABLES Final R esult [facility] ([place]) 1 [facility] [place] [address] * (ABNORMAL) Comprehensive metabolic panel (12/13/2024 4:45 PM CDT) Sodium 140 135 - 145 mmol/L [facility] ([place] Potassium, pl 5.1(H) 3.3 - 4.9 mmol/L [facility] Chloride 104 97 - 110 mmol/L [facility] ([place]) CO2 23 22 - 32 mmol/L [facility] ([place]) Anion gap 13 2 - 15 mmol/L [facility] BUN 44(H) 6 - 25 mg/dL [facility] Creatinine 1.73(H) 0.60 - 1.10 mg/dL [facility] ([place]) Glucose 139 70 - 199 mg/dL [facility] ([place] Comment: Interpretive Data Fasting glucose [...] Final R esult [facility]CCA [facility] ([place]) 1 [facility] [place] [address] * COLONOSCOPY (02/09/2018 10:41 AM CDT) Anatomical Region Laterality Modality Other Narrative Procedure Note Warren Perkins MD - 02/09/2018 10:41 AM CDT [facility] Patient Name: Connie Ambrose Procedure Date: 02/09/2018 10:41 AM Date of : 1945 Admit Type: Outpatient Age: 72 Gender: Female Attending MD: Warren Perkins M.D. Room: [facility] ENDOSCOPY ROOM 1 Note Status: Finalized Procedure: [...] scope was passed under direct vision.The Colonoscope [id number] was introducedthrough the anus and advanced to [...] 10:41 AM Procedure Code(s): --- Professional --- 42210, Colonoscopy, flexible; diagnostic, including collection of specimen(s) by brushing or washing, when performed (separateprocedure) Diagnosis Code(s): --- Professional --- K57.30, Diverticulosis of large intestine without perforation orabscess without bleeding R19.5, Other fecal abnormalities K64.9, Unspecified hemorrhoids CPT copyright 2017 [employer]. All rights reserved. The codes documented in this report are preliminary and upon reel and rewinder operator reviewmay be revised to meet current compliance requirements. Recognized by the [employer] for promoting quality in endoscopy Warren Perkins MD ENDOSCOPY PROCEDURES Final Re sult from Last 3 Months or Most Recently Relevant to Health Maintenance Additional Health Concerns Infection Onset Date Last Indicated C. difficile 12/26/2024 12/26/2024 Insurance [facility] MDCR HMO [facility] MEDICARE Address: [facility] [address] [place] [address] [employer] MEDICARE ADVANTAGE [facility] MED[facility] Address: [facility] [address] [place] [address] Advance Directives For more information, please contact: [phone] * Full Code (Latest Code Status on [...] 9:33 AM 12/28/2024 8:11 PM Care Teams Fingerprint Technician Relationship Specialty Start Date End Date Misael Montaño MD [address] [facility] [address] [place] [address] PCP - General Family Medicine 01/12/18 Johnathan Booker MD [address] [place] [address] PCP - Home Infusion Attending Infectious Diseases 12/28/24 Abby De Leon MD [address] [place] [address] [place] [address] Consulting Physician Gastroenterology 01/02/25
--- OUTSIDE RECORDS SUMMARY | 2025-02-15 07:48 | XMS_ITS | Clinical Summary ---
Author Organization [facility] Facility Address [address] [place] [address] Care Team Providers Care Carpet Cleaning Technician Name Role Phone Misael Montaño MD Primary Care Provider [phone] Allergies Active Allergy Reactions Criticality Noted Date Comments Adhesive Tape 07/29/2022 Antihistamines, Diphenhydramine-Type Rash Low 07/29/2022 Aspirin 07/29/2022 Clindamycin GI intolerance 07/29/2022 Doxycycline 07/29/2022 Indomethacin Vomiting High 07/29/2022 Salicylates Rash Low 07/29/2022 Sulfamethizole 07/29/2022 Trimethoprim 07/29/2022 Medications Standish 3 1000 MG capsule Take 1 capsule [...] patient's age to complete this topic Insurance [id number] Medicare Care Teams Carpet Cleaning Technician Relationship Specialty Start Date End Date Misael Montaño MD [address] [place] [address] PCP - General Family Medicine 07/29/22
--- OUTSIDE RECORDS SUMMARY | 2025-02-15 08:10 | XMS_ITS | Clinical Summary ---
[facility] Organization [facility] B Address [address] [place] [address] Care Team Providers Care Drafter (Cad) Electrical Name Role Phone Misael Montaño MD Primary Care Provider Johnathan Booker MD Unavailable + [phone] Abby De Leon MD Unavailable [phone] Allergies Active Allergy Reactions Criticality Noted Date [...] w diff, BMP- Please fax results to [phone] - repeat CT scan abd/pelvis wo contrast [...] (01/12/2018): Added automatically from request for surgery [id number] Encounters Date Type Department Care Team Description 01/31/2025 1:38 PM CDT - 01/31/2025 11:59 PM CDT Hospital Encounter [address] [address] Samuel Marie MD Discharge Disposition: Discharge to home or self care 01/27/2025 1:57 PM CDT - 01/27/2025 11:59 PM CDT Hospital Encounter [facility] [address] [place] [address] Acute diverticulitis Discharge Disposition: Discharge to home or self care 01/19/2025 11:00 AM CDT Office Visit [facility] [address] [facility] [address] [place] [address] Lisa Wolfe NP Acute diverticulitis (Primary Dx) 01/15/2025 11:00 PM CDT - 01/15/2025 11:59 PM CDT Hospital Encounter [facility] Emergency, Room R Discharge Disposition: Discharge to home or self care 01/15/2025 6:59 PM CDT - 01/15/2025 11:07 PM CDT Emergency [facility] Emergency Department [address] [place] [address] Antwon Ashley MD Fall, initial encounter (Primary Dx) Discharge Disposition: Discharge to alf facility 01/06/2025 2:11 AM CDT - 01/09/2025 3:52 PM CDT Hospital Encounter [facility] Medical Care [address] [place] [address] Lyle Morrison MD Huynh, Kiet T., MD Bezuneh, Abraham Deneke, MD Seizure (HCC) (Primary Dx); Syncope and collapse [R55]; Cervical spinal stenosis [M48.02] Discharge Disposition: Discharge to SNF 01/05/2025 2:56 AM CDT - 01/05/2025 4:25 AM CDT Emergency [facility] Emergency Department 1 [place] [address] Marino Molina MD Fall, initial encounter (Primary Dx) Discharge Disposition: Discharge to home or self care 01/05/2025 2:48 AM CDT - 01/05/2025 11:59 PM CDT Hospital Encounter [facility] Emergency, Room R Discharge Disposition: Discharge to home or self care 01/04/2025 Telephone [facility] [place] [address] [facility] [address] [place] [address] Salome Epperson LPN 12/30/2024 5:12 AM CDT - 01/02/2025 4:22 PM CDT Hospital Encounter [facility] Medical [facility] 1 [place] [address] Lyle Morrison MD Kanumuri, Raghu, MD Singh, Arjun, MD Weakness (Primary Dx); Abdominal pain Discharge Disposition: Discharge to SNF 12/30/2024 5:00 AM CDT - 12/30/2024 11:59 PM CDT Hospital Encounter [facility] Emergency, Room R Discharge Disposition: Discharge to home or self care 12/30/2024 Home Infusion [facility] [address] [place] [address] Fe Buchanan [facility] 12/28/2024 Plan of Care Documentation [facility] [address] [place] [address] 12/28/2024 Home Infusion [facility] [address] [place] [address] Angelica Reinoso, [facility] Diverticulitis (Primary Dx) 12/27/2024 [facility] [address] [facility] [address] [place] [address] Mare Stephens LPN IV Antibx ([place] ) 12/24/2024 7:05 AM CDT - 12/28/2024 4:06 PM CDT Hospital Encounter [facility] IMU 1 [place] [address] Lyle Morrison MD Davis, Cedric Emden II, MD Singh, Arjun, MD Diverticulitis (Primary Dx); Acute cystitis with hematuria; Weakness; C. difficile colitis; Illness, unspecified Discharge Disposition: Discharge to home or self care 12/13/2024 8:33 PM CDT - 12/13/2024 11:17 PM CDT Emergency [facility] Emergency Department 1 [place] [address] Lyle Morrison MD Diverticulitis (Primary Dx); Urinary [...] often do you attend chur ch or oriental orthodox services? Never 12/26/2024 Do you belong to any clubs o r organizations such as jew groups, unions, fraternal or athletic groups, or [...] any time in the past 12 m [facility], were you homeless or living in a fdc (including now)? No 12/26/2024 Social Connection and Isolation Panel Answer Date Recorded In a typical week, how many times do you talk on the phone with family, friends, or neighbors? More than three times a week 01/06/2025 How often do you get togethe r with friends or relatives? More than three times a week 01/06/2025 How often do you attend chur ch or oriental orthodox services? Never 01/06/2025 Do you belong to any clubs o r organizations such as jew groups, unions, fraternal or athletic groups, or [...] any time in the past 12 m [facility], were you homeless or living in a fdc (including now)? No 01/06/2025 [facility] Utilities Answer Date Recorded In the [...] on file Legal Sex Female 7:34 PM TACK DRILLER Gender Identity Not on file Sexual Orientation [...] st Contact Info) Description 04/14/2025 12:00 PM TACK DRILLER Hospital Encounter [facility] 1 [place] [address] Gloria Amador MD [address] [facility] [address] [place] [address] 04/14/2025 12:00 PM TACK DRILLER - 04/14/2025 12:30 PM TACK DRILLER Surgery [facility] 1 [place] [address] Gloria Amador MD [address] [facility] [address] [place] [address] COLONOSCOPY Scheduled Procedures Name Priority Associated Diagnoses Date/Ti me COLONOSCOPY Diverticulitis 04/14/2025 12:00 PM TACK DRILLER Health Maintenance Due Date Last Done Comments [...] LAB BLOOD ORDERABLES Final Res ult [facility]) [address] [facility] Department of Laboratories [place], [place] [id number] * Differential, auto (01/31/2025 2:35 PM CDT) Neutrophil abs 3.98 1.50 - 6.50 K/cumm Imm gran abs 0.01 0.00 - 0.10 K/cumm [facility] ([place]) Lymphocyte abs 2.13 0.80 - 3.30 K/cumm [facility] ([place]) Monocyte abs 0.80 0.20 - 0.80 K/cumm [facility] ([place]) Eosinophil abs 0.22 0.00 - 0.50 K/cumm [...] Final Res ult [facility] ([place]) [address] [facility] [place] [address] * (ABNORMAL) CBC with auto differential (01/31/2025 [...] MD LAB BLOOD ORDERABLES Final Res ult [facility] ([place]) [address] [facility] [place] [address] * (ABNORMAL) Basic metabolic panel (01/31/2025 2:35 PM CDT) Sodium 140 135 - 145 mmol/L [facility] ([place] Potassium, pl 4.8 3.3 - 4.9 mmol/L [facility] ([place]) Chloride 105 97 - 110 mmol/L [facility] ([place]) CO2 23 22 - 32 mmol/L [facility] ([place]) Anion gap 12 2 - 15 mmol/L [facility] ([place]) BUN 57(H) 6 - 25 mg/dL [facility] ([place]) Creatinine 2.28(H) 0.60 - 1.10 mg/dL [facility] ([place]) Glucose 100 70 - 199 mg/dL [facility] ([place]) Comment: Interpretive Data Fasting glucose >/= [...] 2022. Calcium 10.1 8.5 - 10.3 mg/dL [facility] ([place]) Blood 01/31/2025 2:35 PM CDT 01/31/2025 2:36 PM CDT Samuel Marie MD LAB BLOOD ORDERABLES Final Res ult [facility] ([place]) [address] [facility] [place] [address] * CT abdomen pelvis without contrast (01/27/2025 [...] Ryan Howell M.D. KH: FLORINDA Report ID: [id number] Reading Location: [id number] Procedure Note Ryan Howell MD - 01/15/2025 [...] Ryan Howell M.D. KH: FLORINDA Report ID: [id number] Reading Location: [id number] Katalina WAGNER IM XR PROCEDURES Final Result [...] signed by Ryan NEELY: FLORINDA Report ID: [id number] Reading Location: [place] [address] Procedure Note Ryan Howell MD - 01/15/2025 [...] signed by Ryan NEELY: FLORINDA Report ID: [id number] Reading Location: [place] [address] Katalina WAGNER [facility] PROCEDURES Final Result * CT Head [...] Ryan Howell M.D. KH: FLORINDA Report ID: [id number] Reading Location: [place] [address] Procedure Note Ryan Howell MD - 01/15/2025 [...] Ryan Howell M.D. KH: FLORINDA Report ID: [id number] Reading Location: [place] [address] PROCEDURES Final Result * ECG 12 lead (01/15/2025 7:03 PM CDT) 01/15/2025 7:03 PM CDT Narrative [facility] - 01/16/2025 8:31 AM CDT Vent Rate: 112 bpm RR Interval: 532 msec MN Interval: 181 msec QRS Duration: 88 msec QT Interval: 310 msec QTC Interval: 376 msec P-R-T [place]: 53 - 26 - 42 degrees IMPRESSION: SINUS TACHYCARDIA ABNORMAL RHYTHM ECG Compared to prior EKG heart rate increased Electronically Signed By: Marco Antonio Mustafa MD [facility] Katalina WAGNER ECG ORDERABLES Final Result [facility] * (ABNORMAL) eGFR (01/09/2025 5:51 AM [...] BLOOD ORDERABLES F inal Result [facility] ([place]) [address] [facility] [place] [address] * (ABNORMAL) Differential, auto (01/09/2025 5:51 AM [...] F inal Result [facility] ([place]) [address] [facility] [place] [address] * (ABNORMAL) CBC with auto differential (01/09/2025 [...] F inal Result [facility] ([place]) [address] [facility] [place] [address] * (ABNORMAL) Comprehensive metabolic panel (01/09/2025 5:51 [...] F inal Result [facility] ([place]) [address] [facility] [place] [address] * (ABNORMAL) Differential, auto (01/07/2025 9:56 AM [...] F inal Result [facility] ([place]) [address] [facility] [place] [address] * (ABNORMAL) CBC with auto differential (01/07/2025 [...] F inal Result [facility] ([place]) [address] [facility] [place] [address] * MRI Cervical Spine WO Contrast (01/06/2025 5:03 PM CDT) Anatomical Region Laterality Modality Spine N/A Magnetic Resonan ce 01/06/2025 11:0 3 PM CDT Narrative 01/06/2025 11:09 PM CDT EXAM DESCRIPTION: MRI CERVICAL SPINE WO CONTRAST REASON FOR STUDY: To rule out cervical stenosis Patient was found face down at the long term. She was having a seizure for 3 [...] Tigre Steele M.D. LC: MARIO Report ID: [id number] Reading Location: [id number] Procedure Note Linda Steele MD - 01/06/2025 EXAM DESCRIPTION: MRI CERVICAL SPINE WO CONTRAST REASON FOR STUDY: To rule out cervical stenosis Patient was found face down at the long term. She was having a seizurefor 3 minutes. [...] Tigre Steele M.D. LC: MARIO Report ID: [id number] Reading Location: [id number] us Gilberto RaymonGarima Mead NP IMG MRI [...] Patient was found face down at the long term. She was having a seizure for 3 [...] Tigre Steele M.D. LC: MARIO Report ID: [id number] Reading Location: [id number] Procedure Note Linda Steele MD - 01/06/2025 EXAM DESCRIPTION: MRI BRAIN WO CONTRAST REASON FOR STUDY: Neuro deficit, acute, stroke suspected, Seizure, new-onset, no history of trauma Patient was found face down at the long term. She was having a seizurefor 3 minutes. Afterwards she was confused. She denies headache, chest pain, shortness breath, nausea, vomiting, dizziness. Patient is medicated. Best images possible. TECHNIQUE: Multiplanar imaging includes non-contrasted T1, T2, FLAIR, and diffusion with ADC map sequences. Additional sequence(s) sensitive [place]. Images stored on PACS. COMPARISON: Head CT [...] Tigre Steele M.D. LC: MARIO Report ID: [id number] Reading Location: [id number] us Gilberto J. Witges APPLE PICKER IMG MRI PROCEDURES Final Re sult * [...] hs delta 3 ng/L [facility] ([place]) Trop T hs interp Insignificant [facility] ([place]) Blood 01/06/2025 8:46 AM CDT 01/06/2025 8:52 AM CDT Lyle Morrison MD LAB BLOOD ORDERABLES Final R esult [facility] ([place]) [address] [facility] of [facility] [place], [place] [id number] * (ABNORMAL) Troponin T high-sensitivity 2-hour (01/06/2025 [...] Trop T hs interp Insignificant [facility] ([place]) Blood 01/06/2025 4:41 AM CDT 01/06/2025 4:44 AM CDT us Lyle Morrison MD LAB BLOOD ORDERABLES Final R esult [facility] ([place]) [address] [facility] [place] [address] * CT Cervical Spine WO Contrast (01/06/2025 3:21 AM CDT) Anatomical Region Laterality Modality Spine N/A Computed Tomogra phy 01/06/2025 3:35 AM CDT Narrative 01/06/2025 3:37 AM CDT EXAM DESCRIPTION: CT CERVICAL SPINE WO CONTRAST REASON FOR STUDY: Neck trauma (Age >= 65y) Patient was found face down at the long term. She was having a seizure for 3 [...] 01/06/2025 3:37 AM - Electronically signed by lAeksandr Garner M.D. AR: [place] Report ID: [id number] Reading Location: [id number] Procedure Note Aleksandr Garner MD - 01/06/2025 EXAM DESCRIPTION: CT CERVICAL SPINE WO CONTRAST REASON FOR STUDY: Neck trauma (Age >= 65y) Patient was found face down at the long term. She was having a seizurefor 3 minutes. [...] Aleksandr Garner M.D. AR: ARMANDO Report ID: [id number] Reading Location: [id number] Lyle Morrison MD IMG CT PROCEDURES Final Resu lt * CT Head WO Contrast (01/06/2025 3:21 AM CDT) Anatomical Region Laterality Modality Head and Neck N/A Computed Tomogra phy 01/06/2025 3:37 AM CDT Narrative 01/06/2025 3:38 AM CDT EXAM DESCRIPTION: CT HEAD WO CONTRAST REASON FOR STUDY: Head trauma, minor (Age >= 65y) Patient was found face down at the long term. She was having a seizure for 3 [...] Aleksandr Garner M.D. AR: ARMANDO Report ID: [id number] Reading Location: [place] [address] Procedure Note Aleksandr Garner MD - 01/06/2025 EXAM DESCRIPTION: CT HEAD WO CONTRAST REASON FOR STUDY: Head trauma, minor (Age >= 65y) Patient was found face down at the long term. She was having a seizurefor 3 minutes. [...] Aleksandr Garner M.D. AR: ARMANDO Report ID: [id number] Reading Location: [id number] Lyle Morrison MD IMG CT PROCEDURES Final Resu lt * ECG 12 lead (01/06/2025 2:36 AM CDT) 01/06/2025 2:3 6 AM CDT Narrative [facility] - 01/06/2025 8:26 AM CDT Vent Rate: 96 bpm RR Interval: 620 msec MN Interval: 196 msec QRS Duration: 85 msec QT Interval: 328 msec QTC Interval: 382 msec P-R-T [place]: 56 - 26 - 41 degrees IMPRESSION: SINUS RHYTHM POSSIBLE LEFT ATRIAL ENLARGEMENT [-0.1mV P-WAVE IN V1/V2] BORDERLINE ECG NO CHANGE FROM PREVIOUS TRACING NOTED Electronically Signed By: Harry Jaimes MD Lyle Morrison MD ECG ORDERABLES Final Result Performing Organization Address City/[facility] Co de Phone Number [facility] * (ABNORMAL) Troponin T high-sensitivity series (baseline, 2hr, 4hr, 6hr) (01/06/2025 2:29 AM CDT) Trop T hs 23(H) <=14 ng/L [facility] ([place]) Comment: Interpretive Data For further hscTnT resources including the diagnostic algorithm and an aid in interpretation, copy and paste this link: https://nrl.testcatalog.org/show/hsTrop Current Interpretive Data last revised 2020. Blood 01/06/2025 2:29 AM CDT 01/06/2025 2:33 AM CDT Lyle Morrison MD LAB BLOOD ORDERABLES Final R esult [facility] ([place]) [address] [facility] [place] [address] * Sepsis Lactate w/ Reflex (01/06/2025 2:29 AM CDT) Sepsis Lactate 2.0 0.7 - 2.0 mmol/L Blood 01/06/2025 2:29 AM CDT 01/06/2025 2:33 AM CDT Lyle Morrison MD LAB BLOOD ORDERABLES Final R esult [facility] ([place]) 1 [facility] [place] [address] * (ABNORMAL) eGFR (01/06/2025 2:29 AM CDT) [...] BLOOD ORDERABLES Final R esult [facility] ([place]) [address] [facility] [place] [address] * (ABNORMAL) Differential, auto (01/06/2025 2:29 AM [...] ORDERABLES Final R yumi Performing Organization Address City/[facility]/ZIP Co de Phone Number [facility] ([place]) [address] [facility] Department of Laboratories [place] [id number] * Pro B-type natriuretic peptide (01/06/2025 2:29 AM CDT) NT-proBNP 323 <=450 pg/mL [facility] ([place]) Comment: Interpretive Comments: A. Dyspnea in Acute [...] ORDERABLES Final R yumi Performing Organization Address [facility]/ZIP Co de Phone Number [facility] ([place]) [address] [facility] [place] [address] * (ABNORMAL) CBC with auto differential (01/06/2025 [...] Final R esult [facility] ([place]) [address] [facility] [place] [address] * Magnesium (01/06/2025 2:29 AM CDT) Magnesium 1.8 1.4 - 2.5 mg/dL [facility] ([place]) Blood 01/06/2025 2:29 AM CDT 01/06/2025 2:33 AM CDT us Lyle Morrison MD LAB BLOOD ORDERABLES Final R esult [facility] ([place]) [address] [facility] [place] [address] * (ABNORMAL) Comprehensive metabolic panel (01/06/2025 2:29 [...] BLOOD ORDERABLES Final R esult [facility] ([place]) [address] [facility] [place] [address] * CT Cervical Spine WO Contrast (01/05/2025 [...] Aleksandr Garner M.D. AR: ARMANDO Report ID: [id number] Reading Location: [id number] Procedure Note Aleksandr Garner MD - 01/05/2025 [...] Aleksandr Garner M.D. AR: ARMANDO Report ID: [id number] Reading Location: [place] [address] Marino Molina MD IMG CT PROCEDURES Final [...] Aleksandr Garner M.D. AR: ARMANDO Report ID: [id number] Reading Location: [id number] Procedure Note Aleksandr Garner MD - 01/05/2025 [...] Aleksandr Garner M.D. AR: ARMANDO Report ID: [id number] Reading Location: [place] [address] Marino Molina MD IM CT PROCEDURES Final [...] Final Res ult [facility] ([place]) [address] [facility] [place] [address] * (ABNORMAL) Differential, auto (01/05/2025 3:05 AM [...] Final Res ult [facility] ([place]) [address] [facility] [place] [address] * (ABNORMAL) CBC with auto differential (01/05/2025 [...] RDW SD 53.5(H) 35.7 - 48.1 fL [facility] NRBC abs 0.00 0.00 - 0.01 K/cumm [facility]) Blood 01/05/2025 3:05 AM CDT 01/05/2025 3:10 AM CDT us Marino Molina MD LAB BLOOD ORDERABLES Final Res ult [facility] ([place]) [address] [facility] [place] [address] * (ABNORMAL) Comprehensive metabolic panel (01/05/2025 3:05 AM CDT) Sodium 140 135 - 145 mmol/L [facility] ([place]) Potassium, pl 3.8 3.3 - 4.9 mmol/L [facility] ([place]) Chloride 101 97 - 110 mmol/L [facility] ([place]) CO2 25 22 - 32 mmol/L [facility] ([place] Anion gap 14 2 - 15 mmol/L [facility] ([place]) BUN 27(H) 6 - 25 mg/dL [facility] ([place]) Creatinine 2.15(H) 0.60 - 1.10 mg/dL [facility] ([place]) Glucose 112 70 - 199 mg/dL [facility] ([place]) Comment: Interpretive Data [...] ORDERABLES Final Res ult Performing Organization Address City/[facility] Co de Phone Number [facility] ([place]) [address] [facility] [place] [address] * ECG 12 lead (01/05/2025 3:02 AM CDT) 01/05/2025 3:02 AM CDT Narrative [facility] - 01/05/2025 4:08 PM CDT Vent Rate: 99 bpm RR Interval: 604 msec MN Interval: 160 msec QRS Duration: 93 msec QT Interval: 348 msec QTC Interval: 404 msec P-R-T [place]: 39 - 22 - 44 degrees IMPRESSION: SINUS RHYTHM NORMAL ECG NO CHANGE FROM PREVIOUS TRACING NOTED Electronically Signed By: Harry Jaimes MD Marino Molina MD ECG ORDERABLES Final Result Performing Organization Address [facility] Co de Phone Number [facility] * Line ok to use (01/02/2025 [...] with peel away sheath - Lot #: [id number] - Expiration Date: 10/22/25 -JN Trimmed Length [...] Care Team -- Needed upon discharge for nursing home use (e.g. long-term antibiotics) -JN -- [REMOVED] [...] locate and cannulate vein - Lot #: [id number] -JN Expiration Date: 01/22/26 -JN Verification: Able [...] ready for use. Cheryl Villafana RN us oJhnathan Booker MD IV THERAPY ORDERABLE S Final [...] with peel away sheath - Lot #: [id number] - Expiration Date: 10/22/25 -JN Trimmed Length [...] Care Team -- Needed upon discharge for terminal carman use (e.g. long-term antibiotics) - -- [REMOVED] [...] locate and cannulate vein -JN Lot #: [id number] -JN Expiration Date: 01/22/26 -JN Verification: Able [...] * POCT glucose (01/02/2025 11:38 AM CDT) [facility] Glucose, POC 102 70 - 199 mg/dL Blood 01/02/2025 11:3 8 AM CDT 01/02/2025 11:38 AM CDT us Foster Aguilar MD LAB POCT ORDERABLES - DEVICE Fin al Result [facility] ([place]) [address] [facility] [place], [place] [id number] * POCT glucose (01/02/2025 7:46 AM CDT) [facility] Glucose, POC 95 70 - 199 mg/dL Blood 01/02/2025 7:46 AM CDT 01/02/2025 7:46 AM CDT us Foster Aguilar MD LAB POCT ORDERABLES - DEVICE Fin al Result Performing Organization Address City/[facility]/ZIP Co de Phone Number [facility] ([place]) [address] [place] [address] [place] [address] * (ABNORMAL) eGFR (01/02/2025 4:31 AM CDT) [facility] eGFR 31(L) >=60 mL/min/1. 73 m2 Comment: [...] BLOOD ORDERABLES Final Resul t [facility] ([place]) [address] [facility] [place] [address] * (ABNORMAL) Differential, auto (01/02/2025 4:31 AM [...] Final Resul t [facility] ([place]) 1 [facility] [place] [address] * (ABNORMAL) CBC with auto differential (01/02/2025 4:31 AM CDT) [facility] WBC 8.81 3.80 - 9.90 K/cumm Hgb [...] Final Resul t [facility] ([place]) [address] [facility] [place] [address] * (ABNORMAL) Comprehensive metabolic panel (01/02/2025 4:31 [...] MD LAB BLOOD ORDERABLES Final Resul t [facility] ([place] [address] [facility] [place] [address] * POCT glucose (01/02/2025 2:55 AM CDT) Glucose, POC 114 70 - 199 mg/dL Blood 01/02/2025 2:55 AM CDT 01/02/2025 2:55 AM CDT Foster Aguilar MD LAB POCT ORDERABLES - DEVICE Fin al Result [facility] ([place]) 1 [place] [address] * POCT glucose (01/01/2025 8:12 PM CDT) Glucose, POC 137 70 - 199 mg/dL Blood 01/01/2025 8:12 PM CDT 01/01/2025 8:12 PM CDT Foster Aguilar MD LAB POCT ORDERABLES - DEVICE Fin al Result Performing Organization Address City/[facility] Co de Phone Number [facility] ([place]) [address] [place] [address] * POCT glucose (01/01/2025 4:35 PM CDT) Glucose, POC 124 70 - 199 mg/dL Blood 01/01/2025 4:35 PM CDT 01/01/2025 4:35 PM CDT Foster Aguilar MD LAB POCT ORDERABLES - DEVICE Fin al Result Performing Organization Address City/[facility] Co de Phone Number [facility] ([place]) [address] [facility] [place] [address] * POCT glucose (01/01/2025 11:26 AM CDT) Glucose, POC 105 70 - 199 mg/dL Blood 01/01/2025 11:2 6 AM CDT 01/01/2025 11:26 AM CDT us Foster Aguilar MD LAB POCT ORDERABLES - DEVICE Fin al Result [facility] ([place]) 1 [facility] [place] [address] * POCT glucose (01/01/2025 7:31 AM CDT) Glucose, POC 108 70 - 199 mg/dL Blood 01/01/2025 7:31 AM CDT 01/01/2025 7:31 AM CDT Foster Aguilar MD LAB POCT ORDERABLES - DEVICE Fin al Result Performing Organization Address [facility] Co de Phone Number REBECCA SPAIN ([place]) [address] [facility] [place] [address] * (ABNORMAL) eGFR (01/01/2025 3:37 AM CDT) [...] BLOOD ORDERABLES Final Resul t REBECCA SPAIN ([place]) 1 [facility] [place] [address] * (ABNORMAL) Differential, auto (01/01/2025 3:37 AM CDT) Neutrophil abs 5.02 1.50 - 6.50 K/cumm Imm gran abs 0.18(H) 0.00 - 0.10 K/cumm [facility] ([place]) Lymphocyte abs 2.22 0.80 - 3.30 K/cumm [facility] ([place]) Monocyte abs 1.59(H) 0.20 - 0.80 K/cumm [facility] ([place]) Eosinophil abs 0.32 0.00 - 0.50 K/cumm [facility] ([place]) Basophil abs 0.03 0.00 - 0.10 K/cumm [facility] ([place]) Neutrophil pct 53.7 % [facility] ([place]) Comment: Interpretive Data Percent cell count reference ranges are not reported, since discordance with absolute values may lead to misinterpretation of CBC data. Current Interpretive Data was last revised on 2017. Imm gran pct 1.9 % [facility] ([place]) Comment: Interpretive Data Percent cell count reference ranges are not reported, since discordance with absolute values may lead to misinterpretation of CBC data. Current Interpretive Data was last revised on 2017. Lymphocyte pct 23.7 % [facility] ([place]) Comment: Interpretive Data Percent cell count reference ranges are not reported, since discordance with absolute values may lead to misinterpretation of CBC data. Current Interpretive Data was last revised on 2017. Monocyte pct 17.0 % [facility] ([place]) Comment: Interpretive Data Percent cell count reference ranges are not reported, since discordance with absolute values may lead to misinterpretation of CBC data. Current Interpretive Data was last revised on 2017. Eosinophil pct 3.4 % [facility] ([place]) Comment: Interpretive Data Percent cell count reference [...] Final Resul t [facility] ([place]) 1 [facility] [place] [address] * (ABNORMAL) CBC with auto differential (01/01/2025 [...] Final Resul t REBECCA SPAIN ([place]) 1 [facility] [place] [address] * (ABNORMAL) Comprehensive metabolic panel (01/01/2025 3:37 [...] 32 10 - 45 Units/L REBECCA SPAIN ([place]) Blood 01/01/2025 3:37 AM CDT 01/01/2025 3:58 AM CDT us Foster Aguilar MD LAB BLOOD ORDERABLES Final Resul t Performing Organization Address [facility] de Phone Number REBECCA SPAIN ([place]) [address] [facility] [place] [address] * POCT glucose (01/01/2025 2:42 AM CDT) Glucose, POC 104 70 - 199 mg/dL Blood 01/01/2025 2:42 AM CDT 01/01/2025 2:42 AM CDT us Foster Aguilar MD LAB POCT ORDERABLES - DEVICE Fin al Result Performing Organization Address [facility] de Phone Number REBECCA SPAIN ([place]) [address] [facility] [place] [address] * POCT glucose (12/31/2024 8:23 PM CDT) Glucose, POC 134 70 - 199 mg/dL Blood 12/31/2024 8:23 PM CDT 12/31/2024 8:23 PM CDT us Foster Aguilar MD LAB POCT ORDERABLES - DEVICE Fin al Result Performing Organization Address [facility] de Phone Number REBECCA SPAIN ([place]) [address] [facility] [place] [address] * POCT glucose (12/31/2024 4:23 PM CDT) Glucose, POC 115 70 - 199 mg/dL Blood 12/31/2024 4:23 PM CDT 12/31/2024 4:23 PM CDT us Foster Aguilar MD LAB POCT ORDERABLES - DEVICE Fin al Result Performing Organization Address City/[facility]/ZIP Co de Phone Number REBECCA SPAIN ([place]) 1 [facility] [place] [address] * (ABNORMAL) Urinalysis reflex to microscopic and [...] tendency for uric acid stone formation. Source: [facility] Rev Current Interpretive Data was last revised on [...] RDERABLES Final Result REBECCA SPAIN ([place]) 1 [facility] [place] [address] * (ABNORMAL) Urinalysis, microscopic only (12/31/2024 1:42 PM CDT) WBC, ur 0-5 0 - 5 /HPF RBC, ur 11-20(A) 0 - 2 /HPF [facility] ([place]) Epithelial cells, squamous, ur 1-5 0 - 5 /HPF [facility] ([place]) Bacteria, ur 1+(A) [facility] ([place]) Mucous, ur Present(A) CERNER A ([place]) Culture Reflex Comment Reflex conditions for urine culture (WBC >10) not met. [facility] ([place]) Urine 12/31/2024 1:42 PM CDT 12/31/2024 1:55 PM CDT Lyle Morrison MD LAB URINE ORDERABLES Final R esult Performing Organization Address [facility] Co de Phone Number [facility] ([place]) [address] [facility] [place] [address] * POCT glucose (12/31/2024 11:32 AM CDT) Glucose, POC 159 70 - 199 mg/dL Blood 12/31/2024 11:3 2 AM CDT 12/31/2024 11:32 AM CDT Foster Aguilar MD LAB POCT ORDERABLES - DEVICE Fin al Result Performing Organization Address [facility] Co de Phone Number [facility] ([place]) [address] [facility] [place] [address] * POCT glucose (12/31/2024 7:26 AM CDT) Glucose, POC 103 70 - 199 mg/dL Blood 12/31/2024 7:26 AM CDT 12/31/2024 7:26 AM CDT Foster Aguilar MD LAB POCT ORDERABLES - DEVICE Fin al Result Performing Organization Address City/[facility] Co de Phone Number [facility] ([place]) [address] [facility] [place] [address] * (ABNORMAL) eGFR (12/31/2024 4:33 AM CDT) [...] LAB BLOOD ORDERABLES Final Resul t REBECCA [facility] ([place]) 1 [facility] [place] [address] * (ABNORMAL) Differential, auto (12/31/2024 4:33 AM CDT) Pathologist [facility] Neutrophil abs 5.32 1.50 - 6.50 K/cumm [...] Final Res ult REBECCA GRABIEL ([place]) 1 [facility] [place] [address] * (ABNORMAL) CBC with auto differential (12/31/2024 [...] Final Res ult [facility] ([place]) 1 [facility] [place] [address] * (ABNORMAL) Comprehensive metabolic panel (12/31/2024 4:33 [...] Final Resul t [facility] ([place]) 1 [facility] [place] [address] * POCT glucose (12/31/2024 2:28 AM CDT) Glucose, POC 95 70 - 199 mg/dL Blood 12/31/2024 2:28 AM CDT 12/31/2024 2:28 AM CDT us Foster Aguilar MD LAB POCT ORDERABLES - DEVICE Fin al Result Performing Organization Address City/[facility]/ZIP Co de Phone Number REBECCA SPAIN ([place]) 1 [place] [address] * POCT glucose (12/30/2024 4:35 PM CDT) Glucose, POC 103 70 - 199 mg/dL Blood 12/30/2024 4:35 PM CDT 12/30/2024 4:35 PM CDT Foster Aguilar MD LAB POCT ORDERABLES - DEVICE Fin al Result Performing Organization Address [facility] Co de Phone Number REBECCA SPAIN ([place]) 1 [place] [address] * (ABNORMAL) Troponin T high-sensitivity 6-hour (12/30/2024 12:11 PM CDT) [facility] Trop T hs 23(H) <=14 ng/L REBECCA SPAIN ([place]) Comment: Interpretive Data For further hscTnT resources including the diagnostic algorithm and an aid in interpretation, copy and paste this link: https://nrl.testcatalog.org/show/hsTrop Current Interpretive Data last revised 2020. Trop T hs delta 0 ng/L [facility] ([place]) Trop T hs interp Insignificant [facility] ([place]) Blood 12/30/2024 12:1 1 PM CDT 12/30/2024 12:16 PM CDT us Foster Aguilar MD LAB BLOOD ORDERABLES Final Resul t Performing Organization Address [facility]/ZIP Co de Phone Number REBECCA SPAIN ([place]) [address] [facility] [place] [address] * POCT glucose (12/30/2024 11:43 AM CDT) Glucose, POC 94 70 - 199 mg/dL Blood 12/30/2024 11:4 3 AM CDT 12/30/2024 11:43 AM CDT us Foster Aguilar MD LAB POCT ORDERABLES - DEVICE Fin al Result REBECCA SPAIN ([place]) 1 [place] [address] * Troponin T high-sensitivity 6-hour (12/30/2024 11:37 AM CDT) Trop T hs See Comment <=14 Comment: sample QNS. Please see redraw for results Interpretive Data For further hscTnT resources including the diagnostic algorithm and an aid in interpretation, copy and paste this link: https://nrl.[employer].org/show/hsTrop Current Interpretive Data last revised 2020. Trop T hs delta See Comment CE BARBARAER GRABIEL ([place]) Comment:sample QNS. Please s ee redraw for results Trop T hs interp See Comment C ERNER GRABIEL ([place]) Comment:sample QNS. Please s ee redraw for results Blood 12/30/2024 11:3 7 AM CDT 12/30/2024 11:38 AM CDT us Lyle Morrison MD LAB BLOOD ORDERABLES Final R esult Performing Organization Address City/[facility] Co de Phone Number REBECCA SPAIN ([place]) 1 [place] [address] * (ABNORMAL) Troponin T high-sensitivity 4-hour (12/30/2024 8:46 AM CDT) Trop T hs 25(H) <=14 ng/L [facility] ([place]) Comment: Interpretive Data For further hscTnT resources including the diagnostic algorithm and an aid in interpretation, copy and paste this link: https://nrl.[employer].org/show/hsTrop Current Interpretive Data last revised 2020. Trop T hs delta 2 ng/L [facility] ([place]) Trop T hs interp Insignificant [facility] ([place]) Blood 12/30/2024 8:46 AM CDT 12/30/2024 8:49 AM CDT Lyle Morrison MD LAB BLOOD ORDERABLES Final R esult Performing Organization Address [facility] Co de Phone Number REBECCA SPAIN ([place]) 1 [facility] [place] [address] * POCT glucose (12/30/2024 8:37 AM CDT) Glucose, POC 88 70 - 199 mg/dL Blood 12/30/2024 8:37 AM CDT 12/30/2024 8:37 AM CDT Foster Aguilar MD LAB POCT ORDERABLES - DEVICE Fin al Result Performing Organization Address [facility] de Phone Number REBECCA SPAIN ([place]) 1 [place] [address] * (ABNORMAL) Troponin T high-sensitivity 2-hour (12/30/2024 [...] ORDERABLES Final R esult Performing Organization Address [facility] Co de Phone Number REBECCA SPAIN ([place]) [address] [facility] [place] [address] * XR Chest 1 View (12/30/2024 6:11 [...] by Amanda Moe M.D. SN: Report ID: [id number] Reading Location: [id number] Procedure Note Amanda Moe MD - 12/30/2024 [...] by Amanda Moe M.D. SN: Report ID: [id number] Reading Location: [id number] Lyle Morrison MD IMG XR PROCEDURES Final Resu lt * CT Abdomen Pelvis WO Contrast (12/30/2024 6:02 AM CDT) Anatomical Region Laterality Modality Body N/A Computed Tomogra phy 12/30/2024 6:04 AM CDT Narrative 12/30/2024 6:13 AM CDT EXAM DESCRIPTION: CT ABDOMEN PELVIS WO CONTRAST REASON FOR STUDY: Abdominal pain, acute, nonlocalized complaint of weakness, was discharged from [facility] 2 days ago after being admitted for [...] Donald Key M.D. RB: BRUNA Report ID: [id number] Reading Location: [place] [address] Procedure Note Donald Key MD - 12/30/2024 EXAM DESCRIPTION: CT ABDOMEN PELVIS WO CONTRAST REASON FOR STUDY: Abdominal pain, acute, nonlocalized complaint of weakness, was discharged from [facility] 2 days ago after being admitted for [...] by Donald Carver.D. RB: RB Report ID: [id number] Reading Location: [id number] Lyle Morrison MD IMG CT PROCEDURES Final Resu lt * ECG 12 lead (12/30/2024 5:23 AM CDT) 12/30/2024 5:23 AM CDT Narrative [facility] - 12/30/2024 8:34 AM CDT Vent Rate: 98 bpm RR Interval: 610 msec MN Interval: 180 msec QRS Duration: 78 msec QT Interval: 317 msec QTC Interval: 372 msec P-R-T [place]: 64 - 34 - 30 degrees IMPRESSION: SINUS RHYTHM Baseline artifact Compared to prior EKG, heart rate is now slightly slower Electronically Signed By: Dr Donald Hopkins Lyle Morrison MD ECG ORDERABLES Final Result Performing Organization Address City/[facility] Co de Phone Number [facility] [employer] [facility] * (ABNORMAL) Troponin T high-sensitivity series (baseline, 2hr, 4hr, 6hr) (12/30/2024 5:21 AM CDT) Trop T hs 23(H) <=14 ng/L REBECCA SPAIN ([place]) Comment: Interpretive Data For further hscTnT resources including the diagnostic algorithm and an aid in interpretation, copy and paste this link: https://nrl.testcatalog.org/show/hsTrop Current Interpretive Data last revised 2020. Blood 12/30/2024 5:21 AM CDT 12/30/2024 5:35 AM CDT Lyle Morrison MD LAB BLOOD ORDERABLES Final R esult REBECCA SPAIN ([place]) 1 [facility] [place] [address] * (ABNORMAL) eGFR (12/30/2024 5:21 AM CDT) [...] LAB BLOOD ORDERABLES Final R esult REBECCA [facility] ([place]) 1 [facility] [place] [address] * (ABNORMAL) Differential, auto (12/30/2024 5:21 AM [...] Final R esult REBECCA SPAIN ([place]) 1 [facility] [place] [address] * Pro B-type natriuretic peptide [...] BLOOD ORDERABLES Final R esult REBECCA SPAIN ([place]) 1 [facility] [place] [address] * (ABNORMAL) CBC with auto differential (12/30/2024 [...] BLOOD ORDERABLES Final R esult REBECCA SPAIN ([place]) 1 [facility] [place] [address] * Magnesium (12/30/2024 5:21 AM CDT) Magnesium 1.7 1.4 - 2.5 mg/dL [facility] ([place]) Blood 12/30/2024 5:21 AM CDT 12/30/2024 5:35 AM CDT Lyle Morrison MD LAB BLOOD ORDERABLES Final R esult REBECCA SPAIN ([place]) 1 [facility] [place] [address] * (ABNORMAL) Lipase (12/30/2024 5:21 AM CDT) Lipase 155(H) 10 - 99 Units/L [facility] ([place]) Blood 12/30/2024 5:21 AM CDT 12/30/2024 5:35 AM CDT us Lyle Morrison MD LAB BLOOD ORDERABLES Final R esult REBECCA SPAIN ([place]) 1 [facility] [place] [address] * (ABNORMAL) Comprehensive metabolic panel (12/30/2024 5:21 [...] Final R esult REBECCA SPAIN ([place]) 1 [facility] [place] [address] * Line ok to use (12/28/2024 2:15 [...] locate and cannulate vein -JN Lot #: [id number] -JN Expiration Date: 01/22/26 -JN Verification: Able [...] Care Team -- Needed upon discharge for nursing home use (e.g. long-term antibiotics) - -- User [...] locate and cannulate vein - Lot #: [id number] - Expiration Date: 01/22/26 -JN Verification: Able [...] Care Team -- Needed upon discharge for terminal carman use (e.g. long-term antibiotics) - -- User [...] - DEVICE Fin al Result [facility] ([place]) [address] [facility] [place] [address] * POCT glucose (12/28/2024 7:49 AM CDT) Glucose, POC 87 70 - 199 mg/dL Blood 12/28/2024 7:49 AM CDT 12/28/2024 7:49 AM CDT us Foster Aguilar MD LAB POCT ORDERABLES - DEVICE Fin al Result Performing Organization Address City/[facility]/ZIP Co de Phone Number [facility] ([place]) [address] [facility] [place] [address] * POCT glucose (12/28/2024 2:27 AM CDT) Glucose, POC 98 70 - 199 mg/dL Blood 12/28/2024 2:27 AM CDT 12/28/2024 2:27 AM CDT us Foster Aguilar MD LAB POCT ORDERABLES - DEVICE Fin al Result Performing Organization Address City/[facility]/ZIP Co de Phone Number [facility] ([place]) [address] [facility] [place] [address] * POCT glucose (12/27/2024 8:16 PM CDT) Glucose, POC 110 70 - 199 mg/dL Blood 12/27/2024 8:16 PM CDT 12/27/2024 8:16 PM CDT us Foster Aguilar MD LAB POCT ORDERABLES - DEVICE Fin al Result REBECCA SPAIN ([place]) [address] [facility] [place] [address] * POCT glucose (12/27/2024 5:10 PM CDT) Glucose, POC 166 70 - 199 mg/dL Blood 12/27/2024 5:10 PM CDT 12/27/2024 5:10 PM CDT Foster Aguilar MD LAB POCT ORDERABLES - DEVICE Fin al Result Performing Organization Address [facility] Co de Phone Number REBECCA SPAIN ([place]) [address] [facility] [place] [address] * POCT glucose (12/27/2024 12:01 PM CDT) Glucose, POC 93 70 - 199 mg/dL Blood 12/27/2024 12:0 1 PM CDT 12/27/2024 12:01 PM CDT us Foster Aguilar MD LAB POCT ORDERABLES - DEVICE Fin al Result Performing Organization Address City/[facility]/ZIP Co de Phone Number REBECCA SPAIN ([place]) [address] [facility] [place] [address] * POCT glucose (12/27/2024 8:18 AM CDT) Glucose, POC 91 70 - 199 mg/dL Blood 12/27/2024 8:18 AM CDT 12/27/2024 8:18 AM CDT us Foster Aguilar MD LAB POCT ORDERABLES - DEVICE Fin al Result Performing Organization Address City/[facility]/ZIP Co de Phone Number REBECCA [facility] ([place]) [address] [facility] [place] [address] * (ABNORMAL) eGFR (12/27/2024 2:34 AM CDT) [facility] eGFR 27(L) >=60 mL/min/1. 73 m2 Comment: [...] LAB BLOOD ORDERABLES F inal Result REBECCA [facility] ([place]) 1 [facility] [place] [address] * (ABNORMAL) Differential, auto (12/27/2024 2:34 AM CDT) Pathologist [facility] Neutrophil abs 10.17(H) 1.50 - 6.50 K/cumm [...] BLOOD ORDERABLES F inal Result REBECCA GRABIEL ([place]) 1 [facility] [place] [address] * (ABNORMAL) CBC with auto differential (12/27/2024 [...] MD LAB BLOOD ORDERABLES F inal Result [facility] ([place] 1 [facility] [place] [address] * (ABNORMAL) Comprehensive metabolic panel (12/27/2024 2:34 [...] MD LAB BLOOD ORDERABLES F inal Result [facility] ([place]) 1 [facility] [place] [address] * POCT glucose (12/27/2024 2:31 AM CDT) Glucose, POC 94 70 - 199 mg/dL Blood 12/27/2024 2:31 AM CDT 12/27/2024 2:31 AM CDT us Wayne Fraser II, MD LAB POCT ORDERABLES - DEVICE Final Result Performing Organization Address City/[facility]/ZIP Co de Phone Number REBECCA SPAIN ([place]) [address] [facility] [place] [address] * POCT glucose (12/26/2024 8:57 PM CDT) Glucose, POC 113 70 - 199 mg/dL Blood 12/26/2024 8:57 PM CDT 12/26/2024 8:57 PM CDT us Wayne Fraser II, MD LAB POCT ORDERABLES - DEVICE Final Result Performing Organization Address [facility] Co de Phone Number REBECCA SPAIN ([place]) [address] [facility] [place] [address] * POCT glucose (12/26/2024 4:51 PM CDT) Glucose, POC 112 70 - 199 mg/dL Blood 12/26/2024 4:51 PM CDT 12/26/2024 4:51 PM CDT us Wayne Fraser II, MD LAB POCT ORDERABLES - DEVICE Final Result Performing Organization Address City/[facility]/ZIP Co de Phone Number REBECCA SPAIN ([place]) [address] [facility] [place] [address] * POCT glucose (12/26/2024 12:10 PM CDT) Glucose, POC 120 70 - 199 mg/dL Blood 12/26/2024 12:1 0 PM CDT 12/26/2024 12:10 PM CDT us Wayne Fraser II, MD LAB POCT ORDERABLES - DEVICE Final Result Performing Organization Address City/[facility]/ZIP Co de Phone Number REBECCA SPAIN ([place]) 1 [place] [address] * POCT glucose (12/26/2024 8:14 AM CDT) Pathologist [facility] Glucose, POC 95 70 - 199 mg/dL Blood 12/26/2024 8:14 AM CDT 12/26/2024 8:14 AM CDT Wayne Fraser II, MD LAB POCT ORDERABLES - DEVICE Final Result Performing Organization Address [facility] Co de Phone Number REBECCA SPAIN ([place]) 1 [place] [address] * (ABNORMAL) C. difficile testing Stool (12/26/2024 6:21 AM CDT) Pathologist [facility] GDH Result Positive Negative Toxin Result Positive Negative CERNER [facility] ([place]) C. diff result Positive, free toxin(A) Negative, free toxin CERELMER [facility] ([place]) C. diff interp Toxigenic Clostridioides (Clostridium) difficile detected. Analysis was performed using a two-step methodology using glutamate dehydrogenase antigen detection followed by detection of C. difficile toxin(s). REBECCA SPAIN ([place]) Stool 12/26/2024 6:21 AM CDT 12/26/2024 6:39 AM CDT Sukumar Rivera MD LAB MICROBIOLOGY - GENE RAL ORDERABLES Final Result Performing Organization Address City/[facility]/ZIP Co de Phone Number REBECCA SPAIN ([place]) 1 [place] [address] * (ABNORMAL) Hemoglobin and hematocrit (12/26/2024 5:36 AM CDT) [facility] Hgb 7.9(L) 11.9 - 15.5 g/dL Hct 25.8(L) 35.6 - 45.5 % REBECCA SPAIN ([place]) Blood 12/26/2024 5:36 AM CDT 12/26/2024 6:05 AM CDT us Sukumar Rivera MD LAB BLOOD ORDERABLES Fi nal Result Performing Organization Address City/[facility]/ZIP Co de Phone Number REBECCA SPAIN ([place]) 1 [facility] [place] [address] * (ABNORMAL) eGFR (12/26/2024 2:13 AM CDT) [...] BLOOD ORDERABLES F inal Result REBECCA SPAIN ([place]) 1 [facility] [place] [address] * (ABNORMAL) Differential, auto (12/26/2024 2:13 AM CDT) Neutrophil abs 14.00(H) 1.50 - 6.50 K/cumm Imm gran abs 0.09 0.00 - 0.10 K/cumm MELISSAELMER GRABIEL ([place]) Lymphocyte abs 1.67 0.80 - 3.30 K/cumm [...] F inal Result [facility] ([place]) 1 [facility] [place] [address] * (ABNORMAL) CBC with auto differential (12/26/2024 2:13 AM CDT) [facility] WBC 17.46(H) 3.80 - 9.90 K/cumm Hgb [...] F inal Result REBECCA SPAIN ([place]) 1 [facility] [place] [address] * (ABNORMAL) Comprehensive metabolic panel (12/26/2024 2:13 AM CDT) [facility] Sodium 135 135 - 145 mmol/L CERNER [...] F inal Result [facility] ([place]) 1 [facility] [place] [address] * POCT glucose (12/26/2024 2:12 AM CDT) Glucose, POC 133 70 - 199 mg/dL Blood 12/26/2024 2:12 AM CDT 12/26/2024 2:12 AM CDT Wayne Fraser II, MD LAB POCT ORDERABLES - DEVICE Final Result Performing Organization Address City/[facility]/ZIP Co de Phone Number REBECCA SPAIN ([place]) [address] [facility] [place] [address] * POCT glucose (12/25/2024 9:07 PM CDT) Glucose, POC 151 70 - 199 mg/dL Blood 12/25/2024 9:07 PM CDT 12/25/2024 9:07 PM CDT Wayne Fraser II, MD LAB POCT ORDERABLES - DEVICE Final Result Performing Organization Address [facility] Co de Phone Number REBECCA SPAIN ([place]) [address] [facility] [place] [address] * (ABNORMAL) eGFR (12/25/2024 2:12 AM CDT) Pathologist [facility] eGFR 26(L) >=60 mL/min/1. 73 m2 Comment: [...] MD LAB BLOOD ORDERABLES F inal Result [facility] ([place]) 1 [facility] [place] [address] * (ABNORMAL) Differential, auto (12/25/2024 2:12 AM CDT) Neutrophil abs 15.90(H) 1.50 - 6.50 K/cumm Imm gran abs 0.15(H) 0.00 - 0.10 K/cumm [facility] ([place]) Lymphocyte abs 1.16 0.80 - 3.30 K/cumm [facility] ([place]) Monocyte abs 1.58(H) 0.20 - 0.80 K/cumm [facility] ([place]) Eosinophil abs 0.05 0.00 - 0.50 K/cumm [facility] ([place]) Basophil abs 0.05 0.00 - 0.10 K/cumm [facility] ([place]) Neutrophil pct 84.1 % [facility] ([place]) Comment: Interpretive Data Percent cell count reference [...] ORDERABLES F inal Result Performing Organization Address City/[facility]/ZIP Co de Phone Number REBECCA SPAIN ([place]) 1 [facility] [place] [address] * (ABNORMAL) Iron profile w/ IBC (12/25/2024 2:12 AM CDT) Iron 11(L) 35 - 145 mcg/dL [facility] ([place]) TIBC 137(L) 250 - 400 mcg/dL [facility] ([place]) Transferrin saturation 8(L) 20 - 50 % [facility] ([place]) Blood 12/25/2024 2:12 AM CDT 12/25/2024 2:26 AM CDT us Wayne Fraser II, MD LAB BLOOD ORDERABLES F inal Result REBECCA SPAIN ([place]) 1 [facility] [place] [address] * (ABNORMAL) CBC with auto differential (12/25/2024 [...] ORDERABLES F inal Result Performing Organization Address [facility] Co de Phone Number REBECCA SAPIN ([place]) [address] [facility] [place] [address] * Magnesium (12/25/2024 2:12 AM CDT) Magnesium 1.6 1.4 - 2.5 mg/dL [facility] ([place]) Blood 12/25/2024 2:12 AM CDT 12/25/2024 2:26 AM CDT Wayne Fraser II, MD LAB BLOOD ORDERABLES F inal Result Performing Organization Address [facility]/ZIP Co de Phone Number [facility] ([place]) [address] [facility] [place] [address] * (ABNORMAL) Hemoglobin A1c (12/25/2024 2:12 AM CDT) Hgb A1C 6.1(H) 4.0 - 5.6 % REBECCA SPAIN ([place]) Estimated Average Glucose 128 mg/dL REBECCA SPAIN ([place]) Comment: The ADA recommends reporting an estimated Average Glucose (eAG) with all Hemoglobin A1c results using the equation derived from a study of 507 normal and diabetic adults. Minority populations were underrepresented and children were not included. (Diabetes Care 31:9772-6138, 2008). The eAG is not equivalent to a fasting glucose. Testing performed by: [facility], [facility], [place], [address] Blood 12/25/2024 2:12 AM CDT 12/25/2024 2:26 AM CDT Wayne Fraser II, MD LAB BLOOD ORDERABLES F inal Result Performing Organization Address [facility] Co de Phone Number REBECCA SPAIN ([place]) 1 [facility] [place] [address] * (ABNORMAL) Ferritin (12/25/2024 2:12 AM CDT) Pathologist [facility] Ferritin 159(H) 13 - 150 ng/mL REBECCA SPAIN ([place]) Blood 12/25/2024 2:12 AM CDT 12/25/2024 2:26 AM CDT Wayne Fraser II, MD LAB BLOOD ORDERABLES F inal Result [facility] ([place]) 1 [facility] [place] [address] * (ABNORMAL) Lipid panel (12/25/2024 2:12 AM CDT) Cholesterol 92 30 - 199 mg/dL REBECCA SPAIN ([place]) Comment: Interpretive Data Ages < or = [...] last revised on 2024. Testing performed by: [place], [address] Non-HDL Cholesterol 56 mg/dL REBECCA SPAIN ([place]) Comment: Interpretive Data Ages < or = [...] last revised on 2018. Testing performed by: [place], [address] Chol/HDL ratio 3 TIA SPAIN ([place]) Comment:Testing performed by : [place], [address] Blood 12/25/2024 2:12 AM CDT 12/25/2024 2:26 AM CDT us Wayne Fraser II, MD LAB BLOOD ORDERABLES F inal Result REBECCA SPAIN ([place]) 1 [facility] [place] [address] * (ABNORMAL) Basic metabolic panel (12/25/2024 2:12 AM CDT) Sodium 134(L) 135 - 145 mmol/L REBECCA SPAIN ([place]) Potassium, pl 5.0(H) 3.3 - 4.9 mmol/L [...] 2022. Calcium 9.1 8.5 - 10.3 mg/dL [facility] ([place]) Blood 12/25/2024 2:12 AM CDT 12/25/2024 2:26 AM CDT us Wayne Fraser II, MD LAB BLOOD ORDERABLES F inal Result Performing Organization Address City/[facility]/ZIP Co de Phone Number REBECCA SPAIN ([place]) 1 [facility] [place] [address] * POCT glucose (12/25/2024 2:04 AM CDT) [facility] Signature Glucose, POC 127 70 - 199 mg/dL Blood 12/25/2024 2:04 AM CDT 12/25/2024 2:04 AM CDT Wayne Fraser II, MD LAB POCT ORDERABLES - DEVICE Final Result REBECCA SPAIN ([place]) 1 [place] [address] * POCT glucose (12/24/2024 8:41 PM CDT) Glucose, POC 124 70 - 199 mg/dL Blood 12/24/2024 8:41 PM CDT 12/24/2024 8:41 PM CDT Wayne Fraser II, MD LAB POCT ORDERABLES - DEVICE Final Result Performing Organization Address [facility] Co de Phone Number REBECCA SPAIN ([place]) 1 [place] [address] * POCT glucose (12/24/2024 7:42 PM CDT) Glucose, POC 119 70 - 199 mg/dL Blood 12/24/2024 7:42 PM CDT 12/24/2024 7:42 PM CDT Wayne Fraser II, MD LAB POCT ORDERABLES - DEVICE Final Result Performing Organization Address [facility] de Phone Number REBECCA SPAIN ([place]) 1 [place] [address] * ECG 12 lead (12/24/2024 7:32 PM CDT) 12/24/2024 7:32 PM CDT Narrative [facility] - 12/26/2024 6:42 AM CDT Vent Rate: 131 bpm RR Interval: 457 msec [place] Interval: 181 msec QRS Duration: 86 msec QT Interval: 268 msec QTC Interval: 345 msec P-R-T [place]: 76 - 48 - 55 degrees IMPRESSION: SINUS TACHYCARDIA ABNORMAL RHYTHM ECG Compared to prior EKG, heart rate has increased Electronically Signed By: Harry Jaimes MD us Sukumar Rivera MD ECG ORDERABLES Final R esult Performing Organization Address [facility] Co de Phone Number [facility] [employer] * POCT glucose (12/24/2024 4:58 PM CDT) Glucose, POC 122 70 - 199 mg/dL Blood 12/24/2024 4:58 PM CDT 12/24/2024 4:58 PM CDT Wayne Fraser II, MD LAB POCT ORDERABLES - DEVICE Final Result Performing Organization Address City/[facility]/ZIP Co de Phone Number REBECCA SPAIN ([place]) 1 [facility] [place] [address] * (ABNORMAL) Troponin T high-sensitivity 4-hour (12/24/2024 [...] ORDERABLES Final R esult Performing Organization Address City/[facility] Co de Phone Number REBECCA SPAIN ([place]) 1 [facility] [place] [address] * POCT glucose (12/24/2024 11:36 AM CDT) Glucose, POC 101 70 - 199 mg/dL Blood 12/24/2024 11:3 6 AM CDT 12/24/2024 11:36 AM CDT Wayne Fraser II, MD LAB POCT ORDERABLES - DEVICE Final Result Performing Organization Address City/[facility] Co de Phone Number REBECCA SPAIN ([place]) 1 [facility] [place] [address] * Blood culture Blood (12/24/2024 11:36 AM CDT) Report Final Report: No growth Comment:Testing performed by : [facility], 1 [facility] [place] [address] Blood 12/24/2024 11:3 6 AM CDT 12/24/2024 [...] performance characteristics have been verified by the [facility] Microbiology Laboratory. For questions about this culture, contact the Microbiology Laboratory at [phone]. Interpretive data was last revised on 24. us Lyle Morrison MD LAB MICROBIOLOGY - GENERAL O RDERABLES Final Result REBECCA SPAIN [place]) 1 [facility] [place] [address] * POCT glucose (12/24/2024 11:23 AM CDT) Glucose, POC 89 70 - 199 mg/dL Blood 12/24/2024 11:2 3 AM CDT 12/24/2024 11:23 AM CDT Wayne Fraser II, MD LAB POCT ORDERABLES - DEVICE Final Result Performing Organization Address City/[facility]/ZIP Co de Phone Number [facility] ([place]) 1 [facility] [place] [address] * (ABNORMAL) Troponin T high-sensitivity 2-hour (12/24/2024 9:58 AM CDT) Pathologist [facility] Trop T hs 27(H) <=14 ng/L CERNER [...] ORDERABLES Final R esult Performing Organization Address City/[facility]/ZIP Co de Phone Number [facility]CCA [facility] ([place]) 1 [facility] [place] [address] * Blood culture Blood (12/24/2024 9:58 AM CDT) Report Final Report: No growth Comment:Testing performed by : [facility], 1 [facility] [place]., [address] Blood 12/24/2024 9:58 AM CDT 12/24/2024 12:12 [...] performance characteristics have been verified by the [facility] Microbiology Laboratory. For questions about this culture, contact the Microbiology Laboratory at [phone]. Interpretive data was last revised on 24. Lyle Morrison MD LAB MICROBIOLOGY - GENERAL O RDERABLES Final Result REBECCA SPAIN [place] 1 [facility] [place] [address] * CT Head WO Contrast [...] Cristy Balbuena M.D. LL: RODRIGO Report ID: [id number] Reading Location: [id number] Procedure Note Cristy Balbuena MD - 12/24/2024 [...] Cristy Balbuena M.D. LL: RODRIGO Report ID: [id number] Reading Location: [id number] Lyle Morrison MD IMG CT PROCEDURES Final [...] 9:02 AM - Electronically signed by Cristy Balbuean M.D. LL: RODRIGO Report ID: [id number] Reading Location: [id number] Procedure Note Cristy Balbuena MD - 12/24/2024 [...] Cristy Balbuena M.D. LL: RODRIGO Report ID: [id number] Reading Location: [id number] Lyle Morrison MD IMG CT PROCEDURES Final [...] tendency for uric acid stone formation. Source: [facility] Rev Current Interpretive Data was last revised on [...] Leukocyte esterase, ur 4+(A) Negative [facility] ([place]) UA reflex comment Reflex to microscopic UA will be performed. [facility] ([place]) Urine 12/24/2024 8:21 AM CDT 12/24/2024 8:26 AM CDT Lyle Morrison MD LAB MICROBIOLOGY - GENERAL O RDERABLES Final Result [facility] ([place]) 1 [facility] [place] [address] * (ABNORMAL) Urinalysis, microscopic only (12/24/2024 8:21 AM CDT) WBC, ur 11-20(A) 0 - 5 /HPF RBC, ur 21-50(A) 0 - 2 /HPF [facility] ([place]) Epithelial cells, squamous, ur 1-5 0 - 5 /HPF [facility] ([place]) Mucous, ur Present(A) [facility] Julissa ([place]) Culture Reflex Comment Reflex to urine culture will be performed. REBECCA [facility] ([place]) Urine 12/24/2024 8:21 AM CDT 12/24/2024 8:26 AM CDT Lyle Morrison MD LAB URINE ORDERABLES Final R esult Performing Organization Address City/[facility]/ZIP Co de Phone Number REBECCA [facility] ([place]) [address] [place] [address] [place] [address] * Urine culture Urine (12/24/2024 8:21 AM CDT) Report Final Report: Less than 100,000 colonies/mL (clinically insignificant growth based on current clinical standards) Comment:Testing performed by : [facility], 1 [facility], [place]., [address] Organism (CLINICALLY INSIGNIFICANT GROWTH [facility] ([place]) Urine 12/24/2024 8:21 AM CDT 12/24/2024 10:26 AM CDT Narrative REBECCA [facility] ([place]) - 12/25/2024 11:39 AM CDT Urine culture reflexed based upon urinalysis results. Testing performed by [facility] Microbiology Laboratory ([phone]) Lyle Morrison MD LAB MICROBIOLOGY - GENERAL O RDERABLES Final Result Performing Organization Address City/[facility]/ZIP Co de Phone Number REBECCA [facility] ([place]) 1 [facility] [place] [address] * XR Chest 1 View (12/24/2024 7:54 [...] Cristy Balbuena M.D. LL: LL Report ID: [id number] Reading Location: [id number] Procedure Note Cristy Balbuena MD - 12/24/2024 [...] Cristy Balbuena M.D. LL: LL Report ID: [id number] Reading Location: [id number] Lyle Morrison MD IMG XR PROCEDURES Final [...] ORDERABLES Final R esult Performing Organization Address City/[facility]/ZIP Co de Phone Number REBECCA [facility] ([place]) 1 [facility] [place] [address] * ECG 12 lead (12/24/2024 7:23 AM CDT) 12/24/2024 7:23 AM CDT Narrative [facility] - 12/24/2024 1:07 PM CDT Vent Rate: 96 bpm RR Interval: 622 msec MN Interval: 178 msec QRS Duration: 81 msec QT Interval: 312 msec QTC Interval: 366 msec P-R-T [place]: 52 - 39 - 51 degrees IMPRESSION: SINUS RHYTHM LOW QRS VOLTAGE IN PRECORDIAL LEADS [QRS DEFLECTION < 1.0 mV IN CHEST LEADS] BORDERLINE ECG Electronically Signed By: Akira Garza MD, [facility] Lyle Morrison MD ECG ORDERABLES Final Result Performing Organization Address [facility]/ZIP Co de Phone Number [facility] [employer] [facility] * (ABNORMAL) Troponin T high-sensitivity series (baseline, 2hr, 4hr, 6hr) (12/24/2024 7:21 AM CDT) Trop T hs 26(H) <=14 ng/L REBECCA SPAIN ([place]) Comment: Interpretive Data For further hscTnT resources including the diagnostic algorithm and an aid in interpretation, copy and paste this link: https://nrl.testcatalog.org/show/hsTrop Current Interpretive Data last revised 2020. Blood 12/24/2024 7:21 AM CDT 12/24/2024 7:29 AM CDT Lyle Morrison MD LAB BLOOD ORDERABLES Final R esult REBECCA SPAIN ([place]) 1 [facility] [place] [address] * Sepsis Lactate w/ Reflex (12/24/2024 7:21 AM CDT) Pathologist [facility] Sepsis Lactate 1.3 0.7 - 2.0 mmol/L Blood 12/24/2024 7:21 AM CDT 12/24/2024 7:29 AM CDT Lyle Morrison MD LAB BLOOD ORDERABLES Final R esult REBECCA SPAIN ([place]) 1 [facility] [place] [address] * (ABNORMAL) eGFR (12/24/2024 7:21 AM CDT) Pathologist [facility] eGFR 22(L) >=60 mL/min/1. 73 m2 Comment: [...] BLOOD ORDERABLES Final R esult [facility] ([place]) 1 [facility] [place] [address] * (ABNORMAL) Differential, auto (12/24/2024 7:21 AM [...] BLOOD ORDERABLES Final R esult REBECCA SPAIN ([place]) 1 [facility] [place], [place] [address] * Pro B-type natriuretic peptide (12/24/2024 7:21 AM CDT) NT-proBNP 118 <=450 pg/mL REBECCA SPAIN ([place]) Comment: Interpretive Comments: A. Dyspnea in Acute [...] Final R esult [facility] ([place]) 1 [facility] [place] [address] * (ABNORMAL) CBC with auto differential (12/24/2024 [...] 15.9(H) 11.1 - 14.9 % [facility] ([place]) RDW SD 51.6(H) 35.7 - 48.1 fL REBECCA SPAIN ([place]) NRBC abs 0.00 0.00 - 0.01 K/cumm REBECCA SPAIN ([place]) Blood 12/24/2024 7:21 AM CDT 12/24/2024 7:29 AM CDT Lyle Morrison MD LAB BLOOD ORDERABLES Final R esult REBECCA SPAIN ([place]) 1 [facility] [place] [address] * (ABNORMAL) aPTT (12/24/2024 7:21 AM CDT) aPTT 27(L) 28 - 38 sec REBECCA SPAIN ([place]) Comment: Interpretive Data Heparin therapeutic range: 66.0 - 100.0 seconds. Range based on correlation with therapeutic heparin activity range of 0.3 - 0.7 Units/mL. Current interpretive data was last revised on 2023. Blood 12/24/2024 7:21 AM CDT 12/24/2024 7:29 AM CDT Lyle Morrison MD LAB BLOOD ORDERABLES Final R esult Performing Organization Address [facility] Co de Phone Number REBECCA SPAIN ([place]) 1 [facility] [place] [address] * Magnesium (12/24/2024 7:21 AM CDT) Magnesium 1.9 1.4 - 2.5 mg/dL REBECCA SPAIN ([place]) Blood 12/24/2024 7:21 AM CDT 12/24/2024 7:29 AM CDT Lyle Morrison MD LAB BLOOD ORDERABLES Final R esult Performing Organization Address City/[facility]/ZIP Co de Phone Number REBECCA SPAIN ([place]) [address] [place] [address] * (ABNORMAL) Comprehensive metabolic panel (12/24/2024 7:21 [...] BLOOD ORDERABLES Final R esult REBECCA SPAIN [place] [facility] of Laboratories [place], [place] [address] * CT Abdomen Pelvis WO Contrast (12/13/2024 [...] by Amanda Moe M.D. SN: Report ID: [id number] Reading Location: [id number] Procedure Note Amanda Moe MD - 12/13/2024 [...] by Amanda Moe M.D. SN: Report ID: [id number] Reading Location: [place] [address] PROCEDURES Final R [...] tendency for uric acid stone formation. Source: [facility] Current Interpretive Data was last revised on [...] RDERABLES Final Result [facility] ([place]) 1 [facility] [place] [address] * (ABNORMAL) Urinalysis, microscopic only (12/13/2024 8:44 [...] ORDERABLES Final R esult Performing Organization Address City/[facility]/ZIP Co de Phone Number REBECCA SPAIN ([place]) [address] [place] [address] [place] [address] * Urine culture Urine (12/13/2024 8:44 PM CDT) Report Final Report: Less than 100,000 colonies/mL (clinically insignificant growth based on current clinical standards) Comment:Testing performed by : [facility], 1 [place]., [address] Organism (CLINICALLY INSIGNIFICANT GROWTH REBECCA GRABIEL ([place]) Urine 12/13/2024 8:44 PM CDT 12/14/2024 12:12 AM CDT Narrative REBECCA [facility] ([place]) - 12/15/2024 6:48 AM CDT Urine culture reflexed based upon urinalysis results. Testing performed by [facility] Microbiology Laboratory ([phone]) Lyle Morrison MD LAB MICROBIOLOGY - GENERAL O RDERABLES Final Result Performing Organization Address [facility] Co de Phone Number REBECCA SPAIN ([place]) [address] [place] [address] [place] [address] * (ABNORMAL) eGFR (12/13/2024 4:45 PM CDT) [...] BLOOD ORDERABLES Final R esult REBECCA GRAB[facility] ([place]) 1 [facility] [place] [address] * (ABNORMAL) Differential, auto (12/13/2024 4:45 PM [...] BLOOD ORDERABLES Final R esult [facility] ([place]) 1 [facility] [place] [address] * (ABNORMAL) CBC with auto differential (12/13/2024 [...] RDW SD 49.2(H) 35.7 - 48.1 fL [facility] ([place] NRBC abs 0.00 0.00 - 0.01 K/cumm [facility] ([place]) Blood Venous blood specimen / Unknown 12/13/2024 4:45 PM CDT 12/13/2024 5:33 PM CDT Lyle Morrison MD LAB BLOOD ORDERABLES Final R esult RE[facility]CCA [facility] ([place]) 1 [facility] [place] [address] * (ABNORMAL) Comprehensive metabolic panel (12/13/2024 4:45 PM CDT) Sodium 140 135 - 145 mmol/L [facility] ([place]) Potassium, pl 5.1(H) 3.3 - 4.9 mmol/L [facility] ([place] Chloride 104 97 - 110 mmol/L [facility] ([place]) CO2 23 22 - 32 mmol/L [facility] ([place]) Anion gap 13 2 - 15 mmol/L [facility] ([place] BUN 44(H) 6 - 25 mg/dL [facility] ([place]) Creatinine 1.73(H) 0.60 - 1.10 mg/dL [facility] ([place]) Glucose 139 70 - 199 mg/dL [facility] ([place]) Comment: Interpretive Data [...] Final R esult [facility]CCA [facility] ([place]) 1 [facility] [place] [address] * COLONOSCOPY (02/09/2018 10:41 AM CDT) Anatomical Region Laterality Modality Other Narrative Procedure Note Warren Perkins MD - 02/09/2018 10:[address] [facility] Patient Name: Connie Ambrose Procedure Date: 02/09/2018 10:41 AM Date of : 1945 Admit Type: Outpatient Age: 72 Gender: Female Attending MD: Warren Perkins M.D. Room: [facility] ENDOSCOPY ROOM 1 Note Status: Finalized [...] scope was passed under direct vision.The Colonoscope [id number] was introducedthrough the anus and advanced to [...] 10:41 AM Procedure Code(s): --- Professional --- 05061, Colonoscopy, flexible; diagnostic, including collection of specimen(s) by brushing or washing, when performed (separateprocedure) Diagnosis Code(s): --- Professional --- K57.30, Diverticulosis of large intestine without perforation orabscess without bleeding R19.5, Other fecal abnormalities K64.9, Unspecified hemorrhoids CPT copyright 2017 [employer]. All rights reserved. The codes documented in this report are preliminary and upon gasoline finisher reviewmay be revised to meet current compliance requirements. Recognized by the [place] [employer] for promoting quality in endoscopy Warren Perkins MD ENDOSCOPY PROCEDURES Final Re sult from Last 3 Months or Most Recently Relevant to Health Maintenance Additional Health Concerns Infection Onset Date Last Indicated C. difficile 12/26/2024 12/26/2024 Insurance [facility] MDCR HMO REF UHC MEDICARE ADVANTAGE Advance Directives For more information, please contact: [phone] * Full Code (Latest Code Status on [...] 9:33 AM 12/28/2024 8:11 PM Care Teams Drafter (Cad) Electrical Relationship Specialty Start Date End Date Misael Montaño MD [address] [facility] [address] [place] [address] PCP - General Family Medicine 01/12/18 Johnathan Booker MD [address] [place] [address] PCP - Home Infusion Attending Infectious Diseases 12/28/24 Abby De Leon MD [address] [place] [address] [place] [address] Consulting Physician Gastroenterology 01/02/25
--- OUTSIDE RECORDS SUMMARY | 2025-02-15 08:11 | XMS_ITS | Clinical Summary ---
Author Organization [facility] Facility Address [address] [place] [id number] Care Team Providers Care Hebrew Professor Name Role Phone Misael Montaño MD Primary Care Provider Allergies Active Allergy Reactions Criticality Noted Date Comments Adhesive Tape 07/29/2022 Antihistamines, Diphenhydramine-Type Rash Low 07/29/2022 Aspirin 07/29/2022 Clindamycin GI intolerance 07/29/2022 Doxycycline 07/29/2022 Indomethacin Vomiting High 07/29/2022 Salicylates Rash Low 07/29/2022 Sulfamethizole 07/29/2022 Trimethoprim 07/29/2022 Medications [place] 3 1000 MG capsule Take 1 capsule [...] patient's age to complete this topic Insurance [id number] Medicare Care Teams Hebrew Professor Relationship Specialty Start Date End Date Misael Montaño MD [id number] [place] [address] PCP - General Family Medicine 07/29/22
[2025-02-15 08:58] LABS: Alanine Aminotransferase 28 U/L (6-35); Albumin Level 4.1 g/dL (3.5-5.1); Alkaline Phosphatase 116 U/L (38-126); Anion Gap 11 mmol/L (4-12); Aspartate Amino Transferase 31 U/L (14-36); Bilirubin,Total 0.3 mg/dL (0.2-1.3); Blood Urea Nitrogen 51 mg/dL (7-17); Calcium 10.1 mg/dL (8.4-10.2); Carbon Dioxide 22 mmol/L (22-30); Chloride 107 mmol/L (98-107); Estimated Glomerular Filt Rate 23; Glucose 93 mg/dL (65-110); Potassium 4.9 mmol/L (3.4-5.0); Sodium 140 mmol/L (137-145); Total Protein 8.5 g/dL (6.3-8.2)
[2025-02-15 09:42] LABS: Hemoglobin A1C 5.4 % (<5.7)
== END 2025-02-15 08:01 | disposition home or self-care (01) ==
PROVIDERS: PCP Family Medicine; Referring Provider Family Medicine
DX: E11.59 Type 2 diabetes mellitus with other circulatory complications (principal); N18.4 Chronic kidney disease, stage 4 (severe)
CPT/HCPCS: 36415; 80053; 83036

== ENCOUNTER 2025-04-06 10:56 | Outpatient (CLI) | payer MEDICARE, SELFPAY ==
[2025-04-06 11:37] LABS: Anion Gap 10 mmol/L (4-12); Blood Urea Nitrogen 69 mg/dL (7-17); Calcium 9.7 mg/dL (8.4-10.2); Carbon Dioxide 27 mmol/L (22-30); Chloride 101 mmol/L (98-107); Estimated Glomerular Filt Rate 14; Glucose 99 mg/dL (65-110); Potassium 4.0 mmol/L (3.4-5.0); Sodium 138 mmol/L (137-145)
--- OUTSIDE RECORDS SUMMARY | 2025-04-06 12:00 | XMS_ITS | Clinical Summary ---
Author Organization [facility] Building B Address [address] [place] [address] Care Team Providers Care Masseur/Masseuse Name Role Phone Misael Montaño MD Primary Care Provider Johnathan Booker MD Unavailable [phone] Abby De Leon MD Unavailable [phone] Allergies Active Allergy Reactions Criticality Noted Date [...] needed for nausea or vomiting 20 tablet 5 Active benzonatate (TESSALON) 100 mg capsuleIndications :Cough Take 1 capsule (100 mg total) by mouth 3 (three) times a day as needed for cough 20 capsule 5 Active dicyclomine (BENTYL) 10 mg capsule Take 1 capsule (10 mg total) by mouth 4 (four) times a day as needed (dyspepsia) 15 capsule 5 12/29/19 26 Active miconazole 2 % powder Apply topically 2 (two) times a day 70 g 5 Active levETIRAcetam (KEPPRA) 500 mg tablet Take 1 tablet (500 mg total) by mouth 2 (two) times a day 5 01/10/20 26 Active ferrous sulfate 325 mg (65 mg of elemental iron) tabletIndications: Iron Deficiency Anemia Take 1 tablet (325 mg total) by mouth daily with breakfast 5 01/10/20 26 Active Active Problems Problem Noted Date Diagnosed Date History of Clostridioides difficile infection Acute diverticulitis 01/19/2025 Assessment & Plan (01/19/2025 2:07 PM CDT): - see HPI - continue ertapenem 1 g IV daily x 2 weeks - continue weekly CBC w diff, BMP- Please fax results to [phone] - repeat CT scan abd/pelvis wo contrast [...] (01/12/2018): Added automatically from request for surgery [id number] Encounters Date Type Department Care Team Description 03/06/2025 7:30 AM CDT Office Visit [facility] Gastroenterology at [address] [place] [address] Mj Saleem NP Diverticulitis (Primary Dx); History of Clostridioides difficile infection; History of colitis; Colon cancer screening; History of constipation 03/01/2025 7:57 AM CDT - 03/01/2025 11:59 PM CDT Hospital Encounter [facility] [address] [place] [address] Convulsions, unspecified convulsion type (HCC); Temporal sclerosis Discharge Disposition: Discharge to home or self care 03/01/2025 Telephone [facility] Gastroenterology at [address] [place] [address] Celeste Saab 02/16/2025 Telephone [facility] Gastroenterology at [address] [place] [address] Celeste Saab GI Request 01/31/2025 1:38 PM CDT - 01/31/2025 11:59 PM CDT Hospital Encounter [address] [address] Samuel Marie MD Discharge Disposition: Discharge to home or self care 01/27/2025 1:57 PM CDT - 01/27/2025 11:59 PM CDT Hospital Encounter [facility] [address] [place] [address] Acute diverticulitis Discharge Disposition: Discharge to home or self care 01/19/2025 11:00 AM CDT Office Visit [facility] [address] [facility] [address] [place] [address] Lisa Wolfe NP Acute diverticulitis (Primary Dx) 01/15/2025 11:00 PM CDT - 01/15/2025 11:59 PM CDT Hospital Encounter [facility] Emergency, Room R Discharge Disposition: Discharge to home or self care 01/15/2025 6:59 PM CDT - 01/15/2025 11:07 PM CDT Emergency [facility] Emergency Department [address] [place] [address] Antwon Ashley MD Fall, initial encounter (Primary Dx) Discharge Disposition: Discharge to penitentiary facility 01/06/2025 2:11 AM CDT - 01/09/2025 3:52 PM CDT Hospital Encounter [facility] [address] [place] [address] Lyle Morrison MD Huynh, Kiet T., MD Bezuneh, Pascual Deneke, MD Seizure (HCC) (Primary Dx); Syncope and collapse [R55]; Cervical spinal stenosis [M48.02] Discharge Disposition: Discharge to SNF 01/05/2025 2:56 AM CDT - 01/05/2025 4:25 AM CDT Emergency [facility] Emergency Department [address] [place] [address] Marino Molina MD Fall, initial encounter (Primary Dx) Discharge Disposition: Discharge to home or self care 01/05/2025 2:48 AM CDT - 01/05/2025 11:59 PM CDT Hospital Encounter [facility] Emergency, Room R Discharge Disposition: Discharge to home or self care 01/04/2025 Telephone [facility] G[facility]enterology at [place] [address] [facility] [address] [place] [phone] Salome Epperson LPN from Last 3 Months Immunizations Immunization Administration Dates Next Due Influenza, Quadrivalent, Hig h Dose, Preservative Free, Intrr 03/21/2020 Influenza, Trivalent, High D ose, Split, Preservative Free, Intramuscular 03/30/2017,04/12/2015 Influenza, Trivalent, Preservative Free, Intramu scular 02/19/2013 PPD TEST 01/14/2025,01/04/2025 Surgical History Surgery Date Site/Laterality Comments COLONOSCOPY 09/16/2013 Social History Tobacco Use Types Packs/Day Years Used Date Smoking Tobacco: Never Passive Smoke Exposure: Never Smokeless Tobacco: Never Tobacco Cessation:Counseling Given: No Comments:N/a Alcohol Use Standard Drinks/Week Comments Never 0 (1 standard drink = 0.6 oz pur e alcohol) Social Connection and Isolation Panel Answer Date Recorded In a typical week, how many times do you talk on the phone with family, friends, or neighbors? More than three times a week 12/26/2024 How often do you get togethe r with friends or relatives? More than three times a week 12/26/2024 How often do you attend chur or denominational services? Never 12/26/2024 Do you belong to any clubs o r organizations such as episcopal groups, unions, fraternal or athletic groups, or school groups? No 12/26/2024 How often do you attend meet ings of the clubs or organizations you belong to? Never 12/26/2024 Are you , , di vorced, , never , or living with a partner? 12/26/2024 Overall Financial Resource Strain (CARDIA) Answe r [...] any time in the past 12 m [facility], were you homeless or living in a long-term (including now)? No 12/26/2024 Social Connection and Isolation Panel Answer Date Recorded In a typical week, how many times do you talk on the phone with family, friends, or neighbors? More than three times a week 01/06/2025 How often do you get togethe r with friends or relatives? More than three times a week 01/06/2025 How often do you attend chur ch or denominational services? Never 01/06/2025 Do you belong to any clubs o r organizations such as episcopal groups, unions, fraternal or athletic groups, or school groups? No 01/06/2025 How often do you attend meet ings of the clubs or organizations you belong to? Never 01/06/2025 Are you , , di vorced, , never , or living with a partner? 01/06/2025 AUDIT-C Answer Date Recorded Q1: How often do you have a drink containing alcohol? Never 03/06/2025 Q2: How many drinks containi ng alcohol do you have on a typical day when you are drinking? Patient does not drink Q3: How often do you have si x or more drinks on one occasion? Never 03/06/2025 Overall Financial Resource Strain (CARDIA) Answe r [...] any time in the past 12 m [facility], were you homeless or living in a long-term (including now)? 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 Gender Identity Not on file Sexual Orientation Not on file Last Filed Vital Signs Vital Sign Reading Time Taken Comments Blood Pressure 117/71 03/06/2025 7:33 AM CDT Pulse 100 03/06/2025 7:33 AM CDT Temperature 37 C (98.6 F) 01/19/2025 11:01 AM CDT Respiratory Rate 20 01/15/2025 10:15 PM CDT Oxygen Saturation 93% 03/06/2025 7:33 AM CDT Inhaled Oxygen Concentration - - Weight 75.5 kg (166 lb 8 oz) 03/06/2025 7:33 AM CDT Height 167.6 cm (5' 6) 01/19/2025 11:01 AM CDT Body Mass Index 26.87 01/19/2025 11:01 AM CDT Plan of Treatment Upcoming Encounters Date Type Department Care Team (Late st Contact Info) Description 04/14/2025 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 Hospital Encounter [address] [address] Gloria Amador MD [address] [place] [address] [place] [address] 04/14/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 - 04/14/2025 12:30 PM 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 Surgery [address] [address] Gloria Amador MD [address] [place] [address] [place] [address] COLONOSCOPY Scheduled Procedures Name Priority Associated Diagnoses Date/Ti me COLONOSCOPY Diverticulitis 04/14/2025 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 Health Maintenance Due Date Last Done Comments Depression Screening 1945 Hepatitis C Screening 1945 Osteoporosis Screening-Bone Density Scan 1945 DTaP/Tdap/Td Vaccine (1 - Tdap) 1956 Hepatitis B Screening 12/05/1963 Pneumococcal vaccine 65+ (1 of 1 - PCV) 12/05/1995 Zoster Vaccine (1 of 2) 12/05/1995 Well Visit 65+ 2010 Influenza Vaccine (#1) 2025 0, 03/30/2017, 04/12/2015, Additional history exists Fall Risk Assessment 01/09/2026 01/09/2025 Colon Cancer Screening-CT Colonography Discontinued 02/09/2018, 09/16/2013 Colon Cancer Screening-Colonoscopy Discontinued 02/09/2018, 09/16/2013 Colon Cancer Screening-DNA Stool Discontinued 02/10/20 18, 09/16/2013 Colon Cancer Screening-FIT Discontinued 02/09/2018, Colon Cancer Screening-FOBT Discontinued 02/09/2018, 0 09/16/2013 Colon Cancer Screening-Sigmoidoscopy Discontinued 02/09/2018, 09/16/2013 Colorectal Cancer Screening Discontinued Procedures Procedure Name Priority Date/Time Associated Diagnosis Comments MRI BRAIN WO CONTRAST Schedule Routine, Read Routine (OP Routine) 03/01/2025 9:04 AM CDT Convulsions, unspecified convulsion type (HCC) Temporal sclerosis EGFR STAT 01/31/2025 2:35 PM CDT DIFFERENTIAL [...] ECG 12-LEAD STAT 01/05/2025 3:02 AM CDT COLONOSCOPY 02/09/2018 10:41 AM CDT from Last 3 Months or Most Recently Relevant to Health Maintenance Results * MRI Brain WO Contrast (03/01/2025 9:04 AM CDT) Anatomical Region Laterality Modality Head and Neck N/A Magnetic Resonan ce 03/01/2025 9:06 AM CDT Narrative 03/01/2025 9:12 AM CDT EXAM DESCRIPTION: MRI BRAIN WITHOUT CONTRAST REASON FOR STUDY: Only provided history: Unspecified convulsions of unspecified duration. No provided focal neurologic deficits. No provided history of trauma or inciting and/or aggravating events. No provided past medical or surgical history. TECHNIQUE: Multiplanar imaging includes non-contrasted T1, T2, FLAIR, and diffusion with ADC map sequences. Additional sequence(s) sensitive to blood products. Images stored on PACS. COMPARISON: CT head/cervical spine without contrast 01/15/2025, 01/06/2025, and 01/05/2025; MRI brain/cervical spine without contrast 01/06/2025. FINDINGS: CEREBRUM: No acute intra-axial hemorrhage. No edema, mass effect, midline shift, or herniation. Senescent mineralization of the lentiform nuclei. WHITE MATTER: Redemonstration of periventricular-subcortical T2/FLAIR hyperintense white matter disease, nonspecific, though can be seen secondary to chronic microvascular ischemia. POSTERIOR FOSSA: No acute abnormality. As below. DIFFUSION IMAGING: No restricted diffusion to suggest acute/subacute ischemia or infarct. EXTRAAXIAL SPACES: No extra-axial fluid collection. No extra-axial mass. BRAIN VOLUME: Redemonstration of cerebral and cerebellar volume loss. PITUITARY: Unremarkable. VASCULATURE: No flow disturbance evident. CALVARIUM: Unremarkable. ORBITS: No acute abnormality. Kenaitze ocular lenses replaced bilaterally. PARANASAL SINUSES AND MASTOIDS: Paranasal sinuses clear. Mastoid air cells well-developed and well aerated. OTHER: No other significant finding. IMPRESSION: No acute intracranial process with chronic findings as above. THIS IS AN ELECTRONICALLY VERIFIED FINAL REPORT 03/01/2025 9:12 AM - Electronically signed by Misael Colby M.D. PRANEETH: PRANEETH Report ID: [id number] Reading Location: [place] [address] Procedure Note Misael Colby MD - 03/01/2025 EXAM DESCRIPTION: MRI BRAIN WITHOUT CONTRAST REASON FOR STUDY: Only provided history: Unspecified convulsions of unspecified duration. No provided focal neurologic deficits. No provided history of trauma or inciting and/or aggravating events. No provided past medical or surgical history. TECHNIQUE: Multiplanar imaging includes non-contrasted T1, T2, FLAIR, and diffusion with ADC map sequences. Additional sequence(s) sensitive Livestar. Images stored on PACS. COMPARISON: CT head/cervical spine without contrast 01/15/2025,01/06/2025, and 01/05/2025; MRI brain/cervical spine without contrast 01/06/2025. FINDINGS: CEREBRUM: No acute intra-axial hemorrhage. No edema, mass effect,midline shift, or herniation. Senescent mineralization of the lentiform nuclei. WHITE MATTER: Redemonstration of periventricular-subcortical T2/FLAIR hyperintense white matter disease, nonspecific, though can be seensecondary to chronic microvascular ischemia. POSTERIOR FOSSA: No acute abnormality. As below. DIFFUSION IMAGING: No restricted diffusion to suggest acute/subacute ischemia or infarct. EXTRAAXIAL SPACES: No extra-axial fluid collection. No extra-axialmass. BRAIN VOLUME: Redemonstration of cerebral and cerebellar volume loss. PITUITARY: Unremarkable. VASCULATURE: No flow disturbance evident. CALVARIUM: Unremarkable. ORBITS: No acute abnormality. Kenaitze ocular lenses replaced bilaterally. PARANASAL SINUSES AND MASTOIDS: Paranasal sinuses clear. Mastoid aircells well-developed and well aerated. OTHER: No other significant finding. IMPRESSION: No acute intracranial process with chronic findings as above. THIS IS AN ELECTRONICALLY VERIFIED FINAL REPORT 03/01/2025 9:12 AM - Electronically signed by Misael Colby M.D. PRANEETH: PRANEETH Report ID: [id number] Reading Location: [place] [address] us Provider Transcribed Order IMG MRI PROCEDURES Fi nal Result * (ABNORMAL) eGFR (01/31/2025 2:35 PM CDT) [...] MD LAB BLOOD ORDERABLES Final Res ult [facility] ([place] [address] [facility] Department [place] [address] * Differential, auto (01/31/2025 2:35 PM CDT) Neutrophil abs 3.98 1.50 - 6.50 K/cumm Imm gran abs 0.01 0.00 - 0.10 K/cumm [facility] ([place]) Lymphocyte abs 2.13 0.80 - 3.30 K/cumm [facility] ([place]) Monocyte abs 0.80 0.20 - 0.80 K/cumm [facility] ([place]) Eosinophil abs 0.22 0.00 - 0.50 K/cumm [facility] ([place]) Basophil abs 0.04 0.00 - 0.10 K/cumm [facility] ([place]) Neutrophil pct 55.4 % [facility] ([place] Comment: Interpretive Data Percent cell count reference ranges are not reported, since discordance with absolute values may lead to misinterpretation of CBC data. Current Interpretive Data was last revised on 2017. Imm gran pct 0.1 % [facility] ([place]) Comment: Interpretive Data Percent cell count reference [...] 2:35 PM CDT 01/31/2025 2:35 PM CDT Samuel Marie MD LAB BLOOD ORDERABLES Final Res ult [facility] ([place]) [address] [facility] Department [place] [address] * (ABNORMAL) CBC with auto differential (01/31/2025 [...] 2:35 PM CDT 01/31/2025 2:35 PM CDT Samuel Marie MD LAB BLOOD ORDERABLES Final Res ult [facility] ([place]) [address] [facility] Department [place] [address] * (ABNORMAL) Basic metabolic panel (01/31/2025 2:35 PM CDT) Sodium 140 135 - 145 mmol/L [facility] ([place] Potassium, pl 4.8 3.3 - 4.9 mmol/L [facility] Chloride 105 97 - 110 mmol/L [facility] CO2 23 22 - 32 mmol/L [facility] Anion gap 12 2 - 15 mmol/L [facility] ([place] BUN 57(H) 6 - 25 mg/dL [facility] Creatinine 2.28(H) 0.60 - 1.10 mg/dL [facility] Glucose 100 70 - 199 mg/dL [facility] ([place] [...] 2022. Calcium 10.1 8.5 - 10.3 mg/dL [facility]) Blood 01/31/2025 2:35 PM CDT 01/31/2025 2:36 PM CDT Samuel Marie MD LAB BLOOD ORDERABLES Final Res ult [facility] [place] [address] [facility] Department [place] [address] * CT abdomen pelvis without contrast (01/27/2025 [...] distention. Electronically signed by: Raissa Crawford M.D. us Lisa Wolfe NP IMG CT PROCEDURES Final [...] 9:35 PM - Electronically signed by Ryan NEELY: FLORINDA Report ID: [id number] Reading Location: [id number] Procedure Note Ryan Howell MD - 01/15/2025 [...] 9:35 PM - Electronically signed by Ryan NEELY: FLORINDA Report ID: [id number] Reading Location: [id number] Katalina Bruno PA IMG XR PROCEDURES Final Result * CT Cervical [...] 7:56 PM - Electronically signed by Ryan Howell M.D. KH: FLORINDA Report ID: [id number] Reading Location: [id number] Procedure Note Ryan Howell MD - 01/15/2025 [...] 7:56 PM - Electronically signed by Ryan Howell M.D. KH: FLORINDA Report ID: [id number] Reading Location: [place] [address] Katalina WAGNER [facility] [place] [facility] CT PROCEDURES Final Result * CT Head [...] 7:53 PM - Electronically signed by Ryan NEELY: FLORINDA Report ID: [id number] Reading Location: [id number] Procedure Note Ryan Howell MD - 01/15/2025 [...] Ryan Howell M.D. KH: FLORINDA Report ID: [id number] Reading Location: [place] [address] Katalina WAGNER [facility] CT PROCEDURES Final Result * ECG 12 lead (01/15/2025 7:03 PM CDT) 01/15/2025 7:03 PM CDT Narrative [facility] - 01/16/2025 8:31 AM CDT Vent Rate: 112 bpm RR Interval: 532 msec SC Interval: 181 msec QRS Duration: 88 msec QT Interval: 310 msec QTC Interval: 376 msec P-R-T [place]: 53 - 26 - 42 degrees IMPRESSION: SINUS TACHYCARDIA ABNORMAL RHYTHM ECG Compared to prior EKG heart rate increased Electronically Signed By: Marco Antonio Mustafa MD B us Katalina WAGNER ECG ORDERABLES Final Result [facility] * (ABNORMAL) eGFR (01/09/2025 5:51 AM CDT) [...] ORDERABLES F inal Result Performing Organization Address City/[facility]/ZIP Co de Phone Number RE[facility] ([place]) [address] [facility] Department [place] [address] * (ABNORMAL) Differential, auto (01/09/2025 5:51 AM [...] Lymphocyte pct 25.9 % [facility] ([place] Comment: Interpretive Data Percent cell count reference ranges are not reported, since discordance with absolute values may lead to misinterpretation of CBC data. Current Interpretive Data was last revised on 2017. Monocyte pct 15.0 % [facility] ([place]) Comment: Interpretive Data Percent cell count reference [...] 2017. Basophil pct 0.6 % [facility] ([place]) Comment: Interpretive Data Percent cell count reference ranges are not reported, since discordance with absolute values may lead to misinterpretation of CBC data. Current Interpretive Data was last revised on 2017. Blood 01/09/2025 5:51 AM CDT 01/09/2025 5:58 AM CDT us Pascual Navarro MD LAB BLOOD ORDERABLES F inal Result [facility] ([place]) [address] [facility] Department [place] [address] * (ABNORMAL) CBC with auto differential (01/09/2025 5:51 AM CDT) Pathologist [facility] WBC 8.49 3.80 - 9.90 K/cumm Hgb 8.2(L) 11.9 - 15.5 g/dL [facility] Hct 26.8(L) 35.6 - 45.5 % [facility] ([place]) Plt 406(H) 150 - 400 K/cumm [facility] ([place]) MPV 9.1 9.1 - 12.3 fL [facility] [...] F inal Result [facility] ([place] [address] [facility] Department [place] [address] * (ABNORMAL) Comprehensive metabolic panel (01/09/2025 5:51 AM CDT) Pathologist [facility] Sodium 142 135 - 145 mmol/L [facility] [...] F inal Result [facility] ([place] 1 [facility] Department [place] [address] * (ABNORMAL) Differential, auto (01/07/2025 9:56 AM [...] F inal Result [facility] ([place] [address] [facility] Department [place] [address] * (ABNORMAL) CBC with auto differential (01/07/2025 9:56 AM CDT) WBC 7.83 3.80 - 9.90 K/cumm Hgb 9.3(L) 11.9 - 15.5 g/dL [facility] Hct 30.9(L) 35.6 - 45.5 % [facility] ([place]) Plt 393 150 - 400 K/cumm [facility] ([place]) MPV 11.0 9.1 - 12.3 fL [facility] RBC 3.50(L) 3.90 - 5.20 M/cumm [facility] ([place]) MCV 88.3 81.3 - 96.4 fL [facility] ([place]) MCH 26.6(L) 27.1 - 33.3 pg [facility] ([place]) MCHC 30.1(L) 32.3 - 35.7 g/dL [facility] ([place]) RDW CV 17.2(H) 11.1 - 14.9 % [facility]) RDW SD 54.0(H) 35.7 - 48.1 fL [facility] ([place]) NRBC abs 0.00 0.00 - 0.01 K/cumm [facility] ([place]) Blood 01/07/2025 9:56 AM CDT 01/07/2025 10:49 AM CDT Pascual Navarro MD LAB BLOOD ORDERABLES F inal Result [facility] ([place] 1 [facility] Department [place] [address] * MRI Cervical Spine WO Contrast (01/06/2025 5:03 PM CDT) Anatomical Region Laterality Modality Spine N/A Magnetic Resonan ce 01/06/2025 11:0 3 PM CDT Narrative 01/06/2025 11:09 PM CDT EXAM DESCRIPTION: MRI CERVICAL SPINE WO CONTRAST REASON FOR STUDY: To rule out cervical stenosis Patient was found face down at the f[facility]. She was having a seizure for 3 [...] Tigre Steele M.D. LC: MARIO Report ID: [id number] Reading Location: [id number] Procedure Note Linda Steele MD - 01/06/2025 EXAM DESCRIPTION: MRI CERVICAL SPINE WO CONTRAST REASON FOR STUDY: To rule out cervical stenosis Patient was found face down at the fdc. She was having a seizurefor 3 minutes. [...] Tigre Steele M.D. LC: MARIO Report ID: [id number] Reading Location: [id number] us Gilberto Mead NP IMG MRI PROCEDURES Final Re [...] Patient was found face down at the fdc. She was having a seizure for 3 [...] 6:18 PM - Electronically signed by Tigre RodriguezD. LC: MARIO Report ID: [id number] Reading Location: [id number] Procedure Note Linda Steele MD - 01/06/2025 EXAM DESCRIPTION: MRI BRAIN WO CONTRAST REASON FOR STUDY: Neuro deficit, acute, stroke suspected, Seizure, new-onset, no history of trauma Patient was found face down at the fdc. She was having a seizurefor 3 minutes. Afterwards she was confused. She denies headache, chest pain, shortness breath, nausea, vomiting, dizziness. Patient is medicated. Best images possible. TECHNIQUE: Multiplanar imaging includes non-contrasted T1, T2, FLAIR, and diffusion with ADC map sequences. Additional sequence(s) sensitive Livestar. Images stored on PACS. COMPARISON: Head CT [...] Tigre Steele M.D. LC: MARIO Report ID: [id number] Reading Location: [id number] Gilberto Mead SUPERVISOR [employer]ING [employer]IMMING IMG MRI PROCEDURES Final Re sult * [...] CDT) Trop T hs 26(H) <=14 ng/L [facility] ([place]) Comment: Interpretive Data For further hscTnT resources including the diagnostic algorithm and an aid in interpretation, copy and paste this link: https://nrl.testcatalog.org/show/hsTrop Current Interpretive Data last revised 2020. Trop T hs delta 3 ng/L [facility] ([place] Trop T hs interp Insignificant [facility] ([place]) Blood 01/06/2025 8:46 AM CDT 01/06/2025 8:52 AM CDT Lyle Morrison MD LAB BLOOD ORDERABLES Final R esult [facility] ([place]) 1 [facility] [email or web address] [address] * (ABNORMAL) Troponin T high-sensitivity 2-hour (01/06/2025 [...] interp Insignificant [facility] ([place]) Blood 01/06/2025 4:41 AM CDT 01/06/2025 4:44 AM CDT Lyle Morrison MD LAB BLOOD ORDERABLES Final R esult [facility] ([place]) 1 [facility] [place] [address] * CT Cervical Spine WO Contrast (01/06/2025 3:21 AM CDT) Anatomical Region Laterality Modality Spine N/A Computed Tomogra phy 01/06/2025 3:35 AM CDT Narrative 01/06/2025 3:37 AM CDT EXAM DESCRIPTION: CT CERVICAL SPINE WO CONTRAST REASON FOR STUDY: Neck trauma (Age >= 65y) Patient was found face down at the fdc. She was having a seizure for 3 [...] Aleksandr Garner M.D. AR: ARMANDO Report ID: [id number] Reading Location: [place] [address] Procedure Note Aleksandr Garner MD - 01/06/2025 EXAM DESCRIPTION: CT CERVICAL SPINE WO CONTRAST REASON FOR STUDY: Neck trauma (Age >= 65y) Patient was found face down at the fdc. She was having a seizurefor 3 minutes. [...] Aleksandr Garner M.D. AR: ARMANDO Report ID: [id number] Reading Location: [place] [address] Lyle Morrison MD IM CT PROCEDURES Final Resu lt * CT Head WO Contrast (01/06/2025 3:21 AM CDT) Anatomical Region Laterality Modality Head and Neck N/A Computed Tomogra phy 01/06/2025 3:37 AM CDT Narrative 01/06/2025 3:38 AM CDT EXAM DESCRIPTION: CT HEAD WO CONTRAST REASON FOR STUDY: Head trauma, minor (Age >= 65y) Patient was [facility] down at the [facility]. She was having a seizure for 3 [...] Aleksandr Garner M.D. AR: [place] Report ID: [id number] Reading Location: [id number] Procedure Note Aleksandr Garner MD - 01/06/2025 EXAM DESCRIPTION: CT HEAD WO CONTRAST REASON FOR STUDY: Head trauma, minor (Age >= 65y) Patient was [facility] down at the [facility]. She was having a seizurefor 3 minutes. [...] Aleksandr Garner M.D. AR: ARMANDO Report ID: [id number] Reading Location: [id number] Lyle Morrison MD IMG CT PROCEDURES Final Resu lt * ECG 12 lead (01/06/2025 2:36 AM CDT) 01/06/2025 2:36 AM CDT Narrative [facility] - 01/06/2025 8:26 AM CDT Vent Rate: 96 bpm RR Interval: 620 msec SC Interval: 196 msec QRS Duration: 85 msec QT Interval: 328 msec QTC Interval: 382 msec P-R-T [place]: 56 - 26 - 41 degrees IMPRESSION: SINUS RHYTHM POSSIBLE LEFT ATRIAL ENLARGEMENT [-0.1mV P-WAVE IN V1/V2] BORDERLINE ECG NO CHANGE FROM PREVIOUS TRACING NOTED Electronically Signed By: Harry Jaimes MD us Lyle Morrison MD ECG ORDERABLES Final Result [facility] * (ABNORMAL) Troponin T high-sensitivity series (baseline, 2hr, 4hr, 6hr) (01/06/2025 2:29 AM CDT) Pathologist [facility] Trop T hs 23(H) <=14 ng/L [facility] GRABIEL ([place]) Comment: Interpretive Data For further hscTnT resources including the diagnostic algorithm and an aid in interpretation, copy and paste this link: https://nrl.testcatalog.org/show/hsTrop Current Interpretive Data last revised 2020. Blood 01/06/2025 2:29 AM CDT 01/06/2025 2:33 AM CDT Lyle Morrison MD LAB BLOOD ORDERABLES Final R esult [facility] SPAIN ([place]) 1 [facility] [place] [address] * Sepsis Lactate w/ Reflex (01/06/2025 2:29 AM CDT) [facility] Sepsis Lactate 2.0 0.7 - 2.0 mmol/L Blood 01/06/2025 2:29 AM CDT 01/06/2025 2:33 AM CDT Lyle Morrison MD LAB BLOOD ORDERABLES Final R esult REBECCA SPAIN ([place]) 1 [facility] [place] [address] * (ABNORMAL) eGFR (01/06/2025 2:29 AM CDT) [facility] eGFR 22(L) >=60 mL/min/1. 73 m2 Comment: Interpretive Data Reference Interval Normal >/= 90 mL/min/1.73m2 Mildly decreased* 60 - 89 mL/min/1.73m2 Mildly to moderately decreased 45 - 59 mL/min/1.73m2 Moderately to severely decreased 30 - 44 mL/min/1.73m2 Severely decreased 15 - 29 mL/min/1.73m2 Kidney Failure < 15 mL/min/1.73m2 *Relative to young adult level Estimated glomerular filtration rate is determined by the 2021 CKD-EPI equation recommended by the National Kidney [...] BLOOD ORDERABLES Final R esult [facility]BE[facility] SPAIN ([place]) 1 [facility] Department [place] [address] * (ABNORMAL) Differential, auto (01/06/2025 2:29 AM [...] Imm gran pct 1.1 % [facility] ([place]) Comment: Interpretive Data Percent cell count reference [...] revised on 2017. Monocyte pct 11.8 % REBECCA SPAIN ([place]) Comment: Interpretive Data Percent cell count reference ranges are not reported, since discordance with absolute values may lead to misinterpretation of CBC data. Current Interpretive Data was last revised on 2017. Eosinophil pct 3.0 % MELISSANE R GRABIEL ([place]) Comment: Interpretive Data Percent cell count reference ranges are not reported, since discordance with absolute values may lead to misinterpretation of CBC data. Current Interpretive Data was last revised on 2017. Basophil pct 0.3 % [facility]BE[facility] SPAIN ([place]) Comment: Interpretive Data Percent cell count reference ranges are not reported, since discordance with absolute values may lead to misinterpretation of CBC data. Current Interpretive Data was last revised on 2017. Blood 01/06/2025 2:29 AM CDT 01/06/2025 2:34 AM CDT us Lyle Morrison MD LAB BLOOD ORDERABLES Final R esult [facility] SPAIN ([place]) 1 [facility] Department [place] [address] * Pro B-type natriuretic peptide (01/06/2025 2:29 AM CDT) NT-proBNP 323 <=450 pg/mL [facility]BE[facility] SPAIN ([place]) Comment: Interpretive [...] Eur Heart J. 2006:27:330-337. 2. Lore RW, Geovanna BIRD. J. AM Lance Cardiol: Cardiovasc Imag. 2009;2: 216- 225. Interpretive Data Last Revised Date: 2018. Blood 01/06/2025 2:29 AM CDT 01/06/2025 2:33 AM CDT Lyle Morrison MD LAB BLOOD ORDERABLES Final R esult [facility] ([place]) 1 [facility] Department [place] [address] * (ABNORMAL) CBC with auto differential (01/06/2025 [...] RDW CV 16.6(H) 11.1 - 14.9 % [facility] ([place]) RDW SD 52.4(H) 35.7 - 48.1 fL [facility] ([place]) NRBC abs 0.00 0.00 - 0.01 K/cumm [facility] ([place]) Blood 01/06/2025 2:29 AM CDT 01/06/2025 2:34 AM CDT Lyle Morrison MD LAB BLOOD ORDERABLES Final R esult [facility] ([place]) 1 [facility] [place] [address] * Magnesium (01/06/2025 2:29 AM CDT) Pathologist [facility] Magnesium 1.8 1.4 - 2.5 mg/dL [facility] ([place]) Blood 01/06/2025 2:29 AM CDT 01/06/2025 2:33 AM CDT Lyle Morrison MD LAB BLOOD ORDERABLES Final R esult Performing Organization Address City/[facility]/ZIP Co de Phone Number REBECCA SPAIN ([place]) 1 [facility] [place] [address] * (ABNORMAL) Comprehensive metabolic panel (01/06/2025 2:29 AM CDT) Sodium 139 135 - 145 mmol/L [facility] ([place]) Potassium, pl 3.7 3.3 - 4.9 mmol/L [facility] ([place]) Chloride 101 97 - 110 mmol/L [facility] ([place]) CO2 27 22 - 32 mmol/L [facility] ([place]) Anion gap 11 2 - 15 mmol/L [facility] ([place]) BUN 28(H) 6 - 25 mg/dL [facility] ([place]) Creatinine 2.20(H) 0.60 - 1.10 mg/dL [facility] ([place]) Glucose 115 70 - 199 [...] ([place]) AST 40 10 - 45 Units/L [facility] ([place]) Blood 01/06/2025 2:29 AM CDT 01/06/2025 2:33 AM CDT us Lyle Morrison MD LAB BLOOD ORDERABLES Final R esult [facility] ([place]) 1 [facility] Department [place] [address] * CT Cervical Spine WO Contrast (01/05/2025 [...] Aleksandr Garner M.D. AR: [place] Report ID: [id number] Reading Location: [id number] Procedure Note Aleksandr Garner MD - 01/05/2025 [...] Aleksandr Garner M.D. AR: [place] Report ID: [id number] Reading Location: [id number] Marino Molina MD [facility] [place] CT PROCEDURES Final Result * CT Head [...] Aleksandr Garner M.D. AR: [place] Report ID: [id number] Reading Location: [id number] Procedure Note Aleksandr Garner MD - 01/05/2025 [...] Aleksandr Garner M.D. AR: [place] Report ID: [id number] Reading Location: [place] [address] Marino Molina MD IMG CT PROCEDURES Final Result * (ABNORMAL) eGFR [...] of Race in Diagnosing Kidney Disease, JASN 202). The CKD-EPI equation should not be used for patients with unstable renal function and has not been validated in children and those over 70. Current interpretive data was last reviewed 2021. Blood 01/05/2025 3:05 AM CDT 01/05/2025 3:10 AM CDT Marino Molina MD LAB BLOOD ORDERABLES Final Res ult [facility] [place]) 6 [facility] Department [place] [address] * (ABNORMAL) Differential, auto (01/05/2025 3:05 AM [...] Final Res ult [facility] ([place]) 1 [facility] [place] [address] * (ABNORMAL) CBC with auto differential (01/05/2025 3:05 AM CDT) WBC 10.06(H) 3.80 - 9.90 K/cumm Hgb 7.7(L) 11.9 - 15.5 g/dL [facility] ([place]) Hct 25.7(L) 35.6 - 45.5 % [facility] ([place]) Plt 405(H) 150 - 400 K/cumm [facility] ([place]) MPV 9.0(L) 9.1 - 12.3 fL [facility] ([place]) RBC 2.93(L) 3.90 - 5.20 M/cumm [facility] ([place]) MCV 87.7 81.3 - 96.4 fL [facility] ([place]) MCH 26.3(L) 27.1 - 33.3 pg [facility] ([place]) MCHC 30.0(L) 32.3 - 35.7 g/dL [facility] ([place]) RDW CV 16.8(H) 11.1 - 14.9 % [facility] ([place]) RDW SD 53.5(H) 35.7 - 48.1 fL [facility] ([place]) NRBC abs 0.00 0.00 - 0.01 K/cumm [facility] ([place]) Blood 01/05/2025 3:05 AM CDT 01/05/2025 3:10 AM CDT Marino Molina MD LAB BLOOD ORDERABLES Final Res ult [facility] ([place]) 1 [facility] Department [place] [address] * (ABNORMAL) Comprehensive metabolic panel (01/05/2025 3:05 AM CDT) Sodium 140 135 - 145 mmol/L [facility] ([place]) Potassium, pl 3.8 3.3 - 4.9 mmol/L [facility] ([place]) Chloride 101 97 - 110 mmol/L [facility] ([place]) CO2 25 22 - 32 mmol/L [facility] ([place]) Anion gap 14 2 - 15 mmol/L [facility] ([place]) BUN 27(H) 6 - 25 mg/dL [facility] ([place]) Creatinine 2.15(H) 0.60 - 1.10 mg/dL [facility] ([place]) Glucose 112 70 - 199 mg/dL [facility] ([place]) [...] MD LAB BLOOD ORDERABLES Final Res ult [facility] 1 [facility] Department [place] [address] * ECG 12 lead (01/05/2025 3:02 AM CDT) 01/05/2025 3:02 AM CDT Narrative [facility] - 01/05/2025 4:08 PM CDT Vent Rate: 99 bpm RR Interval: 604 msec SC Interval: 160 msec QRS Duration: 93 msec QT Interval: 348 msec QTC Interval: 404 msec P-R-T [place]: 39 - 22 - 44 degrees IMPRESSION: SINUS RHYTHM NORMAL ECG NO CHANGE FROM PREVIOUS TRACING NOTED Electronically Signed By: Harry Jaimes MD Marino Molina MD ECG ORDERABLES Final Result [facility] * COLONOSCOPY (02/09/2018 10:41 AM CDT) Anatomical Region Laterality Modality Other Narrative Procedure Note Warren Perkins MD - 02/09/2018 10:41 AM CDT [facility] Patient Name: Connie Ambrose Procedure Date: 02/09/2018 10:41 AM Date of : 1945 Admit Type: Outpatient Age: 72 Gender: Female Attending MD: Warren Perkins M.D. Room: [facility] ENDOSCOPY ROOM 1 Note Status: [...] scope was passed under direct vision.The Colonoscope [id number] was introducedthrough the anus and advanced to [...] 10:41 AM Procedure Code(s): --- Professional --- 53511, Colonoscopy, flexible; diagnostic, including collection of specimen(s) by brushing or washing, when performed (separateprocedure) Diagnosis Code(s): --- Professional --- K57.30, Diverticulosis of large intestine without perforation orabscess without bleeding R19.5, Other fecal abnormalities K64.9, Unspecified hemorrhoids CPT copyright 2017 [employer]. All rights reserved. The codes documented in this report are preliminary and upon video specialist reviewmay be revised to meet current compliance requirements. Recognized by the [employer] for promoting quality in endoscopy Warren Perkins MD ENDOSCOPY PROCEDURES Final Re sult from Last 3 Months or Most Recently Relevant to Health Maintenance Additional Health Concerns Infection Onset Date Last Indicated C. difficile 12/26/2024 12/26/2024 Insurance [employer] MEDICARE ADVANTAGE [facility] MEDIC[facility] Address: [address] [address] [place] [address] [employer] MEDICARE ADVANTAGE Advance Directives For more information, please contact: [phone] * Full Code (Latest Code Status on [...] 9:33 AM 12/28/2024 8:11 PM Care Teams Masseur/Masseuse Relationship Specialty Start Date End Date Misael Montaño MD [address] [place] [address] PCP - General Family Medicine 01/12/18 Johnathan Booker MD [address] [address] PCP - Home Infusion Attending Infectious Diseases 12/28/24 Abby De Leon MD [address] [place] [address] Consulting Physician Gastroenterology 01/02/25
--- OUTSIDE RECORDS SUMMARY | 2025-04-06 12:00 | XMS_ITS | Clinical Summary ---
Author Organization [facility] Facility Address [address] [place] [address] Care Team Providers Care Purse Framer Name Role Phone Misael Montaño MD Primary Care Provider [phone] Allergies Active Allergy Reactions Criticality Noted Date Comments Adhesive Tape 07/29/2022 Antihistamines, Diphenhydramine-Type Rash Low 07/29/2022 Aspirin 07/29/2022 Clindamycin GI intolerance 07/29/2022 Doxycycline 07/29/2022 Indomethacin Vomiting High 07/29/2022 Salicylates Rash Low 07/29/2022 Sulfamethizole 07/29/2022 Trimethoprim 07/29/2022 Medications [place] 3 1000 MG capsule Take 1 capsule [...] patient's age to complete this topic Insurance [id number] Medicare Care Teams Purse Framer Relationship Specialty Start Date End Date Misael Montaño MD [id number] [place] [address] PCP - General Family Medicine 07/29/22
== END 2025-04-06 10:57 | disposition home or self-care (01) ==
LOC: ANHLAB 10:57
PROVIDERS: PCP Family Medicine
DX: N18.4 Chronic kidney disease, stage 4 (severe) (principal)
CPT/HCPCS: 36415; 80048